=== PATIENT | female | born 1960 | race Caucasian/White ===

== ENCOUNTER 2023-07-10 01:42 | Inpatient (IN) | payer OTHER, SELFPAY ==
[2023-07-09] VITALS (15 sets, daily range): BP systolic 67–142; BP diastolic 39–86; BMI 28.1
[2023-07-09] MEDS: NORCURON 10 MG IV (22:43)
[2023-07-09] MEDS: DIPRIVAN 100 IV (22:43)
[2023-07-09] MEDS: LEVOPHED 250 IV (22:55)
--- NOTE | 2023-07-09 22:55 | EDRN ---
Patients blood pressure trending down, informed Dr. Mccain, starting levophed at this time.
[2023-07-09] MEDS: SUBLIMAZE 100 IV (23:10)
--- NOTE | 2023-07-09 23:10 | EDRN ---
Informed Dr. Mccain that temp fole yplaced in patient however as going through history appears she has history of latex allergy and gets hives, order to give benadryl to counteract that and to leave chapin placed for now to monitor temp. Dr. Mccain also
aware of patients temp. being low and would like to keep it at that for now
[2023-07-09] MEDS: NSS 1000 IV (23:14)
--- NOTE | 2023-07-09 23:14 | PHANOTE ---
Med Rec Note:
Tried to interview pt's spouse to find out pt's medications. He did not know what she was taking, he stated they just lost their insurance and she was trying to stretch her prescriptions.
Pt's spouse called pt's daughter in [place], pt's daughter stated that pt was admitted at [facility] in [place] in April and was discharged on Empagliflozin 10mg Daily, Insulin Glargine 20 units HS, Metformin 500mg BID, Pantoprazole 40mg Daily,
Rosuvastatin 20mg HS and Gabapentin 100mg 3 Caps BID for 14 days.
Home med list compiled from ECW, and pt's daughter. Other medications in ecw left unconfirmed.
[2023-07-09 23:16] LABS: % Basophils 0.4 % (0-2); % Eosinophils 0.7 % (0-6); % Immature Granulocytes 4.7 % (0-0.5); % Lymphocytes 52.8 % (20.5-51.1); % Neutrophils 38.4 % (42.2-75.2); Absolute Basophils 0.1 10^3/uL (0-0.2); Absolute Eosinophils 0.1 10^3/uL (0-0.7); Absolute Immature Granulocytes 0.9 10^3/uL (0-0.05); Absolute Lymphocytes 9.7 10^3/uL (1.2-3.4); Absolute Monocytes 0.6 10^3/uL (0.1-0.6); Absolute Neutrophils 7.1 10^3/uL (1.4-6.5); Hematocrit 39.4 % (37.0-47.0); Hemoglobin 12.8 g/dL (12.0-16.0); Mean Corp Hgb Conc. 32.5 g/dL (33.0-37.0); Mean Corpuscular Hgb 31.2 pg (27.0-31.0); Mean Corpuscular Volume 96.1 fL (81.0-99.0); Mean Platelet Volume 10.2 fL (7.4-10.4); Nucleated Red Blood Cells % 0.1 %; Platelet Count 240 10^3/uL (130-400); Red Cell Dist. Width 12.9 % (11.5-14.5); Urine Albumin 3+ (Neg - Trace); Urine Bilirubin Negative (Negative); Urine Character Very Cloudy (Clear); Urine Color Yellow; Urine Glucose 3+ (Negative); Urine Ketone Negative (Negative); Urine Leukocyte Negative (Negative); Urine Nitrite Negative (Negative); Urine Occult Blood 3+ (Negative); Urine Specific Gravity 1.015 (<1.030); Urine Urobilinogen Negative (Neg - 1+); White Blood Cell Count 18.4 10^3/uL (4.8-10.8)
[2023-07-09] MEDS: BENADRYL 25 MG IV (23:17)
[2023-07-09] MEDS: DUONEB 3 ML INH (23:27)
[2023-07-09] MEDS: VENTOLIN NEBULES 2.5 MG INH (23:27)
--- NOTE | 2023-07-09 23:32 | ED.GENMED ---
History of Present Illness
General
Chief Complaint: CODE
Source: patient, spouse and ambulance crew
Exam Limitations: clinical condition
Time Seen by Provider: 07/09/23 22:33
Nursing documentation reviewed up to this point in time: agreed with
Travel History
Have you had any contact with someone who has COVID-19?: No
Do you have any symptoms of coronavirus? Fever > 100 degrees, chills, cough, shortness of breath, sore throat, loss of taste or smell, muscle aches, or headache?: No
History of Present Illness
History of Present Illness:
Patient with history of CHF and COPD, presents to ED after witnessed respiratory arrest, and route to the hospital. Paramedics initially called to patient's house secondary to increased work of breathing, which occurred while patient was outside
smoking. Patient was found to be in respiratory distress when first arrived and shortly lost pulses. CPR started immediately by paramedics and 1 epinephrine dose provided via intraosseous line on her left leg, with shinto of pulse. Patient
also intubated at the scene. Upon arrival, patient is on a ventilator, and not responsive. Unable to obtain any further information.
Past History
Past History
ED Past Medical History: CHF, COPD and NIDDM
ED Past Surgical History: Cholecystectomy and Orthopedic
Social History
Tobacco: Former smoker
Review of Systems
Review of Systems
Allergies reviewed?: Yes
Unable to obtain full review of systems at this time due to: due to acuity
All Other Systems: Not applicable
Phy Exam
Physical Exam
Physical Exam:
Physical Exam
General: moderate distress, acutely ill. afebrile.
Head: nc/at. perrla
Neck: supple. no jvd
Heart: tachycardic, no murmur. equal radial pulses.
Lungs: no acute respiratory distress. rhonchi bilaterally
Abdomen: normal bowel sounds. no distention
Neuro: unresponsive to verbal or physical stimuli.
Skin: no rash
Extremities: no edema. no calf tenderness.
Course
Orders/Labs/Results
Orders:
Orders
07/09/23 22:33
CR Chest Portable - 1 View Urgent
Comment:
Reason For Exam: post intubation
Reason Study Needs to be Portable: Patient Unstable
07/09/23 22:35
Electrocardiogram (*1) Urgent
Reason for Study: Tachycardia
EKG- Treatment ONCE
Propofol 1,000,000 Mcg/100 ml [Diprivan] 1,000,000 mcg in 100 ml IV NOW
Indication:: Light Sedation
Begin Infusion:: Now
Goal:: RASS 0 to -2
Maximum dose in mcg/kg/min:: 50
Initial dose based on RASS:: Yes
If RASS is:: +1 or pt hemodynamically unstable (SBP < 90mmHg), initiate at 10 mcg/kg/min
If RASS is:: +2, initiate at 20 mcg/kg/min
If RASS is:: greater than or equal to +3, initiate at 30 mcg/kg/min
Titration Instructions:: Titrate by 5-10 mcg/kg/min every 5 minutes until RASS 0 to -2 achieved.
Taper Instructions:: If RASS is at or below goal for 4 consecutive hours decrease infusion by
Taper Instructions:: 5-10 mcg/kg/min every 2 hours to off.
Over-sedation Instructions:: If CPOT 0-2 (at goal) AND RASS -3 to -5 (below goal) decrease sedative by
Over-sedation Instructions:: 50% first. If pain score remains at goal and RASS remains below goal in
Over-sedation Instructions:: 1 hour, decrease opioid infusion by 50%.
Notify provider:: immediately if patient exhibits signs/symptoms of propofol-related
Notify provider:: infusion syndrome.
Additional Instructions:: Patient MUST be mechanically ventilated and MUST receive analgesia.
07/09/23 22:37
Vecuronium [place] [Norcuron] 10 mg IV NOW STA
07/09/23 22:38
FentaNYL 1,000 MCG/100 ML [Sublimaze] 1,000 mcg in 100 ml IV NOW
Indication:: Light Sedation
Begin Infusion:: Now
Goal:: pain score </= 1, CPOT 0-2
Maximum dose in mcg/hr:: 300
Initial Dose in mcg/hr:: 10
Titration Instructions:: Titrate every 30 minutes if patient exhibits signs of pain or discomfort
Titration Instructions:: (pain score >/= 2, CPOT >/= 3).
Titration Instructions:: Administer bolus dose and increase infusion by 25 mcg/hr.
Taper Instructions:: If pain score at goal for 4 consecutive hours (pain score </= 1, CPOT 0-2)
Taper Instructions:: decrease infusion by 50 mcg/hr every 2 hours.
Taper Instructions:: When dose </= 50 mcg/hr may turn infusion off and consider PRN
Taper Instructions:: intermittent bolus doses only.
Over-sedation Instructions:: If CPOT 0-2 (goal) and RASS -3 to -5 (below goal) decrease sedative by 50%
Over-sedation Instructions:: first. If pain score remains at goal and RASS remains below goal in 1 hour,
Over-sedation Instructions:: decrease opioid infusion by 50%.
Notify provider:: immediately if pt exhibits: chest wall rigidity, hemodynamic instability,
Notify provider:: agitation/pain despite maximum dosing, pain when RASS below goal.
Additional Instructions:: Patient MUST be mechanically ventilated.
Fentanyl Citrate/Pf [Sublimaze] 25 mcg IV NOW STA
Fentanyl Citrate/Pf [Sublimaze] 50 mcg IV [id number] PRN
07/09/23 22:45
Arterial Blood Gas Urgent
%Oxygen/Room Air: 100
Albuterol Nebs [Ventolin Nebules] 2.5 mg INH R NOW STA
Carboxymethylcellulose [Refresh Celluvisc Gel] 1 drops OPHTH Q12H
Ipratropium/Albuterol Sulfate [Duoneb] 3 ml INH R NOW STA
07/09/23 22:46
0.9% Sodium Chloride 1000 ml [Nss] 1,000 ml IV BOLUS
07/09/23 23:03
Complete Blood Count/With Diff Urgent
NT-proBNP Urgent
Comment: ADD ON
Triglycerides Routine
Comment: baseline levels with propofol infusion
Troponin I Urgent
Urinalysis Reflex To Culture Urgent
Date Specimen was Collected: 07/09/23
Time Specimen was Collected: 23:02
Urine Microscopic Reflex Cult Urgent
Urine Culture Urgent
KENNETH Source: U
Specimen Description:
Date Specimen was Collected: 07/09/23
Time Specimen was Collected: 23:02
07/09/23 23:08
FentaNYL 1,000 MCG/100 ML [Sublimaze] 1,000 mcg in 100 ml .ROUTE .STK-MED
07/09/23 23:09
Diphenhydramine [Benadryl] 50 mg .ROUTE .STK-MED ONE
07/09/23 23:17
Diphenhydramine [Benadryl] 25 mg IV NOW STA
07/09/23 23:29
Add On- LAB Urgent
Tests Added?: ProBNP
07/09/23 23:43
Comprehensive Metabolic Panel Urgent
Comment: REDRAW
Magnesium Urgent
07/09/23 23:45
NORepinephrine 4 MG/250 ML [Levophed] 4 mg in 250 ml IV PER PROTOCOL
Initial dose in mcg/min, then titrate:: 10
Titrate to keep:: MAP > 65 mmHg
Titrate by mcg/min:: 1-2 mcg/min
Frequency of titrations (minutes):: 5
Maximum dose in ICU in mcg/min:: 30
Maximum dose in IMU in mcg/min:: 8
Maximum dose in IVU in mcg/min:: 4
Begin to taper infusion when:: Remained at goal for 4hrs
Taper by mcg/min:: 1-2 mcg/min
Frequency of taper (minutes) if patient maintains goal:: 30
Taper to off?: Yes
If infusion off & no longer maintaining goal:: Contact Provider
07/10/23 00:17
Catheter- Indwelling As Directed
Reason for insertion: I&O's Critical Care
Assess insertion reason daily.Remove if no longer applicable: Yes
07/10/23 00:45
Procalcitonin Urgent
PCT Algorithmm Indication: Respiratory
07/10/23 00:51
Aztreonam [Azactam] 500 mg Syringe [Syringe-Pump] 0 ml IV NOW
Dexamethasone Sod Phosphate [Decadron] 10 mg IV NOW STA
Vancomycin 1 Gram/200 ml [Vancocin] 1 gram in 200 ml IV NOW
07/10/23 00:52
Lactated Ringers [Lr] 500 ml IV BOLUS
07/10/23 01:00
CT Head W/o Iv Contrast Urgent
Reason For Exam: mental status change, s/p arrest
07/10/23 01:01
Aztreonam [Azactam] 1,000 mg IV NOW STA
Vancomycin [Vancocin] 1,500 mg 0.9% Sodium Chloride [Nss] 20 ml 0.9% Sodium Chloride 250 ml [Nss] 250 ml IV NOW
07/10/23 01:04
Admit/Transfer Patient As Directed
Co-Sign Provider:
Level of Care: Inpatient admission
Assign to:: ICU
Physician / Group: [email or web address]
Diagnosis: acute VDRF,S/p witmessed respiratory arrest, COPD flare, chr HFmEF flare
Reason for Hospitalization: acute VDRF,S/p witmessed respiratory arrest, COPD flare, chr HFmEF flare
Expected length of stay greater than two midnights?: Yes
ELOS- Estimated Length of Stay in days: 7
I certify the patient meets the requirements for IP care: Yes
07/10/23 01:08
Code Status As Directed
Resuscitation Status: Full Code
07/10/23 01:34
Vancomycin [Vancocin] 1,500 mg 0.9% Sodium Chloride [Nss] 20 ml 0.9% Sodium Chloride 250 ml [Nss] 250 ml IV NOW
07/10/23 04:20
Troponin I Q6H
Acetaminophen [Tylenol/Feverall] 650 mg RECTAL Q4HPRN PRN
Bisacodyl [Dulcolax] 10 mg RECTAL [id number] PRN
Dextrose 50%-Water [Dextrose 50% Syringe] 12.5 grams IV [id number] PRN
Docusate W/Senna [Senokot-S] 1 tablet PO BIDPRN PRN
Glucagon [GlucaGen] 1 mg IM PRN PRN
Ipratropium/Albuterol Sulfate [Duoneb] 3 ml INH R Q4HPRN PRN
Polyethylene Glycol Powder [Miralax] 17 grams PO DAILYPRN PRN
VANCOMYCIN Pharmacy to Dose [VANCOCIN Pharmacy to Dose] 1 each Pharmacy To Prepare [Call Pharmacy To Prepare] 0 ml IV PER PROTOCOL
07/10/23 04:20
CARDIOLOGY CONSULT Routine
Consulting Provider: Solomon Ernst
Was physician already notified: No
Reason for consult: acute VDRF,S/p witmessed respiratory arrest, COPD flare, chr HFmEF flare
Consult Notification Routine
Specialty to Notify: Cardiology
Consult Notification Routine
Specialty to Notify: Pulmonary
Activity As Directed
Activity Level: With Assistance
Bedside Glucose Monitoring As Directed
Frequency: AC&HS
Comment: Change to q6h if pt on TPN, tube feeding or not eating
Intake/ Output As Directed
Frequency: q12h
Vital Signs As Directed
Frequency: Per unit guidelines
Weight As Directed
Frequency: Daily
DX Deep Vein Thrombosis Video Routine
07/10/23 Breakfast
NPO
Allow oral meds: No
Allow clear liquids: No
NPO with Ice Chips: No
Comment: await small bore NGT placemnt for meds
Complete Blood Count/No Diff IN AM
Comprehensive Metabolic Panel IN AM
Glycohemoglobin (HgbA1c) IN AM
07/10/23 07:00
Dexamethasone Sod Phosphate [Decadron] 4 mg IV Q6H
07/10/23 07:30
Insulin Aspart Corrective Low [Novolog Flexpen-Low Resistance] See Protocol SC AC
07/10/23 08:00
Heparin 5,000 units SC Q12
Ipratropium/Albuterol Sulfate [Duoneb] 3 ml INH R QID
07/10/23 10:00
Aztreonam [Azactam] 1,000 mg IV Q8H
07/10/23 10:20
Troponin I Q6H
07/10/23 16:20
Troponin I Q6H
Abnormal Lab Results
07/09/23 07/09/23 07/10/23
23:03 23:43 00:10
WBC 18.4 H 10^3/uL
(4.8-10.8)
RBC 4.10 L 10^6/uL
(4.20-5.40)
MCH 31.2 H pg
(27.0-31.0)
MCHC 32.5 L g/dL
(33.0-37.0)
Abs Immat Gran (auto) 0.9 H 10^3/uL
(0-0.05)
Absolute Neuts (auto) 7.1 H 10^3/uL
(1.4-6.5)
Absolute Lymphs (auto) 9.7 H 10^3/uL
(1.2-3.4)
Immature Gran % 4.7 H %
(0-0.5)
Neutrophils % 38.4 L %
(42.2-75.2)
Lymphocytes % 52.8 H %
(20.5-51.1)
pH 7.09 L*
(7.35-7.45)
pCO2 65 H mmHg
(32-35)
pO2 71 L mmHg
(83-108)
HCO3 19.7 L mmol/L
(21-28)
ABG O2 Sat (Measured) 93.2 L %
(94-98)
Sodium 133 L mmol/L
(135-145)
Carbon Dioxide 14 L* mmol/L
(22-30)
Glucose 302 H mg/dl
(70-99)
AST 213 H U/L
(14-36)
ALT 69 H U/L
(0-35)
Alkaline Phosphatase 255 H U/L
(38-126)
Troponin I 0.064 H* ng/ml
Triglycerides 173 H mg/dl
(10-149)
Ur Occult Blood Reflex 3+ A
(Negative)
Urine RBC 30-40 A /HPF
(0-2)
Urine WBC (Reflex) 40-50 A /HPF
(0-5)
Urine Bacteria (Reflex) Moderate A
(Negative)
Urine Glucose 3+ A
(Negative)
Urine Albumin (Reflex) 3+ A
(Neg - Trace)
07/09/23 23:03
07/09/23 23:43
Vital Signs
Initial and Last Documented VS:
Initial Vital Signs
Pulse Resp Pulse Ox
122 16 100
07/09/23 22:39 07/09/23 22:39 07/09/23 22:39
Last Documented Vital Signs
Temp Pulse Resp BP Pulse Ox
95.9 F L 102 22 115/85 98
07/09/23 23:56 07/10/23 04:15 07/10/23 04:15 04/16/24 04:15 07/10/23 04:00
MDM/Problems Addressed
MDM/Problems Addressed:
Discussed with family (spouse) - patient was at her baseline health when she went out to the garage to smoke cigarette. Shortly afterwards, patient started complaining of shortness of breath and asked her to call 911. In addition,
recently, patient was with health insurance and has been taking her medications intermittently.
Patient started on Levophed infusion along with sedation protocol upon arrival. Chest x-ray reviewed and ET tube pulled back 2 cm.
Leukocytosis noted, without any evidence of focal infection. As such, will withhold antibiotics.
Critical care statement: A total of 60 minutes of critical care time was provided for this patient. This includes management of unstable vital signs, evaluation of the patient at bedside, reviewing the patient's pertinent medical records, discussion
with consultants, review of old EKGs and review of pertinent medical records. This time with separate from time utilized to perform the aforementioned documented procedures
*Critical Care Note
Total Time (30-74mins, 75-104mins- exclusive of procedures): 60 min
ED Attending Note
-
Portions of this chart may have been created with voice recognition software.� Occasional wrong word or��sound alike� substitutions may have occurred due to the inherent limitations of voice recognition software.
Discharge Plan
Departure
Patient Disposition: Admit
Date of Disposition: 07/09/23
Time of Disposition: 23:41
Admit to: ICU
Presentation/result/management discussed w/ accepting MD/DO: Hospitalist
Discharge Problem:
Respiratory arrest
Interventions
Interventions:
*Risk Screen - Suicide Last Done: 07/09/23 22:45
*General Assessment Last Done: 07/09/23 22:45
*Neglect/Abuse Screening Last Done: 07/09/23 22:45
ED- Fall Risk Assessment Last Done: 07/10/23 00:00
*ED COVID-19 Vaccine History Last Done: 07/09/23 22:45
*Nursing Disposition Last Done: 07/10/23 04:31
ED- Cardiac Assessment Last Done: 07/10/23 00:00
ED- Pulmonary Assessment Last Done: 07/10/23 00:00
Discharge Date and Time
Discharge Date/Time: 07/10/23 04:34
[2023-07-09 23:44] LABS: Triglycerides 173 mg/dl (10-149)
[2023-07-09 23:51] LABS: Troponin I 0.064 ng/ml
--- NOTE | 2023-07-09 23:53 | EDRN ---
Called Dr. Mccain into room, patients heart rate has increased, printed strips to show, Dr. Mccain at bedside, wants to drop Levophed, respiratory also at bedside to suction, o2 sats dropped to 88% with this event as well, HR remains elevated at 147
[2023-07-09 23:56] LABS: NT-proBNP 2750 pg/ml
[2023-07-10] VITALS (72 sets, daily range): BP systolic 57–166; BP diastolic 41–110; BMI 25.4
[2023-07-10 00:13] LABS: ALT (SGPT) 69 U/L (0-35); AST (SGOT) 213 U/L (14-36); Albumin 4.2 g/dl (3.5-5.0); Alkaline Phosphatase 255 U/L (38-126); Blood Urea Nitrogen 17 mg/dl (7-17); Carbon Dioxide 14 mmol/L (22-30); Chloride 104 mmol/L (98-107); Estimated Creatinine Clearance 58 ml/min; Glucose 302 mg/dl (70-99); Potassium 4.7 mmol/L (3.5-5.1); Sodium 133 mmol/L (135-145); Total Bilirubin 0.4 mg/dl (0.2-1.3); Total Protein 6.6 g/dl (6.3-8.2); eGFR > 60.00
--- NOTE | 2023-07-10 00:31 | EDRN ---
Patients BP has improved, holding Levophed for now per Dr. Mccain.
[2023-07-10 00:32] LABS: B.E. -11.1 mmol/L; HCO3 19.7 mmol/L (21-28); O2 Saturation % 93.2 % (94-98); PCO2 65 mmHg (32-35); PO2 71 mmHg (83-108)
[2023-07-10 00:33] LABS: pH 7.09 (7.35-7.45)
[2023-07-10 00:48] LABS: Urine Amorphous Seen
[2023-07-10 00:49] LABS: Urine Bacteria Moderate (Negative); Urine Granular Cast >15 /LPF (0)
[2023-07-10 00:51] LABS: Urine Red Blood Cell 30-40 /HPF (0-2); Urine White Cell 40-50 /HPF (0-5)
--- NOTE | 2023-07-10 00:58 | HPS.HSE ---
Family Physician
-
Family Physician: NOT KNOW UNKNOWN - PT DOES
Chief Complaint
-
out side hospital Resp arrest
History of Present Illness
I could not get any information from the patient as she is intubated and unresponsive
Information gathered by chart review and speaking with the ER attending
HPI
63F HX Chr HFmEF, COPD, HX acute hypoxic RF, DM evaluation at ER for prehospital resp arrest s/p CPR and intubated;
Events of prehospital respiratory arrest witnessed by spouse who called 911
She was smoking outside
She become labored breathing, spoused ccalled 911
Upon EMS arrival then initial agonal breathing followedd by loss of pulse
CPR 3-5 min with ROSC after one epi via intraosseous line on her left leg with CPR.
Then intubated at the scene.
On arrival to ER:
On a ventilator, and not responsive.
Fentanyl gtt and levophed gtt.
Medical History
Past Medical History
Past Medical History: Reports CHF, COPD, HTN and NIDDM
Past Surgical History: Reports Cholecystectomy and Orthopedic
Social History
Tobacco: Former Smoker
Family History
Family History: Not pertinent
Allergies / Home Medications
Allergies reflects when Allergies were last updated in [facility].
Home Medications with original date entered in [facility]
Allergy/Medication List:
Allergies
Allergy/AdvReac Type Severity Reaction Status Date / Time
codeine Allergy Itching Verified 07/09/23 22:52
latex Allergy Hives Verified 07/09/23 22:52
Penicillins Allergy Rash Verified 07/09/23 22:52
silver Allergy 'peels Verified 07/09/23 22:52
[From Tegaderm AG Mesh] skin off'
Home Medications
aspirin 81 mg tablet,delayed release 81 mg PO DAILY 12/06/22
rosuvastatin 20 mg tablet 20 mg PO HS 12/06/22
fluticasone 250 mcg-salmeterol 50 mcg/dose blistr powdr for inhalation (Advair Diskus) 1 inh inhalation R BID #60 ea 12/09/22
furosemide 20 mg tablet 20 mg PO DAILY #30 tabs 12/09/22
insulin glargine 100 unit/mL (3 mL) subcutaneous pen (Lantus Solostar U-100 Insulin) 20 unit (0.2 mL) SC HS #15 mL 12/09/22
ipratropium 0.5 mg-albuterol 3 mg (2.5 mg base)/3 mL nebulization soln 3 ml inhalation Q4H PRN shortness of breath or wheezing #90 mL 12/09/22
metformin 500 mg tablet 500 mg PO BID@0800,1700 #60 tabs 12/09/22
metoprolol succinate 25 mg tablet,extended release 24 hr 12.5 mg (1/2 x 25 mg) PO DAILY #15 tabs 12/09/22
alprazolam 0.25 mg tablet 0.25 mg PO BID 07/09/23
benzonatate 200 mg capsule 200 mg PO TID 07/09/23
empagliflozin 10 mg tablet (Jardiance) 10 mg PO DAILY 07/09/23
insulin aspart U-100 100 unit/mL (3 mL) subcutaneous pen (Novolog FlexPen U-100 Insulin aspart) 0 - 10 sliding scale dose SC AC 07/09/23
meclizine 25 mg tablet 25 mg PO TID PRN dizziness 07/09/23
ondansetron 4 mg disintegrating tablet 4 mg PO DAILY PRN nausea 07/09/23
pantoprazole 40 mg tablet,delayed release 40 mg PO DAILY 07/09/23
Review of Systems
-
Constitutional: Reports No Symptoms
EENT: Reports No Symptoms
Respiratory: Reports See HPI
Cardiac: Reports No Symptoms
Abdomen/GI: Reports No Symptoms
: Reports No Symptoms
Musculoskeletal: Reports No Symptoms
Skin: Reports No Symptoms
Neurological: Reports No Symptoms
Endocrine: Reports No Symptoms
Hematologic/Lymphatic: Reports No Symptoms
Psych: Reports No Symptoms
Physical Exam
Vital Signs
Vital Signs
Temp Pulse Resp BP Pulse Ox
95.9 F L 146 15 84/72 93
07/09/23 23:56 07/09/23 23:50 07/09/23 23:50 07/09/23 23:50 07/09/23 23:45
Physical Exam
General: Intubated
HEENT: NormoCephalic, Anicteric and Moist mucous membranes
Respiratory: Rhonchi (diffuse bilateral )
Cardiac: S1/S2, Regular Rhythm and Tachycardia; No Murmur
Breast: Deferred by me
GI: Soft, Non Tender and Non Distended
Genito-urinary: Deferred by me
Neuro: Other (unresponsive )
Psych: Other (intubated )
Laboratory Results
-
07/09/23 23:03
07/09/23 23:43
Laboratory Results
pH 7.09 (7.35-7.45) L* 07/10/23 00:10
pCO2 65 mmHg (32-35) H 07/10/23 00:10
pO2 71 mmHg (83-108) L 07/10/23 00:10
HCO3 19.7 mmol/L (21-28) L 07/10/23 00:10
Total Bilirubin 0.4 mg/dl (0.2-1.3) 07/09/23 23:43
AST 213 U/L (14-36) H 07/09/23 23:43
ALT 69 U/L (0-35) H 07/09/23 23:43
Alkaline Phosphatase 255 U/L (38-126) H 07/09/23 23:43
Troponin I 0.064 ng/ml H* 07/09/23 23:03
Data Reviewed
-
Diagnostic Radiology: Image Personally Visualized and interpreted
Lab Data: Labs Reviewed by me
Old Records: Reviewed
Impression/Plan
-
Reviewed VS: T 95.[address] 130-140 BP 80/40 --->140/65 RR 14 PO 93 on vent
Data
AB.
WCC 18.4
Na 133 Cl 104
K 4.7
CO2 14
Nl BUN and Cr
BG 302
AST 213 ALT 69 AKP 255
TPNI 0.064
pro BNP 2750 - bl 2540
Unremarkable UA
EKG pending
CXR
1. Endotracheal tube terminating 5.5 mm proximal to the judd (retraction by 2.[address] the tip midway between the clavicular heads and judd).
2. SEVERE ACUTE INTERSTITIAL CARDIOGENIC PULMONARY EDEMA.
Last hospitalist admission: 12/06/22 - 12/09/22
DX Dx:
Acute hypoxic respiratory failure multifactorial from acute congestive heart failure and acute COPD flare
Acute on chronic HFmEF with EF of 45%
CAD with stent
ASSESSMENT & PLAN
Pending Rx reconciliation
Acute VDRF: S/p witnessed respiratory arrest s/p CPR 3-5 min with ROSC s/p IOS epi
Hypotension required NE gtt support
Acute hypoxic hypercapnic RF
Primary acute Resp acidosis with secondary metabolic acidosis
Non gap metabolic acidosis
- HX PCN allergy
- multifactorial from acute CHF and acute COPD
- cont Vent support
- cont NE gtt support
- Empiric Decadron 4mg q6h
- Empiric IV vancomycin and Aztreonam
- Need ICU small bore NGT for meds
- ICU consult
At risk for volume expansion
HX chronic HFmEF (per records)
- records received by cards - summarized as per their note. EF 40-45%
- continue BB as BP allows
- IV Lasix as neeed
- CBC card consult
CAD with history of stenting:
- continue BB/ASA/Statin
- trop negative
Former smoker:
- smoked for 51 years, quit in August
Type 2 DM
- add Lo ISS
DVT ppx: SC Heparin
Code: Full
ICU
Total Critical Care Time__55 mind ___ minutes.
I was immediately available to the patient and staff. I personally examined, reviewed labs, diagnostic images/reports, interpretations, treatment plans, discussed patient care with other providers and family or caregivers (if patient is unable to
make decisions), entered orders as appropriate and documented the medical record.
[2023-07-10] MEDS: LR 500 IV (01:08)
[2023-07-10] MEDS: DECADRON 10 MG IV (01:11)
--- NOTE | 2023-07-10 01:13 | EDRN ---
Daughter called asking for information, our community fundraiser informed her we can't give information out over the phone she can call the patient who is sitting at bedside who we have been keeping updated. As I enter room to go over information
with about meds we will be starting, daughter is on speaker telling 'you need to tell that bitch she needs to talk to me im the emergency contact' informed how we can't give info over the phone it is hippa and we don't have paperwork
with her being POA and is at bedside to relay information. Daughter starts yelling stating 'ooo im gonna make her mad now, and we don't know what the fuck we are talking about, 'bitch you need to talk to me im the emergency contact' kindly
informed that I have been at bedside with his and we are trying to take good care of her and if she is going to curse on phone towards me and be belligerent than he needs to take the phone call outside of the room as it isn't
appropriate for her to yell at me hung up the phone, i informed him that we are trying to take good care of his and its not appropriate for her to be yelling at us while doing so via the phone. understands
--- NOTE | 2023-07-10 01:23 | EDRN ---
Patient starting to move slightly, increased Fentanyl for comfort, also appears patient had a bowl movement, will get patient cleaned up.
--- NOTE | 2023-07-10 01:37 | EDRN ---
Patient becoming diaphoretic, informed Dr. Mccain who is in at bedside assessing patient informed her she did seem to be moving a little bit and Fentanyl was increased, she also had a bowl movement, Dr. Mccain think she is just waking up some, increase
sedation and patient to be cleaned up and re-assess how she is after that.
[2023-07-10] MEDS: AZACTAM 1000 MG IV (02:32)
--- NOTE | 2023-07-10 02:39 | EDRN ---
Patient had a large liquid stool that was continuously pouring out of the patient, patient was cleaned up and a fecal management System was placed and is collecting the stool, fresh linen and gown applied.
--- NOTE | 2023-07-10 03:05 | EDRN ---
Patient started vomiting prior to leaving to go to CT and then to ICU, respiratory at bedside suctioning patient, Dr. Mccain aware that patient is vomiting and starting to move, Ativan to be given to patient prior to leaving to go upstairs, patients
blood pressure continues to be up and down, titrating Levophed per order, Dr. Mccain aware of patients status and has been in to assess patient as well. Patient to go to CT scan with this RN and respiratory therapist prior to going upstairs.
[2023-07-10] MEDS: ATIVAN 1 MG IV (03:08)
[2023-07-10 03:14] LABS: HCO3 19.3 mmol/L (21-28); O2 Saturation % 97.7 % (94-98); PCO2 45 mmHg (32-35); PO2 81 mmHg (83-108); pH 7.24 (7.35-7.45)
[2023-07-10 03:15] LABS: O2 Therapy 95
--- NOTE | 2023-07-10 03:15 | EDRN ---
Had security walk patients up to ICU waiting room, aware that patient will be going to CT and then to ICU and that it can take a bit to get her settled in but would inform ICU nurses that he was there
--- NOTE | 2023-07-10 03:30 | EDRN ---
took patients vancomycin upstairs with patient and handed to nurse, gave one antibiotic downstairs and patient started to get sick prior to going to CT and had to change up the current meds that were going, informed the nurse on all of this when
dropping patient off upstairs.
--- NOTE | 2023-07-10 03:56 | W.PN.UPDATE ---
Update Note
Progress Note Update
Procedure Note: Arterial Line�
� Right Wrist Arrow 20 (05/27)�
Diagnosis:��cardiac arrest
IV Line Comments: Uneventful Procedure�
Azeem's test completed pre-procedure: Yes�
A-Line Comments: Sterile technique as per standard protocol, Ultrasound guided insertion�
Functioning A-line in situ: Yes�
A-line Insertion Start Time:��0515
A-line in at:��0520
--- NOTE | 2023-07-10 04:00 | PTCARENOTE ---
PT arrived to unit at approx. 0335 via ED bed stretcher. Received pt intubated and sedated. Pt on levo gtt and fentanyl gtt. Shortly after tsx to ICU bed pt began vomiting large amounts of red colored emesis, requiring frequent oral suctioning. Pt
tolerating vent settings satting at 98% pulse ox. VSS.
[2023-07-10] MEDS: ZOFRAN 4 MG IV (04:39)
[2023-07-10] MEDS: VANCOCIN 300 ML IV (06:07)
[2023-07-10] MEDS: VANCOCIN 300 MG IV (06:07)
[2023-07-10] MEDS: SUBLIMAZE 100 IV ×2 (06:28→20:40)
[2023-07-10 06:32] LABS: B.E. -7.6 mmol/L; HCO3 16.4 mmol/L (21-28); Ionized Calcium 1.18 mMOL/L (1.15-1.33); PCO2 29 mmHg (32-35); PO2 206 mmHg (83-108); Potassium 3.8 mMOL/L (3.5-5.1); Sodium 135 mMOL/L (136-145); pH 7.36 (7.35-7.45)
[2023-07-10 06:33] LABS: Hematocrit 39.8 % (37.0-47.0); Hemoglobin 13.9 g/dL (12.0-16.0); Mean Corp Hgb Conc. 34.9 g/dL (33.0-37.0); Mean Corpuscular Hgb 31.2 pg (27.0-31.0); Mean Corpuscular Volume 89.2 fL (81.0-99.0); Mean Platelet Volume 9.4 fL (7.4-10.4); Platelet Count 221 10^3/uL (130-400); Red Blood Cell Count 4.46 10^6/uL (4.20-5.40); Red Cell Dist. Width 12.8 % (11.5-14.5); White Blood Cell Count 25.4 10^3/uL (4.8-10.8)
[2023-07-10] MEDS: DECADRON 4 MG IV (06:35)
[2023-07-10 06:43] LABS: INR 1.22; PT 15.2 Sec (11.4-14.6)
[2023-07-10 06:44] LABS: APTT 29.2 Sec (23.4-35.0)
[2023-07-10 06:47] LABS: ALT (SGPT) 76 U/L (0-35); AST (SGOT) 262 U/L (14-36); Albumin 3.9 g/dl (3.5-5.0); Alkaline Phosphatase 255 U/L (38-126); Blood Urea Nitrogen 27 mg/dl (7-17); Calcium 9.5 mg/dl (8.4-10.2); Carbon Dioxide 16 mmol/L (22-30); Chloride 104 mmol/L (98-107); Estimated Creatinine Clearance 45 ml/min; Glucose 307 mg/dl (70-99); Potassium 4.1 mmol/L (3.5-5.1); Sodium 135 mmol/L (135-145); Total Bilirubin 0.5 mg/dl (0.2-1.3); Total Protein 6.1 g/dl (6.3-8.2); eGFR > 60.00
[2023-07-10] MEDS: NOVOLOG FLEXPEN-MODERATE RESISTANCE 7 UNITS SC (06:51)
--- NOTE | 2023-07-10 07:04 | CON.INTV ---
Consultation
Consultation Request
Date/Time Consultation Requested: 07-10-23
Date/Time Consultation Performed: 07-10-23
Requesting Provider: Hospitalist nikko
Performing Provider: Dr Hubbard
Reason for Consultation: cardiac arrest
Medical History
-
Chief Complaint: respiratory and cardiac arrest
History of Present Illness:
Mrs Osiris Muñoz is a 63/W adm 07-08 after sustaining witnessed respiratory distress.
EMS found her with agonal breathing, then respiratory arrest followed by cardiac arrest per information gathered by ER physician. ACLS protocol initiated immediately, CPR provided for 3-5 min with ROSC after one dose of epinephrine via IO line,
intubated as scene.
Received at ER on MV, unresponsive, started on IV propofol and fentanyl, NE gtt, given one dose of vecuronium IV.
Known h/o HF, CAD, T2DM, COPD, tobacco dependence, unfortunately lost medical insurance about 1 m ago and was trying to make her current med supply last longer but decreasing frequency of dosing
Past Medical History
Past Medical History: CHF, COPD, HTN and NIDDM
Social History
Tobacco: Smoker
Alcohol: None
Drug: None
Personal:
Living: With Family
Family History
Family History: Reviewed & Not Pertinent
Allergies / Home Medications
Allergies
Allergy/AdvReac Type Severity Reaction Status Date / Time
codeine Allergy Itching Verified 07/09/23 22:52
latex Allergy Hives Verified 07/09/23 22:52
Penicillins Allergy Rash Verified 07/09/23 22:52
silver Allergy 'peels Verified 07/09/23 22:52
[From Tegaderm AG Mesh] skin off'
Home Medications
�Medication �Instructions �Recorded �Confirmed �Last Taken �Type
aspirin 81 mg tablet,delayed 81 mg PO DAILY 12/06/22 12/06/22 12/06/22 History
release
rosuvastatin 20 mg tablet 20 mg PO HS 12/06/22 07/09/23 12/05/22 History
fluticasone 250 mcg-salmeterol 50 1 inh inhalation R BID #60 ea 12/09/22 Unknown Rx
mcg/dose blistr powdr for
inhalation (Advair Diskus)
furosemide 20 mg tablet 20 mg PO DAILY #30 tabs 12/09/22 Unknown Rx
insulin glargine 100 unit/mL (3 20 unit (0.2 mL) SC HS #15 mL 12/09/22 07/09/23 Unknown Rx
mL) subcutaneous pen (Lantus
Solostar U-100 Insulin)
ipratropium 0.5 mg-albuterol 3 mg 3 ml inhalation Q4H PRN shortness 12/09/22 Unknown Rx
(2.5 mg base)/3 mL nebulization of breath or wheezing #90 mL
soln
metformin 500 mg tablet 500 mg PO BID@0800,1700 #60 tabs 12/09/22 07/09/23 Unknown Rx
metoprolol succinate 25 mg 12.5 mg (1/2 x 25 mg) PO DAILY #15 12/09/22 Unknown Rx
tablet,extended release 24 hr tabs
alprazolam 0.25 mg tablet 0.25 mg PO BID 07/09/23 07/09/23 Unknown History
benzonatate 200 mg capsule 200 mg PO TID 07/09/23 Unknown History
empagliflozin 10 mg tablet 10 mg PO DAILY 07/09/23 07/09/23 Unknown History
(Jardiance)
insulin aspart U-100 100 unit/mL 0 - 10 sliding scale dose SC AC 07/09/23 Unknown History
(3 mL) subcutaneous pen (Novolog
FlexPen U-100 Insulin aspart)
meclizine 25 mg tablet 25 mg PO TID PRN dizziness 07/09/23 Unknown History
ondansetron 4 mg disintegrating 4 mg PO DAILY PRN nausea 07/09/23 Unknown History
tablet
pantoprazole 40 mg tablet,delayed 40 mg PO DAILY 07/09/23 07/09/23 Unknown History
release
Review of Systems
-
Unable to Obtain full review of systems at this time due to: Patient Intubation
Vitals / Labs / Diagnostic Testing
Vital Signs
Temp Pulse Resp BP Pulse Ox
96.7 F L 97 22 105/82 100
07/10/23 06:00 07/10/23 06:30 07/10/23 06:30 07/10/23 06:30 07/10/23 05:45
Lab Data
07/10/23 06:17
07/10/23 06:16
Laboratory Results
07/10/23 07/10/23 07/10/23
00:10 02:55 06:00
PT Cancelled
INR Cancelled
APTT
pH 7.09 L* 7.24 L
pCO2 65 H 45 H
pO2 71 L 81 L
HCO3 19.7 L 19.3 L
O2 Delivery Level 95
07/10/23
06:16
PT 15.2 H
INR 1.22
APTT 29.2
pH 7.36
pCO2 29 L
pO2 206 H
HCO3 16.4 L
O2 Delivery Level
Diagnostic Testing:
Physical Exam
-
HEENT: Normocephalic and Moist Mucous Membranes
Cardiovascular: Regular Rhythm, Murmur (n) and Peripheral Edema (n)
Respiratory: Rales and Accessory Resp Muscle Use (n)
GI: Soft and Non Distended
Neurology: Other (sedated)
Skin: Warm
General: Respiratory Distress (n)
Assessment
-
Assessment:
Mrs Osiris Muñoz is a 63/W adm 07-08 after sustaining witnessed respiratory distress ( witnessed). EMS found her with agonal breathing, then respiratory arrest followed by cardiac arrest per information gathered by ER physician. ACLS
protocol initiated immediately, CPR provided for 3-5 min with ROSC after one dose of epinephrine via IO line, intubated as scene. Received at ER on MV, unresponsive, started on IV propofol and fentanyl, NE gtt, given one dose of vecuronium IV. Known
h/o HF, CAD, T2DM, COPD, tobacco dependence, unfortunately lost medical insurance about 1 m ago and was trying to make her current med supply last longer but decreasing frequency of dosing
Impression:
Respiratory arrest followed by cardiac arrest as witnessed by EMS
Intubated at scene
CPR for 3-5 min with ROSC
Interim R basilar infiltrate on CXR
NSTEMI: marked interim elevation of troponins
HFrEF, acute on chronic (TTE 07-09: LVEF 30-35%, technically difficult study)
Elevated BNP
Markedly elevated PCT
Transaminitis
Microhematuria, bacteriuria, albuminuria
Recurrent nausea, reportedly acute on chronic
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
HFrEF, LVEF 45%, hypokinesis mid to apical septum and apex, stage II DD, moderate eccentric MR, ePAP 84, small pericardial effusion, normal RV size and function
CAD s/p stenting
T2DM
COPD, qualified for home O2 upon d/c from in Nov 2022 (adm for CHF and AECOPD)
Smoker
Recent partial medical compliance due to lack of insurance
Plan:
Witnessed respiratory arrest followed by cardiac arrest: EMS at scene, CPR fo 3-5 min with ROSC
Underlying CAD, HFrEF
Ongoing heavy smoking
Recent partial medical compliance due to lack of insurance
Interim R basilar infiltrate on follow up CXR
CXR with pulm vasc congestion which improved on follow up CXR, but interim development of R basilar infiltrate/atelectasis
Suspected aspiration
Continue ACV: 80=985-0-9.4 (Ox 99%)
No yet candidate for weaning trial
Continue sedation/analgesia: propofol/fentanyl
UCx pending
Check UDS, blood cxs, trach asp cx
Empiric atbs on adm: aztreonam (reported penicillin allergy) and vancomycin
Change aztreonam to cefepime, continue vancomycin for now
NE to keep MAP>=65 mmHg
NSTEMI
Marked interim elevation of troponins
Elevated BNP
Known h/o HFrEF, on current TTE LVEF down from 45% to 30-35% (technically difficult TTE)
RV size and function normal
Holding BB due to hypotension
ASA pr due to intermittent nausea/vomit
Outpatient jardiance 10 mg daily, AC novolog SS, lantus 20 units hs, metformin 500 mg BID
HgbA1C on admission 8%
IV insulin protocol started
Head CT s/c on adm: no acute findings
GI proph: PPI IV
DVT proph: sc hep
Antiemetic prn
Prognosis guarded
Full code
D/w patient's in detail, all questions answered
Critical care time: 35 min
[2023-07-10] MEDS: DUONEB 3 ML INH ×4 (07:47→19:53)
--- NOTE | 2023-07-10 08:16 | PHA.VAN.IN ---
Assessment
- Assessment
Renal Function: Appears elevated from baseline (SCR increased to 1 from 0.4-0.5 in Nov 2022)
Concomitant Antimicrobials: aztreonam
Plan
- Plan
Initial / Loading Dose: 1500mg - 07/09 06:07
Maintenance Regimen: dosing by level - hold off on further dosing today
Monitoring: random 07/10 06
MRSA Screen: Ordered per protocol
Pharmacokinetics Vancomycin I
- -
Patient Age: 63
Patient Sex: Female
Vancomycin Day #: 1
Indication: Pulmonary/Respiratory
Requesting Provider: Dr. Pedro
Pertinent Antimicrobial Allergies:
penicillins - rash
Height / Weight:
Height 5 ft 1 in
Actual Weight 60.9 kg
- Vital Signs / Lab Results
Temp Pulse Resp BP Pulse Ox
96.9 F L 92 22 105/56 100
07/10/23 07:56 07/10/23 07:54 07/10/23 07:54 07/10/23 07:45 07/10/23 07:54
Lab Results - Hematology
07/09/23 07/10/23
23:03 06:17
WBC 18.4 H 25.4 H
Lab Results - Chemistry
07/09/23 07/09/23 07/10/23
23:03 23:43 06:16
BUN Cancelled 17 27 H
Creatinine Cancelled 0.9 1.0
Estimated Creat Clear Cancelled 58 45
Albumin Cancelled 4.2 3.9
Lab Results - Urine
07/09/23
23:03
Urine Nitrite (Reflex) Negative
Leukocyte Esterase Rfl Negative
Urine WBC (Reflex) 40-50 A
Ur Squamous Epith Cells 3-5
Urine Bacteria (Reflex) Moderate A
[2023-07-10] MEDS: HEPARIN 5000 UNITS SC ×2 (08:19→16:34)
[2023-07-10] MEDS: REGLAN 5 MG IV ×2 (10:31→18:28)
[2023-07-10] MEDS: PROTONIX IV 40 MG IV (10:33)
[2023-07-10] MEDS: NSS (PRESERVATIVE FREE) 10 ML IV (10:34)
--- NOTE | 2023-07-10 10:37 | CON.CAR ---
Addendum entered and electronically signed by Jose M Paulino MD 07/10/23 11:19:
patient had to go back on pressor. will hold on BB until BP will allow
asa rectal
can Consider Chest CT rule out PE will reviwe withcritical care team
Original Note:
Consultation
Consultation Request
Date/Time Consultation Requested: 800 htay
Date/Time Consultation Performed: 930
Requesting Provider: Hospitalist
Performing Provider: carol
Reason for Consultation: Respiratory arrest
Medical History
-
History of Present Illness:
62-year-old woman with a prior history of IA and coronary stenting greater than 5 years ago, left heart failure, smoking, COPD and diabetes who was admitted with a respiratory arrest. Patient currently unable to provide history. Apparently patient
was smoking outside and then had respiratory distress and respiratory arrest. Resuscitated, CPR, epi and patient intubated. Patient now in ICU has remained on pressors overnight which are currently being weaned down. O2 requirements also
decreasing.
Past medical history
Left heart failure
coronary artery disease
Prior IA
Prior coronary stenting
DM
smoking
Mitral regurgitation
Pulmonary hypertension
Ejection fraction 45%
Echocardiogram 12/07/2022 mildly reduced left ventricular function ejection fraction 45% moderate eccentric mitral regurgitation mild to moderate tricuspid regurgitation pulmonary hypertension with PA pressure 84 small pericardial effusion
Past Medical History
Past Medical History: Other (above)
Social History
Tobacco: Smoker
Family History
Family History: CAD
Allergies / Home Medications
Allergy/AdvReac Type Severity Reaction Status Date / Time
codeine Allergy Itching Verified 07/09/23 22:52
latex Allergy Hives Verified 07/09/23 22:52
Penicillins Allergy Rash Verified 07/09/23 22:52
silver Allergy 'peels Verified 07/09/23 22:52
[From Tegaderm AG Mesh] skin off'
�Medication �Instructions �Recorded �Confirmed �Type
aspirin 81 mg tablet,delayed 81 mg PO DAILY 12/06/22 12/06/22 History
release
rosuvastatin 20 mg tablet 20 mg PO HS 12/06/22 07/09/23 History
fluticasone 250 mcg-salmeterol 50 1 inh inhalation R BID #60 ea 12/09/22 Rx
mcg/dose blistr powdr for
inhalation (Advair Diskus)
furosemide 20 mg tablet 20 mg PO DAILY #30 tabs 12/09/22 Rx
insulin glargine 100 unit/mL (3 20 unit (0.2 mL) SC HS #15 mL 12/09/22 07/09/23 Rx
mL) subcutaneous pen (Lantus
Solostar U-100 Insulin)
ipratropium 0.5 mg-albuterol 3 mg 3 ml inhalation Q4H PRN shortness 12/09/22 Rx
(2.5 mg base)/3 mL nebulization of breath or wheezing #90 mL
soln
metformin 500 mg tablet 500 mg PO BID@0800,1700 #60 tabs 12/09/22 07/09/23 Rx
metoprolol succinate 25 mg 12.5 mg (1/2 x 25 mg) PO DAILY #15 12/09/22 Rx
tablet,extended release 24 hr tabs
alprazolam 0.25 mg tablet 0.25 mg PO BID 07/09/23 07/09/23 History
benzonatate 200 mg capsule 200 mg PO TID 07/09/23 History
empagliflozin 10 mg tablet 10 mg PO DAILY 07/09/23 07/09/23 History
(Jardiance)
insulin aspart U-100 100 unit/mL 0 - 10 sliding scale dose SC AC 07/09/23 History
(3 mL) subcutaneous pen (Novolog
FlexPen U-100 Insulin aspart)
meclizine 25 mg tablet 25 mg PO TID PRN dizziness 07/09/23 History
ondansetron 4 mg disintegrating 4 mg PO DAILY PRN nausea 07/09/23 History
tablet
pantoprazole 40 mg tablet,delayed 40 mg PO DAILY 07/09/23 07/09/23 History
release
Review of Systems
-
All other systems: Negative unless noted
Physical Exam
Vital Signs
Temp Pulse Resp BP Pulse Ox
98.1 F 96 22 117/73 99
07/10/23 09:38 07/10/23 09:30 07/10/23 09:30 07/10/23 08:00 07/10/23 09:30
Lab Results
07/10/23 06:17
07/10/23 06:16
Troponin I Cancelled 07/10/23 16:20
Bpv-M-Eqjblemhama Pept 2750 pg/ml 07/09/23 23:03
Physical Exam
General: Other (Vented and sedated)
HEENT: Other (Pupils equal)
Respiratory: Other (Coarse vented breath sounds no wheezes or rhonchi)
Cardiac: Regular Rhythm
GI: Soft, Non Distended and Other (No masses detected)
Musculoskeletal: No Clubbing and No Cyanosis
Skin: Warm and Dry
Neuro: Other (Sedated vented)
Impression / Plan
-
63-year-old woman with with previous history of coronary artery disease, prior history of IA, cardiomyopathy with ejection fraction of 45% COPD and smoking who was admitted with respiratory arrest respiratory arrest and is now in ICU with vent
dependent respiratory failure. Initial ECG showed sinus rhythm with nonspecific ST abnormality. Unable able to obtain additional history from patient since she is vented and sedated. Troponin now up to 19
VDRF.
- . May be multifactorial. Patient has a history of COPD and smoking. Chest x-ray raises question of new right basilar atelectasis versus pneumonia. No clear evidence of heart failure. It appears patient's respiratory status and O2 requirements
have improved without diuresis.
-Continued management as directed by pulmonary and hospitalist.
.
NSTEMI.-Troponin 19. Unclear if this is a type II IA related to hypoxemia and underlying coronary artery disease. Primary IA cannot be entirely excluded.
-Optimize respiratory status as noted above
-Aspirin
-Echo
-Serial troponins
-Statin
CM -
- monitor volume status and reassess LVF
COPD- tx as directd by primary team
MR reassess withe echo
Pulm HTN
--- NOTE | 2023-07-10 11:36 | VATNOTE ---
Left leg IO needle removed per protocol.
--- NOTE | 2023-07-10 12:00 | PTCARENOTE ---
Received pt this am intubated and sedated on low dose levophed with ogt to continuous wall suction as pt vomited multiple times overnight. Pt had last vomited around 6 am. OGT had bloody change at beginning of shift, but lavaged to clear/bld
tinged/brown. Pt also vomited twice this am, after first vomitus during rounds, abd xray ordered, complete bath/shampoo given. Protonix ordered and given as well as reglan for potential gastroparesis given prolonged qt. When in to visit,
reported that pt vomits at home all the time. After reglan, less solid food noted, more brown mucus. Sedation has been weaned as charted given, vomiting with suctioning/coughing/mouth care and pt grimacing. No other purposeful movements noted.
Pt does open eyes, tongues the ett, but not following any purposeful commands. Seen wiggling toes, but unrestrained. +gag, corneals. Otherwise please refer to assessment.
--- NOTE | 2023-07-10 12:14 | CARDSERVLU ---
Echocardiogram with Lumason completed after protocol screening completed. Allergies verified.
Patent IV site: L hand_
IV site flushed with 0.9% NaCl pre and post administration.
Diluted bolus method utilized to enhance visualization of ventricular ramon.
Total volume given: _5___ mL
Patient tolerated all procedures well without complications.
[2023-07-10] MEDS: ASPIRIN 300 MG RECTAL (12:18)
[2023-07-10] MEDS: MAXIPIME 1000 MG IV ×2 (12:19→20:41)
[2023-07-10] MEDS: STERILE WATER FOR INJECTION 10 ML IV ×2 (12:19→20:41)
--- NOTE | 2023-07-10 12:24 | PN.DE.MGMTRT ---
Insulin Management
- -
07/10/2023 Diabetes Management Consult
Patient admitted 07/08, respiratory distress, respiratory failure, intubated sedated. PMH includes CHF, COPD, current smoker. Prior to admission was taking Jardiance 10 mg daily, AC novolog SS, lantus 20 units @ hs with metformin 500 mg BID. A1C
on admission 8%, cr 1, eGFR >60.
Glucose since admission > 300, team rounding, glycemic protocol insulin infusion to be started. Will follow patient for readiness to transition to subcutaneous regimen.
Diabetes History
- -
Type of Diabetes: 2 requiring insulin
Pre-Admission Diabetes Regimen
07/09/23 07/09/23 07/10/23
23:03 23:43 06:16
Creatinine Cancelled 0.9 1.0
Lab Results
Hemoglobin A1c 8.0 % (4.0-5.6) H 07/10/23 06:17
Insulin Pump Settings
IP Diabetes Regimen
07/09/23 07/09/23 07/10/23
23:03 23:43 06:16
Glucose Cancelled 302 H 307 H
Patient Education
[2023-07-10] MEDS: NOVOLIN R INSULIN INFUSION 100 IV (12:32)
[2023-07-10] MEDS: NOVOLIN R 4 UNITS IV (12:33)
[2023-07-10 12:34] LABS: Glucose - Point of Care 234 mg/dl (70-99)
[2023-07-10 13:39] LABS: Glucose - Point of Care 186 mg/dl (70-99)
--- NOTE | 2023-07-10 14:28 | W.PN.HOSP.TC ---
Today's Communication/Plan
-
see outlined plan
Assessment / Plan
Assessment / Plan
Assessment:
Acute VDRF (hypoxic, hypercapnic)
Cardiac arrest with 3-5 mins of reported CPR prior to ROSC
- hx of underlying COPD/Smoking
- no evidence of CHF
- continue IV Cefepime for R basilar CAP; elevated procal
- continue IV Solu-Medrol
N-STEMI
Hx of Chronic HFmEF
CAD with history of stenting
- unclear if type 2 vs primary DC
- continue ASA/Statin
- Echo: Moderately reduced left ventricular systolic function. Left ventricular ejection fraction is 30-35%%. Wall motion analysis is limited by the image quality. Aortic sclerosis without stenosis.
- trend trops
- CBC cards following
Hypotension requiring pressor support
- wean pressors as able
Former smoker:
- smoked for 51 years, quit in August
Type 2 DM
Vomiting, suspected gastroparesis
- prn Reglan TID; monitor QTc closely
- continue critical care glycemic protocol
Metabolic acidosis
Hyponatremia
- improving with IVF
Elevated LFTS - likely from shock state
- trend
Acute GI bleeding from vomiting (possibly MWT)
- monitor Hb
DVT ppx: SC Heparin
Code: Full
Total Critical Care Time 41 minutes. I was immediately available to the patient and staff. I personally examined, reviewed labs, diagnostic images/reports, interpretations, treatment plans, discussed patient care with other providers and family
or caregivers (if patient is unable to make decisions), entered orders as appropriate and documented the medical record.
Anticipated Discharge: > 48 hours
Subjective/Interval History
-
Date of Service: July 10, 2023
remains intubated/sedated
intermittently vomiting, streaks of red seen earlier
Objective Data
-
Labs:
Laboratory Results
07/10/23 07/10/23 07/10/23
02:55 06:00 06:16
WBC
Hgb
Hct
Plt Count
PT Cancelled 15.2 H
INR Cancelled 1.22
APTT 29.2
HCO3 19.3 L 16.4 L
Sodium 135
Potassium 4.1
Chloride 104
Carbon Dioxide 16 L
BUN 27 H
Creatinine 1.0
Glucose 307 H
Calcium 9.5
Total Bilirubin 0.5
AST 262 H
ALT 76 H
Alkaline Phosphatase 255 H
07/10/23
06:17
WBC 25.4 H
Hgb 13.9
Hct 39.8
Plt Count 221
PT
INR
APTT
HCO3
Sodium
Potassium
Chloride
Carbon Dioxide
BUN
Creatinine
Glucose
Calcium
Total Bilirubin
AST
ALT
Alkaline Phosphatase
Vital Signs:
Vital Signs
Temp Pulse Resp BP Pulse Ox
97.6 F 95 14 117/73 96
07/10/23 12:04 07/10/23 11:19 07/10/23 11:19 07/10/23 08:00 07/10/23 11:19
I&O
07/09/23 07/10/23 07/11/23
06:59 06:59 06:59
Output Total 350 / 350
Balance -350 / -350
Physical Exam
-
General: No Apparent Distress and Intubated
HEENT: Normocephalic and Atraumatic
Cardiac: Regular Rhythm and S1/S2
Musculoskeletal: No Edema
Neuro: Sedated
Psych: Calm
Data Reviewed
-
Critical Care Time (in minutes): 41
Labs: Labs Reviewed by me
[2023-07-10 14:37] LABS: Glucose - Point of Care 179 mg/dl (70-99)
--- NOTE | 2023-07-10 14:46 | W.PN.UPDATE ---
Update Note
Progress Note Update
Patient reassessed. troponin trending down. Discussed with patients . She has intermittent vomiting at home and was vomiting around the time she had resp issues. Aspiration a consideration.
echo technically difficult. reduced LVF estimated 30-35% down from prior echo 45%
- cotinuue spportive tx
- ASA
- Just weaned off pressors. when BP will tolerate , add ow dose BB ( lopressor 2.5mg IV q6)
- Will consider cath later this admit
--- NOTE | 2023-07-10 15:13 | CM ---
Patient seen at bedside, remains in ICU on Vent. CM attempted to call patient on cell phone [phone]. No answer. Per nursing patient had to work today and would be available via phone. CM will try again.
[2023-07-10 15:31] LABS: Amphetamines Negative (Negative); Barbiturates Negative (Negative); Benzodiazepines Positive (Negative); Buprenorphine Negative (Negative); Cocaine Negative (Negative); Marijuana Positive (Negative); Methadone Negative (Negative); Methamphetamines Negative (Negative); Opiates Negative (Negative); Phencyclidine Negative (Negative); Tricyclic Antidepressants Negative (Negative)
[2023-07-10 15:48] LABS: Glucose - Point of Care 146 mg/dl (70-99)
[2023-07-10 15:52] LABS: Fentanyl, Urine Negative (Negative)
[2023-07-10 16:41] LABS: Glucose - Point of Care 141 mg/dl (70-99)
[2023-07-10] MEDS: SOLU-MEDROL PF 40 MG IV (18:28)
[2023-07-10 18:50] LABS: Glucose - Point of Care 151 mg/dl (70-99)
[2023-07-10 20:43] LABS: Glucose - Point of Care 148 mg/dl (70-99)
[2023-07-10 21:45] LABS: Glucose - Point of Care 122 mg/dl (70-99)
[2023-07-10 22:44] LABS: Glucose - Point of Care 116 mg/dl (70-99)
[2023-07-10 23:43] LABS: Glucose - Point of Care 113 mg/dl (70-99)
[2023-07-11] VITALS (24 sets, daily range): BP systolic 85–141; BP diastolic 56–84; BMI 25.8
[2023-07-11 00:43] LABS: Glucose - Point of Care 98 mg/dl (70-99)
[2023-07-11] MEDS: HEPARIN 5000 UNITS SC ×3 (00:53→15:46)
[2023-07-11] MEDS: REGLAN 5 MG IV ×2 (00:55→09:59)
[2023-07-11 04:50] LABS: Glucose - Point of Care 140 mg/dl (70-99)
[2023-07-11 05:02] LABS: Glucose - Point of Care 132 mg/dl (70-99)
[2023-07-11] MEDS: MAXIPIME 1000 MG IV ×3 (05:29→20:23)
[2023-07-11] MEDS: SOLU-MEDROL PF 40 MG IV ×2 (05:30→17:36)
[2023-07-11] MEDS: STERILE WATER FOR INJECTION 10 ML IV ×3 (05:30→20:23)
[2023-07-11 05:54] LABS: % Basophils 0.2 % (0-2); % Immature Granulocytes 0.6 % (0-0.5); % Lymphocytes 6.3 % (20.5-51.1); % Monocytes 2.7 % (1.7-9.3); % Neutrophils 90.2 % (42.2-75.2); Absolute Basophils 0.1 10^3/uL (0-0.2); Absolute Immature Granulocytes 0.2 10^3/uL (0-0.05); Absolute Lymphocytes 1.7 10^3/uL (1.2-3.4); Absolute Monocytes 0.8 10^3/uL (0.1-0.6); Hematocrit 37.1 % (37.0-47.0); Hemoglobin 12.5 g/dL (12.0-16.0); Mean Corp Hgb Conc. 33.7 g/dL (33.0-37.0); Mean Corpuscular Hgb 30.4 pg (27.0-31.0); Mean Corpuscular Volume 90.3 fL (81.0-99.0); Mean Platelet Volume 9.7 fL (7.4-10.4); Nucleated Red Blood Cells % 0 %; Platelet Count 209 10^3/uL (130-400); Red Blood Cell Count 4.11 10^6/uL (4.20-5.40); Red Cell Dist. Width 13.3 % (11.5-14.5); White Blood Cell Count 27.7 10^3/uL (4.8-10.8)
[2023-07-11 05:57] LABS: B.E. -6.8 mmol/L; HCO3 16.5 mmol/L (21-28); PCO2 26 mmHg (32-35); PO2 208 mmHg (83-108); pH 7.41 (7.35-7.45)
[2023-07-11 06:20] LABS: ALT (SGPT) 45 U/L (0-35); AST (SGOT) 124 U/L (14-36); Albumin 3.6 g/dl (3.5-5.0); Alkaline Phosphatase 156 U/L (38-126); Blood Urea Nitrogen 38 mg/dl (7-17); Calcium 9.8 mg/dl (8.4-10.2); Carbon Dioxide 19 mmol/L (22-30); Chloride 107 mmol/L (98-107); Estimated Creatinine Clearance 45 ml/min; Glucose 116 mg/dl (70-99); Sodium 138 mmol/L (135-145); Total Bilirubin 0.4 mg/dl (0.2-1.3); Total Protein 5.9 g/dl (6.3-8.2); eGFR > 60.00
[2023-07-11 06:28] LABS: Potassium 3.6 mmol/L (3.5-5.1)
[2023-07-11 06:49] LABS: Glucose - Point of Care 113 mg/dl (70-99)
--- NOTE | 2023-07-11 07:33 | W.PN.INTV ---
Today's Communication / Plan
Recommendations
MV
Atbs
Sedation
DEVON doppler
Assessment
-
Assessment:
Mrs Osiris Muñoz is a 63/W adm 07-08 after sustaining witnessed respiratory distress ( witnessed). EMS found her with agonal breathing, then respiratory arrest followed by cardiac arrest per information gathered by ER physician. ACLS
protocol initiated immediately, CPR provided for 3-5 min with ROSC after one dose of epinephrine via IO line, intubated as scene. Received at ER on MV, unresponsive, started on IV propofol and fentanyl, NE gtt, given one dose of vecuronium IV. Known
h/o HF, CAD, T2DM, COPD, tobacco dependence, unfortunately lost medical insurance about 1 m ago and was trying to make her current med supply last longer but decreasing frequency of dosing
Impression:
Respiratory arrest followed by cardiac arrest as witnessed by EMS
Intubated at scene
CPR for 3-5 min with ROSC
Interim R basilar infiltrate on CXR
NSTEMI: marked interim elevation of troponins
HFrEF, acute on chronic (TTE 07-09: LVEF 30-35%, technically difficult study)
Elevated BNP
Markedly elevated PCT
Transaminitis
Microhematuria, bacteriuria, albuminuria
Recurrent nausea, reportedly acute on chronic
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
HFrEF, LVEF 45%, hypokinesis mid to apical septum and apex, stage II DD, moderate eccentric MR, ePAP 84, small pericardial effusion, normal RV size and function
CAD s/p stenting
T2DM
COPD, qualified for home O2 upon d/c from in Nov 2022 (adm for CHF and AECOPD)
Smoker
Recent partial medical compliance due to lack of insurance
Plan:
Witnessed respiratory arrest followed by cardiac arrest: EMS at scene, CPR fo 3-5 min with ROSC
Underlying CAD, HFrEF
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
Head CT without acute findings
Interim R basilar infiltrate on follow up CXR
CXR with pulm vasc congestion which improved on follow up CXR, but interim development of R basilar infiltrate/atelectasis
Suspected aspiration
Continue ACV: 14-450-5-0.4 (POx 94%)
Sedation/analgesia: propofol/fentanyl. Decrease fentanyl to prn boluses, added low dose alprazolam
Daily sedation holiday to assess for SBT and MS
Currently spontaneously open eyes and blinking, withdraws DEVON to stimuli (no evidence of posturing)
UCx pending
UDS positive for bzd and cannabis. Noted outpatient low dose alprazolam use for anxiety
Blood cxs pending
Trach asp cx preliminary negative
MRSA screening negative
Markedly elevated PCT with normal eGFR
Empiric atbs on adm: aztreonam (reported penicillin allergy) and vancomycin
Changed aztreonam to cefepime, discontinued vancomycin
NE off since 07-09
NSTEMI
Marked interim elevation of troponins
Elevated BNP
Known h/o HFrEF, on current TTE LVEF down from 45% to 30-35% (technically difficult TTE)
RV size and function normal
Held resumption of BB due to hypotension 07-09
ASA pr due to intermittent nausea/vomit
DEVON doppler 07-10, if negative will consider chest CTA for completeness, though BNP and trops elevated, RV size and function normal on TTE
AXR with nonobstructive gas pattern
Outpatient jardiance 10 mg daily, AC novolog SS, lantus 20 units hs, metformin 500 mg BID
HgbA1C on admission 8%
IV insulin protocol started
GI proph: PPI IV
DVT proph: sc hep
Antiemetic prn, suspected DM gastroparesia
Full code
D/w patient's in detail 07-09 and daughter 07-10, all questions answered
Prognosis guarded in view of resp arrest followed by cardiac arrest and significant comorbidities, family understand situation
Critical care time: 35 min
Subjective Dataa
Subjective Data
Date of Service:
Date of Service: July 11, 2023
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
Subjective:
No major events reported overnight
Vomit has improved
Continues on mechanical ventilation
Is still on sedation, however she is able to bring her eyes, move her jaw on withdrawal lower extremities only stimuli, at this point not otherwise interactive
Daughter at bedside today, came from [place], [facility] updated on her mother's condition
Review of Systems
General: Unobtainable - Sedation
Objective Data
Data Reviewed
Vital Signs / I&O / Oxygen:
Vital Signs
Temp Pulse Resp BP Pulse Ox
99.7 F 132 13 129/74 98
07/11/23 03:45 07/11/23 06:00 07/11/23 06:00 07/11/23 06:00 07/11/23 06:00
Intake and Output
07/10/23 07/11/23 07/12/23
06:59 06:59 06:59
Intake Total 745.2 / 745.2
Output Total 1629 / 1629
Balance -883.8 / -883.8
SaO2 [A/C] 100
SaO2 98
Physical Exam
General: Comfortable
HEENT: Normocephalic and Moist Mucous Membranes
Cardiovascular: Regular Rhythm and Peripheral Edema (n)
Respiratory: Wheeze, Crackles, Stridor and ET Tube
GI: Soft, Non Distended and NG Tube
Neurology: Other (sedated)
Skin: Warm
Labs/Micro/Reports
Lab Data
07/11/23 05:45
07/11/23 05:45
Laboratory Results
07/11/23
05:50
pH 7.41
pCO2 26 L
pO2 208 H
HCO3 16.5 L
O2 Delivery Level
Microbiology
07/10/23 12:03 Nose Nasal Screen MRSA (PCR) - Final
MRSA not detected - performed by PCR methodology.
07/10/23 12:05 Tracheal Aspirate Gram Stain - Preliminary
[2023-07-11] MEDS: DUONEB 3 ML INH ×4 (07:56→19:33)
[2023-07-11] MEDS: NSS (PRESERVATIVE FREE) 10 ML IV (08:09)
[2023-07-11] MEDS: PROTONIX IV 40 MG IV (08:09)
[2023-07-11] MEDS: MIRALAX TUBE (08:10)
[2023-07-11 08:39] LABS: Glucose - Point of Care 113 mg/dl (70-99)
--- NOTE | 2023-07-11 09:15 | PTCARENOTE ---
PT received in bed intubated and sedated, PT opens eyes spontaneously, Fentanyl off for 45 mins, PT did not follow commands, Tachycardic HR 150's, Fentanyl placed back on, NSR-ST +pulses trace edema, B/L BS are coarse with rhonchi, occasional
coughing, minimal secretions, OG tube placed to continuous low suction, placement verified, clear yellow brown secretions, abdomen soft NT hypoactive BS, FMS flushed no leakage draining brown liquid stool, Daniels care provided, draining dark yellow
urine, Right hand right AC and left hand, flushed and patent see work list for titrations
[2023-07-11] MEDS: SUBLIMAZE 50 MCG IV (09:20)
--- NOTE | 2023-07-11 09:31 | W.PN.CD ---
Today's Communication / Plan
-
- Continued management as directed by pulmonary and hospitalist.
- Echo shows new LVEF decline -> needs eventual LHC
- limit QTc prolonging meds including metoclopramide.
Impression / Plan
-
Impression: 63-year-old woman with with previous history of coronary artery disease, prior history of MA, cardiomyopathy with ejection fraction of 45% COPD and smoking who was admitted with respiratory arrest and is now in ICU with vent dependent
respiratory failure. Initial ECG showed sinus rhythm with nonspecific ST abnormality. Troponin peak 19
Plan
VDRF - Continued management as directed by pulmonary and hospitalist.
NSTEMI.-Troponin 19. Unclear if this is a type II MA related to hypoxemia and underlying coronary artery disease. Primary MA cannot be entirely excluded.
-Optimize respiratory status as noted above
-medical therapy of CAD
-Echo shows new LVEF decline -> needs eventual LHC
ST
Prolonged QTc - limit QTc prolonging meds including metoclopramide.
CM - monitor volume status and reassess LVF
COPD
MR
Pulm HTN - echo TDS. Eventual repeat
Critically ill - 34 minutes
D/w daughter at bedside
Sedated and intubated
Physical Exam
Vital Signs/Labs
Vital Signs
Temp Pulse Resp BP Pulse Ox
37.7 C 114 16 119/76 99
07/11/23 07:30 07/11/23 08:00 07/11/23 08:00 07/11/23 07:00 07/11/23 09:00
07/10/23 07/11/23 07/12/23
06:59 06:59 06:59
Actual Weight 134 lb 4.184 oz 136 lb 7.458 oz
07/11/23 05:45
07/11/23 05:45
PT 15.2 Sec (11.4-14.6) H 07/10/23 06:16
INR 1.22 07/10/23 06:16
APTT 29.2 Sec (23.4-35.0) 07/10/23 06:16
Magnesium 2.0 mg/dl (1.6-2.3) 07/09/23 23:43
Triglycerides 173 mg/dl (10-149) H 07/09/23 23:03
07/09/23
23:03
Ktu-C-Qqdbsbkumyk Pept 2750
LAB Results
07/09/23 07/10/23 07/10/23
23:03 04:15 06:16
Troponin I 0.064 H* Cancelled 19.000 H* D
07/10/23 07/10/23 07/10/23
10:15 10:20 12:00
Troponin I Cancelled Cancelled Cancelled
07/10/23 07/10/23 07/10/23
12:03 16:20 18:00
Troponin I 18.800 H* Cancelled Cancelled
Data Reviewed
-
Date of Service: July 11, 2023
--- NOTE | 2023-07-11 10:30 | PN.DE.MGMTRT ---
Insulin Management
- -
07/11/2023 Diabetes Management Consult Follow up
Patient admitted 07/08, respiratory distress, respiratory failure, intubated sedated. PMH includes CHF, COPD, current smoker. Prior to admission was taking Jardiance 10 mg daily, AC novolog SS, lantus 20 units @ hs with metformin 500 mg BID. A1C
on admission 8%, cr 1, eGFR >60.
Patient remains intubated, sedated on vent. I spoke with patients nurse there is no plan for attempted wean.
Glucose controlled on glycemic protocol requiring 3.5 units of insulin per hour. Will continue glycemic protocol at this time.
Diabetes History
- -
Type of Diabetes: 2 requiring insulin
Pre-Admission Diabetes Regimen
07/11/23
05:45
Creatinine 1.0
Lab Results
Hemoglobin A1c 8.0 % (4.0-5.6) H 07/10/23 06:17
Insulin Pump Settings
IP Diabetes Regimen
07/10/23 07/10/23 07/10/23
12:23 13:28 14:27
Glucose
POC Glucose 234 H 186 H 179 H
07/10/23 07/10/23 07/10/23
15:37 16:30 18:34
Glucose
POC Glucose 146 H 141 H 151 H
07/10/23 07/10/23 07/10/23
20:32 21:34 22:32
Glucose
POC Glucose 148 H 122 H 116 H
07/10/23 07/11/23 07/11/23
23:32 00:31 04:39
Glucose
POC Glucose 113 H 98 140 H
07/11/23 07/11/23 07/11/23
04:50 05:45 06:38
Glucose 116 H
POC Glucose 132 H 113 H
07/11/23
08:28
Glucose
POC Glucose 113 H
Patient Education
[2023-07-11 10:38] LABS: Glucose - Point of Care 140 mg/dl (70-99)
[2023-07-11] MEDS: LOW STRENGTH ASPIRIN 81 MG TUBE (10:40)
[2023-07-11] MEDS: XANAX 0.25 MG TUBE ×2 (10:41→21:36)
[2023-07-11] MEDS: DESENEX/MITRAZOL/ZEASORB 1 APPLIC TOPICAL (10:46)
--- NOTE | 2023-07-11 11:02 | PTCARENOTE ---
SBT was initiated and Fentanyl was stopped, PT was placed back on Fentanyl after receiving a bolus, due to tachycardia with HR in the 170's, BP increased to 150's, notified DR Hubbard, Propofol initiated, with Fentanyl pushes PRN, PT's HR is in the
110's and BP has a MAP>65 93/57 (70), will continue to monitor, PT continues on Glycemic Protocol
[2023-07-11 11:14] LABS: Triglycerides 183 mg/dl (10-149)
[2023-07-11 11:18] LABS: Glucose - Point of Care 145 mg/dl (70-99)
[2023-07-11 12:32] LABS: Glucose - Point of Care 141 mg/dl (70-99)
[2023-07-11] MEDS: NOVOLIN R INSULIN INFUSION 100 IV (12:39)
--- NOTE | 2023-07-11 13:12 | W.PN.HOSP.TC ---
Today's Communication/Plan
-
continue IV steroids, IV Abx
LE dopplers to start VTE workup
wean vent/sedation as able
Assessment / Plan
Assessment / Plan
Assessment:
Septic Shock
- resolved, off pressors 07/09
Acute VDRF (hypoxic, hypercapnic)
respiratory arrest evolved into reported Cardiac arrest with 3-5 mins of reported CPR prior to ROSC
- hx of underlying COPD/Smoking
- no evidence of CHF
- continue IV Cefepime for R basilar CAP; elevated procal
- continue IV Solu-Medrol
- consider CT-PE scan - I d/w ICU (Dr. Hubbard) - plan for venous dopplers first.
- sedation holidays and weaning trials
N-STEMI
Hx of Chronic HFmEF
CAD with history of stenting
- unclear if type 2 vs primary HI
- continue ASA rectally/Statin
- Echo: Moderately reduced left ventricular systolic function. Left ventricular ejection fraction is 30-35%%. Wall motion analysis is limited by the image quality. Aortic sclerosis without stenosis.
- trend trops
- CBC cards following
- will need eventual cath
Hypotension requiring pressor support
- wean pressors as able
Former smoker:
- smoked for 51 years, quit in August
Type 2 DM
Vomiting, suspected gastroparesis
- prn judicious Reglan TID; monitor QTc closely
- continue critical care glycemic protocol with q1h accu-checks
- hold Jardiance/Lantus/Metformin
Metabolic acidosis
Hyponatremia
- improving with IVF
Elevated LFTS - likely from shock state
- improving
Acute GI bleeding from vomiting (possibly MWT)
- monitor Hb which is stable >12
DVT ppx: SC Heparin
Code: Full
Total Critical Care Time 40 minutes. I was immediately available to the patient and staff. I personally examined, reviewed labs, diagnostic images/reports, interpretations, treatment plans, discussed patient care with other providers and family
or caregivers (if patient is unable to make decisions), entered orders as appropriate and documented the medical record.
Anticipated Discharge: > 48 hours
Subjective/Interval History
-
Date of Service: July 11, 2023
remains intubated/sedated and tachycardic
Objective Data
-
Labs:
Laboratory Results
07/11/23 07/11/23
05:45 05:50
WBC 27.7 H
Hgb 12.5
Hct 37.1
Plt Count 209
HCO3 16.5 L
Sodium 138
Potassium 3.6
Chloride 107
Carbon Dioxide 19 L
BUN 38 H
Creatinine 1.0
Glucose 116 H
Calcium 9.8
Total Bilirubin 0.4
AST 124 H
ALT 45 H
Alkaline Phosphatase 156 H
Vital Signs:
Vital Signs
Temp Pulse Resp BP Pulse Ox
100.2 F 135 14 104/63 99
07/11/23 11:03 07/11/23 12:30 07/11/23 12:30 07/11/23 12:00 07/11/23 12:30
I&O
07/10/23 07/11/23 07/12/23
06:59 06:59 06:59
Intake Total 745.2 / 753.7 61.0 / 61.0
Output Total 1649 / 1679 110 / 110
Balance -903.8 / -925.3 -49.0 / -49.0
Physical Exam
-
General: Intubated
HEENT: Normocephalic and Atraumatic
Respiratory: Rhonchi
Cardiac: Regular Rhythm, S1/S2 and Tachycardic
Musculoskeletal: No Edema
Neuro: Sedated
Data Reviewed
-
Critical Care Time (in minutes): 40
Labs: Labs Reviewed by me
--- NOTE | 2023-07-11 13:37 | PTCARENOTE ---
Propofol infusing as per protocol, see work list for titrations, PT wakens, still not following commands at this time,BP has been trending low then increasing back to WNL MAP >65, notified Dr Hubbard received order for NeoSyn, at this time not
initiated, as BP Within parameters, assessmentremains unchanged
[2023-07-11 14:38] LABS: Glucose - Point of Care 133 mg/dl (70-99)
[2023-07-11 14:58] LABS: TSH Reflex To Free T4 2.24 uIU/ml (0.47-4.68)
[2023-07-11] MEDS: REGLAN 5 MG TUBE (15:46)
[2023-07-11 15:53] LABS: Glucose - Point of Care 83 mg/dl (70-99)
--- NOTE | 2023-07-11 16:00 | CM ---
CM tried again to reach family, number busy. Patient remains on Ventilator. CM will continue to follow for discharge planning needs.
[2023-07-11 16:43] LABS: Glucose - Point of Care 119 mg/dl (70-99)
[2023-07-11] MEDS: NEO-SYNEPHRINE 250 IV (17:41)
[2023-07-11 17:45] LABS: Glucose - Point of Care 132 mg/dl (70-99)
--- NOTE | 2023-07-11 18:08 | PTCARENOTE ---
Daughter in with younger looking child, asked daughter how old the child was, 'Shes with me dont mind your business', I again asked how old the child was and daughter said, 14, I attempted to to explain that no one under the age of 14 can visit, she
continued to the room and stated, 'My son was in here last night', explained that unfortunately not everyone asks, but no child under 12 years can visit, as per policy, she continued to call this nurse a kendra and fChante^ C*&T, I attempted to call
security however a code purple was in effect for another patient, I did inform the PT's daughter she in no longer welcome to visit
[2023-07-11 18:40] LABS: Glucose - Point of Care 92 mg/dl (70-99)
--- NOTE | 2023-07-11 20:00 | PTCARENOTE ---
rec`d pt at 1900 intubated. pt spontaneously opens eyes. does not track. no purposeful movements. +gag +cough. ST on monitor. HR low 110s. +pulses, BS coarse. #7 ETT @22 on right. vent settings A/C 14/450/40%/ 5 of peep. OGT to continuous low
suction draining dark brown secretions. FMS in place draining liquid stool. hypoactive BS, Daniels in place draining jason urine. prop, insulin (glycemic protocol continued) and mihaela currently running. safe environment maintained.
[2023-07-11 20:48] LABS: Glucose - Point of Care 121 mg/dl (70-99)
[2023-07-11] MEDS: TYLENOL 650 MG PO (22:27)
[2023-07-11 22:41] LABS: Glucose - Point of Care 84 mg/dl (70-99)
[2023-07-12] VITALS (21 sets, daily range): BP systolic 71–126; BP diastolic 34–77; BMI 25.7
--- NOTE | 2023-07-12 | PTCARENOTE ---
pt reassessed, no changes in pt assessment. prop titrated down per MD orders. fent bolus given. glycemic protocol continued. pt febrile. PRN Tylenol given.
[2023-07-12] MEDS: HEPARIN 5000 UNITS SC ×4 (00:19→23:28)
[2023-07-12] MEDS: SUBLIMAZE 50 MCG IV ×6 (00:43→23:47)
[2023-07-12 00:48] LABS: Glucose - Point of Care 146 mg/dl (70-99)
--- NOTE | 2023-07-12 02:01 | PTCARENOTE ---
prop titrated down. pt followed commands by shutting eyes and opening wide. 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
[2023-07-12 02:51] LABS: Glucose - Point of Care 77 mg/dl (70-99)
[2023-07-12 03:43] LABS: B.E. -2.8 mmol/L; HCO3 20.2 mmol/L (21-28); PCO2 29 mmHg (32-35); PO2 149 mmHg (83-108); pH 7.45 (7.35-7.45)
[2023-07-12 03:44] LABS: Glucose - Point of Care 74 mg/dl (70-99)
[2023-07-12 03:49] LABS: % Basophils 0.1 % (0-2); % Immature Granulocytes 0.6 % (0-0.5); % Lymphocytes 6.7 % (20.5-51.1); % Monocytes 6.1 % (1.7-9.3); % Neutrophils 86.5 % (42.2-75.2); Absolute Immature Granulocytes 0.2 10^3/uL (0-0.05); Absolute Lymphocytes 1.9 10^3/uL (1.2-3.4); Absolute Monocytes 1.7 10^3/uL (0.1-0.6); Absolute Neutrophils 24.2 10^3/uL (1.4-6.5); Hematocrit 32.2 % (37.0-47.0); Hemoglobin 11.6 g/dL (12.0-16.0); Mean Corpuscular Hgb 31.3 pg (27.0-31.0); Mean Corpuscular Volume 86.8 fL (81.0-99.0); Mean Platelet Volume 9.7 fL (7.4-10.4); Nucleated Red Blood Cells % 0 %; Platelet Count 242 10^3/uL (130-400); Red Blood Cell Count 3.71 10^6/uL (4.20-5.40); Red Cell Dist. Width 13.6 % (11.5-14.5)
[2023-07-12 04:16] LABS: ALT (SGPT) 36 U/L (0-35); AST (SGOT) 61 U/L (14-36); Albumin 3.5 g/dl (3.5-5.0); Alkaline Phosphatase 140 U/L (38-126); Blood Urea Nitrogen 42 mg/dl (7-17); Carbon Dioxide 19 mmol/L (22-30); Chloride 114 mmol/L (98-107); Estimated Creatinine Clearance 56 ml/min; Glucose 73 mg/dl (70-99); Magnesium 2.1 mg/dl (1.6-2.3); Potassium 3.9 mmol/L (3.5-5.1); Sodium 139 mmol/L (135-145); Total Bilirubin 0.3 mg/dl (0.2-1.3); Total Protein 5.7 g/dl (6.3-8.2); eGFR > 60.00
[2023-07-12] MEDS: MAXIPIME 1000 MG IV ×3 (04:37→20:16)
[2023-07-12] MEDS: STERILE WATER FOR INJECTION 10 ML IV ×3 (04:38→20:16)
[2023-07-12 04:42] LABS: Glucose - Point of Care 107 mg/dl (70-99)
[2023-07-12 05:40] LABS: Glucose - Point of Care 109 mg/dl (70-99)
[2023-07-12] MEDS: SOLU-MEDROL PF 40 MG IV (06:11)
[2023-07-12 06:45] LABS: Glucose - Point of Care 89 mg/dl (70-99)
[2023-07-12 07:39] LABS: Glucose - Point of Care 107 mg/dl (70-99)
[2023-07-12] MEDS: DUONEB 3 ML INH ×4 (07:51→19:45)
[2023-07-12] MEDS: LOW STRENGTH ASPIRIN 81 MG TUBE (07:54)
[2023-07-12] MEDS: NSS (PRESERVATIVE FREE) 10 ML IV (07:54)
[2023-07-12] MEDS: XANAX 0.25 MG TUBE ×2 (07:54→20:16)
[2023-07-12] MEDS: PROTONIX IV 40 MG IV (07:54)
--- NOTE | 2023-07-12 07:58 | W.PN.INTV ---
Today's Communication / Plan
Recommendations
MV
Atbs
IV insulin protocol
BB
Enteral meds
Assessment
-
Assessment:
Mrs Osiris Muñoz is a 63/W adm 07-08 after sustaining witnessed respiratory distress ( witnessed). EMS found her with agonal breathing, then respiratory arrest followed by cardiac arrest per information gathered by ER physician. ACLS
protocol initiated immediately, CPR provided for 3-5 min with ROSC after one dose of epinephrine via IO line, intubated as scene. Received at ER on MV, unresponsive, started on IV propofol and fentanyl, NE gtt, given one dose of vecuronium IV. Known
h/o HF, CAD, T2DM, COPD, tobacco dependence, unfortunately lost medical insurance about 1 m ago and was trying to make her current med supply last longer but decreasing frequency of dosing
Impression:
Respiratory arrest followed by cardiac arrest as witnessed by EMS
Intubated at scene
CPR for 3-5 min with ROSC
Interim R basilar infiltrate on CXR
NSTEMI: marked interim elevation of troponins
HFrEF, acute on chronic (TTE 07-09: LVEF 30-35%, technically difficult study)
Elevated BNP
Markedly elevated PCT
Transaminitis
Microhematuria, bacteriuria, albuminuria
Recurrent nausea, reportedly acute on chronic
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
HFrEF, LVEF 45%, hypokinesis mid to apical septum and apex, stage II DD, moderate eccentric MR, ePAP 84, small pericardial effusion, normal RV size and function
CAD s/p stenting
T2DM
COPD, qualified for home O2 upon d/c from in Nov 2022 (adm for CHF and AECOPD)
Smoker
Recent partial medical compliance due to lack of insurance
Plan:
Witnessed respiratory arrest followed by cardiac arrest: EMS at scene, CPR fo 3-5 min with ROSC
Underlying CAD, HFrEF
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
Head CT without acute findings
Interim R basilar infiltrate on follow up CXR
CXR with pulm vasc congestion which improved on follow up CXR, but interim development of R basilar infiltrate/atelectasis
Follow-up chest x-ray 07-10 with resolution of right basilar infiltrate on portable film
Suspected aspiration
Continue ACV: 14-450-5-0.4 (POx 94%)
Sedation/analgesia: propofol/fentanyl. Decrease fentanyl to prn boluses, added low dose alprazolam 07-10
Daily sedation holiday to assess for SBT and MS
Currently able to open eyes and blink, open mouth and pull out tongue upon command. Withdraws DEVON to stimuli (no evidence of posturing)
UCx negative
UDS positive for bzd and cannabis. Noted outpatient low dose alprazolam use for anxiety
Blood cxs NTD
Trach asp cx NTD
MRSA screening negative
Markedly elevated PCT with normal eGFR
Empiric atbs on adm: aztreonam (reported penicillin allergy) and vancomycin
Changed aztreonam to cefepime, discontinued vancomycin: 07-10
NE off since 07-09
Started neosynephrine 07-10, weaning down
RUE PICC 07-10, noted resolution of R basilar infiltrate/atelectasis
Change MP IV to prednisone 40 mg qd, finite 5 d course of CS
NSTEMI
Marked interim elevation of troponins
Elevated BNP
Known h/o HFrEF, on current TTE LVEF down from 45% to 30-35% (technically difficult TTE)
RV size and function normal
Held resumption of BB due to hypotension 07-09. Metoprolol started 07-11
ASA pr due to intermittent nausea/vomit
Cards following closely, considering [facility] adm
Continue IV insulin protocol
DEVON doppler 07-11, if negative will consider chest CTA for completeness. Though BNP and trops elevated, RV size and function normal on TTE
AXR with nonobstructive gas pattern
Outpatient jardiance 10 mg daily, AC novolog SS, lantus 20 units hs, metformin 500 mg BID
HgbA1C on admission 8%
IV insulin protocol started
GI proph: PPI IV
DVT proph: sc hep
Antiemetic prn, suspected DM gastroparesis
Full code
D/w patient's in detail 07-09 and daughter 07-10, all questions answered
Prognosis guarded in view of resp arrest followed by cardiac arrest and significant comorbidities, family understands situation
Critical care time: 35 min
Subjective Dataa
Subjective Data
Date of Service:
Date of Service: July 12, 2023
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
Subjective:
No major events reported overnight
Continues on mechanical ventilation
Able to open eyes, blink, open mouth and pull out tongue on command, but unable to move extremities on command
Review of Systems
General: Unobtainable - Sedation
Objective Data
Data Reviewed
Vital Signs / I&O / Oxygen:
Vital Signs
Temp Pulse Resp BP Pulse Ox
100.6 F H 111 14 125/67 99
07/12/23 07:45 07/12/23 07:54 07/12/23 07:54 07/12/23 05:00 07/12/23 07:54
Intake and Output
07/11/23 07/12/23 07/13/23
06:59 06:59 06:59
Intake Total 745.2 / 753.7 288.2 / 288.2
Output Total 1649 / 1679 425 / 425
Balance -903.8 / -925.3 -136.8 / -136.8
SaO2 [A/C] 100
SaO2 99
Physical Exam
General: Comfortable
HEENT: Normocephalic and Moist Mucous Membranes
Cardiovascular: Regular Rhythm and Peripheral Edema (n)
Respiratory: Wheeze, Crackles, Stridor and ET Tube
GI: Soft, Non Distended and NG Tube
Neurology: Other (sedated, able to open and close eyes and open mouth and pull out tone upon command. Unable to move extremities upon command)
Skin: Warm
Labs/Micro/Reports
Lab Data
07/12/23 03:25
07/12/23 03:25
Laboratory Results
07/12/23 07/12/23
01:57 03:25
pH Cancelled 7.45
pCO2 Cancelled 29 L
pO2 Cancelled 149 H
HCO3 Cancelled 20.2 L
O2 Delivery Level Cancelled
Microbiology
07/10/23 12:38 Blood/Venous Blood Culture - Preliminary
No Growth in 24 hours- Final report to follow
07/10/23 12:14 Blood/Venous Blood Culture - Preliminary
No Growth in 24 hours- Final report to follow
07/09/23 23:03 Urine Urine Culture - Final
NO GROWTH
07/10/23 12:05 Tracheal Aspirate Respiratory Culture - Preliminary
Usual Respiratory Nanci
07/10/23 12:05 Tracheal Aspirate Gram Stain - Preliminary
07/10/23 12:03 Nose Nasal Screen MRSA (PCR) - Final
MRSA not detected - performed by PCR methodology.
--- NOTE | 2023-07-12 08:00 | PTCARENOTE ---
PT received in bed intubated and sedated, PT opens eyes spontaneously, Propofol off for sedation vacation, PT did not follow commands, Tachycardic HR 130's, NSR-ST + weak pulses trace edema, B/L BS are diminished,right side has fine crackles noted
occasional coughing, minimal secretions, OG tube placed to continuous low suction, placement verified, clear yellow brown secretions, abdomen soft NT hypoactive BS, FMS flushed no leakage draining brown liquid stool, Daniels care provided, draining
yellow urine, Right PICC and left hand, flushed and patent see work list for titrations
--- NOTE | 2023-07-12 08:09 | W.PN.CD ---
Today's Communication / Plan
-
Blood pressure has improved. Will add metoprolol 12.5 mg twice daily
Continue aspirin.
Continue to assess mental status
Will consider cardiac catheterization later this admission. Daily assessment.
Impression / Plan
-
Impression: 63-year-old woman with with previous history of coronary artery disease, prior history of MT, cardiomyopathy with ejection fraction of 45% COPD and smoking who was admitted with respiratory arrest and is now in ICU with vent dependent
respiratory failure. Initial ECG showed sinus rhythm with nonspecific ST abnormality. Troponin peak 19
Plan
VDRF - Continued management as directed by pulmonary and hospitalist.
NSTEMI.-Troponin 19. Unclear if this is a type II MT related to hypoxemia and underlying coronary artery disease. Primary MT cannot be entirely excluded.
-Optimize respiratory status as noted above
-medical therapy of CAD
-Echo shows new LVEF decline -> needs eventual LHC
Neuro/mental status. Patient reportedly slowly followed some commands when sedation was removed. Continue to assess post respiratory arrest.
Prolonged QTc - limit QTc prolonging meds including metoclopramide.
CM - monitor volume status and reassess LVF
COPD
MR
Pulm HTN - echo TDS. Eventual repeat
Critically ill - 32 minutes
Sedated and intubated
Physical Exam
Vital Signs/Labs
Vital Signs
Temp Pulse Resp BP Pulse Ox
100.6 F H 111 14 125/67 99
07/12/23 07:45 07/12/23 07:54 07/12/23 07:54 07/12/23 05:00 07/12/23 07:54
07/11/23 07/12/23 07/13/23
06:59 06:59 06:59
Actual Weight 61.9 kg 61.6 kg
07/12/23 03:25
07/12/23 03:25
PT 15.2 Sec (11.4-14.6) H 07/10/23 06:16
INR 1.22 07/10/23 06:16
APTT 29.2 Sec (23.4-35.0) 07/10/23 06:16
Magnesium 2.1 mg/dl (1.6-2.3) 07/12/23 03:25
Triglycerides 183 mg/dl (10-149) H 07/11/23 10:36
07/09/23
23:03
Npl-I-[id number] Pept 2750
LAB Results
07/09/23 07/10/23 07/10/23
23:03 04:15 06:16
Troponin I 0.064 H* Cancelled 19.000 H* D
07/10/23 07/10/23 07/10/23
10:15 10:20 12:00
Troponin I Cancelled Cancelled Cancelled
07/10/23 07/10/23 07/10/23
12:03 16:20 18:00
Troponin I 18.800 H* Cancelled Cancelled
Physical Exam
Constitutional: No acute distress
Cardiovascular: Rhythm & rate is regular
Respiratory: Wheeze Absent, Rhonchi Absent and Other (vented)
GI: Soft and Non tender
Neuro/Psych: Alert
Data Reviewed
-
Date of Service: July 12, 2023
EKG: Report Reviewed by me
Echo: Report Reviewed by me
Medical Tests (PFT, Pathology etc): Report Reviewed by me
Labs: Labs Reviewed by me
[2023-07-12 08:42] LABS: Glucose - Point of Care 113 mg/dl (70-99)
--- NOTE | 2023-07-12 09:00 | PTCARENOTE ---
OG tube drainage 300 ml's uncertain when this was from, started to recollect
[2023-07-12] MEDS: MIRALAX TUBE (09:07)
--- NOTE | 2023-07-12 09:27 | W.PN.HOSP.TC ---
Today's Communication/Plan
-
continue sedation vacation trial
maintain on abx
neuro consult
Assessment / Plan
Assessment / Plan
Septic Shock
- back on vasopressors
Acute VDRF (hypoxic, hypercapnic)
respiratory arrest evolved into reported Cardiac arrest with 3-5 mins of reported CPR prior to ROSC
- hx of underlying COPD/Smoking
- no evidence of CHF
- continue IV Cefepime for R basilar CAP; elevated procalcitonin.
- continue IV Solu-Medrol
- Venous Doppler LE neg. considering CT chest PE.
- daily sedation vacation
- Neuro evaluation requested for possible anoxic brain injury.
NSTEMI
Hx of Chronic HFmEF
CAD with history of stenting
- unclear if type 2 vs primary NM
- continue ASA rectally/Statin
- Echo: Moderately reduced left ventricular systolic function. Left ventricular ejection fraction is 30-35%%. Wall motion analysis is limited by the image quality. Aortic sclerosis without stenosis.
- trend troponin
- CBC cards following
- will need eventual cath
Former smoker:
- smoked for 51 years, quit in August
Type 2 DM
Vomiting, suspected gastroparesis
- prn judicious Reglan TID; monitor QTc closely
- continue critical care glycemic protocol with q1h accu-checks
- hold Jardiance/Lantus/Metformin
Metabolic acidosis
Hyponatremia
- improving with IVF
Elevated LFTS - likely from shock state
- improving
Acute GI bleeding from vomiting (possibly MWT)
- monitor Hb which is stable >12
DVT ppx: SC Heparin
Code: Full
Total critical care time 37 mins . Total critical care time documented does not include time spent on separately billed procedures or the services of residents, students, nurses or physician assistants. I personally saw and examined the patient. I
have reviewed all diagnostic interpretations and treatment plans as written. I was present for the mccauley portions of any procedures performed and the inclusive time noted in any critical care statement. Critical care time includes patient management
by me, time spent at the patients bedside, time to review lab and imaging results, discussing patient care, documentation in the medical record, and time spent with the family or caregiver.
Anticipated Discharge: > 48 hours
Subjective/Interval History
-
Date of Service: July 12, 2023
remains intubated on ventilator
getting sedation vacation
afebrile overnight
Objective Data
-
Labs:
Laboratory Results
07/12/23 07/12/23
01:57 03:25
WBC 28.0 H
Hgb 11.6 L
Hct 32.2 L
Plt Count 242
HCO3 Cancelled 20.2 L
Sodium 139
Potassium 3.9
Chloride 114 H
Carbon Dioxide 19 L
BUN 42 H
Creatinine 0.8
Glucose 73
Calcium 10.0
Total Bilirubin 0.3
AST 61 H
ALT 36 H
Alkaline Phosphatase 140 H
Vital Signs:
Vital Signs
Temp Pulse Resp BP Pulse Ox
100.6 F H 111 14 125/67 97
07/12/23 07:45 07/12/23 07:54 07/12/23 07:54 07/12/23 05:00 07/12/23 08:00
I&O
07/11/23 07/12/23 07/13/23
06:59 06:59 06:59
Intake Total 745.2 / 753.7 288.2 / 300.2 39.5 / 39.5
Output Total 1649 / 1679 425 / 465 105 / 105
Balance -903.8 / -925.3 -136.8 / -164.8 -65.5 / -65.5
Review of Systems
-
Respiratory: Reports No Symptoms
Cardiac: Reports No Symptoms
Abdomen/GI: Reports No Symptoms
Physical Exam
-
General: Intubated
HEENT: Normocephalic, Atraumatic and Oxygen (Intubated)
Respiratory: Rhonchi
Cardiac: Regular Rhythm, S1/S2 and Tachycardic; Negative Murmur
GI: Soft, Nontender and Nondistended
Musculoskeletal: No Edema
Neuro: Sedated; Negative Awake or Alert
[2023-07-12 09:39] LABS: Glucose - Point of Care 103 mg/dl (70-99)
[2023-07-12] MEDS: LOPRESSOR 12.5 MG TUBE ×2 (10:06→20:16)
[2023-07-12 10:32] LABS: COVID-19 Antigen Negative (Negative)
--- NOTE | 2023-07-12 11:06 | PN.DE.MGMTRT ---
Insulin Management
- -
07/12/2023 Diabetes Management Consult Follow up
Patient admitted 07/08, respiratory distress, respiratory failure, intubated sedated. PMH includes CHF, COPD, current smoker. Prior to admission was taking Jardiance 10 mg daily, AC novolog SS, lantus 20 units @ hs with metformin 500 mg BID. A1C
on admission 8%, cr 1, eGFR >60.
Patient remains intubated, sedated on vent. I spoke with patients nurse there is no plan for attempted wean, currently on sedation wean to assess response.
Glucose range 77 to 103 on glycemic protocol requiring .3 to 3 units of insulin per hour. Will continue glycemic protocol at this time.
I spoke to patients nurse regarding plan.
Diabetes History
- -
Type of Diabetes: 2 requiring insulin
Pre-Admission Diabetes Regimen
07/12/23
03:25
Creatinine 0.8
Lab Results
Hemoglobin A1c 8.0 % (4.0-5.6) H 07/10/23 06:17
Insulin Pump Settings
IP Diabetes Regimen
07/11/23 07/11/23 07/11/23
02:32 12:21 14:26
Glucose
POC Glucose 145 H 141 H 133 H
07/11/23 07/11/23 07/11/23
15:42 16:32 17:33
Glucose
POC Glucose 83 119 H 132 H
07/11/23 07/11/23 07/11/23
18:29 20:37 22:30
Glucose
POC Glucose 92 121 H 84
07/12/23 07/12/23 07/12/23
00:37 02:40 03:25
Glucose 73
POC Glucose 146 H 77
07/12/23 07/12/23 07/12/23
03:32 04:30 05:29
Glucose
POC Glucose 74 107 H 109 H
07/12/23 07/12/23 07/12/23
06:34 07:28 08:30
Glucose
POC Glucose 89 107 H 113 H
07/12/23
09:26
Glucose
POC Glucose 103 H
Patient Education
[2023-07-12 11:35] LABS: Glucose - Point of Care 123 mg/dl (70-99)
--- NOTE | 2023-07-12 12:13 | PTCARENOTE ---
Assessment remains unchanged, PT has been on a sedation vacation since 0900, PT does not follow commands consistently, eyes do not really track, + corneal, PT needs to screened prior to MRI, waiting for to talk to MRI, multiple calls
attempted no one picks up
--- NOTE | 2023-07-12 12:29 | CM ---
Patient seen at bedside in ICU with present. Patient corrected phone number to be [phone]. 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
needed. Patient has a nebulizer at home but patient is not clear about home O2 DME. He believes that home O2 DME was returned previously and family does not have any currently in home. Patient indicated that CM should talk to patient
daughter Ruma at [phone]. Patient does not have a PCP at this time and uses the [facility] in [place] ([facility]). Patient currently remains on Vent with inconsistent responses to nursing. Pending MRI testing. Patient was in [place]
visiting daughter Ruma and had been hospitalized there at that time so indicated that patient daughter was more aware of medical information, such as the DME provider for the home O2 in the past. CM will continue to follow for discharge
planning needs.
Plan; TBD; SNF vs home with VN pending functional status/assessments.
[2023-07-12 13:37] LABS: Glucose - Point of Care 109 mg/dl (70-99)
--- NOTE | 2023-07-12 14:19 | CON.NEURO4 ---
Consultation - Neurology 4
-
CONSULTING PHYSICIAN: Blas Vargas
REFERRING PHYSICIAN: Hospitalist
DICTATED BY: Blas Vargas
DATE/TIME OF REQUEST: 07/12/23
DATE/TIME OF CONSULTATION: 07/12/23
Reason for Consultation: Post cardiac arrest encephalopathy
History of Present Illness:
Patient is a 63-year-old woman with a past no history of diabetes, coronary artery disease status post stent, heart failure, COPD and tobacco use who presented to hospital with respiratory distress and then led by cardiac arrest. She was found by
her spouse and respiratory distress EMS arrived and she showed initial agonal breathing with then loss of pulse, for 3 to 5 minutes with then ROSC did receive epinephrine and quick chest compressions. She was intubated and brought into the ED. CT
head noncontrast did not show any overt signs of edema or anoxic brain injury on admission. Since then she has remained intubated and has been being treated with IV antibiotics for suspected right sided pneumonia. Has had fever today to 100.9.
No overt seizure activity or convulsions or myoclonus have been reported.
Past Medical History: COPD, Hypertension, CHF, Non insulin dependent diabetes mellitus
Surgical History: Cholecystectomy
Family History: Non-contributory
Social History: and lives with family, current tobacco use, no drug use
Review of Symptoms:
Unable to obtain due to mental status and intubation
Physical Exam:
Middle-aged woman appears older than stated age intubated in no overt distress, no signs of head or neck trauma, ET tube is in place, neck with no masses, heart rate regular breath sounds are present bilaterally abdomen is obese soft nontender 1+
pitting edema pitting bilaterally
Neurologic Examination:
Mental status shows lethargic patient with eyes open to pain and shows grimacing to painful stimulation does not track or obey any commands
Cranial nerve examination shows pupils are equal 3 mm equal resting gaze is midline and vestibular ocular reflex demonstrates normal horizontal extraocular eye movements, no ptosis, corneal reflex intact bilaterally, cough and gag are present
Motor examination shows at best mild withdrawal in a symmetric manner 1/5 in the arms and legs bilaterally
To sensory examination patient shows grimacing to pain in all extremity
Reflexes unobtainable throughout
Not able to evaluate gait or coordination
Neuro Imaging: CT head on admission showing no signs of edema or ischemic infarct or hemorrhage, preserved umana-white matter differentiation
Impressions
1. Cardiac arrest suspected due to respiratory cause
2. Encephalopathy probably multifactorial with pneumonia but potential for anoxic brain injury
3. History of coronary artery disease with stent
4. Type 2 diabetes mellitus suspected gastroparesis
5. Tobacco use
Recommendations:
1. Check EEG
2. Obtain brain MRI without contrast ideally 07/12
3. Daily sedation holiday and neurologic checks
4. Aggressive treatment of fevers which can worsen outcome in a anoxic brain injury
5. DVT prophylaxis
6. Follow liver and kidney function
Will follow
ICU time = 55 minutes
--- NOTE | 2023-07-12 15:17 | EEG.RPT ---
Electroencephalogram Report
Recording
Date of EE07/12/23
Type of EEG: Routine
Length of EEG recordin minutes
Patient Status: Inpatient
Recording Conditions: Awake and Drowsy
Hyperventilation Performed: No
Photic Stimulation Performed: Yes
Hand Dominance: Unknown
Report
LESS THAN 1 HOUR EEG REPORT
METHODS:
A 21 channel digitized electroencephalogram (EEG) was performed in the clinical neurophysiology lab. The 10/20 international system of electrode placement was used with ECG and lateral/vertical eye movements recorded. �Video was recorded. Study
lasted 29 minutes.
QUALITY OF STUDY:
Good
ELECTROENCEPHALOGRAPHER IMPRESSION(S):
Background
Median amplitude mixed frequencies from alpha maximum to delta minimum
No background asymmetry seen
Sleep
Drowsiness present
Photic Stimulation
Failed to activate the record.
ECG
Normal sinus rhythm
Abnormal EEG activity
Generalized slowing seen
LESS THAN 1 HOUR EEG INTERPRETATION:
Moderately abnormal EEG for age in wakefulness through drowsiness due diffuse bihemispheric slowing
CLINICAL CORRELATION:
This study was suggestive of a generalizing process which is most likely secondary to metabolic disturbance causing diffuse cortical dysfunction without focal abnormality. No seizures were recorded.
Of note, patient did have cardiac arrest. This EEG does not show any malignant EEG patterns.
Clinical correlation is advised.
[2023-07-12 15:30] LABS: Glucose - Point of Care 80 mg/dl (70-99)
[2023-07-12] MEDS: OFIRMEV 100 IV (15:32)
[2023-07-12 17:31] LABS: Glucose - Point of Care 138 mg/dl (70-99)
--- NOTE | 2023-07-12 18:39 | PTCARENOTE ---
Husbands phone number [phone]
[2023-07-12] MEDS: NOVOLIN R INSULIN INFUSION 100 IV (19:40)
[2023-07-12 19:55] LABS: Glucose - Point of Care 98 mg/dl (70-99)
--- NOTE | 2023-07-12 20:40 | PTCARENOTE ---
rec`d pt at 1900 intubated. pt spontaneously opens eyes. +gag +cough. ST on monitor. febrile at 101.4 . pt given afirmev around 1800 pervious shift. ice packs placed on pt. pt temp now is 99.6. HR low 120s-130s. +pulses, BS coarse. #7 ETT @21
center. rec`d on CPAP 5/5 of peep/40%. then after shift change, pt tube moved to left and changed back over to a/c vent settings A/C 14/450/40%/ 5 of peep. POX at 98-100%. OGT to continuous low suction draining dark brown secretions. FMS in place
draining liquid stool. + BS, Daniels in place draining jason urine. insulin (glycemic protocol continued) q2h, running into right double luman PICC. left hand peripheral flushed and patent. safe environment maintained.
[2023-07-12 21:42] LABS: Glucose - Point of Care 109 mg/dl (70-99)
[2023-07-12 23:33] LABS: Glucose - Point of Care 78 mg/dl (70-99)
[2023-07-13] VITALS (29 sets, daily range): BP systolic 99–146; BP diastolic 57–84; BMI 25.3
[2023-07-13] MEDS: SUBLIMAZE 50 MCG IV ×3 (00:17→03:26)
--- NOTE | 2023-07-13 00:24 | PTCARENOTE ---
pt reassessed. continuous fent boluses given. no changes in pt assessment.
[2023-07-13 00:51] LABS: Glucose - Point of Care 109 mg/dl (70-99)
[2023-07-13 01:40] LABS: Glucose - Point of Care 113 mg/dl (70-99)
[2023-07-13 02:37] LABS: Glucose - Point of Care 110 mg/dl (70-99)
[2023-07-13 03:54] LABS: % Basophils 0.1 % (0-2); % Immature Granulocytes 0.6 % (0-0.5); % Lymphocytes 9.5 % (20.5-51.1); % Monocytes 7.2 % (1.7-9.3); % Neutrophils 82.6 % (42.2-75.2); Absolute Immature Granulocytes 0.1 10^3/uL (0-0.05); Absolute Monocytes 1.5 10^3/uL (0.1-0.6); Absolute Neutrophils 17.6 10^3/uL (1.4-6.5); Hemoglobin 11.4 g/dL (12.0-16.0); Mean Corp Hgb Conc. 34.5 g/dL (33.0-37.0); Mean Corpuscular Hgb 30.9 pg (27.0-31.0); Mean Corpuscular Volume 89.4 fL (81.0-99.0); Mean Platelet Volume 9.4 fL (7.4-10.4); Nucleated Red Blood Cells % 0 %; Platelet Count 189 10^3/uL (130-400); Red Blood Cell Count 3.69 10^6/uL (4.20-5.40); Red Cell Dist. Width 13.6 % (11.5-14.5); White Blood Cell Count 21.2 10^3/uL (4.8-10.8)
[2023-07-13] MEDS: TYLENOL 650 MG PO ×2 (04:17→19:30)
[2023-07-13] MEDS: STERILE WATER FOR INJECTION 10 ML IV ×3 (04:17→17:16)
[2023-07-13] MEDS: MAXIPIME 1000 MG IV ×3 (04:17→17:16)
[2023-07-13 04:27] LABS: ALT (SGPT) 30 U/L (0-35); AST (SGOT) 47 U/L (14-36); Albumin 3.5 g/dl (3.5-5.0); Alkaline Phosphatase 121 U/L (38-126); Blood Urea Nitrogen 36 mg/dl (7-17); Carbon Dioxide 24 mmol/L (22-30); Chloride 111 mmol/L (98-107); Estimated Creatinine Clearance 64 ml/min; Glucose 97 mg/dl (70-99); Potassium 3.7 mmol/L (3.5-5.1); Sodium 142 mmol/L (135-145); Total Bilirubin 0.5 mg/dl (0.2-1.3); Total Protein 5.8 g/dl (6.3-8.2); eGFR > 60.00
[2023-07-13 04:41] LABS: B.E. -3.5 mmol/L; HCO3 20.3 mmol/L (21-28); PCO2 32 mmHg (32-35); PO2 154 mmHg (83-108); pH 7.41 (7.35-7.45)
[2023-07-13 04:46] LABS: O2 Therapy VENT
[2023-07-13 06:06] LABS: Glucose - Point of Care 107 mg/dl (70-99)
[2023-07-13 06:06] LABS: Glucose - Point of Care 95 mg/dl (70-99)
[2023-07-13 06:13] LABS: Glucose - Point of Care 122 mg/dl (70-99)
--- NOTE | 2023-07-13 07:30 | W.PN.INTV ---
Today's Communication / Plan
Recommendations
MV
Atb
Insulin sc
MRI brain
Assessment
-
Assessment:
Mrs Osiris Muñoz is a 63/W adm 07-08 after sustaining witnessed respiratory distress ( witnessed). EMS found her with agonal breathing, then respiratory arrest followed by cardiac arrest per information gathered by ER physician. ACLS
protocol initiated immediately, CPR provided for 3-5 min with ROSC after one dose of epinephrine via IO line, intubated as scene. Received at ER on MV, unresponsive, started on IV propofol and fentanyl, NE gtt, given one dose of vecuronium IV. Known
h/o HF, CAD, T2DM, COPD, tobacco dependence, unfortunately lost medical insurance about 1 m ago and was trying to make her current med supply last longer but decreasing frequency of dosing
Impression:
Respiratory arrest followed by cardiac arrest as witnessed by EMS
Intubated at scene
CPR for 3-5 min with ROSC
Interim R basilar infiltrate on CXR
NSTEMI: marked interim elevation of troponins
HFrEF, acute on chronic (TTE 07-09: LVEF 30-35%, technically difficult study)
Elevated BNP
Markedly elevated PCT
Transaminitis
Microhematuria, bacteriuria, albuminuria
Recurrent nausea, reportedly acute on chronic
Conditions SECURITY MONITOR:
HFrEF, LVEF 45%, hypokinesis mid to apical septum and apex, stage II DD, moderate eccentric MR, ePAP 84, small pericardial effusion, normal RV size and function
CAD s/p stenting
T2DM
COPD, qualified for home O2 upon d/c from in Nov 2022 (adm for CHF and AECOPD)
Smoker
Recent partial medical compliance due to lack of insurance
Plan:
Witnessed respiratory arrest followed by cardiac arrest: EMS at scene, CPR fo 3-5 min with ROSC
Per RN, now thinks downtime period was longer that he originally though. Will clarify once he visits today
Underlying CAD, HFrEF
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
Recent partial medical compliance due to lack of insurance for last 1 m SECURITY MONITOR (trying to make her med supply last longer)
Head CT without acute findings
Interim R basilar infiltrate on follow up CXR
CXR with pulm vasc congestion which improved on follow up CXR, but interim development of R basilar infiltrate/atelectasis
Follow-up chest x-ray 07-10 with resolution of right basilar infiltrate on portable film
Suspected aspiration
Continue ACV: 14-450-5-0.4 (POx 94%)
Sedation/analgesia: propofol/fentanyl. Decrease fentanyl to prn boluses, added low dose alprazolam 07-10
Daily sedation holiday to assess for SBT and MS
Currently able to open eyes and blink, open mouth and pull out tongue upon command. Withdraws DEVON to stimuli (no evidence of posturing)
UCx negative
UDS positive for bzd and cannabis. Noted outpatient low dose alprazolam use for anxiety
Blood cxs NTD
Trach asp cx NTD
COVID/flu negative
MRSA screening negative
Markedly elevated PCT with normal eGFR
Empiric atbs on adm: aztreonam (reported penicillin allergy) and vancomycin
Changed aztreonam to cefepime, discontinued vancomycin: 07-10
NE off since 07-09
Started neosynephrine 07-10, weaning down
RUE PICC 07-10, noted resolution of R basilar infiltrate/atelectasis
Change MP IV to prednisone 40 mg qd, finite 5 d course of CS
Hypothermia on adm
Low grade temp since 07-10, intermittent fever on 07-11
Though rare side effect potentially associated to cefepime
Follow temp
NSTEMI
Marked interim elevation of troponins
Elevated BNP
Known h/o HFrEF, on current TTE LVEF down from 45% to 30-35% (technically difficult TTE)
RV size and function normal
Held resumption of BB due to hypotension 07-09. Metoprolol started 07-11
ASA pr due to intermittent nausea/vomit
Cards following closely, considering [facility] this adm
IV insulin protocol off since 07-12, started novolo SS and lantus
DEVON doppler 07-11: negative. Though BNP and trops elevated, RV size and function normal on TTE
AXR with nonobstructive gas pattern
Neurology consultation 07-11 appreciated
Multifactorial encephalopathy
EEG 07-11: diffuse cortical dysfunction without focal abnormality or sz, likely from metabolic disturbance
MRI brain pending
Outpatient jardiance 10 mg daily, AC novolog SS, lantus 20 units hs, metformin 500 mg BID
HgbA1C on admission 8%
IV insulin protocol started
GI proph: PPI IV
DVT proph: sc hep
Antiemetic prn, received one dose metoclopramide on 07-10 only, suspected DM gastroparesis
Full code
D/w patient's in detail 07-09 and daughter 07-10, all questions answered
Prognosis guarded in view of resp arrest followed by cardiac arrest and significant comorbidities, family understands situation
Critical care time: 35 min
Subjective Dataa
Subjective Data
Date of Service:
Date of Service: July 13, 2023
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
Subjective:
No major events reported overnight
EEG yesterday with no evidence of seizure disorder
No longer vomiting
Off sedatives since then the morning today
Open closes eyes and mostly yellow, otherwise noninteractive
Review of Systems
General: Other (lethargic)
Objective Data
Data Reviewed
Vital Signs / I&O / Oxygen:
Vital Signs
Temp Pulse Resp BP Pulse Ox
100.2 F 115 14 127/79 100
07/13/23 07:22 07/13/23 07:00 07/13/23 07:00 07/13/23 07:00 07/13/23 07:00
Intake and Output
04/18/24 04/19/24 04/20/24
06:59 06:59 06:59
Intake Total 288.2 / 294.2 51.5 / 51.5
Output Total 425 / 465 740 / 740
Balance -136.8 / -170.8 -688.5 / -688.5
SaO2 [CPAP/PSV] 99
SaO2 [A/C] 100
SaO2 100
Physical Exam
General: Comfortable
HEENT: Normocephalic and Moist Mucous Membranes
Cardiovascular: Regular Rhythm and Peripheral Edema (n)
Respiratory: Wheeze, Crackles, Stridor and ET Tube
GI: Soft, Non Distended and NG Tube
Neurology: Other (sedated, able to open and close eyes and open mouth and pull out tone upon command. Unable to move extremities upon command)
Skin: Warm
Labs/Micro/Reports
Lab Data
07/13/23 03:44
07/13/23 03:44
Laboratory Results
07/13/23
04:33
pH 7.41
pCO2 32
pO2 154 H
HCO3 20.3 L
O2 Delivery Level Vent
Microbiology
07/10/23 12:38 Blood/Venous Blood Culture - Preliminary
No Growth in 48 hours- Final report to follow
07/10/23 12:05 Tracheal Aspirate Respiratory Culture - Final
Usual Respiratory Nanci
07/10/23 12:05 Tracheal Aspirate Gram Stain - Final
07/10/23 12:14 Blood/Venous Blood Culture - Preliminary
No Growth in 48 hours- Final report to follow
07/12/23 10:03 Nasal Swab Influenza Types A & B (ANGELA) - Final
Negative for Influenza A & B, NAAT
Negative results must be combined with clinical observations
and patient history.
Nucleic Acid Amplification test (NAAT)performed on the
[employer] platform.
07/09/23 23:03 Urine Urine Culture - Final
NO GROWTH
07/10/23 12:03 Nose Nasal Screen MRSA (PCR) - Final
MRSA not detected - performed by PCR methodology.
[2023-07-13] MEDS: DUONEB 3 ML INH ×4 (07:31→19:51)
[2023-07-13 07:38] LABS: Glucose - Point of Care 124 mg/dl (70-99)
[2023-07-13] MEDS: DELTASONE 40 MG PO (07:40)
[2023-07-13] MEDS: LOW STRENGTH ASPIRIN 81 MG TUBE (07:40)
[2023-07-13] MEDS: XANAX 0.25 MG TUBE ×2 (07:40→19:30)
[2023-07-13] MEDS: LOPRESSOR 12.5 MG TUBE ×2 (07:40→19:30)
[2023-07-13] MEDS: MIRALAX TUBE (07:41)
[2023-07-13] MEDS: PROTONIX IV 40 MG IV (07:41)
[2023-07-13] MEDS: HEPARIN 5000 UNITS SC ×2 (07:41→17:16)
--- NOTE | 2023-07-13 08:00 | PTCARENOTE ---
PT received intubated no sedation, PT does open eyes and close tight, also will stick tongue out,does not follow any other commands, B/L foot drop noted, + corneal, pupils 3 sluggish, ST, weak pedal pulses, trace edema, #7 ETT @ right side, PT
placed on PSV, Psuport 5, PEEP5, FiO2 40%, B/L BS diminished and coarse, occasional cough, thick clear secretions, OG tube placement verified to LIS, abdomen soft, NT, FMS flushed, no leakage, Daniels care preformed, draining clear yellow urine, right
Dual PICC flushed and patent, + blood return, left hand INT flushed and patent, see work list for Insulin titrations on Glycemic protocol
--- NOTE | 2023-07-13 08:22 | PN.DE.MGMTRT ---
Insulin Management
- -
07/13/2023 Diabetes Management F/U:
Patient admitted 07/08, WITH respiratory distress, respiratory failure, intubated sedated. PMH includes CHF, COPD, current smoker. Prior to admission was taking Jardiance 10 mg daily, AC NovoLog SS, Lantus 20 units @ hs with metformin 500 mg BID.
A1C on admission 8%, Cr 1, eGFR >60.
Patient remains intubated, sedated on vent. I spoke with patients nurse there is no plan for attempted wean, currently on sedation wean to assess response.
Glucose range 78 to 124 on glycemic protocol requiring 0.1 to 1.2 units of insulin per hour.
She has been weaned off steroids. Will transition off glycemic protocol at this time to SQ insulin.
Give Lantus 10 units NOW. Turn drip off at 11:00 am. Start Corrective insulin, NovoLog Q6hrs.
Will follow closely and make further adjustment if needed.
Discussed with ICU round team and patient's nurse regarding plan.
Diabetes History
- -
Type of Diabetes: 2 requiring insulin
Pre-Admission Diabetes Regimen
07/13/23
03:44
Creatinine 0.7
Lab Results
Hemoglobin A1c 8.0 % (4.0-5.6) H 07/10/23 06:17
Insulin Pump Settings
IP Diabetes Regimen
07/12/23 07/12/23 07/12/23
08:30 09:26 11:23
Glucose
POC Glucose 113 H 103 H 123 H
07/12/23 07/12/23 07/12/23
13:26 15:18 17:20
Glucose
POC Glucose 109 H 80 138 H
07/12/23 07/12/23 07/12/23
19:39 21:31 23:21
Glucose
POC Glucose 98 109 H 78
07/13/23 07/13/23 07/13/23
00:38 01:29 02:25
Glucose
POC Glucose 109 H 113 H 110 H
07/13/23 07/13/23 07/13/23
03:25 03:44 05:35
Glucose 97
POC Glucose 95 107 H
07/13/23 07/13/23
06:02 07:27
Glucose
POC Glucose 122 H 124 H
Patient Education
--- NOTE | 2023-07-13 08:33 | W.PN.CD ---
Today's Communication / Plan
-
continue to assess neuro status. work up and evaluation in progress . see neuro note. await MRI
recurrent fever - tx per primary team
Continue with BB and ASA. Add lisinopril when BP will allow. Some low pressors yesterday .w ill hold off today.
contiue to monitor volume status
Impression / Plan
-
Impression: 63-year-old woman with with previous history of coronary artery disease, prior history of PR, cardiomyopathy with ejection fraction of 45% COPD and smoking who was admitted with respiratory arrest and is now in ICU with vent dependent
respiratory failure. Initial ECG showed sinus rhythm with nonspecific ST abnormality. Troponin peak 19
Plan
VDRF - Continued management as directed by pulmonary and hospitalist.
NSTEMI.-Troponin 19. Unclear if this is a type II PR related to hypoxemia and underlying coronary artery disease. Primary PR cannot be entirely excluded.
-Optimize respiratory status as noted above
-medical therapy of CAD
-Echo shows new LVEF decline -> eventual LHC could be considered but need to wait and see how much mental status recovers.
Neuro/mental status. Post arrest. aanoxic encepjhalopathy. neuro assesment in progress. Plan for MRI
Prolonged QTc - limit QTc prolonging meds including metoclopramide.
Fevere- recurrent fever. Flu and covid neg 07/12/23. Tx per primary team . possible pulmonary source. Tx/ abx per primary team
CM - monitor volume status and reassess LVF
COPD
MR
Pulm HTN - echo TDS. Eventual repeat
Critically ill - 30 minutes
Sedated and intubated
Physical Exam
Vital Signs/Labs
Vital Signs
Temp Pulse Resp BP Pulse Ox
100.2 F 118 15 127/79 100
07/13/23 07:22 07/13/23 07:50 07/13/23 07:50 07/13/23 07:40 07/13/23 07:50
07/12/23 07/13/23 07/14/23
06:59 06:59 06:59
Actual Weight 61.6 kg 60.7 kg
07/13/23 03:44
07/13/23 03:44
PT 15.2 Sec (11.4-14.6) H 07/10/23 06:16
INR 1.22 07/10/23 06:16
APTT 29.2 Sec (23.4-35.0) 07/10/23 06:16
Magnesium 2.1 mg/dl (1.6-2.3) 07/12/23 03:25
Triglycerides 183 mg/dl (10-149) H 07/11/23 10:36
07/09/23
23:03
[id number]-S-[id number] Pept 2750
LAB Results
07/10/23 07/10/23 07/10/23
12:00 12:03 18:00
Troponin I Cancelled 18.800 H* Cancelled
Data Reviewed
-
Date of Service: July 13, 2023
[2023-07-13] MEDS: NSS (PRESERVATIVE FREE) 10 ML IV (09:13)
[2023-07-13 09:30] LABS: Glucose - Point of Care 137 mg/dl (70-99)
--- NOTE | 2023-07-13 09:42 | W.PN.HOSP.TC ---
Today's Communication/Plan
-
continue vent weaning
continue abx
monitor for neuro function recovery
Assessment / Plan
Assessment / Plan
s/p cardiac arrest
Suspected anoxic brain injury
Acute VDRF (hypoxic, hypercapnic)
- hx of underlying COPD/Smoking
- no evidence of CHF
- continue IV Cefepime for R basilar CAP; elevated procalcitonin.
- continue IV Solu-Medrol
- Venous Doppler LE neg. considering CT chest PE.
- daily sedation vacation - no meaningful neurological function on exam
- Neuro evaluation requested for possible anoxic brain injury.
- EEG showing diffuse cortical dysfunction.
Septic Shock
- off of vasopressors
Non STEMI
Hx of Chronic HFmrEF
CAD with history of stenting
- unclear if type 2 vs primary [place]
- continue ASA rectally/Statin
- Echo: Moderately reduced left ventricular systolic function. Left ventricular ejection fraction is 30-35%%. Wall motion analysis is limited by the image quality. Aortic sclerosis without stenosis.
- trend troponin
- CBC cards following
- will need eventual cath
Former smoker:
- smoked for 51 years, quit in August
Type 2 DM
Vomiting, suspected gastroparesis
- continue critical care glycemic protocol
- hold Jardiance/Lantus/Metformin
Metabolic acidosis - resolved
Hyponatremia -resolved
- improving with IVF
Elevated LFTS - likely from shock state
- improving
Acute GI bleeding from vomiting (possibly MWT)
- monitor Hb which is stable >12
DVT ppx: SC Heparin
Code: Full
Total critical care time 36 mins . Total critical care time documented does not include time spent on separately billed procedures or the services of residents, students, nurses or physician assistants. I personally saw and examined the patient. I
have reviewed all diagnostic interpretations and treatment plans as written. I was present for the mccauley portions of any procedures performed and the inclusive time noted in any critical care statement. Critical care time includes patient management
by me, time spent at the patients bedside, time to review lab and imaging results, discussing patient care, documentation in the medical record, and time spent with the family or caregiver.
Anticipated Discharge: > 48 hours
Subjective/Interval History
-
Date of Service: July 13, 2023
Remains off of sedation, remains unresponsive
Off of vasopressors
Remains intubated on ventilator
Objective Data
-
Labs:
Laboratory Results
07/13/23 07/13/23 07/13/23
03:44 04:33 09:39
WBC 21.2 H
Hgb 11.4 L
Hct 33.0 L
Plt Count 189 D
HCO3 20.3 L Pending
Sodium 142
Potassium 3.7
Chloride 111 H
Carbon Dioxide 24
BUN 36 H
Creatinine 0.7
Glucose 97
Calcium 10.0
Total Bilirubin 0.5
AST 47 H
ALT 30
Alkaline Phosphatase 121
Vital Signs:
Vital Signs
Temp Pulse Resp BP Pulse Ox
100.2 F 111 23 113/76 100
07/13/23 07:22 07/13/23 09:00 07/13/23 09:00 07/13/23 09:00 07/13/23 09:00
I&O
07/12/23 07/13/23 07/14/23
06:59 06:59 06:59
Intake Total 288.2 / 294.2 51.5 / 52.7 3.6 / 3.6
Output Total 425 / 465 740 / 790 100 / 100
Balance -136.8 / -170.8 -688.5 / -737.3 -96.4 / -96.4
Review of Systems
-
Unable to obtain full review of systems at this time due to: Acuity
Physical Exam
-
General: Intubated
HEENT: Oxygen (Intubated on MV)
Respiratory: Clear to Auscultation
Cardiac: Regular Rhythm, S1/S2 and Tachycardic; Negative Murmur
GI: Soft, Nontender and Nondistended
Musculoskeletal: No Edema
Neuro: Other (Not waking up off sedation); Negative Awake or Alert
[2023-07-13 09:59] LABS: B.E. -3.5 mmol/L; HCO3 20.3 mmol/L (21-28); O2 Saturation % 99.9 % (94-98); PCO2 32 mmHg (32-35); PO2 151 mmHg (83-108); pH 7.41 (7.35-7.45)
[2023-07-13] MEDS: LANTUS 0.100000000000000006 UNITS SC (10:55)
[2023-07-13 11:06] LABS: Glucose - Point of Care 129 mg/dl (70-99)
[2023-07-13] MEDS: NOVOLOG FLEXPEN-MODERATE RESISTANCE SC (11:56)
--- NOTE | 2023-07-13 11:58 | W.PN.NEURO.1 ---
Today's Communication / Plan
-
-Daily sedation holiday
-Not recommending any antiseizure medications
-Check MRI brain without contrast ideally on 07/12 or 07/13
-Neurologic checks
-Treat fever aggressively
ICU time = 35 minutes
We will continue to follow
Neuro Assessment/Plan
Assessment
[age]-year-old woman who has history of coronary artery disease and diabetes had respiratory distress which then progressed to cardiac arrest
Initial CT head noncontrast did not show any acute abnormality
Patient had septic shock and NSTEMI vomiting with some mild amount of GI bleed
EEG showed moderate slowing diffusely no seizure or epileptiform activity did not show a malignant pattern of EEG after cardiac arrest
Neurologic examination shows no purposeful activity at this time, intact cranial nerves, very little motor response, grimacing to pain
Multifactorial encephalopathy, septic shock was playing a role, suspected has had some degree of anoxic brain injury
Subjective/Objective
Subjective Data
Date of Service: July 13, 2023
No acute events, remains intubated
Objective Data
Vital Signs
Temp Pulse Resp BP Pulse Ox
100.2 F 108 23 113/76 100
07/13/23 07:22 07/13/23 11:11 07/13/23 11:11 07/13/23 09:00 07/13/23 09:00
Lab Results
07/13/23 03:44
07/13/23 03:44
PT 15.2 Sec (11.4-14.6) H 07/10/23 06:16
INR 1.22 07/10/23 06:16
APTT 29.2 Sec (23.4-35.0) 07/10/23 06:16
Sodium 142 mmol/L (135-145) 07/13/23 03:44
Potassium 3.7 mmol/L (3.5-5.1) 07/13/23 03:44
BUN 36 mg/dl (7-17) H 07/13/23 03:44
Glucose 97 mg/dl (70-99) 07/13/23 03:44
Calcium 10.0 mg/dl (8.4-10.2) 07/13/23 03:44
Wax-P-Kviixuiqgkw Pept 2750 pg/ml 07/09/23 23:03
Ur Buprenorphine Negative (Negative) 07/10/23 15:13
Patient Allergies
codeine Allergy (Verified 07/09/23 22:52)
Itching
latex Allergy (Verified 07/09/23 22:52)
Hives
Penicillins Allergy (Verified 07/09/23 22:52)
Rash
silver [From Tegaderm AG Mesh] Allergy (Verified 07/09/23 22:52)
'peels skin off'
Review of Systems
-
Unable to obtain full review of systems at this time due to: Patient Intubation
Physical Exam
-
General: Intubated and Appears Chronically Ill
Eyes: No Ptosis
HEENT: Atraumatic
Neck: Full Range of Motion
Respiratory: Negative Wheezes
Cardiac: No Murmur
GI: Soft and Non-tender
Skin: Negative Rash
Extremities: No Edema
Psych: Unable to Assess
Extended Neurological Exam
Attention Span & Concentration: Other ([id number], no tracking, no obeying commands, grimaces to pain at times)
Memory: Unable to Assess
Tremor: Hand Tremor Absent
Involuntary Movement: None
Speech: Mute
Cranial Nerve II: Left Eye: Pupillary Reactivity Unremarkable and Pupillary Size Unremarkable
Cranial Nerve II: Right Eye: Pupillary Reactivity Unremarkable and Pupillary Size Unremarkable
Cranial Nerves III, IV, : Extraocular Movement: Other (Resting gaze midline, VOR intact)
Cranial Nerve V: Facial Sensation: Other (Corneal reflex intact bilaterally)
Cranial Nerve VII: Facial Symmetry: Other (Corneal reflex intact bilaterally)
Cranial Nerves IX, X: Palate Movement: Other (Cough and gag intact)
Muscle Strength, Overall: Other (Minimal withdrawal 1/5 in arms and legs to central and peripheral pain)
Cold Sensation: Unremarkable
Babinski Sign: Absent Bilaterally
Data Reviewed
-
CT Head: Report Reviewed and Image Reviewed
MRI Head: Ordered and Pending
EEG: Report Reviewed
Labs: Report Reviewed
[2023-07-13 12:07] LABS: Glucose - Point of Care 122 mg/dl (70-99)
--- NOTE | 2023-07-13 14:11 | PTCARENOTE ---
Daniels removed @ 1210 due to MRI, PT due to void 2009, PT transported to MRI and back without issues, assessment remains unchanged
--- NOTE | 2023-07-13 14:14 | CM ---
CM following re: discharge planning.
Discussed in Rounds, reviewed pt's chart, met with pt and pt's at bedside. Per Rounds meeting, pt remains intubated and sedated, MRI today, continue supportive care.
D/C plan: uncertain at this time and will depend on pt's progress.
CM will follow with discharge plan updates as hospitalization progresses
[2023-07-13] MEDS: NOVOLOG FLEXPEN-MODERATE RESISTANCE 3 UNITS SC (17:13)
[2023-07-13 17:24] LABS: Glucose - Point of Care 222 mg/dl (70-99)
[2023-07-13] MEDS: REFRESH EYE DROPS (PF) 1 DROPS OPHTH (19:30)
--- NOTE | 2023-07-13 21:11 | PTCARENOTE ---
Patient tolerating ventilator settings, cooperative with mouth care. at bedside and daughter on the phone requesting update plan of care. Patient repositioned, grimacing slightly when moved. L arm slight withdrawal with needle stick. Patient
unable to follow commands, attempted to open eyes. ET tube repositioned with RT, patient chewing/mouthing ET tube. HOB elevated, Tylenol given for fever. No void at this time.
[2023-07-13 23:24] LABS: Glucose - Point of Care 154 mg/dl (70-99)
[2023-07-14] VITALS (25 sets, daily range): BP systolic 90–158; BP diastolic 56–89; BMI 24.1
[2023-07-14] MEDS: HEPARIN 5000 UNITS SC ×3 (00:34→16:17)
[2023-07-14] MEDS: MAXIPIME 1000 MG IV ×2 (00:34→05:26)
[2023-07-14] MEDS: STERILE WATER FOR INJECTION 10 ML IV ×5 (00:34→21:38)
[2023-07-14] MEDS: NOVOLOG FLEXPEN-MODERATE RESISTANCE 1 UNITS SC ×2 (00:36→12:26)
--- NOTE | 2023-07-14 01:44 | PTCARENOTE ---
Patient able to follow command to open eyes and blink, with strong gag reflex, but unable to lift her head and arms off the bed. Tolerating ventilator settings, incontinent of urine.
[2023-07-14 03:16] LABS: % Basophils 0.1 % (0-2); % Immature Granulocytes 0.3 % (0-0.5); % Lymphocytes 11.8 % (20.5-51.1); % Monocytes 6.8 % (1.7-9.3); Absolute Lymphocytes 1.7 10^3/uL (1.2-3.4); Absolute Neutrophils 11.5 10^3/uL (1.4-6.5); Hemoglobin 11.6 g/dL (12.0-16.0); Mean Corp Hgb Conc. 34.1 g/dL (33.0-37.0); Mean Corpuscular Hgb 31.4 pg (27.0-31.0); Mean Corpuscular Volume 92.1 fL (81.0-99.0); Mean Platelet Volume 9.5 fL (7.4-10.4); Nucleated Red Blood Cells % 0 %; Platelet Count 184 10^3/uL (130-400); Red Blood Cell Count 3.69 10^6/uL (4.20-5.40); Red Cell Dist. Width 13.4 % (11.5-14.5); White Blood Cell Count 14.2 10^3/uL (4.8-10.8)
[2023-07-14 03:42] LABS: ALT (SGPT) 22 U/L (0-35); AST (SGOT) 35 U/L (14-36); Albumin 3.5 g/dl (3.5-5.0); Alkaline Phosphatase 113 U/L (38-126); Blood Urea Nitrogen 38 mg/dl (7-17); Calcium 9.9 mg/dl (8.4-10.2); Carbon Dioxide 18 mmol/L (22-30); Chloride 113 mmol/L (98-107); Direct Bilirubin 0.5 mg/dl (0.0-0.4); Estimated Creatinine Clearance 64 ml/min; Glucose 195 mg/dl (70-99); Potassium 4.3 mmol/L (3.5-5.1); Sodium 142 mmol/L (135-145); Total Bilirubin 0.7 mg/dl (0.2-1.3); Total Protein 5.7 g/dl (6.3-8.2); Triglycerides 193 mg/dl (10-149); eGFR > 60.00
[2023-07-14] MEDS: TYLENOL 650 MG PO (04:00)
[2023-07-14] MEDS: NOVOLOG FLEXPEN-MODERATE RESISTANCE SC (05:27)
[2023-07-14 05:36] LABS: Glucose - Point of Care 236 mg/dl (70-99)
[2023-07-14] MEDS: NOVOLOG FLEXPEN-MODERATE RESISTANCE 3 UNITS SC ×2 (05:51→17:56)
[2023-07-14 06:19] LABS: Glucose - Point of Care 216 mg/dl (70-99)
--- NOTE | 2023-07-14 06:34 | W.PN.CD ---
Today's Communication / Plan
-
MRI findings consistent with anoxic injury. Assessment and tx as per neuro
sinus tachycardia - mulitfactorial - tx fever and any underlying infection. With troponin on admit, will increase BB as BP allows.
Impression / Plan
-
Impression: 63-year-old woman with with previous history of coronary artery disease, prior history of [place], cardiomyopathy with ejection fraction of 45% COPD and smoking who was admitted with respiratory arrest and is now in ICU with vent dependent
respiratory failure. Initial ECG showed sinus rhythm with nonspecific ST abnormality. Troponin peak 19
Plan
VDRF - Continued management as directed by pulmonary and hospitalist.
NSTEMI.-Troponin 19. Unclear if this is a type II [place] related to hypoxemia and underlying coronary artery disease. Primary [place] cannot be entirely excluded.
-Optimize respiratory status as noted above
-medical therapy of CAD
-Echo shows new LVEF decline -> eventual LHC could be considered but need to wait and see how much mental status recovers.
Neuro/mental status. Post arrest. aanoxic encepjhalopathy. neuro assesment in progress. MRI suggesting anoxic injury. tx per neuro
Prolonged QTc -
- improved.
limit QTc prolonging meds including metoclopramide.
Fever- recurrent fever. Flu and covid neg 07/12/23. Tx per primary team . possible pulmonary source. Tx/ abx per primary team
- BC pending
CM - monitor volume status and reassess LVF
COPD
MR
Pulm HTN - echo TDS. Eventual repeat
Critically ill - 30 minutes
Sedated and intubated
Physical Exam
Vital Signs/Labs
Vital Signs
Temp Pulse Resp BP Pulse Ox
101.1 F H 113 14 135/83 99
07/14/23 03:33 07/14/23 05:01 07/14/23 05:01 07/14/23 05:01 07/14/23 05:01
07/12/23 07/13/23 07/14/23
06:59 06:59 06:59
Actual Weight 61.6 kg 60.7 kg 57.9 kg
07/14/23 03:08
PT 15.2 Sec (11.4-14.6) H 07/10/23 06:16
INR 1.22 07/10/23 06:16
APTT 29.2 Sec (23.4-35.0) 07/10/23 06:16
Magnesium 2.1 mg/dl (1.6-2.3) 07/12/23 03:25
Triglycerides 193 mg/dl (10-149) H 07/14/23 03:08
07/09/23
23:03
Sgq-A-Hjqcfikgwvu Pept 2750
Physical Exam
Constitutional: Other (vented)
EENT: Anicteric
Cardiovascular: Rhythm & rate is regular (tacycardia)
Respiratory: Wheeze Absent and Rhonchi Absent
GI: Soft
Data Reviewed
-
Date of Service: July 14, 2023
Medical Decision Making: Reviewed Test Results
Echo: Report Reviewed by me
Labs: Labs Reviewed by me
Critical Care Time (in minutes): 30
[2023-07-14] MEDS: LOW STRENGTH ASPIRIN 81 MG TUBE (07:12)
[2023-07-14] MEDS: LANTUS 0.100000000000000006 UNITS SC (07:13)
[2023-07-14] MEDS: NSS (PRESERVATIVE FREE) 10 ML IV (07:13)
[2023-07-14] MEDS: MIRALAX TUBE (07:13)
[2023-07-14] MEDS: PROTONIX IV 40 MG IV (07:13)
[2023-07-14] MEDS: XANAX 0.25 MG TUBE ×2 (07:29→19:32)
[2023-07-14] MEDS: DUONEB 3 ML INH ×4 (07:35→19:42)
--- NOTE | 2023-07-14 07:41 | W.PN.INTV ---
Today's Communication / Plan
Recommendations
MV weaning
Atb
Monitor temp
Assessment
-
Assessment:
Mrs Osiris Muñoz is a 63/W adm 07-08 after sustaining witnessed respiratory distress ( witnessed). EMS found her with agonal breathing, then respiratory arrest followed by cardiac arrest per information gathered by ER physician. ACLS
protocol initiated immediately, CPR provided for 3-5 min with ROSC after one dose of epinephrine via IO line, intubated as scene. Received at ER on MV, unresponsive, started on IV propofol and fentanyl, NE gtt, given one dose of vecuronium IV. Known
h/o HF, CAD, T2DM, COPD, tobacco dependence, unfortunately lost medical insurance about 1 m ago and was trying to make her current med supply last longer but decreasing frequency of dosing
Impression:
Respiratory arrest followed by cardiac arrest as witnessed by EMS 07-08
Intubated at scene
CPR for 3-5 min with ROSC
Interim R basilar infiltrate on CXR
NSTEMI: marked interim elevation of troponins
HFrEF, acute on chronic (TTE 07-09: LVEF 30-35%, technically difficult study)
Elevated BNP
Markedly elevated PCT
Transaminitis
Microhematuria, bacteriuria, albuminuria
Recurrent nausea, reportedly acute on chronic
Anoxic encephalopathy
Conditions [employer]:
HFrEF, LVEF 45%, hypokinesis mid to apical septum and apex, stage II DD, moderate eccentric MR, ePAP 84, small pericardial effusion, normal RV size and function
CAD s/p stenting
T2DM
COPD, qualified for home O2 upon d/c from in Nov 2022 (adm for CHF and AECOPD)
Smoker
Recent partial medical compliance due to lack of insurance
Plan:
Witnessed respiratory arrest followed by cardiac arrest: EMS at scene, CPR fo 3-5 min with ROSC
Per RN 07-12, now thinks downtime period was longer that he originally though. Will clarify once he visits at bedside
Underlying CAD, HFrEF
Ongoing heavy smoking [employer], chronic smoking
Recent partial medical compliance due to lack of insurance for last 1 m [employer] SUPER[employer] (trying to make her med supply last longer)
Head CT without acute findings
Interim R basilar infiltrate on follow up CXR
CXR with pulm vasc congestion which improved on follow up CXR, but interim development of R basilar infiltrate/atelectasis
Follow-up chest x-ray 07-10 with resolution of right basilar infiltrate on portable film
Continue ACV: 14-450-5-0.4 (POx 94%)
Sedation/analgesia: propofol/fentanyl gtt initially. Changed fentanyl to prn boluses, added low dose alprazolam 07-10
Daily sedation holiday to assess for SBT and MS
Was intermittently weakly opening eyes/blinking, opening mouth but overtime has become much less responsive
Neurology following
UCx negative
UDS positive for bzd and cannabis. Noted outpatient low dose alprazolam use for anxiety
Blood cxs 07/09 and NTD
Trach asp cx negative
COVID/flu negative
MRSA screening negative
Markedly elevated PCT with normal eGFR
Empiric atbs on adm: aztreonam (reported penicillin allergy) and vancomycin
Changed aztreonam to cefepime, discontinued vancomycin: 07-10
NE off since 07-09
Started neosynephrine 07-10, weaning down
RUE PICC 07-10, noted resolution of R basilar infiltrate/atelectasis
Change MP IV to prednisone 40 mg qd, finite 5 d course of CS
Hypothermic on adm
Low grade temp since 07-10
Though rare side effect potentially associated to cefepime
Follow temp
ID consulted
NSTEMI
Marked interim elevation of troponins
Elevated BNP
Known h/o HFrEF, on current TTE LVEF down from 45% to 30-35% (technically difficult TTE)
RV size and function normal
Held resumption of BB due to hypotension 07-09. Metoprolol started 07-11
ASA pr due to intermittent nausea/vomit
Cards following closely, considering [facility] this adm
IV insulin protocol off since 07-12, started novolog SS and lantus
DEVON doppler 07-11: negative. Though BNP and trops elevated, RV size and function normal on TTE
AXR with nonobstructive gas pattern
Neurology consultation 07-11 appreciated
Multifactorial encephalopathy
EEG 07-11: diffuse cortical dysfunction without focal abnormality or sz, likely from metabolic disturbance
MRI brain 07-12: highly suspicious for anoxic ischemic injury involving parahippocampal gyrus, cerebellar hemispheres, R paramidline parietal cortex, also small peripheral subcortical white matter infarct involving the superior posterolateral R
frontal lobe
Per RN 07-12, now thinks downtime period was longer that he originally though. Will clarify once he visits at bedside
Outpatient jardiance 10 mg daily, AC novolog SS, lantus 20 units hs, metformin 500 mg BID
HgbA1C on admission 8%
IV insulin protocol started
GI proph: PPI IV
DVT proph: sc hep
Antiemetic prn, received one dose metoclopramide on 07-10 only, suspected DM gastroparesis
Full code
D/w patient's in detail 07-09 and daughter 07-10, all questions answered
Prognosis guarded in view of resp arrest followed by cardiac arrest, significant comorbidities, and brain MRI findings
Critical care time: 35 min
Subjective Dataa
Subjective Data
Date of Service:
Date of Service: July 14, 2023
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
Subjective:
No major events reported overnight
Continues on mechanical ventilation
Unfortunate, neurologically has not improved
MRI of the brain yesterday shows significant evidence of anoxic injury
Review of Systems
General: Other (Intermittently open eyes only)
Objective Data
Data Reviewed
Vital Signs / I&O / Oxygen:
Vital Signs
Temp Pulse Resp BP Pulse Ox
101.4 F H 119 15 140/74 99
07/14/23 07:38 07/14/23 06:30 07/14/23 06:30 07/14/23 06:00 07/14/23 06:30
Intake and Output
07/13/23 07/14/23 07/15/23
06:59 06:59 06:59
Intake Total 51.5 / 52.7 35.1 / 135.1 100 / 100
Output Total 740 / 790 180 / 180
Balance -688.5 / -737.3 -144.9 / -44.9 100 / 100
SaO2 [CPAP/PSV] 95
SaO2 [A/C] 100
SaO2 99
Physical Exam
General: Comfortable
HEENT: Normocephalic and Moist Mucous Membranes
Cardiovascular: Regular Rhythm and Peripheral Edema (n)
Respiratory: Wheeze, Crackles, Stridor and ET Tube
GI: Soft, Non Distended and NG Tube
Neurology: Other (sedated, able to open and close eyes and open mouth and pull out tone upon command. Unable to move extremities upon command)
Skin: Warm
Labs/Micro/Reports
Lab Data
07/14/23 06:00
07/14/23 03:08
Laboratory Results
07/13/23
09:39
pH 7.41
pCO2 32
pO2 151 H
HCO3 20.3 L
O2 Delivery Level
Microbiology
07/10/23 12:38 Blood/Venous Blood Culture - Preliminary
No Growth in 72 hours- Final report to follow
07/10/23 12:14 Blood/Venous Blood Culture - Preliminary
No Growth in 72 hours- Final report to follow
07/10/23 12:05 Tracheal Aspirate Respiratory Culture - Final
Usual Respiratory Nanci
07/10/23 12:05 Tracheal Aspirate Gram Stain - Final
07/12/23 10:03 Nasal Swab Influenza Types A & B (ANGELA) - Final
Negative for Influenza A & B, NAAT
Negative results must be combined with clinical observations
and patient history.
Nucleic Acid Amplification test (NAAT)performed on the
[employer] platform.
07/09/23 23:03 Urine Urine Culture - Final
NO GROWTH
--- NOTE | 2023-07-14 07:47 | PTCARENOTE ---
pt opens eyes to name. does not tract. does not follow any commands. no movement noted in arms with any stimuli. ankle knee jerk seen in both legs with stimuli to bottom of feet. bilat foot drop. gag present, cough weak with suctioning. oral
care done. pt moves mouth. pupils 3 and brisk corneal present. pure wick in place. fecal jessie in place draining liquid brown. og tube in placement checked on lcw suction draining green/bn. ett in place ac mode on vent. breath sounds diminished
at bases.
--- NOTE | 2023-07-14 07:53 | PTCARENOTE ---
pt failed wean on cpap per resp therapist. elevated hr and resp rate within 5 min. placed back on ac.
--- NOTE | 2023-07-14 08:08 | W.PN.HOSP.TC ---
Today's Communication/Plan
-
cooling blanket/scheduled tylenol
ID eval
continue supportive care
Assessment / Plan
Assessment / Plan
MRI brain
Motion degradation.
Findings highly suspicious for anoxic ischemic injury involving the parahippocampal gyrus, cerebellar hemispheres, right paramidline parietal cortex. Small peripheral subcortical white matter infarct involving the superior posterolateral right
frontal lobe.
No mass effect. No midline shift. No herniation.

s/p cardiac arrest
Anoxic brain injury
Acute VDRF (hypoxic, hypercapnic)
- hx of underlying COPD/Smoking
- no evidence of CHF
- continue IV Cefepime for R basilar CAP; elevated procalcitonin.
- continue IV Solu-Medrol
- Venous Doppler LE neg. considering CT chest PE.
- daily sedation vacation and neuro eval
- EEG showing diffuse cortical dysfunction.
- MRI brain finding as above , in conjunction with EEG per neuro patient recovery chance is good, will likely require longer supportive care
- Maintaining of euthermia is necessary to improve odds of neuro recovery, starting on scheduled tylenol and cooling blanket
Septic Shock
- off of vasopressors
- continues to spike fever
- infection source unclear, covered with cefepime for possible pulm source
Non STEMI
Hx of Chronic HFmrEF
CAD with history of stenting
- unclear if type 2 vs primary [place]
- continue ASA rectally/Statin
- Echo: Moderately reduced left ventricular systolic function. Left ventricular ejection fraction is 30-35%%. Wall motion analysis is limited by the image quality. Aortic sclerosis without stenosis.
- CBC cards following
- will need eventual cath
Former smoker:
- smoked for 51 years, quit in August
Type 2 DM
Vomiting, suspected gastroparesis
- continue critical care glycemic protocol
- hold Jardiance/Lantus/Metformin
Metabolic acidosis - resolved
Hyponatremia -resolved
- improving with IVF
Elevated LFTS - likely from shock state
- improving
Acute GI bleeding from vomiting (possibly MWT)
- monitor Hb which is stable >12
DVT ppx: SC Heparin
Code: Full
Total critical care time 38 mins . Total critical care time documented does not include time spent on separately billed procedures or the services of residents, students, nurses or physician assistants. I personally saw and examined the patient. I
have reviewed all diagnostic interpretations and treatment plans as written. I was present for the mccauley portions of any procedures performed and the inclusive time noted in any critical care statement. Critical care time includes patient management
by me, time spent at the patients bedside, time to review lab and imaging results, discussing patient care, documentation in the medical record, and time spent with the family or caregiver.
Anticipated Discharge: > 48 hours
Subjective/Interval History
-
Date of Service: July 14, 2023
remains minimally responsive to touch, not meaningful recovery
remains on MV
off of vasopressors
continues to spike fever
Objective Data
-
Labs:
Laboratory Results
07/14/23 07/14/23
03:08 06:00
WBC 14.2 H Cancelled
Hgb 11.6 L Cancelled
Hct 34.0 L Cancelled
Plt Count 184 Cancelled
Sodium 142
Potassium 4.3
Chloride 113 H
Carbon Dioxide 18 L
BUN 38 H
Creatinine 0.7
Glucose 195 H
Calcium 9.9
Total Bilirubin 0.7
AST 35
ALT 22
Alkaline Phosphatase 113
Vital Signs:
Vital Signs
Temp Pulse Resp BP Pulse Ox
101.4 F H 130 24 115/83 100
07/14/23 07:38 07/14/23 08:00 07/14/23 08:00 07/14/23 08:00 07/14/23 08:00
I&O
07/13/23 07/14/23 07/15/23
06:59 06:59 06:59
Intake Total 51.5 / 52.7 35.1 / 135.1 120 / 120
Output Total 740 / 790 180 / 180
Balance -688.5 / -737.3 -144.9 / -44.9 120 / 120
Review of Systems
-
Unable to obtain full review of systems at this time due to: Acuity and Patient Intubation
Physical Exam
-
General: Intubated
HEENT: Oxygen (Intubated on MV)
Respiratory: Clear to Auscultation
Cardiac: Regular Rhythm, S1/S2 and Tachycardic; Negative Murmur
GI: Soft, Nontender, Nondistended and Other (Stool managment bag, liquid black stool )
Musculoskeletal: No Edema
Neuro: Other (Not waking up off sedation); Negative Awake or Alert
[2023-07-14] MEDS: TYLENOL ORAL SOLUTION 650 MG TUBE ×3 (08:49→21:38)
--- NOTE | 2023-07-14 09:39 | CON.ID ---
Consultation
-
Date/Time Consultation Requested: 07/14/2023 08:15
Date/Time Consultation Performed: 07/14/2023 09:08
Requesting Provider: Dr. Serra
Performing Provider: Dr. Farah
Reason for Consultation: Fever
Chief Complaint / Past History
History of Present Illness
Osiris Muñoz is a 63-year-old female being evaluated at request of Dr. Serra in regards to fever. History is obtained from chart review alone, as patient is currently intubated and sedated.
The patient presented to [facility] on 07/09/2023 following the development of shortness of breath. When paramedics arrived the patient was outside smoking a cigarette. They found her in respiratory discomfort, and thereafter became
unresponsive and developed cardiac arrest. CPR was provided by EMS services, with recovery of pulse.
Workup in the ER revealed leukocytosis. The patient has remained intubated since admission. The patient has developed fevers over the past 3 days, and Infectious Diseases is asked to comment upon further workup and antimicrobial management.
Again, at this point in time the patient is intubated and sedated and cannot provide any further history nor review of systems.
Past History
Additional Past Medical History:
CHF
COPD
DM
Additional Past Surgical History:
Cholecystectomy
Allergy History:
codeine Allergy (Verified 07/09/23 22:52)
Itching
latex Allergy (Verified 07/09/23 22:52)
Hives
Penicillins Allergy (Verified 07/09/23 22:52)
Rash
silver [From Tegaderm AG Mesh] Allergy (Verified 07/09/23 22:52)
'peels skin off'
Medications Reviewed: Yes
Current Antibiotics:
Cefepime 1 g IV every 6 hours (day #4)
Social History
Tobacco: Smoker
Alcohol: Other (Unknown)
Drug: Other (Unknown)
Personal: Other (Unavailable)
Living: Other (Unavailable)
Employment: Other (Unknown)
Family History
Family History: Unable to Obtain
Review of Systems
Vital Signs
Temp Pulse Resp BP Pulse Ox
101.4 F H 130 24 115/83 100
07/14/23 07:38 07/14/23 08:00 07/14/23 08:00 07/14/23 08:00 07/14/23 08:00
Physical Exam
Physical Exam
Constitutional: Acutely Ill, Chronically Ill and Non-toxic
Head: Normocephalic
Eyes: Pupils Equal, Pupils Round, No Conjunctival Hemorrhage and Sclera Anicteric
Oral: No Thrush, No Ulcers and Other (ET tube in place.)
Cardiovascular: S1/S2; Negative S3/S4
Pulmonary: Clear, Coarse and Non Labored
Gastrointestinal: Soft, Non Distended, Normal Bowel Sounds and No Rebound
Extremities: Negative Edema, Cyanosis or Erythema
Neurological: Other (Responsive to touch.)
.
Lab / Diagnostic Study Results
07/14/23 06:00
07/14/23 03:08
Abs Immat Gran (auto) 0.0 10^3/uL (0-0.05) 07/14/23 03:08
Absolute Neuts (auto) 11.5 10^3/uL (1.4-6.5) H 07/14/23 03:08
Absolute Lymphs (auto) 1.7 10^3/uL (1.2-3.4) 07/14/23 03:08
Absolute Monos (auto) 1.0 10^3/uL (0.1-0.6) H 07/14/23 03:08
Absolute Basos (auto) 0.0 10^3/uL (0-0.2) 07/14/23 03:08
Immature Gran % 0.3 % (0-0.5) 07/14/23 03:08
Neutrophils % 81.0 % (42.2-75.2) H 07/14/23 03:08
Lymphocytes % 11.8 % (20.5-51.1) L 07/14/23 03:08
Monocytes % 6.8 % (1.7-9.3) 07/14/23 03:08
Eosinophils % 0.0 % (0-6) 07/14/23 03:08
Basophils % 0.1 % (0-2) 07/14/23 03:08
PT 15.2 Sec (11.4-14.6) H 07/10/23 06:16
INR 1.22 07/10/23 06:16
Procalcitonin 7.80 ng/ml (0.0-0.25) H* 07/10/23 06:16
Ur Squamous Epith Cells 3-5 /LPF (Few) 07/09/23 23:03
Microbiology Results
Micro:
07/13/23 21:06 Blood Culture - Pending
Blood/Venous
07/10/23 12:38 Blood Culture - Preliminary
Blood/Venous No Growth in 72 hours- Final report to follow
07/10/23 12:14 Blood Culture - Preliminary
Blood/Venous No Growth in 72 hours- Final report to follow
07/10/23 12:05 Respiratory Culture - Final
Tracheal Aspirate Usual Respiratory Nanci
Gram Stain - Final
07/12/23 10:03 Influenza Types A & B (ANGELA) - Final
Nasal Swab Negative for Influenza A & B, NAAT
Negative results must be combined with clinical observations
and patient history.
Nucleic Acid Amplification test (NAAT)performed on the
[email or web address] platform.
07/09/23 23:03 Urine Culture - Final
Urine NO GROWTH
07/10/23 12:03 Nasal Screen MRSA (PCR) - Final
Nose MRSA not detected - performed by PCR methodology.
Imaging:
07/11/2023 CXR (portable): Orogastric tube projecting over the stomach. ET tube and right upper extremity PICC line in place. Mild subsegmental atelectasis in the right lower lobe and right middle lobe.
Assessment / Plan
Fever
- Infection vs drug fever vs cardiac related vs central vs other
Leukocytosis; improving
S/p cardiac arrest
Elevated troponin
CHF
COPD
DM
Recommendations:
Discontinue cefepime given possibility of drug fever
Transition to meropenem 500 mg IV every 6 hours
Monitor temperature curve
Trend white count
Follow pending cultures.
--- NOTE | 2023-07-14 10:43 | W.PN.NEURO.1 ---
Today's Communication / Plan
-
daily sedation holiday
continue supportive care
Neuro Assessment/Plan
Assessment
63-year-old woman who has history of coronary artery disease and diabetes had respiratory distress which then progressed to cardiac arrest; her presentation is c/w a multifactorial encephalopathy, septic shock was playing a role, and anoxic brain
injury.
Initial CT head noncontrast did not show any acute abnormality. MRI done 07/12 showed:
'Findings highly suspicious for anoxic ischemic injury involving the parahippocampal gyrus, cerebellar hemispheres, right paramidline parietal cortex. Small peripheral subcortical white matter infarct involving the superior posterolateral right
frontal lobe.'
No mass effect. No midline shift. No herniation.
Patient had septic shock and NSTEMI, vomiting with some mild amount of GI bleed. ID following
EEG showed moderate slowing diffusely no seizure or epileptiform activity; did not show a malignant pattern of EEG after cardiac arrest
Neurologic examination shows no purposeful activity at this time, intact cranial nerves.
Plan
-Daily sedation holiday
-Not recommending any antiseizure medications
-MRI brain reviewed
-Neurologic checks
-continue aggressive treatment of fever
Will follow as needed. Please call with further questions.
Critica care time 35 mins
Subjective/Objective
Subjective Data
Date of Service: July 14, 2023
failed wean on cpap
Objective Data
Vital Signs
Temp Pulse Resp BP Pulse Ox
101.4 F H 130 24 115/83 100
07/14/23 07:38 07/14/23 08:00 07/14/23 08:00 07/14/23 08:00 07/14/23 08:00
Lab Results
07/14/23 06:00
07/14/23 03:08
PT 15.2 Sec (11.4-14.6) H 07/10/23 06:16
INR 1.22 07/10/23 06:16
APTT 29.2 Sec (23.4-35.0) 07/10/23 06:16
Sodium 142 mmol/L (135-145) 07/14/23 03:08
Potassium 4.3 mmol/L (3.5-5.1) 07/14/23 03:08
BUN 38 mg/dl (7-17) H 07/14/23 03:08
Glucose 195 mg/dl (70-99) H 07/14/23 03:08
Calcium 9.9 mg/dl (8.4-10.2) 07/14/23 03:08
Dpf-W-Vivjjgnosky Pept 2750 pg/ml 07/09/23 23:03
Ur Buprenorphine Negative (Negative) 07/10/23 15:13
Patient Allergies
codeine Allergy (Verified 07/09/23 22:52)
Itching
latex Allergy (Verified 07/09/23 22:52)
Hives
Penicillins Allergy (Verified 07/09/23 22:52)
Rash
silver [From Tegaderm AG Mesh] Allergy (Verified 07/09/23 22:52)
'peels skin off'
Physical Exam
-
Attention Span & Concentration: eyes open with blinking, follows no commands and does not track
Memory: Unable to Assess
Tremor: Hand Tremor Absent
Involuntary Movement: None
Speech: Mute
Cranial Nerve II: Left Eye: Pupillary Reactivity Unremarkable and Pupillary Size Unremarkable
Cranial Nerve II: Right Eye: Pupillary Reactivity Unremarkable and Pupillary Size Unremarkable
Cranial Nerves III, IV, : Extraocular Movement: Other (Resting gaze midline)
Cranial Nerve V: Facial Sensation: Other (Corneal reflex intact bilaterally)
Cranial Nerve VII: Facial Symmetry: Other (Corneal reflex intact bilaterally)
Cranial Nerves IX, X: Palate Movement: Other (Cough and gag intact)
Muscle Strength, Overall: no spontaneous movement or w/d to pain
Babinski Sign: Absent Bilaterally
[2023-07-14] MEDS: MERREM 500 MG IV ×3 (10:52→21:39)
--- NOTE | 2023-07-14 11:16 | PTCARENOTE ---
tube feding started. cooling blanket placed under pt. now monitoring temp via rectal probe.
[2023-07-14 12:24] LABS: Glucose - Point of Care 189 mg/dl (70-99)
[2023-07-14] MEDS: LOPRESSOR 12.5 MG TUBE ×2 (12:26→17:55)
[2023-07-14 17:50] LABS: Glucose - Point of Care 236 mg/dl (70-99)
--- NOTE | 2023-07-14 22:11 | PTCARENOTE ---
Patient received awake and able to follow commands when asked to blink only. Tolerating ventilator settings, mouth care given with gag reflex. Cooling blanked protocol followed.
--- NOTE | 2023-07-14 23:50 | PTCARENOTE ---
Patient Fio2 weened down, incontinence care given. Otherwise assessment unchanged.
[2023-07-15] VITALS (25 sets, daily range): BP systolic 103–146; BP diastolic 56–91; BMI 26.1
[2023-07-15] LABS: Glucose - Point of Care 212 mg/dl (70-99)
[2023-07-15] MEDS: NOVOLOG FLEXPEN-MODERATE RESISTANCE 3 UNITS SC ×2 (00:27→11:59)
[2023-07-15] MEDS: HEPARIN 5000 UNITS SC ×3 (00:27→15:25)
[2023-07-15] MEDS: LOPRESSOR 12.5 MG TUBE ×2 (00:28→05:57)
--- NOTE | 2023-07-15 03:13 | PTCARENOTE ---
Patient with intermittent eye opening/tearing, follows commands to blink her eyes. No other ROM noted. Other assessment unchanged.
[2023-07-15] MEDS: MERREM 500 MG IV ×4 (03:15→21:58)
[2023-07-15] MEDS: TYLENOL ORAL SOLUTION 650 MG TUBE ×4 (03:15→21:58)
[2023-07-15] MEDS: STERILE WATER FOR INJECTION 10 ML IV ×4 (03:15→21:59)
[2023-07-15 04:08] LABS: % Immature Granulocytes 0.4 % (0-0.5); % Lymphocytes 12.9 % (20.5-51.1); % Monocytes 7.6 % (1.7-9.3); % Neutrophils 79.1 % (42.2-75.2); Absolute Immature Granulocytes 0.1 10^3/uL (0-0.05); Absolute Lymphocytes 2.1 10^3/uL (1.2-3.4); Absolute Monocytes 1.2 10^3/uL (0.1-0.6); Absolute Neutrophils 12.7 10^3/uL (1.4-6.5); Hematocrit 34.7 % (37.0-47.0); Hemoglobin 11.8 g/dL (12.0-16.0); Mean Corpuscular Hgb 30.9 pg (27.0-31.0); Mean Corpuscular Volume 90.8 fL (81.0-99.0); Mean Platelet Volume 9.6 fL (7.4-10.4); Nucleated Red Blood Cells % 0 %; Platelet Count 207 10^3/uL (130-400); Red Blood Cell Count 3.82 10^6/uL (4.20-5.40); Red Cell Dist. Width 13.3 % (11.5-14.5); White Blood Cell Count 16.1 10^3/uL (4.8-10.8)
[2023-07-15 04:23] LABS: ALT (SGPT) 20 U/L (0-35); AST (SGOT) 26 U/L (14-36); Albumin 3.5 g/dl (3.5-5.0); Alkaline Phosphatase 116 U/L (38-126); Blood Urea Nitrogen 34 mg/dl (7-17); Calcium 9.6 mg/dl (8.4-10.2); Carbon Dioxide 26 mmol/L (22-30); Chloride 111 mmol/L (98-107); Estimated Creatinine Clearance 74 ml/min; Glucose 227 mg/dl (70-99); Sodium 139 mmol/L (135-145); Total Bilirubin 0.5 mg/dl (0.2-1.3); Total Protein 5.7 g/dl (6.3-8.2); eGFR > 60.00
[2023-07-15 05:46] LABS: Glucose - Point of Care 291 mg/dl (70-99)
[2023-07-15] MEDS: NOVOLOG FLEXPEN-MODERATE RESISTANCE 5 UNITS SC ×2 (05:56→18:28)
--- NOTE | 2023-07-15 06:50 | W.PN.CD ---
Today's Communication / Plan
-
continue metoprolol and ASA
Can add low dose lisinorpil when BP allows bu one systolic in 90s yesterday.
Anoxic encephalopathye Conitnued neuro assessment - neruo following
recurrent feveres - BC negative so far. addtional tx as per primary team and critical are team.
Impression / Plan
-
Impression: 63-year-old woman with with previous history of coronary artery disease, prior history of IL, cardiomyopathy with ejection fraction of 45% COPD and smoking who was admitted with respiratory arrest and is now in ICU with vent dependent
respiratory failure. Initial ECG showed sinus rhythm with nonspecific ST abnormality. Troponin peak 19
Plan
Post resp arrest.
VDRF - Continued management as directed by pulmonary and hospitalist.
NSTEMI.-Troponin 19. Unclear if this is a type II IL related to hypoxemia and underlying coronary artery disease. Primary IL cannot be entirely excluded.
-Optimize respiratory status as noted above
-medical therapy of CAD
-Echo shows new LVEF decline -> eventual LHC could be considered but need to wait and see how much mental status recovers.
Neuro/mental status. Post arrest. anoxic encepjhalopathy. neuro assesment in progress. MRI suggesting anoxic injury. tx per neuro
- BB and ASA
Prolonged QTc -
- improved.
limit QTc prolonging meds including metoclopramide.
Fever- recurrent fever. Flu and covid neg 07/12/23. BC negative so far. Tx per primary team . possible pulmonary source. Tx/ abx per primary team
- BC pending
CM - monitor volume status and reassess LVF
- can titrate meds as BP allows. add lisinopril with BP allows
COPD
MR
Pulm HTN - echo TDS. Eventual repeat
Critically ill - 30 minutes
Sedated and intubated
Physical Exam
Vital Signs/Labs
Vital Signs
Temp Pulse Resp BP Pulse Ox
100.4 F H 104 18 134/82 98
07/15/23 06:00 07/15/23 05:57 07/15/23 03:30 07/15/23 05:57 07/15/23 04:00
07/13/23 07/14/23 07/15/23
06:59 06:59 06:59
Actual Weight 60.7 kg 57.9 kg 62.7 kg
07/15/23 03:20
07/15/23 03:20
PT 15.2 Sec (11.4-14.6) H 07/10/23 06:16
INR 1.22 07/10/23 06:16
APTT 29.2 Sec (23.4-35.0) 07/10/23 06:16
Magnesium 2.1 mg/dl (1.6-2.3) 07/12/23 03:25
Triglycerides 193 mg/dl (10-149) H 07/14/23 03:08
07/09/23
23:03
Ckh-V-Rwdmpintrjk Pept 2750
Physical Exam
Constitutional: No acute distress and Other (vented)
Cardiovascular: Rhythm & rate is regular
Respiratory: Other (coarse vented BS)
GI: Soft and Normal bowel sounds
Neuro/Psych: Other ( )
Data Reviewed
-
Date of Service: July 15, 2023
Medical Decision Making: Reviewed Test Results
X-Ray/CT/US/MRI/NUC/PET: Report Reviewed by me
Labs: Labs Reviewed by me
--- NOTE | 2023-07-15 07:00 | PTCARENOTE ---
received report from nightshift RN. walking rounds completed. Pt spontaneously opens and closes eyes, responds to pain. very minimal movement of upper/lower extremities noted. pt appeared to close eyes on command. pupils equal and reactive. SR/ST on
telemetry heart rate 90 low 100s. pulses palpable. pt tolerating ventilator. pt turned and repositioned. purewick in place. FMS in place. right upper arm PICC intact. pt tolerating tube feeds, jevity 1.5 at 40 ml/hr. see worklist for full nursing
assessment and interventions.
[2023-07-15] MEDS: DUONEB 3 ML INH ×4 (07:17→20:15)
--- NOTE | 2023-07-15 07:29 | W.PN.INTV ---
Today's Communication / Plan
Recommendations
MV
Atbs
Supportive care
MS checks
Assessment
-
Assessment:
Mrs Osiris Muñoz is a 63/W adm 07-08 after sustaining witnessed respiratory distress ( witnessed). EMS found her with agonal breathing, then respiratory arrest followed by cardiac arrest per information gathered by ER physician. ACLS
protocol initiated immediately, CPR provided for 3-5 min with ROSC after one dose of epinephrine via IO line, intubated as scene. Received at ER on MV, unresponsive, started on IV propofol and fentanyl, NE gtt, given one dose of vecuronium IV. Known
h/o HF, CAD, T2DM, COPD, tobacco dependence, unfortunately lost medical insurance about 1 m ago and was trying to make her current med supply last longer but decreasing frequency of dosing
Impression:
Respiratory arrest followed by cardiac arrest as witnessed by EMS 07-08
Intubated at scene
CPR for 3-5 min with ROSC
Estimated down time including above 15+ minutes
Interim R basilar infiltrate on CXR, then resolve
Fever
NSTEMI: marked interim elevation of troponins
HFrEF, acute on chronic (TTE 07-09: LVEF 30-35%, technically difficult study)
Elevated BNP
Markedly elevated PCT
Transaminitis
Microhematuria, bacteriuria, albuminuria
Recurrent nausea, reportedly acute on chronic
Anoxic encephalopathy
Conditions [employer]:
HFrEF, LVEF 45%, hypokinesis mid to apical septum and apex, stage II DD, moderate eccentric MR, ePAP 84, small pericardial effusion, normal RV size and function
CAD s/p stenting
T2DM
COPD, qualified for home O2 upon d/c from in Nov 2022 (adm for CHF and AECOPD)
Smoker
Recent partial medical compliance due to lack of insurance
Plan:
Witnessed respiratory arrest followed by cardiac arrest: EMS at scene, CPR fo 3-5 min with ROSC
Per RN 07-12, now thinks downtime period was longer that he originally though
D/w 07-13: estimated down time including above was 15+ minutes
Underlying CAD, HFrEF
Ongoing heavy smoking [employer], chronic smoking
Recent partial medical compliance due to lack of insurance for last 1 m [employer] (trying to make her med supply last longer)
Head CT without acute findings
Interim R basilar infiltrate on follow up CXR
CXR with pulm vasc congestion which improved on follow up CXR, but interim development of R basilar infiltrate/atelectasis
Follow-up chest x-ray 07-10 with resolution of right basilar infiltrate on portable film
Continue ACV: 14-450-5-0.4 (POx 94%)
Sedation/analgesia: propofol/fentanyl gtt initially. Changed fentanyl to prn boluses, added low dose alprazolam 07-10
Daily sedation holiday to assess for SBT and MS
Intermittently weakly opening eyes/blinking, opening mouth
Weaning trial 07-14, 2 hrs with acceptable performance and ABG, transitioned to PSV as tolerated, to rest on ACV as needed and overnight
Neurology following
UCx negative
UDS positive for bzd and cannabis. Noted outpatient low dose alprazolam use for anxiety
Blood cxs 07/09 and NTD
Trach asp cx negative
COVID/flu negative
MRSA screening negative
Markedly elevated PCT with normal eGFR
Empiric atbs on adm: aztreonam (reported penicillin allergy) and vancomycin
Changed aztreonam to cefepime, discontinued vancomycin: 07-10
NE off since 07-09
Started neosynephrine 07-10, weaned and currently off
RUE PICC 07-10, noted resolution of R basilar infiltrate/atelectasis
Changed MP IV to prednisone 40 mg qd, finite 5 d course of CS through 07-15
Hypothermic on adm
Low grade temp since 07-10
Though rare side effect potentially associated to cefepime
Follow temp
ID consulted 07-13, d/c cefepime, started meropenem
NSTEMI
Marked interim elevation of troponins
Elevated BNP
Known h/o HFrEF, on current TTE LVEF down from 45% to 30-35% (technically difficult TTE)
RV size and function normal
Held resumption of BB due to hypotension 07-09. Metoprolol started 07-11
ASA pr due to intermittent nausea/vomit
Cards following closely, considering [facility] this adm depending on improvement of anoxic encephalopathy
IV insulin protocol off since 07-12, started novolog SS and lantus
DEVON doppler 07-11: negative. Though BNP and trops elevated, RV size and function normal on TTE
AXR with nonobstructive gas pattern
Neurology consultation 07-11 appreciated
Multifactorial encephalopathy
EEG 07-11: diffuse cortical dysfunction without focal abnormality or sz, likely from metabolic disturbance
MRI brain 07-12: highly suspicious for anoxic ischemic injury involving parahippocampal gyrus, cerebellar hemispheres, R paramidline parietal cortex, also small peripheral subcortical white matter infarct involving the superior posterolateral R
frontal lobe
Per RN 07-12, now thinks downtime period was longer that he originally though
D/w 07-13: estimated down time including above was 15+ minutes
Outpatient regimen was jardiance 10 mg daily, AC novolog SS, lantus 20 units hs, metformin 500 mg BID
HgbA1C on admission 8%
IV insulin protocol started
GI proph: PPI IV
DVT proph: sc hep
Antiemetic prn, received one dose metoclopramide on 07-10 only, suspected DM gastroparesis
Full code
D/w patient's in detail 07-09 and daughter 07-10, all questions answered
Prognosis guarded in view of resp arrest followed by cardiac arrest, significant comorbidities, and brain MRI findings
Critical care time: 35 min
Subjective Dataa
Subjective Data
Date of Service:
Date of Service: July 15, 2023
Chief Complaint: [employer] Follow Up
Subjective:
No events reported overnight
Continue on mechanical ventilation
Intermittently open and close his eyes, otherwise no other purposeful movement
Downtime clarified with on was at least 15+ minutes including 5 minutes of CPR by EMS
Review of Systems
General: Unobtainable - Pat Unresp (Except for opening on closing eyes intermittently)
Objective Data
Data Reviewed
Vital Signs / I&O / Oxygen:
Vital Signs
Temp Pulse Resp BP Pulse Ox
100.4 F H 104 26 134/82 99
07/15/23 06:00 07/15/23 07:25 07/15/23 07:25 07/15/23 05:57 07/15/23 07:25
Intake and Output
07/14/23 07/15/23 07/16/23
06:59 06:59 06:59
Intake Total 35.1 / 135.1 930 / 930
Output Total 180 / 180 600 / 600
Balance -144.9 / -44.9 330 / 330
SaO2 [CPAP/PSV] 95
SaO2 [A/C] 98
SaO2 99
Physical Exam
General: Comfortable
HEENT: Normocephalic and Moist Mucous Membranes
Cardiovascular: Regular Rhythm and Peripheral Edema (n)
Respiratory: Wheeze, Crackles, Stridor and ET Tube
GI: Soft, Non Distended and NG Tube
Neurology: Other (Intermittently and weakly open closes eyes)
Skin: Warm
Labs/Micro/Reports
Lab Data
07/15/23 03:20
07/15/23 03:20
Microbiology
07/13/23 21:06 Blood/Venous Blood Culture - Preliminary
No Growth in 24 hours- Final report to follow
07/10/23 12:38 Blood/Venous Blood Culture - Preliminary
No Growth in 4 days- Final report to follow
07/10/23 12:14 Blood/Venous Blood Culture - Preliminary
No Growth in 4 days- Final report to follow
07/10/23 12:05 Tracheal Aspirate Respiratory Culture - Final
Usual Respiratory Nanci
07/10/23 12:05 Tracheal Aspirate Gram Stain - Final
07/12/23 10:03 Nasal Swab Influenza Types A & B (ANGELA) - Final
Negative for Influenza A & B, NAAT
Negative results must be combined with clinical observations
and patient history.
Nucleic Acid Amplification test (NAAT)performed on the
[employer] platform.
[2023-07-15] MEDS: NSS (PRESERVATIVE FREE) 10 ML IV (07:40)
[2023-07-15] MEDS: LOPRESSOR 25 MG TUBE ×2 (07:40→19:51)
[2023-07-15] MEDS: XANAX 0.25 MG TUBE ×2 (07:40→19:51)
[2023-07-15] MEDS: PROTONIX IV 40 MG IV (07:40)
[2023-07-15] MEDS: LOW STRENGTH ASPIRIN 81 MG TUBE (07:40)
[2023-07-15] MEDS: MIRALAX 17 GRAMS TUBE (07:41)
[2023-07-15] MEDS: LANTUS 0.100000000000000006 UNITS SC (07:52)
[2023-07-15 07:53] LABS: Glucose - Point of Care 272 mg/dl (70-99)
--- NOTE | 2023-07-15 08:08 | W.PN.ID1 ---
Date of Service
Date of Service: July 15, 2023
Today's Communication
Continue abx.
Assessment / Plan
Fever
- Infection vs drug fever vs cardiac related vs central vs other
Leukocytosis; stable today.
S/p cardiac arrest
Elevated troponin
CHF
COPD
DM
Recommendations:
Continue meropenem 500 mg IV every 6 hours
Monitor temperature curve
Trend white count
Follow pending cultures.
Chief Complaint
-: Leukocytosis
Subjective / Review of Systems
Patient seen and examined. Remains vent dependent at present. Ongoing fevers noted, although temperature curve seems to be slightly improving. Of note, current temperatures are via rectal probe, which are known to give higher readings.
Vital Signs / Physical Exam
Vital Signs
Vital Signs
Temp Pulse Resp BP Pulse Ox
100.5 F H 104 26 134/82 99
07/15/23 07:00 07/15/23 07:25 07/15/23 07:25 07/15/23 05:57 07/15/23 07:25
Physical Exam
Constitutional: Acutely Ill, Chronically Ill and Non-toxic
Eyes: Sclera Anicteric
Oropharyngeal: Other (ET tube in place.)
Cardiovascular: S1/S2; Negative S3/S4
Pulmonary: Negative Wheezes or Rales
Gastrointestinal: Soft, Non Tender and Non Distended
Extremities: Negative Edema or Erythema
Neurological: Awake and Alert
Psychological: Calm
Objective Data
Lab Data
Lab Results
07/15/23 03:20
07/15/23 03:20
PT 15.2 Sec (11.4-14.6) H 07/10/23 06:16
INR 1.22 07/10/23 06:16
APTT 29.2 Sec (23.4-35.0) 07/10/23 06:16
Estimated Creat Clear 74 ml/min 07/15/23 03:20
Total Bilirubin 0.5 mg/dl (0.2-1.3) 07/15/23 03:20
AST 26 U/L (14-36) 07/15/23 03:20
ALT 20 U/L (0-35) 07/15/23 03:20
Alkaline Phosphatase 116 U/L (38-126) 07/15/23 03:20
Most recent labs reviewed.
Micro Results:
07/13/23 21:06 Blood Culture - Preliminary
Blood/Venous No Growth in 24 hours- Final report to follow
07/10/23 12:38 Blood Culture - Preliminary
Blood/Venous No Growth in 4 days- Final report to follow
07/10/23 12:14 Blood Culture - Preliminary
Blood/Venous No Growth in 4 days- Final report to follow
07/10/23 12:05 Respiratory Culture - Final
Tracheal Aspirate Usual Respiratory Nanci
Gram Stain - Final
07/12/23 10:03 Influenza Types A & B (ANGELA) - Final
Nasal Swab Negative for Influenza A & B, NAAT
Negative results must be combined with clinical observations
and patient history.
Nucleic Acid Amplification test (NAAT)performed on the
[employer] platform.
07/09/23 23:03 Urine Culture - Final
Urine NO GROWTH
07/10/23 12:03 Nasal Screen MRSA (PCR) - Final
Nose MRSA not detected - performed by PCR methodology.
Imaging:
07/11/2023 CXR (portable): Orogastric tube projecting over the stomach. ET tube and right upper extremity PICC line in place. Mild subsegmental atelectasis in the right lower lobe and right middle lobe.
[2023-07-15 09:59] LABS: B.E. 2.1 mmol/L; HCO3 25.3 mmol/L (21-28); PCO2 34 mmHg (32-35); PO2 147 mmHg (83-108); pH 7.48 (7.35-7.45)
--- NOTE | 2023-07-15 12:00 | PTCARENOTE ---
pt tolerating cpap wean- no changes in assessment noted.
[2023-07-15 12:08] LABS: Glucose - Point of Care 249 mg/dl (70-99)
--- NOTE | 2023-07-15 14:08 | W.PN.HOSP.TC ---
Today's Communication/Plan
-
SBT as tolerated
meropenem
monitor mental status for possible weaning off vent;
Assessment / Plan
Assessment / Plan
MRI brain
Motion degradation.
Findings highly suspicious for anoxic ischemic injury involving the parahippocampal gyrus, cerebellar hemispheres, right paramidline parietal cortex. Small peripheral subcortical white matter infarct involving the superior posterolateral right
frontal lobe.
No mass effect. No midline shift. No herniation.

s/p cardiac arrest
Anoxic brain injury
Acute VDRF (hypoxic, hypercapnic)
Acute Metabolic Encephalopathy
- hx of underlying COPD/Smoking
- no evidence of CHF
- meropenem
- Venous Doppler LE neg. considering CT chest PE.
- daily sedation vacation and neuro eval
- EEG showing diffuse cortical dysfunction.
- MRI brain finding as above , in conjunction with EEG per neuro patient recovery chance is good, will likely require longer supportive care
- Maintaining of euthermia is necessary to improve odds of neuro recovery, starting on scheduled tylenol and cooling blanket
Septic Shock
- off of vasopressors
- continues to spike fever
-a tthis point recurrent fevers unclear source - Infection vs drug fever vs cardiac related vs central vs other
- infection source unclear, switched to meropenem
Non STEMI
Hx of Chronic HFmrEF
CAD with history of stenting
- unclear if type 2 vs primary VA
- continue ASA rectally/Statin
- Echo: Moderately reduced left ventricular systolic function. Left ventricular ejection fraction is 30-35%%. Wall motion analysis is limited by the image quality. Aortic sclerosis without stenosis.
- CBC cards following
-BB, ASA
-Add ACEI once BPs improve
- will need eventual cath
Former smoker:
- smoked for 51 years, quit in August
Type 2 DM
Vomiting, suspected gastroparesis
- continue critical care glycemic protocol
- hold Jardiance/Lantus/Metformin
Metabolic acidosis - resolved
Hyponatremia -resolved
- improving with IVF
Elevated LFTS - likely from shock state
- improving
Acute GI bleeding from vomiting (possibly MWT)
- monitor Hb which is stable >12
DVT ppx: SC Heparin
Code: Full
Total critical care time 40 mins . Total critical care time documented does not include time spent on separately billed procedures or the services of residents, students, nurses or physician assistants. I personally saw and examined the patient. I
have reviewed all diagnostic interpretations and treatment plans as written. I was present for the mccauley portions of any procedures performed and the inclusive time noted in any critical care statement. Critical care time includes patient management
by me, time spent at the patients bedside, time to review lab and imaging results, discussing patient care, documentation in the medical record, and time spent with the family or caregiver.
Anticipated Discharge: > 48 hours
Subjective/Interval History
-
Date of Service: July 15, 2023
on SBT, grimacing upon touch
Objective Data
-
Labs:
Laboratory Results
07/15/23 07/15/23
03:20 09:50
WBC 16.1 H
Hgb 11.8 L
Hct 34.7 L
Plt Count 207
HCO3 25.3
Sodium 139
Potassium 4.0
Chloride 111 H
Carbon Dioxide 26
BUN 34 H
Creatinine 0.6
Glucose 227 H
Calcium 9.6
Total Bilirubin 0.5
AST 26
ALT 20
Alkaline Phosphatase 116
Vital Signs:
Vital Signs
Temp Pulse Resp BP Pulse Ox
100.6 F H 102 37 139/81 100
07/15/23 13:00 07/15/23 13:30 07/15/23 13:30 07/15/23 13:00 07/15/23 13:30
I&O
07/14/23 07/15/23 07/16/23
06:59 06:59 06:59
Intake Total 35.1 / 135.1 930 / 995 465 / 465
Output Total 180 / 180 600 / 600
Balance -144.9 / -44.9 330 / 395 465 / 465
Review of Systems
-
Unable to obtain full review of systems at this time due to: Acuity and Patient Intubation
Data Reviewed
-
Diagnostic Radiology: Image personally visualized and interpreted and Report Reviewed by me
Ultrasound: Image personally visualized and interpreted and Report Reviewed by me
MRI: Report Reviewed by me
Labs: Labs Reviewed by me
--- NOTE | 2023-07-15 16:00 | PTCARENOTE ---
pt back on ventilator settings- chapin placed for acute retention per Dr Hubbard. no further changes in assessment. at bedside, updated on plan of care.
[2023-07-15 18:01] LABS: Glucose - Point of Care 286 mg/dl (70-99)
--- NOTE | 2023-07-15 21:08 | PTCARENOTE ---
Patient received with at bedside. Patient maintained on ventilator settings. cooling blanket maintained. HOB elevated, tolerating TF. Turned and repositioned.
[2023-07-16] VITALS (24 sets, daily range): BP systolic 102–165; BP diastolic 56–98; BMI 25.7
[2023-07-16] MEDS: NOVOLOG FLEXPEN-MODERATE RESISTANCE 7 UNITS SC ×2 (00:16→12:12)
[2023-07-16] MEDS: HEPARIN 5000 UNITS SC ×4 (00:16→23:39)
[2023-07-16 00:24] LABS: Glucose - Point of Care 301 mg/dl (70-99)
[2023-07-16] MEDS: TYLENOL ORAL SOLUTION 650 MG TUBE ×4 (03:10→20:20)
[2023-07-16] MEDS: MERREM 500 MG IV (03:10)
[2023-07-16] MEDS: STERILE WATER FOR INJECTION 10 ML IV (03:10)
[2023-07-16 04:08] LABS: % Basophils 0.1 % (0-2); % Eosinophils 0.1 % (0-6); % Immature Granulocytes 0.5 % (0-0.5); % Monocytes 6.7 % (1.7-9.3); % Neutrophils 78.6 % (42.2-75.2); Absolute Immature Granulocytes 0.1 10^3/uL (0-0.05); Absolute Lymphocytes 2.2 10^3/uL (1.2-3.4); Absolute Monocytes 1.1 10^3/uL (0.1-0.6); Absolute Neutrophils 12.5 10^3/uL (1.4-6.5); Hematocrit 35.1 % (37.0-47.0); Hemoglobin 11.6 g/dL (12.0-16.0); Mean Corpuscular Hgb 30.9 pg (27.0-31.0); Mean Corpuscular Volume 93.4 fL (81.0-99.0); Mean Platelet Volume 9.9 fL (7.4-10.4); Nucleated Red Blood Cells % 0 %; Platelet Count 200 10^3/uL (130-400); Red Blood Cell Count 3.76 10^6/uL (4.20-5.40); Red Cell Dist. Width 13.4 % (11.5-14.5); White Blood Cell Count 15.9 10^3/uL (4.8-10.8)
[2023-07-16 04:34] LABS: ALT (SGPT) 16 U/L (0-35); AST (SGOT) 29 U/L (14-36); Albumin 3.3 g/dl (3.5-5.0); Alkaline Phosphatase 114 U/L (38-126); Blood Urea Nitrogen 27 mg/dl (7-17); Calcium 9.3 mg/dl (8.4-10.2); Carbon Dioxide 25 mmol/L (22-30); Chloride 110 mmol/L (98-107); Estimated Creatinine Clearance 84 ml/min; Glucose 248 mg/dl (70-99); Sodium 140 mmol/L (135-145); Total Bilirubin 0.4 mg/dl (0.2-1.3); Total Protein 5.5 g/dl (6.3-8.2); eGFR > 60.00
[2023-07-16] MEDS: NOVOLOG FLEXPEN-MODERATE RESISTANCE 5 UNITS SC (05:43)
[2023-07-16 05:52] LABS: Glucose - Point of Care 264 mg/dl (70-99)
--- NOTE | 2023-07-16 06:27 | W.PN.NEURO.1 ---
Today's Communication / Plan
-
-Aggressively treat fevers, Tylenol, on antibiotics
-Daily sedation holidays
-Wean to extubate as able
-Follow cultures and infectious workup
-If fevers persist and do not appear infectious, Scheduled Tylenol and Bromocriptine may be used to treat central fevers
Will follow
Neuro Assessment/Plan
Assessment
63-year-old woman who has history of coronary artery disease and diabetes had respiratory distress which then progressed to cardiac arrest; her presentation is c/w a multifactorial encephalopathy, septic shock was playing a role, and anoxic brain
injury.
Initial CT head noncontrast did not show any acute abnormality. MRI done 07/12 showed:
'Findings highly suspicious for anoxic ischemic injury involving the parahippocampal gyrus, cerebellar hemispheres, right paramidline parietal cortex. Small peripheral subcortical white matter infarct involving the superior posterolateral right
frontal lobe.'
No mass effect. No midline shift. No herniation.
Patient had septic shock and NSTEMI, vomiting with some mild amount of GI bleed.
EEG showed moderate slowing diffusely no seizure or epileptiform activity; did not show a malignant pattern of EEG after cardiac arrest
MRI does show mild/moderate anoxic brain injury changes
07/15 AM patient consistently obeying simple central commands (sticking out tongue and closing eyes)
Overall has a good prognosis given obeying commands AM of 07/15 and lack of any testing supportive of poor prognosis, though is expected to have some degree of cognitive deficits given MRI findings of anoxic brain injury
Fevers can affect mental status
Possibility for central fevers after anoxic brain injury
Subjective/Objective
Subjective Data
Date of Service: July 16, 2023
No acute events, fevers present, is intubated, obeyed simple commands this morning
Objective Data
Vital Signs
Temp Pulse Resp BP Pulse Ox
99.8 F 110 20 144/76 100
07/16/23 06:00 07/16/23 06:00 07/16/23 06:00 07/16/23 06:00 07/16/23 06:00
Lab Results
07/16/23 03:08
07/16/23 03:08
PT 15.2 Sec (11.4-14.6) H 07/10/23 06:16
INR 1.22 07/10/23 06:16
APTT 29.2 Sec (23.4-35.0) 07/10/23 06:16
Sodium 140 mmol/L (135-145) 07/16/23 03:08
Potassium 4.0 mmol/L (3.5-5.1) 07/16/23 03:08
BUN 27 mg/dl (7-17) H 07/16/23 03:08
Glucose 248 mg/dl (70-99) H 07/16/23 03:08
Calcium 9.3 mg/dl (8.4-10.2) 07/16/23 03:08
Fhm-R-Goryqibakdu Pept 2750 pg/ml 07/09/23 23:03
Ur Buprenorphine Negative (Negative) 07/10/23 15:13
Patient Allergies
codeine Allergy (Verified 07/09/23 22:52)
Itching
latex Allergy (Verified 07/09/23 22:52)
Hives
Penicillins Allergy (Verified 07/09/23 22:52)
Rash
silver [From Tegaderm AG Mesh] Allergy (Verified 07/09/23 22:52)
'peels skin off'
Review of Systems
-
Unable to obtain full review of systems at this time due to: Patient Intubation
Physical Exam
-
General: No Apparent Distress and Intubated
Eyes: No Ptosis
HEENT: Normocephalic
Neck: No Bruits Bilaterally
Respiratory: No Dyspnea
Cardiac: No Murmur
GI: Normal Bowel Sounds, Soft and Non-tender
Skin: Warm and Dry; Negative Rash
Extremities: No Edema
Extended Neurological Exam
Attention Span & Concentration: Other (Eyes open, does not track, will obey simple central commands sticking out tongue and closing eyes consistently, E3,V4,M6)
Memory: Unable to Assess
Tremor: Hand Tremor Absent
Involuntary Movement: None
Speech: Other (Shows comprehension to simple central commands obeys these commands consistently (sticks out tongue, closes eyes))
Cranial Nerve II: Left Eye: Pupillary Reactivity Unremarkable and Pupillary Size Unremarkable
Cranial Nerve II: Right Eye: Pupillary Reactivity Unremarkable and Pupillary Size Unremarkable
Cranial Nerves III, IV, : Extraocular Movement: Extraocular Movement Full in all Directions
Cranial Nerve VII: Facial Symmetry: Normal Facial Symmetry
Cranial Nerve XII: Tongue Protusion: Midline
Muscle Strength, Overall: Other (2/5 throughout, low muscle tone throughout)
Deep Tendon Reflexes: Trace Throughout
Touch Sensation: Withdrawal to Pain
Data Reviewed
-
CT Head: Report Reviewed and Image Reviewed
MRI Head: Report Reviewed and Image Reviewed
EEG: Report Reviewed
Labs: Report Reviewed
[2023-07-16] MEDS: DUONEB 3 ML INH ×4 (07:40→19:30)
[2023-07-16] MEDS: LANTUS 0.100000000000000006 UNITS SC ×2 (07:42→09:42)
[2023-07-16] MEDS: PROTONIX IV 40 MG IV (07:42)
[2023-07-16] MEDS: NSS (PRESERVATIVE FREE) 10 ML IV (07:42)
[2023-07-16] MEDS: MIRALAX 17 GRAMS TUBE (07:43)
[2023-07-16] MEDS: XANAX 0.25 MG TUBE (07:45)
[2023-07-16] MEDS: LOW STRENGTH ASPIRIN 81 MG TUBE (07:45)
[2023-07-16 07:52] LABS: Glucose - Point of Care 303 mg/dl (70-99)
--- NOTE | 2023-07-16 07:55 | W.PN.INTV ---
Today's Communication / Plan
Recommendations
MV
Atbs now DC'd per ID
MAP>65
Supportive care
Guarded prognosis
Assessment
-
Assessment:
Mrs Osiris Muñoz is a 63/W adm 07-08 after sustaining witnessed respiratory distress ( witnessed). EMS found her with agonal breathing, then respiratory arrest followed by cardiac arrest per information gathered by ER physician. ACLS
protocol initiated immediately, CPR provided for 3-5 min with ROSC after one dose of epinephrine via IO line, intubated as scene. Received at ER on MV, unresponsive, started on IV propofol and fentanyl, NE gtt, given one dose of vecuronium IV. Known
h/o HF, CAD, T2DM, COPD, tobacco dependence, unfortunately lost medical insurance about 1 m ago and was trying to make her current med supply last longer but decreasing frequency of dosing
Impression:
Respiratory arrest followed by cardiac arrest as witnessed by EMS 07-08
Intubated at scene
CPR for 3-5 min with ROSC
Estimated down time including above 15+ minutes
Interim R basilar infiltrate on CXR, then resolved
Fever
NSTEMI: marked interim elevation of troponins
HFrEF, acute on chronic (TTE 07-09: LVEF 30-35%, technically difficult study)
Elevated BNP
Markedly elevated PCT
Transaminitis
Microhematuria, bacteriuria, albuminuria
Recurrent nausea, reportedly acute on chronic
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
Hyperglycemia
Conditions FORESTRY AIDE:
HFrEF, LVEF 45%, hypokinesis mid to apical septum and apex, stage II DD, moderate eccentric MR, ePAP 84, small pericardial effusion, normal RV size and function
CAD s/p stenting
T2DM
COPD, qualified for home O2 upon d/c from in Nov 2022 (adm for CHF and AECOPD)
Smoker
Recent partial medical compliance due to lack of insurance
Plan:
Witnessed respiratory arrest followed by cardiac arrest: EMS at scene, CPR for 3-5 min with ROSC
Per RN 07-12, now thinks downtime period was longer that he originally though
D/w 07-13: estimated down time including above was 15+ minutes
Underlying CAD, HFrEF
Ongoing heavy smoking FORESTRY AIDE, chronic smoking
Recent partial medical compliance due to lack of insurance for last 1 m FORESTRY AIDE (trying to make her med supply last longer)
Head CT without acute findings
Interim R basilar infiltrate on follow up CXR
CXR with pulm vasc congestion which improved on follow up CXR, but interim development of R basilar infiltrate/atelectasis
Follow-up chest x-ray 07-10 with resolution of right basilar infiltrate on portable film
Continue mechanical ventilation with daily SAT/SBT if clinically appropriate
Lightly sedate with goal RASS -1 to -2
Intermittently weakly opening eyes/blinking, opening mouth
Weaning trial 07-14, 2 hrs with acceptable performance and ABG, transitioned to PSV as tolerated, to rest on ACV as needed and overnight
Today she tolerated PST but became tachypneic and still not following commands - likely having AMS due to anoxic brain injury
If she continues to fail then she is heading towards tracheostomy. was made aware of this today
Neurology following
UCx negative
UDS positive for bzd and cannabis. Noted outpatient low dose alprazolam use for anxiety
Blood cxs 07/09 and NTD
Trach asp cx negative
COVID/flu negative
MRSA screening negative
Markedly elevated PCT with normal eGFR
Empiric atbs on adm: aztreonam (reported penicillin allergy) and vancomycin
Changed aztreonam to cefepime, discontinued vancomycin: 07-10
Cefepime changed to meropenem on 07/14/2023 --> pt continuing to have low grade fevers --> ID has now DC'd ABx and we will monitor off Abx given possible drug-related/non-infectious fever
NE off since 07-09
Started neosynephrine 04-17, weaned and currently off
RUE PICC 07-10, noted resolution of R basilar infiltrate/atelectasis
Changed MP IV to prednisone 40 mg qd, finite 5 d course of CS through 07-15
Hypothermic on adm
Low grade temp since 07-10
Though rare side effect potentially associated to cefepime
Follow temp
ID consulted 07-13, d/c cefepime, started meropenem --> this was DC'd on 07/15 due to suspected non-infectious fever
NSTEMI
Marked interim elevation of troponins (peaked at 19 on 07/10/2023)
Elevated BNP
Known h/o HFrEF, on current TTE LVEF down from 45% to 30-35% (technically difficult TTE)
RV size and function normal
Held resumption of BB due to hypotension 07-09. Metoprolol started 07-11
ASA
Cards following closely, considering [facility] this adm depending on improvement of anoxic encephalopathy
IV insulin protocol off since 07-12, started novolog SS and lantus
DEVON doppler 07-11: negative. Though BNP and trops elevated, RV size and function normal on TTE
AXR with nonobstructive gas pattern
Neurology consultation 07-11 appreciated
Multifactorial encephalopathy
EEG 07-11: diffuse cortical dysfunction without focal abnormality or sz, likely from metabolic disturbance
MRI brain 07-12: highly suspicious for anoxic ischemic injury involving parahippocampal gyrus, cerebellar hemispheres, R paramidline parietal cortex, also small peripheral subcortical white matter infarct involving the superior posterolateral R
frontal lobe
Per RN 07-12, now thinks downtime period was longer that he originally though
D/w 07-13: estimated down time including above was 15+ minutes
Lowered xanax to once daily given pt is encephalopathic
Outpatient regimen was jardiance 10 mg daily, AC novolog SS, lantus 20 units hs, metformin 500 mg BID
HgbA1C on admission 8%
IV insulin protocol started --> now off and pt on basal-bolus insulin SQ dosing
GI proph: PPI IV
DVT proph: sc hep
Antiemetic prn, received one dose metoclopramide on 07-10 only, suspected DM gastroparesis
Full code
Discussed with at bedside in detail and answered all his questions.
Prognosis guarded in view of resp arrest followed by cardiac arrest, significant comorbidities, and brain MRI findings
Critical care statement: A total of 40 minutes of critical care time was provided for this patient today. This includes management of unstable vital signs, evaluation of the patient at bedside, reviewing the patient's pertinent medical records
including radiographs, microbiology, laboratory evaluations, and discussion with primary team, consultants, pharmacy, nutrition, physical therapy, case management, charge nurse, critical care nursing, and respiratory therapy.
Data:
Brain MRI 07-13-2023:
Motion degradation.
Findings highly suspicious for anoxic ischemic injury involving the parahippocampal gyrus, cerebellar hemispheres, right paramidline parietal cortex. Small peripheral subcortical white matter infarct involving the superior posterolateral right
frontal lobe.
No mass effect. No midline shift. No herniation.
Subjective Dataa
Subjective Data
Date of Service:
Date of Service: July 16, 2023
Chief Complaint: Respiratory Technician Follow Up
Subjective:
Pt seen this AM. Remains on ventilator - currently on wean of 5/5 40%. HR 107, BP 131/75, SpO2 100% on vent. She blinks but occasionally follows commands. Minimal oral secretions.
Review of Systems
General: Unobtainable - Pat Unresp
Objective Data
Data Reviewed
Vital Signs / I&O / Oxygen:
Vital Signs
Temp Pulse Resp BP Pulse Ox
101 F H 124 32 136/71 98
07/16/23 07:57 07/16/23 08:49 07/16/23 07:45 07/16/23 08:49 07/16/23 07:57
Intake and Output
07/15/23 07/16/23 07/17/23
06:59 06:59 06:59
Intake Total 930 / 995 1585 / 1585
Output Total 600 / 600 1150 / 1150
Balance 330 / 395 435 / 435
SaO2 [CPAP/PSV] 98
SaO2 [A/C] 100
SaO2 99
Physical Exam
General: Respiratory Distress (Negative) and Comfortable
HEENT: Normocephalic and Anicteric
Cardiovascular: S1-S2 and Peripheral Edema (n)
Respiratory: Wheeze (Negative), Crackles (Negative), Rhonchi (Negative), Accessory Resp Muscle Use (Tachypneic while on weaning trial), Stridor, ET Tube and Other (Mechanical breath sounds heard bilaterally)
GI: Soft, Non Distended, Non Tender, Normal Bowel Sounds and NG Tube (OGT+)
Neurology: Tremors (Negative) and Unresponsive (Not interactive)
Skin: Warm and Dry
Labs/Micro/Reports
Lab Data
07/16/23 03:08
07/16/23 03:08
Laboratory Results
07/15/23
09:50
pH 7.48 H
pCO2 34
pO2 147 H
HCO3 25.3
O2 Delivery Level
Microbiology
07/13/23 21:06 Blood/Venous Blood Culture - Preliminary
No Growth in 48 hours- Final report to follow
07/10/23 12:38 Blood/Venous Blood Culture - Final
No Growth - Final Report
07/10/23 12:14 Blood/Venous Blood Culture - Final
No Growth - Final Report
--- NOTE | 2023-07-16 08:00 | PTCARENOTE ---
recd pt handoff at bedside, eyes open, blinks, able to open mouth/stick out tongue, intermittently to commands. no other neuro response. no movement of any extremity. occas decerebrate posturing bilat arms. foot drop. negative Babinski. FMS
and chapin draining, positioning for comfort. ETT secure, no subglottic suction. placed on wean by resp therapy.
[2023-07-16] MEDS: LOPRESSOR 25 MG TUBE ×2 (08:49→20:20)
--- NOTE | 2023-07-16 09:02 | PN.DE.MGMTRT ---
Insulin Management
- -
07/16/2023 Diabetes Management F/U:
Patient admitted 07/08, w/ respiratory distress, respiratory failure, intubated sedated. PMH includes CHF, COPD, current smoker. Prior to admission was taking Jardiance 10 mg daily, AC NovoLog SS, Lantus 20 units @ hs with metformin 500 mg BID.
A1C on admission 8%, Cr 1, eGFR >60.
Patient remains intubated, eye open but not responding to questions or commands.
She was started on Tube feeds Jevity 1.5 @45cc/hr over the weekend--> Hyperglycemia.
Current diabetes regimen includes Lantus 10 units in AM and corrective insulin Q6h
Glucose has ranged from 249 to 303. Will give an additional dose of Lantus 10 units now and increase dose to 20 units
Will start standing dose of NovoLog 10 units Q6H with corrective.
Will follow closely and make further adjustment if needed.
Discussed with ICU round team and patient's nurse regarding diabetes plan of care
Diabetes History
- -
Type of Diabetes: 2 requiring insulin
Pre-Admission Diabetes Regimen
07/16/23
03:08
Creatinine 0.5 L
Lab Results
Hemoglobin A1c 8.0 % (4.0-5.6) H 07/10/23 06:17
Insulin Pump Settings
IP Diabetes Regimen
07/15/23 07/15/23 07/16/23
11:57 17:50 00:12
Glucose
POC Glucose 249 H 286 H 301 H
07/16/23 07/16/23 07/16/23
03:08 05:40 07:41
Glucose 248 H
POC Glucose 264 H 303 H
Patient Education
--- NOTE | 2023-07-16 09:25 | W.PN.ID1 ---
Date of Service
Date of Service: July 16, 2023
Today's Communication
D/C abx and observe.
Assessment / Plan
Fever
- Infection vs drug fever vs cardiac related vs central vs other
- cultures negative to date
Leukocytosis; stable today.
S/p cardiac arrest
Elevated troponin
CHF
COPD
DM
Recommendations:
Remains on meropenem 500 mg IV every 6 hours (d#7 abx).
Cultures no growth to date.
Given negative cultures, would favor discontinuing antibiotics with close clinical monitoring.
Monitor temperature curve
Trend white count.
Patient remains critically ill in intensive care unit.
����������������������������������������������������������
Chief Complaint
-: Fever and Leukocytosis
Subjective / Review of Systems
Patient seen and examined. Fevers noted to be ongoing. Patient remains on vent at this time.
Vital Signs / Physical Exam
Vital Signs
Vital Signs
Temp Pulse Resp BP Pulse Ox
101 F H 124 32 136/71 98
07/16/23 07:57 07/16/23 08:49 07/16/23 07:45 07/16/23 08:49 07/16/23 07:57
Physical Exam
Constitutional: Comfortable, Chronically Ill and Non-toxic
Head: Normocephalic
Eyes: No Conjunctival Hemorrhage and Sclera Anicteric
Oropharyngeal: Other (ET tube in place.)
Cardiovascular: S1/S2; Negative S3/S4
Pulmonary: Coarse
Gastrointestinal: Soft, Non Distended, Normal Bowel Sounds, No Rebound, No Guarding and Other (FMS in place.)
Extremities: Negative Edema, Cyanosis or Erythema
Skin: Warm and Dry; Negative Rash or Jaundice
Neurological: Awake
Psychological: Calm
Objective Data
Lab Data
Lab Results
07/16/23 03:08
07/16/23 03:08
PT 15.2 Sec (11.4-14.6) H 07/10/23 06:16
INR 1.22 07/10/23 06:16
APTT 29.2 Sec (23.4-35.0) 07/10/23 06:16
Estimated Creat Clear 84 ml/min 07/16/23 03:08
Total Bilirubin 0.4 mg/dl (0.2-1.3) 07/16/23 03:08
AST 29 U/L (14-36) 07/16/23 03:08
ALT 16 U/L (0-35) 07/16/23 03:08
Alkaline Phosphatase 114 U/L (38-126) 07/16/23 03:08
Most recent labs reviewed.
Micro Results:
07/13/23 21:06 Blood Culture - Preliminary
Blood/Venous No Growth in 48 hours- Final report to follow
07/10/23 12:38 Blood Culture - Final
Blood/Venous No Growth - Final Report
07/10/23 12:14 Blood Culture - Final
Blood/Venous No Growth - Final Report
07/10/23 12:05 Respiratory Culture - Final
Tracheal Aspirate Usual Respiratory Nanci
Gram Stain - Final
07/12/23 10:03 Influenza Types A & B (ANGELA) - Final
Nasal Swab Negative for Influenza A & B, NAAT
Negative results must be combined with clinical observations
and patient history.
Nucleic Acid Amplification test (NAAT)performed on the
[employer] ID NOW platform.
07/09/23 23:03 Urine Culture - Final
Urine NO GROWTH
07/10/23 12:03 Nasal Screen MRSA (PCR) - Final
Nose MRSA not detected - performed by PCR methodology.
Imaging:
07/11/2023 CXR (portable): Orogastric tube projecting over the stomach. ET tube and right upper extremity PICC line in place. Mild subsegmental atelectasis in the right lower lobe and right middle lobe.
[2023-07-16 12:02] LABS: B.E. 5.7 mmol/L; HCO3 28.4 mmol/L (21-28); O2 Saturation % 99.8 % (94-98); PCO2 34 mmHg (32-35); PO2 165 mmHg (83-108); pH 7.53 (7.35-7.45)
[2023-07-16] MEDS: NOVOLOG FLEXPEN 10 UNITS SC ×3 (12:12→23:39)
[2023-07-16 12:19] LABS: Glucose - Point of Care 311 mg/dl (70-99)
--- NOTE | 2023-07-16 12:30 | PTCARENOTE ---
ABG to Dr. Samuel, discussion with family, returning to previous settings, RR at the time prior to change 50s, now comfortable.
[2023-07-16] MEDS: SUBLIMAZE 50 MCG IV ×2 (13:01→23:38)
--- NOTE | 2023-07-16 13:35 | PTCARENOTE ---
eyes open, mild look of distress, no neuro change. med as noted for CPOT score and facial grimacing. much calmer after dose of med. cooling blanket off/on for continuous rectal temp.
--- NOTE | 2023-07-16 14:44 | W.PN.HOSP.TC ---
Today's Communication/Plan
-
SBT as tolerated
dc abx and monitor
may need bromocriptine initiation for possible central fevers
monitor mental status for possible weaning off vent;
Assessment / Plan
Assessment / Plan
MRI brain
Motion degradation.
Findings highly suspicious for anoxic ischemic injury involving the parahippocampal gyrus, cerebellar hemispheres, right paramidline parietal cortex. Small peripheral subcortical white matter infarct involving the superior posterolateral right
frontal lobe.
No mass effect. No midline shift. No herniation.

s/p cardiac arrest
Anoxic brain injury
Acute VDRF (hypoxic, hypercapnic)
Acute Metabolic Encephalopathy
- hx of underlying COPD/Smoking
- no evidence of CHF
- Venous Doppler LE neg. considering CT chest PE.
- daily sedation vacation; SBT; and neuro eval
- EEG showing diffuse cortical dysfunction.
- MRI brain finding as above , in conjunction with EEG per neuro patient recovery chance is good, will likely require longer supportive care
- Maintaining of euthermia is necessary to improve odds of neuro recovery, starting on scheduled tylenol and cooling blanket
Septic Shock
- off of vasopressors
- continues to spike fever
-completed course of abx, stop and monitor
Recurrent Fevers
-possible central in nature
-tylenol and bromocriptine if still continues
-neg dvt studies
Non STEMI
Hx of Chronic HFmrEF
CAD with history of stenting
- unclear if type 2 vs primary IA
- continue ASA rectally/Statin
- Echo: Moderately reduced left ventricular systolic function. Left ventricular ejection fraction is 30-35%%. Wall motion analysis is limited by the image quality. Aortic sclerosis without stenosis.
- CBC cards following
-BB, ASA
-Add ACEI once BPs improve
- will need eventual cath
Former smoker:
- smoked for 51 years, quit in August
Type 2 DM
Vomiting, suspected gastroparesis
- continue critical care glycemic protocol
- hold Jardiance/Lantus/Metformin
-Adjust insulin as required
Metabolic acidosis - resolved
Hyponatremia -resolved
- improving with IVF
Elevated LFTS - likely from shock state
- improving
Acute GI bleeding from vomiting (possibly MWT)
- monitor Hb which is stable >12
DVT ppx: SC Heparin
Code: Full
Total critical care time 45 mins . Total critical care time documented does not include time spent on separately billed procedures or the services of residents, students, nurses or physician assistants. I personally saw and examined the patient. I
have reviewed all diagnostic interpretations and treatment plans as written. I was present for the mccauley portions of any procedures performed and the inclusive time noted in any critical care statement. Critical care time includes patient management
by me, time spent at the patients bedside, time to review lab and imaging results, discussing patient care, documentation in the medical record, and time spent with the family or caregiver.
Anticipated Discharge: > 48 hours
Subjective/Interval History
-
Date of Service: July 16, 2023
still spiking, on SBT
Objective Data
-
Labs:
Laboratory Results
07/16/23 07/16/23
03:08 11:37
WBC 15.9 H
Hgb 11.6 L
Hct 35.1 L
Plt Count 200
HCO3 28.4 H
Sodium 140
Potassium 4.0
Chloride 110 H
Carbon Dioxide 25
BUN 27 H
Creatinine 0.5 L
Glucose 248 H
Calcium 9.3
Total Bilirubin 0.4
AST 29
ALT 16
Alkaline Phosphatase 114
Vital Signs:
Vital Signs
Temp Pulse Resp BP Pulse Ox
100.4 F H 109 51 134/88 100
07/16/23 13:30 07/16/23 12:00 07/16/23 12:15 07/16/23 12:00 07/16/23 12:38
I&O
07/15/23 07/16/23 07/17/23
06:59 06:59 06:59
Intake Total 930 / 995 1585 / 1655 590 / 590
Output Total 600 / 600 1150 / 1150
Balance 330 / 395 435 / 505 590 / 590
Review of Systems
-
Unable to obtain full review of systems at this time due to: Acuity and Patient Intubation
Physical Exam
-
General: Intubated
HEENT: Oxygen (Intubated on MV)
Respiratory: Clear to Auscultation
Cardiac: Regular Rhythm, S1/S2 and Tachycardic; Negative Murmur
GI: Soft, Nontender and Nondistended
Musculoskeletal: No Edema
Neuro: Other (Not waking up off sedation); Negative Awake or Alert
Data Reviewed
-
Diagnostic Radiology: Image personally visualized and interpreted and Report Reviewed by me
Ultrasound: Image personally visualized and interpreted and Report Reviewed by me
MRI: Report Reviewed by me
Labs: Labs Reviewed by me
--- NOTE | 2023-07-16 15:57 | PTCARENOTE ---
back on a wean, 07/29/39. no other change.
[2023-07-16 17:44] LABS: Glucose - Point of Care 241 mg/dl (70-99)
[2023-07-16] MEDS: NOVOLOG FLEXPEN-MODERATE RESISTANCE 3 UNITS SC (17:56)
--- NOTE | 2023-07-16 18:37 | PTCARENOTE ---
RR 34-40, visitors bedside, explained rationale of wean. RR remained elevated, HR to 120, volumes on cp/ps wean 200s, returned to AC by resp therapy.
--- NOTE | 2023-07-16 20:00 | PTCARENOTE ---
Assumed care of patient. Patient in bed, eyes open, following minimal commands, able to stick out her tongue on command but not track. Pupils 4mm equal and reactive. Patient on cooling blanket, temp being monitored through rectal probe- 101.1.
Patient has chapin and FMS in place. Patient assessed, see worklist. Patient on vent, 7 ETT, 22@ lip, 14/5/450/40. Suctioned patient, oral care given. tube feeds running per order through left nare dobhoff. Will continue to monitor.
[2023-07-16] MEDS: NOVOLOG FLEXPEN-MODERATE RESISTANCE 1 UNITS SC (23:39)
[2023-07-16 23:44] LABS: Glucose - Point of Care 158 mg/dl (70-99)
[2023-07-17] VITALS (28 sets, daily range): BP systolic 85–141; BP diastolic 50–95; BMI 26.0
--- NOTE | 2023-07-17 01:32 | PTCARENOTE ---
Patients temp 102 per rectal probe. Patient on cooling blanket already, ice packs applied to patient as well.
[2023-07-17] MEDS: TYLENOL ORAL SOLUTION 650 MG TUBE ×4 (03:09→21:03)
[2023-07-17 03:18] LABS: % Basophils 0.1 % (0-2); % Eosinophils 0.1 % (0-6); % Immature Granulocytes 0.5 % (0-0.5); % Lymphocytes 15.5 % (20.5-51.1); % Monocytes 6.7 % (1.7-9.3); % Neutrophils 77.1 % (42.2-75.2); Absolute Immature Granulocytes 0.1 10^3/uL (0-0.05); Absolute Lymphocytes 2.6 10^3/uL (1.2-3.4); Absolute Monocytes 1.1 10^3/uL (0.1-0.6); Hemoglobin 11.4 g/dL (12.0-16.0); Mean Corp Hgb Conc. 33.5 g/dL (33.0-37.0); Mean Corpuscular Hgb 31.1 pg (27.0-31.0); Mean Corpuscular Volume 92.9 fL (81.0-99.0); Mean Platelet Volume 9.6 fL (7.4-10.4); Nucleated Red Blood Cells % 0 %; Platelet Count 204 10^3/uL (130-400); Red Blood Cell Count 3.66 10^6/uL (4.20-5.40); Red Cell Dist. Width 13.5 % (11.5-14.5); White Blood Cell Count 16.9 10^3/uL (4.8-10.8)
[2023-07-17 03:51] LABS: ALT (SGPT) 20 U/L (0-35); AST (SGOT) 33 U/L (14-36); Albumin 3.2 g/dl (3.5-5.0); Alkaline Phosphatase 105 U/L (38-126); Blood Urea Nitrogen 29 mg/dl (7-17); Calcium 9.4 mg/dl (8.4-10.2); Carbon Dioxide 29 mmol/L (22-30); Chloride 110 mmol/L (98-107); Estimated Creatinine Clearance 74 ml/min; Glucose 238 mg/dl (70-99); Potassium 4.3 mmol/L (3.5-5.1); Sodium 140 mmol/L (135-145); Total Bilirubin 0.5 mg/dl (0.2-1.3); Total Protein 5.5 g/dl (6.3-8.2); Triglycerides 231 mg/dl (10-149); eGFR > 60.00
--- NOTE | 2023-07-17 04:30 | PTCARENOTE ---
No changes in assessment. VSS minus temperature. Pt remains on cooling blanket, rectal temp >101. COMMERCIAL CREDIT ANALYST made aware. No other changes at this time.
[2023-07-17] MEDS: NOVOLOG FLEXPEN-MODERATE RESISTANCE 7 UNITS SC (06:03)
[2023-07-17] MEDS: NOVOLOG FLEXPEN 10 UNITS SC (06:04)
[2023-07-17 06:12] LABS: Glucose - Point of Care 310 mg/dl (70-99)
--- NOTE | 2023-07-17 07:20 | W.PN.NEURO.1 ---
Today's Communication / Plan
-
-Start Bromocriptine 5mg daily out of concern for centrally caused fever due to anoxic brain injury
-Scheduled Tylenol
-Wean to extubate as able
Will continue to follow
Neuro Assessment/Plan
Assessment
63-year-old woman who has history of coronary artery disease and diabetes had respiratory distress which then progressed to cardiac arrest; her presentation is c/w a multifactorial encephalopathy, septic shock was playing a role, and anoxic brain
injury. Patient had septic shock and NSTEMI, vomiting with some mild amount of GI bleed.
Initial CT head noncontrast did not show any acute abnormality. MRI done 07/12 showed:
'Findings highly suspicious for anoxic ischemic injury involving the parahippocampal gyrus, cerebellar hemispheres, right paramidline parietal cortex. Small peripheral subcortical white matter infarct involving the superior posterolateral right
frontal lobe.'
EEG showed moderate slowing diffusely no seizure or epileptiform activity; did not show a malignant pattern of EEG after cardiac arrest
MRI does show mild/moderate anoxic brain injury changes
07/15 AM patient consistently obeying simple central commands (sticking out tongue and closing eyes)
Overall has a good prognosis given obeying commands AM of 07/15 and lack of any testing supportive of poor prognosis, though is expected to have some degree of cognitive deficits given MRI findings of anoxic brain injury
Fevers most likely affecting mental status to some degree
Possibility for central fevers after anoxic brain injury
Concern for critical illness neuropathy or myopathy producing generalized weakness
Subjective/Objective
Subjective Data
Date of Service: July 17, 2023
No acute events, remains febrile, intubated
Objective Data
Vital Signs
Temp Pulse Resp BP Pulse Ox
101.5 F H 111 15 131/95 100
07/17/23 04:11 07/17/23 05:00 07/17/23 05:00 07/17/23 05:00 07/17/23 05:00
Lab Results
07/17/23 03:13
07/17/23 03:13
PT 15.2 Sec (11.4-14.6) H 07/10/23 06:16
INR 1.22 07/10/23 06:16
APTT 29.2 Sec (23.4-35.0) 07/10/23 06:16
Sodium 140 mmol/L (135-145) 07/17/23 03:13
Potassium 4.3 mmol/L (3.5-5.1) 07/17/23 03:13
BUN 29 mg/dl (7-17) H 07/17/23 03:13
Glucose 238 mg/dl (70-99) H 07/17/23 03:13
Calcium 9.4 mg/dl (8.4-10.2) 07/17/23 03:13
Mmi-A-Remvkhnhuqk Pept 2750 pg/ml 07/09/23 23:03
Ur Buprenorphine Negative (Negative) 07/10/23 15:13
Patient Allergies
codeine Allergy (Verified 07/09/23 22:52)
Itching
latex Allergy (Verified 07/09/23 22:52)
Hives
Penicillins Allergy (Verified 07/09/23 22:52)
Rash
silver [From Tegaderm AG Mesh] Allergy (Verified 07/09/23 22:52)
'peels skin off'
Review of Systems
-
Unable to obtain full review of systems at this time due to: Patient Intubation
Physical Exam
-
General: Comfortable and Intubated
Eyes: No Ptosis
HEENT: Normocephalic
Neck: No Bruits Bilaterally
Respiratory: Clear to Auscultation and No Dyspnea; Negative Wheezes
Cardiac: No Murmur
GI: Soft and Non-tender
Skin: Warm and Dry; Negative Rash
Extremities: No Edema
Psych: Negative Agitated
Extended Neurological Exam
Attention Span & Concentration: Other (Eyes open spontaneously, little tracking of examiner, obey simple central commands sticking out tongue and closing eyes consistently)
Memory: Unable to Assess
Tremor: Hand Tremor Absent
Involuntary Movement: None
Speech: Other (Comprehension of simple commands intact, not obeying peripheral commands)
Cranial Nerve II: Left Eye: Pupillary Reactivity Unremarkable and Pupillary Size Unremarkable
Cranial Nerve II: Right Eye: Pupillary Reactivity Unremarkable and Pupillary Size Unremarkable
Cranial Nerves III, IV, : Extraocular Movement: Extraocular Movement Full in all Directions
Cranial Nerve VII: Facial Symmetry: Normal Facial Symmetry
Muscle Strength, Overall: Other (Diffusely weak with low muscle tone throughout, 2/5 movement throughout)
Muscle Bulk & Tone: Reduced Tone
Deep Tendon Reflexes: Absent Throughout
Touch Sensation: Withdrawal to Pain
Data Reviewed
-
CT Head: Report Reviewed and Image Reviewed
MRI Head: Report Reviewed and Image Reviewed
EEG: Report Reviewed
Labs: Report Reviewed
--- NOTE | 2023-07-17 07:55 | W.PN.INTV ---
Today's Communication / Plan
Recommendations
MV
Atbs now DC'd per ID
MAP>65
Supportive care
Bromocriptine started
Guarded prognosis
Assessment
-
Assessment:
Mrs Osiris Muñoz is a 63/W adm 07-08 after sustaining witnessed respiratory distress ( witnessed). EMS found her with agonal breathing, then respiratory arrest followed by cardiac arrest per information gathered by ER physician. ACLS
protocol initiated immediately, CPR provided for 3-5 min with ROSC after one dose of epinephrine via IO line, intubated as scene. Received at ER on MV, unresponsive, started on IV propofol and fentanyl, NE gtt, given one dose of vecuronium IV. Known
h/o HF, CAD, T2DM, COPD, tobacco dependence, unfortunately lost medical insurance about 1 m ago and was trying to make her current med supply last longer but decreasing frequency of dosing
Impression:
Respiratory arrest followed by cardiac arrest as witnessed by EMS 07-08
Intubated at scene
CPR for 3-5 min with ROSC
Estimated down time including above 15+ minutes
Interim R basilar infiltrate on CXR, then resolved
Fever - recurrent
NSTEMI: marked interim elevation of troponins
HFrEF, acute on chronic (TTE 07-09: LVEF 30-35%, technically difficult study)
Elevated BNP
Markedly elevated PCT
Transaminitis
Microhematuria, bacteriuria, albuminuria
Recurrent nausea, reportedly acute on chronic
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
Hyperglycemia
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
HFrEF, LVEF 45%, hypokinesis mid to apical septum and apex, stage II DD, moderate eccentric MR, ePAP 84, small pericardial effusion, normal RV size and function
CAD s/p stenting
T2DM
COPD, qualified for home O2 upon d/c from in Nov 2022 (adm for CHF and AECOPD)
Smoker
Recent partial medical compliance due to lack of insurance
Plan:
Witnessed respiratory arrest followed by cardiac arrest: EMS at scene, CPR for 3-5 min with ROSC
Per RN 07-12, now thinks downtime period was longer that he originally though
D/w 07-13: estimated down time including above was 15+ minutes
Underlying CAD, HFrEF
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
Recent partial medical compliance due to lack of insurance for last 1 m WINDOW TREATMENT INSTALLER (trying to make her med supply last longer)
Head CT without acute findings
Interim R basilar infiltrate on follow up CXR
CXR with pulm vasc congestion which improved on follow up CXR, but interim development of R basilar infiltrate/atelectasis
Follow-up chest x-ray 07-10 with resolution of right basilar infiltrate on portable film
Continue mechanical ventilation with daily SAT/SBT if clinically appropriate
Lightly sedate with goal RASS -1 to -2
Intermittently weakly opening eyes/blinking, opening mouth
Weaning trial 07-14, 2 hrs with acceptable performance and ABG, transitioned to PSV as tolerated, to rest on ACV as needed and overnight
On 07/15 she tolerated PST but became tachypneic and still not following commands - likely having AMS due to anoxic brain injury
If she continues to fail then she is heading towards tracheostomy. was made aware of this on 07/15 and this was reinforced today
Neurology following
UCx negative
UDS positive for bzd and cannabis. Noted outpatient low dose alprazolam use for anxiety
Blood cxs 07/09 and NTD
Trach asp cx negative
COVID/flu negative
MRSA screening negative
Markedly elevated PCT with normal eGFR
Empiric atbs on adm: aztreonam (reported penicillin allergy) and vancomycin
Changed aztreonam to cefepime, discontinued vancomycin: 07-10
Cefepime changed to meropenem on 07/14/2023 --> pt continuing to have low grade fevers --> ID has now DC'd ABx and we will monitor off Abx given possible drug-related/non-infectious fever
NE off since 07-09
Started neosynephrine 07-10, weaned and currently off
RUE PICC 07-10, noted resolution of R basilar infiltrate/atelectasis
Changed MP IV to prednisone 40 mg qd, finite 5 d course of CS through 07-15
Hypothermic on adm
Low grade temp since 07-10
Though rare side effect potentially associated to cefepime
Follow temp
ID consulted 07-13, d/c cefepime, started meropenem --> this was DC'd on 07/15 due to suspected non-infectious fever
Bromocriptine started today in event that this is a central fever
NSTEMI
Marked interim elevation of troponins (peaked at 19 on 07/10/2023)
Elevated BNP
Known h/o HFrEF, on current TTE LVEF down from 45% to 30-35% (technically difficult TTE)
RV size and function normal
Held resumption of BB due to hypotension 07-09. Metoprolol started 07-11
ASA
Cards following closely, considering [facility] this adm depending on improvement of anoxic encephalopathy
IV insulin protocol off since 07-12, started novolog SS and lantus
DEVON doppler 07-11: negative. Though BNP and trops elevated, RV size and function normal on TTE
AXR with nonobstructive gas pattern
Neurology consultation 07-11 appreciated
Multifactorial encephalopathy
EEG 07-11: diffuse cortical dysfunction without focal abnormality or sz, likely from metabolic disturbance
MRI brain 07-12: highly suspicious for anoxic ischemic injury involving parahippocampal gyrus, cerebellar hemispheres, R paramidline parietal cortex, also small peripheral subcortical white matter infarct involving the superior posterolateral R
frontal lobe
Per RN 07-12, now thinks downtime period was longer that he originally though
D/w 07-13: estimated down time including above was 15+ minutes
Lowered xanax to once daily given pt is encephalopathic
Outpatient regimen was jardiance 10 mg daily, AC novolog SS, lantus 20 units hs, metformin 500 mg BID
HgbA1C on admission 8%
IV insulin protocol started --> now off and pt on basal-bolus insulin SQ dosing
GI proph: PPI IV
DVT proph: sc hep
Antiemetic prn, received one dose metoclopramide on 07-10 only, suspected DM gastroparesis
Full code
Discussed with at bedside in detail and answered all his questions.
Prognosis guarded in view of resp arrest followed by cardiac arrest, significant comorbidities, and brain MRI findings
Critical care statement: A total of 38 minutes of critical care time was provided for this patient today. This includes management of unstable vital signs, evaluation of the patient at bedside, reviewing the patient's pertinent medical records
including radiographs, microbiology, laboratory evaluations, and discussion with primary team, consultants, pharmacy, nutrition, physical therapy, case management, charge nurse, critical care nursing, and respiratory therapy.
Data:
Brain MRI 07-13-2023:
Motion degradation.
Findings highly suspicious for anoxic ischemic injury involving the parahippocampal gyrus, cerebellar hemispheres, right paramidline parietal cortex. Small peripheral subcortical white matter infarct involving the superior posterolateral right
frontal lobe.
No mass effect. No midline shift. No herniation.
Subjective Dataa
Subjective Data
Date of Service:
Date of Service: July 17, 2023
Chief Complaint: High Rigger Follow Up
Subjective:
Pt spiked fever this AM. Pt remains intubated - failed SBT this AM due to tachypnea while on on 5/5 40%. BG high this AM. at bedside and all questions were answered. Current vitals are BP 114/72, heart rate 106 and saturating 98% on
14/450/5/40%.
Review of Systems
General: Other (Unable to obtain due to patient's acute clinical status/nonverbal)
Objective Data
Data Reviewed
Vital Signs / I&O / Oxygen:
Vital Signs
Temp Pulse Resp BP Pulse Ox
101.2 F H 104 20 108/73 100
07/17/23 11:43 07/17/23 11:50 07/17/23 11:50 07/17/23 09:27 07/17/23 11:53
Intake and Output
07/16/23 07/17/23 07/18/23
06:59 06:59 06:59
Intake Total 1585 / 1655 2310 / 2380 340 / 340
Output Total 1150 / 1150 1090 / 1140 200 / 200
Balance 435 / 505 1220 / 1240 140 / 140
SaO2 [CPAP/PSV] 100
SaO2 [A/C] 100
SaO2 100
Physical Exam
General: Respiratory Distress (Negative) and Comfortable
HEENT: Normocephalic and Anicteric
Cardiovascular: S1-S2, Peripheral Edema (n) and Other (Tachycardic)
Respiratory: Wheeze (Negative), Crackles (Negative), Rhonchi (Negative), Accessory Resp Muscle Use (Tachypneic while on weaning trial), Stridor, ET Tube and Other (Mechanical breath sounds heard bilaterally)
GI: Soft, Non Distended, Non Tender, Normal Bowel Sounds and NG Tube (OGT+)
Neurology: Tremors (Negative) and Unresponsive (Not interactive)
Skin: Warm and Dry
Labs/Micro/Reports
Lab Data
07/17/23 03:13
07/17/23 03:13
Laboratory Results
07/16/23
11:37
pH 7.53 H
pCO2 34
pO2 165 H
HCO3 28.4 H
O2 Delivery Level
Microbiology
07/13/23 21:06 Blood/Venous Blood Culture - Preliminary
No Growth in 72 hours- Final report to follow
07/10/23 12:38 Blood/Venous Blood Culture - Final
No Growth - Final Report
07/10/23 12:14 Blood/Venous Blood Culture - Final
No Growth - Final Report
[2023-07-17] MEDS: DUONEB 3 ML INH ×4 (07:57→20:25)
--- NOTE | 2023-07-17 08:39 | W.PN.CD ---
Today's Communication / Plan
-
Patient continues to have sinus tachycardia which may be multifactorial contributing factors including fever as well as ongoing neurologic issues. In addition patient's had some fluctuations in her blood pressure. I am reluctant to increase her
beta-sarah and ELAN inhibitor at this point. Would like to avoid swings of hypotension.
At this point considering the lack of neurologic recovery there are no plans to proceed with cardiac catheterization. If patient has a more significant neurological recovery then treatment plans from a cardiac standpoint would be reconsidered. At
this point conservative medical therapy is best option.
Impression / Plan
-
Impression: 63-year-old woman with with previous history of coronary artery disease, prior history of MO, cardiomyopathy with ejection fraction of 45% COPD and smoking who was admitted with respiratory arrest and is now in ICU with vent dependent
respiratory failure. Initial ECG showed sinus rhythm with nonspecific ST abnormality. Troponin peak 19
Plan
Post resp arrest.
VDRF - Continued management as directed by pulmonary and hospitalist.
NSTEMI.-Troponin 19. Unclear if this is a type II MO related to hypoxemia and underlying coronary artery disease. Primary MO cannot be entirely excluded.
-Optimize respiratory status as noted above
-medical therapy of CAD
-Echo shows new LVEF decline -
-Considering the lack of recovery from a neurologic standpoint would not plan to proceed with cardiac catheterization at this point. Will continue to see if she has additional significant recovery.
-Can continue current dosing of beta-sarah and lisinopril. Appears patient's had some lability of blood pressure with an occasional low blood pressure reading. Patient also has continued tachycardia which may be multifactorial. Fluctuations in
blood pressure and heart rate may be related to combination of patient's neurologic issues as well as recurrent fevers.
Neuro/mental status. Post arrest. anoxic encepjhalopathy. neuro assesment in progress. MRI suggesting anoxic injury. tx per neuro
-Patient with eyes open unresponsive to verbal commands
Prolonged QTc -
- improved.
limit QTc prolonging meds including metoclopramide.
Fever- recurrent fever. Flu and covid neg 4/18/24.
-Without clear infectious cause. May be central fevers related to neurologic issues. Defer to primary team.
CM - monitor volume status and reassess LVF
- can titrate meds as BP allows. add lisinopril with BP allows
COPD
MR
Pulm HTN - echo TDS. Eventual repeat
Critically ill - 30 minutes
Sedated and intubated
Physical Exam
Vital Signs/Labs
Vital Signs
Temp Pulse Resp BP Pulse Ox
101.7 F H 111 15 131/95 100
07/17/23 08:13 07/17/23 05:00 07/17/23 05:00 07/17/23 05:00 07/17/23 08:06
07/16/23 07/17/23 07/18/23
06:59 06:59 06:59
Actual Weight 61.7 kg 62.4 kg
07/17/23 03:13
07/17/23 03:13
PT 15.2 Sec (11.4-14.6) H 07/10/23 06:16
INR 1.22 07/10/23 06:16
APTT 29.2 Sec (23.4-35.0) 07/10/23 06:16
Magnesium 2.1 mg/dl (1.6-2.3) 07/12/23 03:25
Triglycerides 231 mg/dl (10-149) H 07/17/23 03:13
07/09/23
23:03
Clx-J-Gnlvungxkes Pept 2750
Physical Exam
Constitutional: No acute distress
EENT: Anicteric
Cardiovascular: Rhythm & rate is regular
Respiratory: Respiratory effort normal, Wheeze Absent and Rhonchi Absent
GI: Soft and Non tender
Neuro/Psych: Alert
Data Reviewed
-
Date of Service: July 17, 2023
Medical Decision Making: Reviewed Test Results
Echo: Report Reviewed by me
X-Ray/CT/US/MRI/NUC/PET: Report Reviewed by me
Labs: Labs Reviewed by me
--- NOTE | 2023-07-17 09:00 | PTCARENOTE ---
pt withdraws to painful stimuli, pt has episodes of decortication , pt eyes are open, blinks to threat , pupils are reactive , occular movement in all directions , kassi arms no movement against gravity , bilateral legs no movement against gravity ,
kassi foot drop , as per resp therapist , she had an SBT this am and did not tolerate , pt in room and updated on current plan of care and condition
[2023-07-17] MEDS: LANTUS 0.200000000000000011 UNITS SC (09:25)
[2023-07-17] MEDS: NSS (PRESERVATIVE FREE) 10 ML IV (09:26)
[2023-07-17] MEDS: PROTONIX IV 40 MG IV (09:26)
[2023-07-17] MEDS: MIRALAX 17 GRAMS TUBE (09:27)
[2023-07-17] MEDS: XANAX 0.25 MG TUBE (09:27)
[2023-07-17] MEDS: LOPRESSOR 25 MG TUBE ×2 (09:27→22:04)
[2023-07-17] MEDS: HEPARIN 5000 UNITS SC ×3 (09:28→23:27)
[2023-07-17] MEDS: LOW STRENGTH ASPIRIN 81 MG TUBE (09:28)
[2023-07-17] MEDS: REFRESH EYE DROPS (PF) 1 DROPS OPHTH (09:28)
[2023-07-17 09:35] LABS: Glucose - Point of Care 344 mg/dl (70-99)
--- NOTE | 2023-07-17 09:51 | PN.DE.MGMTRT ---
Insulin Management
- -
07/17/2023 Diabetes Management Follow up:
Patient admitted 07/08, w/ respiratory distress, respiratory failure, intubated sedated. PMH includes CHF, COPD, current smoker. Prior to admission was taking Jardiance 10 mg daily, AC NovoLog SS, Lantus 20 units @ hs with metformin 500 mg BID.
A1C on admission 8%, Cr .5, eGFR >60.
Patient remains intubated, eyes open but not responding to questions or commands.
She was started on Tube feeds Jevity 1.5 @45cc/hr over the weekend--> Hyperglycemia.
Lantus increased from 10 units 20 units yesterday AM, glucose improved by HS 158. Fasting this AM 310.
Will increase standing dose of NovoLog 13 units Q6H with corrective. May consider BID lantus, will evaluate in AM.
Will follow closely and make further adjustment if needed.
Discussed with patient's nurse regarding diabetes plan of care
Diabetes History
- -
Type of Diabetes: 2 requiring insulin
Pre-Admission Diabetes Regimen
07/17/23
03:13
Creatinine 0.5 L
Lab Results
Hemoglobin A1c 8.0 % (4.0-5.6) H 07/10/23 06:17
Insulin Pump Settings
IP Diabetes Regimen
07/16/23 07/16/23 07/16/23
12:07 17:33 23:32
Glucose
POC Glucose 311 H 241 H 158 H
07/17/23 07/17/23 07/17/23
03:13 06:01 09:24
Glucose 238 H
POC Glucose 310 H 344 H
Patient Education
[2023-07-17] MEDS: PARLODEL 5 MG TUBE (10:31)
[2023-07-17 11:45] LABS: Glucose - Point of Care 377 mg/dl (70-99)
[2023-07-17] MEDS: NOVOLOG FLEXPEN-MODERATE RESISTANCE 9 UNITS SC (12:50)
[2023-07-17] MEDS: NOVOLOG FLEXPEN 13 UNITS SC ×3 (12:50→23:28)
--- NOTE | 2023-07-17 13:27 | W.PN.ID1 ---
Date of Service
Date of Service: July 17, 2023
Today's Communication
Continue off antibiotics.
Assessment / Plan
Fever
- Infection vs drug fever vs cardiac related vs central vs other
- cultures negative to date
Leukocytosis; stable today.
S/p cardiac arrest
Elevated troponin
CHF
COPD
DM
Recommendations:
Cultures no growth to date.
Meropenem discontinued 07/16/2023
Monitor temperature curve
Trend white count.
Patient remains critically ill in intensive care unit.
����������������������������������������������������������
Chief Complaint
-: Fever and Leukocytosis
Subjective / Review of Systems
Patient seen and examined. Remains on vent at this time. Temperature curve reviewed, and patient continues to have ongoing and persistent fevers.
Vital Signs / Physical Exam
Vital Signs
Vital Signs
Temp Pulse Resp BP Pulse Ox
101.2 F H 109 18 85/66 100
07/17/23 11:43 07/17/23 13:00 07/17/23 13:00 07/17/23 13:00 07/17/23 13:00
Physical Exam
Constitutional: Acutely Ill and Chronically Ill
Eyes: Sclera Anicteric
Cardiovascular: S1/S2; Negative S3/S4
Pulmonary: Other (ET tube in place. Breath sounds coarse, but without wheezes, rhonchi or rales)
Gastrointestinal: Soft, Non Distended and Normal Bowel Sounds
Skin: Negative Rash or Jaundice
Psychological: Calm
Objective Data
Lab Data
Lab Results
07/17/23 03:13
07/17/23 03:13
PT 15.2 Sec (11.4-14.6) H 07/10/23 06:16
INR 1.22 07/10/23 06:16
APTT 29.2 Sec (23.4-35.0) 07/10/23 06:16
Estimated Creat Clear 74 ml/min 07/17/23 03:13
Total Bilirubin 0.5 mg/dl (0.2-1.3) 07/17/23 03:13
AST 33 U/L (14-36) 07/17/23 03:13
ALT 20 U/L (0-35) 07/17/23 03:13
Alkaline Phosphatase 105 U/L (38-126) 07/17/23 03:13
Most recent labs reviewed.
Micro Results:
07/13/23 21:06 Blood Culture - Preliminary
Blood/Venous No Growth in 72 hours- Final report to follow
07/10/23 12:38 Blood Culture - Final
Blood/Venous No Growth - Final Report
07/10/23 12:14 Blood Culture - Final
Blood/Venous No Growth - Final Report
07/10/23 12:05 Respiratory Culture - Final
Tracheal Aspirate Usual Respiratory Nanci
Gram Stain - Final
07/12/23 10:03 Influenza Types A & B (ANGELA) - Final
Nasal Swab Negative for Influenza A & B, NAAT
Negative results must be combined with clinical observations
and patient history.
Nucleic Acid Amplification test (NAAT)performed on the
[employer] platform.
07/09/23 23:03 Urine Culture - Final
Urine NO GROWTH
07/10/23 12:03 Nasal Screen MRSA (PCR) - Final
Nose MRSA not detected - performed by PCR methodology.
Imaging:
07/11/2023 CXR (portable): Orogastric tube projecting over the stomach. ET tube and right upper extremity PICC line in place. Mild subsegmental atelectasis in the right lower lobe and right middle lobe.
Care Review
Plan reviewed with: Nurse and Physician (Critical Care)
--- NOTE | 2023-07-17 13:28 | CM ---
CM following re: discharge planning.
Discussed in Rounds, reviewed pt's chart, met with pt. Per Rounds meeting, pt remains intubated and sedated, remains on cooling blanket, continue supportive care. Guarded prognosis
D/C plan: uncertain at this time and will depend on pt's progress.
CM will follow with discharge plan updates as hospitalization progresses
--- NOTE | 2023-07-17 14:00 | PTCARENOTE ---
no change in condition , Dr Gonzáles spoke pt patients on treatments and GOC
--- NOTE | 2023-07-17 14:21 | W.PN.HOSP.TC ---
Today's Communication/Plan
-
Scheduled Tylenol, bromocriptine
Monitor fever curve
SBT
Assessment / Plan
Assessment / Plan
MRI brain
Motion degradation.
Findings highly suspicious for anoxic ischemic injury involving the parahippocampal gyrus, cerebellar hemispheres, right paramidline parietal cortex. Small peripheral subcortical white matter infarct involving the superior posterolateral right
frontal lobe.
No mass effect. No midline shift. No herniation.

s/p cardiac arrest
Anoxic brain injury
Acute VDRF (hypoxic, hypercapnic)
Acute Metabolic Encephalopathy
- hx of underlying COPD/Smoking
- no evidence of CHF
- Venous Doppler LE neg. considering CT chest PE.
- daily sedation vacation; SBT; and neuro eval
- EEG showing diffuse cortical dysfunction.
- MRI brain finding as above , in conjunction with EEG per neuro patient recovery chance is good, will likely require longer supportive care
- Maintaining of euthermia is necessary to improve odds of neuro recovery, starting on scheduled tylenol and cooling blanket
Septic Shock
- off of vasopressors
- continues to spike fever
-completed course of abx, stop and monitor
Recurrent Fevers
-possible central in nature
-tylenol and bromocriptine trial
-neg dvt studies
Non STEMI
Hx of Chronic HFmrEF
CAD with history of stenting
- unclear if type 2 vs primary IN
- continue ASA rectally/Statin
- Echo: Moderately reduced left ventricular systolic function. Left ventricular ejection fraction is 30-35%%. Wall motion analysis is limited by the image quality. Aortic sclerosis without stenosis.
- CBC cards following
-BB, ASA
-Add ACEI once BPs improve
- will need eventual cath
Former smoker:
- smoked for 51 years, quit in August
Type 2 DM
Vomiting, suspected gastroparesis
- continue critical care glycemic protocol
- hold Jardiance/Lantus/Metformin
-Adjust insulin as required
Metabolic acidosis - resolved
Hyponatremia -resolved
- improving with IVF
Elevated LFTS - likely from shock state
- improving
Acute GI bleeding from vomiting (possibly MWT)
- monitor Hb which is stable >12
DVT ppx: SC Heparin
Code: Full
Total critical care time 42 mins . Total critical care time documented does not include time spent on separately billed procedures or the services of residents, students, nurses or physician assistants. I personally saw and examined the patient. I
have reviewed all diagnostic interpretations and treatment plans as written. I was present for the mccauley portions of any procedures performed and the inclusive time noted in any critical care statement. Critical care time includes patient management
by me, time spent at the patients bedside, time to review lab and imaging results, discussing patient care, documentation in the medical record, and time spent with the family or caregiver.
Anticipated Discharge: > 48 hours
Subjective/Interval History
-
Date of Service: July 17, 2023
Still spiking temperatures
Objective Data
-
Labs:
Laboratory Results
07/17/23
03:13
WBC 16.9 H
Hgb 11.4 L
Hct 34.0 L
Plt Count 204
Sodium 140
Potassium 4.3
Chloride 110 H
Carbon Dioxide 29
BUN 29 H
Creatinine 0.5 L
Glucose 238 H
Calcium 9.4
Total Bilirubin 0.5
AST 33
ALT 20
Alkaline Phosphatase 105
Vital Signs:
Vital Signs
Temp Pulse Resp BP Pulse Ox
101.2 F H 109 18 85/66 100
07/17/23 11:43 07/17/23 13:00 07/17/23 13:00 07/17/23 13:00 07/17/23 13:00
I&O
07/16/23 07/17/23 07/18/23
06:59 06:59 06:59
Intake Total 1585 / 1655 2310 / 2380 550 / 550
Output Total 1150 / 1150 1090 / 1140 425 / 425
Balance 435 / 505 1220 / 1240 125 / 125
Review of Systems
-
Unable to obtain full review of systems at this time due to: Acuity and Patient Intubation
Physical Exam
-
General: Intubated
HEENT: Oxygen (Intubated on MV)
Respiratory: Clear to Auscultation
Cardiac: Regular Rhythm, S1/S2 and Tachycardic; Negative Murmur
GI: Soft, Nontender and Nondistended
Musculoskeletal: No Edema
Neuro: Other (Not waking up off sedation); Negative Awake or Alert
Data Reviewed
-
Diagnostic Radiology: Image personally visualized and interpreted and Report Reviewed by me
Ultrasound: Image personally visualized and interpreted and Report Reviewed by me
MRI: Report Reviewed by me
Labs: Labs Reviewed by me
[2023-07-17] MEDS: NOVOLOG FLEXPEN-MODERATE RESISTANCE SC (17:23)
[2023-07-17 17:33] LABS: Glucose - Point of Care 106 mg/dl (70-99)
--- NOTE | 2023-07-17 18:24 | PTCARENOTE ---
pt weaning on Cpap and PS on since 1524 , she is currently tolerating wean , her sats are 99 , her resp rate is 25
[2023-07-17] MEDS: NSS 500 IV (20:54)
--- NOTE | 2023-07-17 21:00 | PTCARENOTE ---
Assumed care of patient at 1920. Patient opening eyes spontaneously. PERRLA. Withdrawals to painful stimuli. No purposeful movement. NSR/ST on tele monitor. Rate in the 90-100's. #7 ett @ 22 cm. Patient tolerating weaning. Placed back on A/C by RT
around 2019. Lung sounds coarse throughout. Moderate amount of thick, parham secretions suctioned from ett. TFs running through left nare DHT. FMS in place for diarrhea. Daniels noted to be draining 15-20 cc's an hour. Urine jason colored. BP down to
80/50's. PEARL DIVER notified and order for 500 cc IVF bolus obtained.
[2023-07-17] MEDS: NOVOLOG FLEXPEN-MODERATE RESISTANCE 1 UNITS SC (23:28)
[2023-07-17 23:34] LABS: Glucose - Point of Care 183 mg/dl (70-99)
[2023-07-18] VITALS (51 sets, daily range): BP systolic 46–128; BP diastolic 13–87; BMI 25.6
--- NOTE | 2023-07-18 00:30 | PTCARENOTE ---
Pt reassessed at 0000. Urine output improving. Vitals stable. All other assessments unchanged.
[2023-07-18] MEDS: TYLENOL ORAL SOLUTION 650 MG TUBE ×4 (02:42→22:31)
[2023-07-18] MEDS: NSS 500 IV (03:11)
--- NOTE | 2023-07-18 03:12 | PTCARENOTE ---
Additional 500 cc IVF bolus ordered for decreased UOP. VSS.
[2023-07-18 03:51] LABS: Hematocrit 28.7 % (37.0-47.0); Hemoglobin 9.7 g/dL (12.0-16.0); Mean Corp Hgb Conc. 33.8 g/dL (33.0-37.0); Mean Corpuscular Hgb 30.9 pg (27.0-31.0); Mean Corpuscular Volume 91.4 fL (81.0-99.0); Platelet Count 217 10^3/uL (130-400); Red Blood Cell Count 3.14 10^6/uL (4.20-5.40); Red Cell Dist. Width 13.8 % (11.5-14.5); White Blood Cell Count 12.7 10^3/uL (4.8-10.8)
--- NOTE | 2023-07-18 04:08 | PTCARENOTE ---
No changes in assessment. Vitals stable. AM labs sent.
[2023-07-18] MEDS: SUBLIMAZE 50 MCG IV ×2 (04:26→04:47)
--- NOTE | 2023-07-18 04:31 | PTCARENOTE ---
Patient bucking vent. Gumming at ett. RR up to high 30-low 40s. Fentanyl bolus administered.
[2023-07-18 04:52] LABS: Blood Urea Nitrogen 31 mg/dl (7-17); Calcium 8.8 mg/dl (8.4-10.2); Carbon Dioxide 27 mmol/L (22-30); Chloride 111 mmol/L (98-107); Estimated Creatinine Clearance 74 ml/min; Glucose 160 mg/dl (70-99); Sodium 139 mmol/L (135-145); eGFR > 60.00
[2023-07-18] MEDS: NEO-SYNEPHRINE 250 IV (05:12)
--- NOTE | 2023-07-18 05:12 | PTCARENOTE ---
DRILLING MACHINE RUNNER called to bedside. No improvement noted s/p fentanyl boluses. HR in the 110's, RR in the 40's. Peak airway pressures in the 50's. Febrile - rectal temp 101. Placed on cooling blanket. BP cuff reading 48/16, rechecked and reading 48/13 then 46/33.
Michael gtt initiated.
[2023-07-18] MEDS: NOVOLOG FLEXPEN 13 UNITS SC ×3 (05:39→23:48)
[2023-07-18] MEDS: NOVOLOG FLEXPEN-MODERATE RESISTANCE 3 UNITS SC (05:40)
[2023-07-18 05:52] LABS: Glucose - Point of Care 229 mg/dl (70-99)
[2023-07-18] MEDS: DUONEB 3 ML INH ×4 (07:10→19:56)
--- NOTE | 2023-07-18 07:50 | PN.DE.MGMTRT ---
Insulin Management
- -
07/18/2023 Diabetes Management Follow up:
Patient admitted 07/08, w/ respiratory distress, respiratory failure, intubated sedated. PMH includes CHF, COPD, current smoker. Prior to admission was taking Jardiance 10 mg daily, AC NovoLog SS, Lantus 20 units @ hs with metformin 500 mg BID.
A1C on admission 8%, Cr .5, eGFR >60.
Patient remains intubated, eyes open but not responding to questions or commands.
cr .4, eGFR >60.
She was started on Tube feeds Jevity 1.5 @45cc/hr over the weekend, current rate 45 per hour.
AM glucose yesterday 310, today 229. Will start hs lantus 10 units and continue AM lantus 20 units. Will continue Q 6 hour novolog 13 units. 3AM accuchek.
Will follow closely and make further adjustment if needed.
Discussed with patient's nurse regarding diabetes plan of care and request for 3AM accuchek.
Diabetes History
- -
Type of Diabetes: 2 requiring insulin
Pre-Admission Diabetes Regimen
07/18/23
03:46
Creatinine 0.4 L
Lab Results
Hemoglobin A1c 8.0 % (4.0-5.6) H 07/10/23 06:17
Insulin Pump Settings
IP Diabetes Regimen
07/17/23 07/17/23 07/17/23
09: 11:34 17:21
Glucose
POC Glucose 344 H 377 H 106 H
07/17/23 07/18/23 07/18/23
24 03:46 05:39
Glucose 160 H
POC Glucose 183 H 229 H
Patient Education
[2023-07-18] MEDS: LOPRESSOR TUBE (08:00)
--- NOTE | 2023-07-18 08:14 | W.PN.NEURO.1 ---
Today's Communication / Plan
-
-Will uptitrate Bromocriptine, increase to 5 mg BID today
-Tylenol and cooling blanket for fevers
-If fevers not abating with uptitration of Bromocriptine can consider switching Metoprolol to Propranolol and adding Baclofen
-Minimize sedating medications
ICU time = 35 minutes
Will follow
Neuro Assessment/Plan
Assessment
63-year-old woman who has history of coronary artery disease and diabetes had respiratory distress which then progressed to cardiac arrest; her presentation is c/w a multifactorial encephalopathy, septic shock was playing a role, and anoxic brain
injury. Patient had septic shock and NSTEMI, vomiting with some mild amount of GI bleed.
Initial CT head noncontrast did not show any acute abnormality. MRI done 07/12 showed:
'Findings highly suspicious for anoxic ischemic injury involving the parahippocampal gyrus, cerebellar hemispheres, right paramidline parietal cortex. Small peripheral subcortical white matter infarct involving the superior posterolateral right
frontal lobe.'
EEG showed moderate slowing diffusely no seizure or epileptiform activity; did not show a malignant pattern of EEG after cardiac arrest
MRI does show mild/moderate anoxic brain injury changes
07/15 AM patient consistently obeying simple central commands (sticking out tongue and closing eyes)
Neurologic prognosis: Is obeying commands AM of 07/15 and has no testing supportive of poor prognosis from brain injury standpoint, though is expected to have likely significant cognitive deficits given MRI findings of anoxic brain injury
Fevers most likely affecting mental status to some degree
Concern for critical illness neuropathy or myopathy producing generalized weakness
Suspicion of central fevers due to anoxic brain injury
Subjective/Objective
Subjective Data
Date of Service: July 18, 2023
No acute events, did have fever, remains intubated
Objective Data
Vital Signs
Temp Pulse Resp BP Pulse Ox
99.4 F 116 26 96/55 100
07/18/23 08:01 07/18/23 07:12 07/18/23 07:12 07/18/23 06:10 07/18/23 07:57
Lab Results
07/18/23 03:46
07/18/23 03:46
PT 15.2 Sec (11.4-14.6) H 07/10/23 06:16
INR 1.22 07/10/23 06:16
APTT 29.2 Sec (23.4-35.0) 07/10/23 06:16
Sodium 139 mmol/L (135-145) 07/18/23 03:46
Potassium 4.0 mmol/L (3.5-5.1) 07/18/23 03:46
BUN 31 mg/dl (7-17) H 07/18/23 03:46
Glucose 160 mg/dl (70-99) H 07/18/23 03:46
Calcium 8.8 mg/dl (8.4-10.2) 07/18/23 03:46
Utj-C-Zsbnwveqsms Pept 2750 pg/ml 07/09/23 23:03
Ur Buprenorphine Negative (Negative) 07/10/23 15:13
Patient Allergies
codeine Allergy (Verified 07/09/23 22:52)
Itching
latex Allergy (Verified 07/09/23 22:52)
Hives
Penicillins Allergy (Verified 07/09/23 22:52)
Rash
silver [From Tegaderm AG Mesh] Allergy (Verified 07/09/23 22:52)
'peels skin off'
Review of Systems
-
Unable to obtain full review of systems at this time due to: Patient Intubation
Physical Exam
-
General: Well Developed and Well Nourished
Eyes: No Ptosis
HEENT: Normocephalic
Neck: No Bruits Bilaterally
Respiratory: Clear to Auscultation
Cardiac: Regular Rhythm
GI: Normal Bowel Sounds
Extremities: No Clubbing
Psych: Confused
Extended Neurological Exam
Attention Span & Concentration: Other (Eyes open, obeys simple 1 step commands sticking out tongue and closing eyes)
Memory: Unable to Assess
Tremor: Hand Tremor Absent
Involuntary Movement: None
Speech: Negative Receptive Aphasia
Cranial Nerve II: Left Eye: Pupillary Reactivity Unremarkable and Pupillary Size Unremarkable
Cranial Nerve II: Right Eye: Pupillary Reactivity Unremarkable and Pupillary Size Unremarkable
Cranial Nerves III, IV, : Extraocular Movement: Extraocular Movement Full in all Directions
Muscle Strength, Overall: Other (Generalized weakness and hypotonia, 1/5 movements in arms and legs bilaterally)
Muscle Bulk & Tone: Reduced Tone
Touch Sensation: Withdrawal to Pain
Coordination: Unable to Assess
Data Reviewed
-
CT Head: Report Reviewed and Image Reviewed
MRI Head: Report Reviewed and Image Reviewed
EEG: Report Reviewed
--- NOTE | 2023-07-18 08:15 | PTCARENOTE ---
Assumed care of pt at 0715 following shift report. Pt resting quietly in bed, eyes open and blinking spontaneously but does not seem to track staff movement. Pt does not follow any commands and no spontaneous movement of extremities noted.
Neosynephrine gtt infusing as documented. Pt remains on vent at ordered settings as documented. Tubefeeding continues w/ placement of DHT confirmed. Pure Wick in place- no urine output noted at this time. Physical assessment completed as documented.
Pt turned and repositioned. Hygiene/comfort care provided. Resp Therapy reports intention of placing pt on vent wean.
--- NOTE | 2023-07-18 08:18 | W.PN.INTV ---
Today's Communication / Plan
Recommendations
MV --> extubated today to nasal cannula
If pt fails extubation then will plan for trach
Atbs DC'd per ID
MAP>65
Supportive care
Continue bromocriptine
Guarded prognosis
Assessment
-
Assessment:
Mrs Osiris Muñoz is a 63/W adm 07-08 after sustaining witnessed respiratory distress ( witnessed). EMS found her with agonal breathing, then respiratory arrest followed by cardiac arrest per information gathered by ER physician. ACLS
protocol initiated immediately, CPR provided for 3-5 min with ROSC after one dose of epinephrine via IO line, intubated as scene. Received at ER on MV, unresponsive, started on IV propofol and fentanyl, NE gtt, given one dose of vecuronium IV. Known
h/o HF, CAD, T2DM, COPD, tobacco dependence, unfortunately lost medical insurance about 1 m ago and was trying to make her current med supply last longer but decreasing frequency of dosing
Impression:
Respiratory arrest followed by cardiac arrest as witnessed by EMS 07-08
Intubated at scene
CPR for 3-5 min with ROSC
Estimated down time including above 15+ minutes
Interim R basilar infiltrate on CXR, then resolved
Fever - recurrent
NSTEMI: marked interim elevation of troponins
HFrEF, acute on chronic (TTE 07-09: LVEF 30-35%, technically difficult study)
Elevated BNP
Markedly elevated PCT
Transaminitis
Microhematuria, bacteriuria, albuminuria
Recurrent nausea, reportedly acute on chronic
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
Hyperglycemia
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
HFrEF, LVEF 45%, hypokinesis mid to apical septum and apex, stage II DD, moderate eccentric MR, ePAP 84, small pericardial effusion, normal RV size and function
CAD s/p stenting
T2DM
COPD, qualified for home O2 upon d/c from in Nov 2022 (adm for CHF and AECOPD)
Smoker
Recent partial medical compliance due to lack of insurance
Plan:
Witnessed respiratory arrest followed by cardiac arrest: EMS at scene, CPR for 3-5 min with ROSC
Per RN 07-12, now thinks downtime period was longer that he originally though
D/w 07-13: estimated down time including above was 15+ minutes
Underlying CAD, HFrEF
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
Head CT without acute findings
Interim R basilar infiltrate on follow up CXR
CXR with pulm vasc congestion which improved on follow up CXR, but interim development of R basilar infiltrate/atelectasis
Follow-up chest x-ray 07-10 with resolution of right basilar infiltrate on portable film
Continue mechanical ventilation with daily SAT/SBT if clinically appropriate --> pt underwent SBT this AM and then in afternoon we extubated her to nasal cannula after arrived to bedside
If pt fails extubation then she will need trach - is aware of this
Eyes gazed to right, not interactive
Weaning trial 07-14, 2 hrs with acceptable performance and ABG, transitioned to PSV as tolerated, to rest on ACV as needed and overnight
Neurology following
UCx negative
UDS positive for bzd and cannabis. Noted outpatient low dose alprazolam use for anxiety
Blood cxs 07/09 and NTD
Trach asp cx negative
COVID/flu negative
MRSA screening negative
Markedly elevated PCT with normal eGFR
Empiric atbs on adm: aztreonam (reported penicillin allergy) and vancomycin
Changed aztreonam to cefepime, discontinued vancomycin: 07-10
Cefepime changed to meropenem on 07/14/2023 --> pt continuing to have low grade fevers --> ID has now DC'd ABx and we will monitor off Abx given possible drug-related/non-infectious fever
NE off since 07-09
Started neosynephrine 07-10, weaned and currently off; briefly required overnight on 07/16 - 07/17
RUE PICC 07-10, noted resolution of R basilar infiltrate/atelectasis
Changed MP IV to prednisone 40 mg qd, finite 5 d course of CS through 07-15
Hypothermic on adm
Low grade temp since 07-10
Though rare side effect potentially associated to cefepime
Follow temp
ID consulted 07-13, d/c cefepime, started meropenem --> this was DC'd on 07/15 due to suspected non-infectious fever
Bromocriptine started on 07/16 in event that this is a central fever; trend fever curve
NSTEMI
Marked interim elevation of troponins (peaked at 19 on 07/10/2023)
Elevated BNP
Known h/o HFrEF, on current TTE LVEF down from 45% to 30-35% (technically difficult TTE)
RV size and function normal
Held resumption of BB due to hypotension 07-09. Metoprolol started 07-11
ASA
Cards following closely, considering [facility] this adm depending on improvement of anoxic encephalopathy
IV insulin protocol off since 07-12, started novolog SS and lantus
DEVON doppler 07-11: negative. Though BNP and trops elevated, RV size and function normal on TTE
AXR with nonobstructive gas pattern
Neurology consultation 07-11 appreciated
Multifactorial encephalopathy
EEG 07-11: diffuse cortical dysfunction without focal abnormality or sz, likely from metabolic disturbance
MRI brain 07-12: highly suspicious for anoxic ischemic injury involving parahippocampal gyrus, cerebellar hemispheres, R paramidline parietal cortex, also small peripheral subcortical white matter infarct involving the superior posterolateral R
frontal lobe
Per RN 07-12, now thinks downtime period was longer that he originally though
D/w 07-13: estimated down time including above was 15+ minutes
Lowered xanax to once daily given pt is encephalopathic
Outpatient regimen was jardiance 10 mg daily, AC novolog SS, lantus 20 units hs, metformin 500 mg BID
HgbA1C on admission 8%
IV insulin protocol started --> now off and pt on basal-bolus insulin SQ dosing
GI proph: PPI IV
DVT proph: sc hep
Antiemetic prn, received one dose metoclopramide on 07-10 only, suspected DM gastroparesis
Full code
Discussed with at bedside in detail and answered all his questions.
Prognosis guarded in view of resp arrest followed by cardiac arrest, significant comorbidities, and brain MRI findings
Critical care statement: A total of 39 minutes of critical care time was provided for this patient today. This includes management of unstable vital signs, evaluation of the patient at bedside, reviewing the patient's pertinent medical records
including radiographs, microbiology, laboratory evaluations, and discussion with primary team, consultants, pharmacy, nutrition, physical therapy, case management, charge nurse, critical care nursing, and respiratory therapy.
Data:
Brain MRI 07-13-2023:
Motion degradation.
Findings highly suspicious for anoxic ischemic injury involving the parahippocampal gyrus, cerebellar hemispheres, right paramidline parietal cortex. Small peripheral subcortical white matter infarct involving the superior posterolateral right
frontal lobe.
No mass effect. No midline shift. No herniation.
AXR/CXR 07-16-2023:
1. No acute cardiopulmonary process.
2. Nonspecific bowel gas pattern without signs of obstruction.
Subjective Dataa
Subjective Data
Date of Service:
Date of Service: July 18, 2023
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
Subjective:
Patient seen this morning. Remains intubated. SpO2 100% on 07/28 at 40%, BP 115/57, heart rate 91. Minimal ETT secretions. Had vent asynchronny last night and was given fent, but then developed hypotensive. Michael started, was at 20mcg/min this AM
and now it has been turned off. Febrile overnight to 101F. UOP 825cc last 24 hrs.
Review of Systems
General: Unobtainable - Pat Unresp
Objective Data
Data Reviewed
Vital Signs / I&O / Oxygen:
Vital Signs
Temp Pulse Resp BP Pulse Ox
99.4 F 102 28 101/54 100
07/18/23 08:01 07/18/23 10:00 07/18/23 10:00 07/18/23 09:45 07/18/23 10:00
Intake and Output
07/17/23 07/18/23 07/19/23
06:59 06:59 06:59
Intake Total 2310 / 2380 2890 / 2966 292 / 292
Output Total 1090 / 1140 825 / 825
Balance 1220 / 1240 2065 / 2141 292 / 292
SaO2 [CPAP/PSV] 100
SaO2 [A/C] 100
SaO2 100
Physical Exam
General: Respiratory Distress (Negative) and Comfortable
HEENT: Normocephalic and Anicteric
Cardiovascular: S1-S2 and Peripheral Edema (n)
Respiratory: Wheeze (Negative), Crackles (Negative), Rhonchi (Negative), Accessory Resp Muscle Use (Tachypneic while on weaning trial), Stridor (Negative), ET Tube and Other (Mechanical breath sounds heard bilaterally)
GI: Soft, Non Distended, Non Tender, Normal Bowel Sounds and NG Tube (OGT+)
Neurology: Tremors (Negative), Unresponsive (Not interactive), Non Verbal and Other (Eyes gaze to the right, with both feet plantar-flexed)
Skin: Warm and Dry
Labs/Micro/Reports
Lab Data
07/18/23 03:46
07/18/23 03:46
Microbiology
07/13/23 21:06 Blood/Venous Blood Culture - Preliminary
No Growth in 4 days- Final report to follow
07/10/23 12:38 Blood/Venous Blood Culture - Final
No Growth - Final Report
07/10/23 12:14 Blood/Venous Blood Culture - Final
No Growth - Final Report
[2023-07-18] MEDS: PROTONIX IV 40 MG IV (08:50)
[2023-07-18] MEDS: NSS (PRESERVATIVE FREE) 10 ML IV (08:50)
[2023-07-18] MEDS: HEPARIN 5000 UNITS SC ×3 (08:59→23:47)
[2023-07-18] MEDS: PARLODEL TUBE (09:00)
[2023-07-18] MEDS: LOW STRENGTH ASPIRIN 81 MG TUBE (09:00)
[2023-07-18] MEDS: XANAX 0.25 MG TUBE (09:01)
[2023-07-18] MEDS: MIRALAX 17 GRAMS TUBE (09:01)
[2023-07-18] MEDS: LANTUS 0.200000000000000011 UNITS SC (09:10)
--- NOTE | 2023-07-18 09:37 | PTCARENOTE ---
Return phone call placed to pt's 'Lucian' updated on pt's present condition as requested. Pt's stated intent to visit pt later this afternoon.
--- NOTE | 2023-07-18 09:42 | W.PN.ID1 ---
Date of Service
Date of Service: July 18, 2023
Today's Communication
Continue off antibiotics.
Assessment / Plan
Fever
- Suspect central vs other
- cultures negative to date
Leukocytosis; stable today.
S/p cardiac arrest
Suspected anoxic encephalopathy
Elevated troponin
CHF
COPD
DM
Recommendations:
Cultures no growth to date.
Meropenem discontinued 07/16/2023
Monitor temperature curve
Trend white count.
Patient remains critically ill in intensive care unit.
����������������������������������������������������������
Chief Complaint
-: Fever and Leukocytosis
Subjective / Review of Systems
Patient seen and examined. Remains on vent at this time. Temperature curve with some apparent improvement in fever spikes.
Vital Signs / Physical Exam
Vital Signs
Vital Signs
Temp Pulse Resp BP Pulse Ox
99.4 F 116 26 96/55 100
07/18/23 08:01 07/18/23 07:12 07/18/23 07:12 07/18/23 06:10 07/18/23 07:57
Physical Exam
Constitutional: Acutely Ill and Non-toxic
Cardiovascular: S1/S2; Negative S3/S4
Pulmonary: Clear and Non Labored; Negative Wheezes or Rales
Gastrointestinal: Soft, Non Distended and Normal Bowel Sounds
Extremities: Other (Bilateral foot drop. Questionable decerebrate posturing in right hand.)
Skin: Negative Rash or Jaundice
Neurological: Other (Minimally responsive.)
Objective Data
Lab Data
Lab Results
07/18/23 03:46
07/18/23 03:46
PT 15.2 Sec (11.4-14.6) H 07/10/23 06:16
INR 1.22 07/10/23 06:16
APTT 29.2 Sec (23.4-35.0) 07/10/23 06:16
Estimated Creat Clear 74 ml/min 07/18/23 03:46
Total Bilirubin 0.5 mg/dl (0.2-1.3) 07/17/23 03:13
AST 33 U/L (14-36) 07/17/23 03:13
ALT 20 U/L (0-35) 07/17/23 03:13
Alkaline Phosphatase 105 U/L (38-126) 07/17/23 03:13
Most recent labs reviewed.
Micro Results:
07/13/23 21:06 Blood Culture - Preliminary
Blood/Venous No Growth in 4 days- Final report to follow
07/10/23 12:38 Blood Culture - Final
Blood/Venous No Growth - Final Report
07/10/23 12:14 Blood Culture - Final
Blood/Venous No Growth - Final Report
07/10/23 12:05 Respiratory Culture - Final
Tracheal Aspirate Usual Respiratory Nanci
Gram Stain - Final
07/12/23 10:03 Influenza Types A & B (ANGELA) - Final
Nasal Swab Negative for Influenza A & B, NAAT
Negative results must be combined with clinical observations
and patient history.
Nucleic Acid Amplification test (NAAT)performed on the
[employer] platform.
07/09/23 23:03 Urine Culture - Final
Urine NO GROWTH
07/10/23 12:03 Nasal Screen MRSA (PCR) - Final
Nose MRSA not detected - performed by PCR methodology.
Imaging:
07/13/2023 Brain MRI: Findings highly suspicious for anoxic ischemic injury involving the parahippocampal gyrus, cerebellar hemispheres, right paramidline parietal cortex. Small peripheral subcortical white matter infarct involving the superior
posterolateral right frontal lobe.
07/11/2023 CXR (portable): Orogastric tube projecting over the stomach. ET tube and right upper extremity PICC line in place. Mild subsegmental atelectasis in the right lower lobe and right middle lobe.
--- NOTE | 2023-07-18 11:08 | W.PN.CD ---
Today's Communication / Plan
-
HRs are 90s-100 more attentive today tracks with eyes
Unsure of when lisinopril stopped, but would recommend valsartan when BP stable given eventual Entresto if able
Conservative therapy pending neuro recovery
Impression / Plan
-
Impression: 63-year-old woman with with previous history of coronary artery disease, prior history of PR, cardiomyopathy with ejection fraction of 45% COPD and smoking who was admitted with respiratory arrest and is now in ICU with vent dependent
respiratory failure. Initial ECG showed sinus rhythm with nonspecific ST abnormality. Troponin peak 19
Plan
Post resp arrest.
VDRF - Continued management as directed by pulmonary and hospitalist.
NSTEMI.-Troponin 19. Unclear if this is a type II PR related to hypoxemia and underlying coronary artery disease. Primary PR cannot be entirely excluded.
-Optimize respiratory status as noted above
-medical therapy of CAD
-Echo shows new LVEF decline -
-Awaiting neurologic recovery prior to consideration of coronary angiography
-Can continue current dosing of beta-sarah and lisinopril. Appears patient's had some lability of blood pressure with an occasional low blood pressure reading. Patient also has continued tachycardia which may be multifactorial. Fluctuations in
blood pressure and heart rate may be related to combination of patient's neurologic issues as well as recurrent fevers.
Neuro/mental status. Post arrest. anoxic encepjhalopathy. neuro assesment in progress. MRI suggesting anoxic injury. tx per neuro
-Patient with eyes open and some response to verbal commands
Prolonged QTc -
- improved.
limit QTc prolonging meds including metoclopramide.
Fever- recurrent fever. Flu and covid neg 07/12/23.
-Without clear infectious cause. May be central fevers related to neurologic issues. Defer to primary team.
New Cardiomyopathy - monitor volume status and reassess
- Add valsartan likely tomorrow if BP remains stable
- SGLT2i MRA and ARNI consideration ongoing, likely unable given BP
COPD
MR
Pulm HTN - echo TDS. Eventual repeat
Critically ill - 30 minutes
Sedated and intubated
Physical Exam
Vital Signs/Labs
Vital Signs
Temp Pulse Resp BP Pulse Ox
99.9 F 102 28 101/54 100
07/18/23 11:03 07/18/23 10:00 07/18/23 10:00 07/18/23 09:45 07/18/23 10:00
07/17/23 07/18/23 07/19/23
06:59 06:59 06:59
Actual Weight 137 lb 9.095 oz 135 lb 5.821 oz
07/18/23 03:46
07/18/23 03:46
PT 15.2 Sec (11.4-14.6) H 07/10/23 06:16
INR 1.22 07/10/23 06:16
APTT 29.2 Sec (23.4-35.0) 07/10/23 06:16
Magnesium 2.1 mg/dl (1.6-2.3) 07/12/23 03:25
Triglycerides 231 mg/dl (10-149) H 07/17/23 03:13
07/09/23
23:03
Oum-[id number] Pept 2750
Physical Exam
Constitutional: No acute distress
EENT: Anicteric
Cardiovascular: Rhythm & rate is regular
Respiratory: Respiratory effort normal
GI: Soft
Neuro/Psych: AO x 3
Data Reviewed
-
Date of Service: July 18, 2023
EKG: Tracing Personally Visualized and interpreted (sinus rhythm and sinus tach )
Echo: Report Reviewed by me
Labs: Labs Reviewed by me
Critical Care Time (in minutes): 31
[2023-07-18 11:28] LABS: B.E. 4.9 mmol/L; HCO3 27.6 mmol/L (21-28); PCO2 33 mmHg (32-35); PO2 195 mmHg (83-108); pH 7.53 (7.35-7.45)
[2023-07-18 11:54] LABS: Glucose - Point of Care 209 mg/dl (70-99)
[2023-07-18] MEDS: NOVOLOG FLEXPEN SC (12:00)
[2023-07-18] MEDS: NOVOLOG FLEXPEN-MODERATE RESISTANCE SC (12:00)
--- NOTE | 2023-07-18 13:00 | PTCARENOTE ---
Pt's visiting at bedside. Aware of plans to extubate pt and reports that he has been updated today by Dr Samuel. Tube feeding remains on hold since [address] Samuel in anticipation of extubation. No changes noted from previous
assessment findings. Pt resting quietly and w/o distress noted.
--- NOTE | 2023-07-18 15:23 | W.PN.HOSP.TC ---
Today's Communication/Plan
-
monitor fever curve
anticipate trach/peg in near future
Assessment / Plan
Assessment / Plan
MRI brain
Motion degradation.
Findings highly suspicious for anoxic ischemic injury involving the parahippocampal gyrus, cerebellar hemispheres, right paramidline parietal cortex. Small peripheral subcortical white matter infarct involving the superior posterolateral right
frontal lobe.
No mass effect. No midline shift. No herniation.

s/p cardiac arrest
Anoxic brain injury
Acute VDRF (hypoxic, hypercapnic)
Acute Metabolic Encephalopathy
- hx of underlying COPD/Smoking
- no evidence of CHF
- Venous Doppler LE neg. considering CT chest PE.
- daily sedation vacation; SBT; and neuro eval
- EEG showing diffuse cortical dysfunction.
- MRI brain finding as above , in conjunction with EEG per neuro patient recovery chance is good, will likely require longer supportive care
- Maintaining of euthermia is necessary to improve odds of neuro recovery, starting on scheduled tylenol and cooling blanket
Septic Shock
- off of vasopressors
- continues to spike fever
-completed course of abx, stop and monitor
Recurrent Fevers
-possible central in nature
-tylenol and bromocriptine trial - appears to be improving
-neg dvt studies
Non STEMI
Hx of Chronic HFmrEF
CAD with history of stenting
- unclear if type 2 vs primary ME
- continue ASA rectally/Statin
- Echo: Moderately reduced left ventricular systolic function. Left ventricular ejection fraction is 30-35%%. Wall motion analysis is limited by the image quality. Aortic sclerosis without stenosis.
- CBC cards following
-BB, ASA
-Add ACEI once BPs improve
- will need eventual cath
Former smoker:
- smoked for 51 years, quit in August
Type 2 DM
Vomiting, suspected gastroparesis
- continue critical care glycemic protocol
- hold Jardiance/Lantus/Metformin
-Adjust insulin as required
Metabolic acidosis - resolved
Hyponatremia -resolved
- improving with IVF
Elevated LFTS - likely from shock state
- improving
Acute GI bleeding from vomiting (possibly MWT)
- monitor Hb which is stable >12
DVT ppx: SC Heparin
Code: Full
Total critical care time 43 mins . Total critical care time documented does not include time spent on separately billed procedures or the services of residents, students, nurses or physician assistants. I personally saw and examined the patient. I
have reviewed all diagnostic interpretations and treatment plans as written. I was present for the mccauley portions of any procedures performed and the inclusive time noted in any critical care statement. Critical care time includes patient management
by me, time spent at the patients bedside, time to review lab and imaging results, discussing patient care, documentation in the medical record, and time spent with the family or caregiver.
Anticipated Discharge: > 48 hours
Subjective/Interval History
-
Date of Service: July 18, 2023
Defervescing
Objective Data
-
Labs:
Laboratory Results
07/18/23 07/18/23
03:46 11:15
WBC 12.7 H
Hgb 9.7 L
Hct 28.7 L
Plt Count 217
HCO3 27.6
Sodium 139
Potassium 4.0
Chloride 111 H
Carbon Dioxide 27
BUN 31 H
Creatinine 0.4 L
Glucose 160 H
Calcium 8.8
Vital Signs:
Vital Signs
Temp Pulse Resp BP Pulse Ox
98.5 F 107 26 101/54 97
07/18/23 15:10 07/18/23 15:07 07/18/23 15:07 07/18/23 09:45 07/18/23 15:09
I&O
07/17/23 07/18/23 07/19/23
06:59 06:59 06:59
Intake Total 2310 / 2380 2890 / 2966 362 / 362
Output Total 1090 / 1140 825 / 825
Balance 1220 / 1240 2065 / 2141 362 / 362
Review of Systems
-
Unable to obtain full review of systems at this time due to: Acuity and Patient Intubation
Physical Exam
-
General: Intubated
HEENT: Oxygen (Intubated on MV)
Respiratory: Clear to Auscultation
Cardiac: Regular Rhythm, S1/S2 and Tachycardic; Negative Murmur
GI: Soft, Nontender and Nondistended
Musculoskeletal: No Edema
Neuro: Other (Not waking up off sedation); Negative Awake or Alert
Data Reviewed
-
Diagnostic Radiology: Image personally visualized and interpreted and Report Reviewed by me
Ultrasound: Image personally visualized and interpreted and Report Reviewed by me
MRI: Report Reviewed by me
Labs: Labs Reviewed by me
--- NOTE | 2023-07-18 15:30 | PTCARENOTE ---
Pt extubated at 1450 by Respiratory Therapy w/ Dr Billy present in room. No distress noted. Pt awake and making occasional soft moaning sound but otherwise non-verbal. Pt placed on O2 at 6l/min w/ POx 100%. RR mid 20's. Comfort care provided.
Tube feedings to remain on hold until [address] Billy. Pt's continues to visit at bedside.
--- NOTE | 2023-07-18 17:00 | PTCARENOTE ---
Pt continues to rest quietly. O2 weaned to 2l/min via NC w/ Pox 98%. No distress noted. Remains nonverbal and not following commands or interacting w/ staff. Tubefeeding resumed as documented. FMS remains patent and draining liquid brown stool. Pt
w/ decreased urine output- bladder scan completed and as documented. Frequent comfort care and hygiene provided. No additional changes from previous assessment findings.
[2023-07-18] MEDS: NOVOLOG FLEXPEN-MODERATE RESISTANCE 1 UNITS SC ×2 (17:29→23:49)
[2023-07-18 17:39] LABS: Glucose - Point of Care 189 mg/dl (70-99)
[2023-07-18] MEDS: LOPRESSOR 25 MG TUBE (20:25)
[2023-07-18] MEDS: PARLODEL 5 MG TUBE (20:25)
--- NOTE | 2023-07-18 21:00 | PTCARENOTE ---
Rec'd care of patient at 1910. Patient alert. Observed to be following commands. While making eye contact, RN asked patient to close eyes. Patient appropriately closed eyes tight and then opened. This RN then asked patient to open mouth for oral
care. Patient opened upon request. Patient making incomprehensible sounds towards RN during this interaction. Trace movement noted in arms and legs. B/l hands remain clenched with arms turned in, as well as b/l foot drop. NSR/ST on tele monitor.
Lung sounds coarse with scattered rhonchi throughout. Patient remains on 2L nc. TFs infusing at goal rate through DHT. FMS in place for loose stools. Purewick in place for urinary incontinence. VSS. Right double lumen PICC capped.
[2023-07-18] MEDS: LANTUS 0.100000000000000006 UNITS SC (22:31)
[2023-07-18 22:42] LABS: Glucose - Point of Care 176 mg/dl (70-99)
[2023-07-19] VITALS (49 sets, daily range): BP systolic 76–143; BP diastolic 46–77; PULSE 2–143; BMI 25.4
[2023-07-19] LABS: Glucose - Point of Care 191 mg/dl (70-99)
--- NOTE | 2023-07-19 | PTCARENOTE ---
Patient noted to have scant urine output throughout the shift. Bladder scanned at 1800 by day shift RN for 252. Repeat bladder scan at 2238 showing 464 in the bladder. Order to straight cath obtained. 500 cc's of jason urine drained at 2300. All
other assessments unchanged.
[2023-07-19] MEDS: TYLENOL ORAL SOLUTION 650 MG TUBE ×2 (03:10→08:55)
[2023-07-19 03:18] LABS: Glucose - Point of Care 105 mg/dl (70-99)
[2023-07-19 03:36] LABS: % Basophils 0.1 % (0-2); % Eosinophils 0.5 % (0-6); % Immature Granulocytes 0.5 % (0-0.5); % Lymphocytes 14.7 % (20.5-51.1); % Monocytes 6.6 % (1.7-9.3); % Neutrophils 77.6 % (42.2-75.2); Absolute Eosinophils 0.1 10^3/uL (0-0.7); Absolute Immature Granulocytes 0.1 10^3/uL (0-0.05); Absolute Lymphocytes 2.2 10^3/uL (1.2-3.4); Absolute Neutrophils 11.7 10^3/uL (1.4-6.5); Hematocrit 29.1 % (37.0-47.0); Hemoglobin 9.8 g/dL (12.0-16.0); Mean Corp Hgb Conc. 33.7 g/dL (33.0-37.0); Mean Corpuscular Hgb 31.2 pg (27.0-31.0); Mean Corpuscular Volume 92.7 fL (81.0-99.0); Mean Platelet Volume 10.4 fL (7.4-10.4); Nucleated Red Blood Cells % 0 %; Platelet Count 267 10^3/uL (130-400); Red Blood Cell Count 3.14 10^6/uL (4.20-5.40); Red Cell Dist. Width 13.7 % (11.5-14.5); White Blood Cell Count 15.1 10^3/uL (4.8-10.8)
--- NOTE | 2023-07-19 03:47 | PTCARENOTE ---
No changes in assessment. Vitals stable. Afebrile. AM labs sent.
[2023-07-19 03:49] LABS: Blood Urea Nitrogen 29 mg/dl (7-17); Carbon Dioxide 29 mmol/L (22-30); Chloride 109 mmol/L (98-107); Estimated Creatinine Clearance 74 ml/min; Glucose 127 mg/dl (70-99); Magnesium 2.5 mg/dl (1.6-2.3); Phosphorus 3.6 mg/dl (2.5-4.5); Potassium 4.4 mmol/L (3.5-5.1); Sodium 138 mmol/L (135-145); eGFR > 60.00
[2023-07-19] MEDS: NOVOLOG FLEXPEN-MODERATE RESISTANCE 1 UNITS SC ×2 (05:54→11:32)
[2023-07-19] MEDS: NOVOLOG FLEXPEN 13 UNITS SC ×3 (05:54→17:31)
[2023-07-19 06:06] LABS: Glucose - Point of Care 197 mg/dl (70-99)
--- NOTE | 2023-07-19 07:41 | W.PN.CD ---
Today's Communication / Plan
-
Patient with lower blood pressures yesterday and transiently was on pressor support. Now off pressors but systolic blood pressures in the 90s. 1 dose of beta-sarah held yesterday patient did receive evening dose.
Neurology raise question of changing metoprolol to propranolol due to neurologic issues/suspected central fevers. I have no opposition to using propranolol rather than metoprolol however at this point her blood pressures are running low and limit
use of beta-sarah this morning. If blood pressure is proved to be more stable then could consider initiation of very low-dose propranolol as requested by neurology.
Since patient is consistently having fevers it may be more challenging to tell if she is developing an infection. If blood pressures are continuing to trend down then additional assessment for infection will be needed.. Defer to primary team.
Otherwise no new recommendations from a cardiology standpoint.
Impression / Plan
-
Impression: 63-year-old woman with with previous history of coronary artery disease, prior history of IA, cardiomyopathy with ejection fraction of 45% COPD and smoking who was admitted with respiratory arrest and is now in ICU with vent dependent
respiratory failure. Initial ECG showed sinus rhythm with nonspecific ST abnormality. Troponin peak 19
Plan
s/p respiratory arrest. Now extubated.
-Anoxic encephalopathy.
NSTEMI.-Troponin 19. Unclear if this is a type II IA related to hypoxemia and underlying coronary artery disease. Primary IA cannot be entirely excluded.
-Optimize respiratory status as noted above
-medical therapy of CAD
-Echo shows new LVEF decline -
-Awaiting neurologic recovery prior to consideration of coronary angiography
-Can continue current dosing of beta-sarah and lisinopril. Appears patient's had some lability of blood pressure with an occasional low blood pressure reading. Patient also has continued tachycardia which may be multifactorial. Fluctuations in
blood pressure and heart rate may be related to combination of patient's neurologic issues as well as recurrent fevers.
VDRF -now extubated.
Neuro/mental status. Post arrest. anoxic encepjhalopathy. neuro assesment in progress.
-MRI suggesting anoxic injury. tx per neuro
-Patient with eyes open- she did not follow any commands for me today.
Prolonged QTc -
- improved.
limit QTc prolonging meds including metoclopramide.
Fever- recurrent fever. Flu and covid neg 07/12/23.
-Suspected central fevers but if patient continues to have downward trend of blood pressures then would consider if she is developing infection.
New Cardiomyopathy - monitor volume status and reassess
-GDMT is limited by blood pressure. Patient had been on beta-sarah and at 1 point was given low-dose ELAN inhibitor. ELAN inhibitor had to be discontinued due to blood pressure. Patient has still received beta-sarah but has had to have doses
held due to blood pressure.
-
COPD
MR
Pulm HTN - echo TDS. Eventual repeat
Critically ill - 30 minutes
Sedated and intubated
Physical Exam
Vital Signs/Labs
Vital Signs
Temp Pulse Resp BP Pulse Ox
98.0 F 90 19 107/59 98
07/19/23 03:36 07/19/23 06:20 07/19/23 06:20 07/19/23 06:20 07/19/23 06:20
07/18/23 07/19/23 07/20/23
06:59 06:59 06:59
Actual Weight 61.4 kg 60.9 kg
07/19/23 03:09
07/19/23 03:08
PT 15.2 Sec (11.4-14.6) H 07/10/23 06:16
INR 1.22 07/10/23 06:16
APTT 29.2 Sec (23.4-35.0) 07/10/23 06:16
Magnesium 2.5 mg/dl (1.6-2.3) H 07/19/23 03:08
Triglycerides 231 mg/dl (10-149) H 07/17/23 03:13
07/09/23
23:03
Izi-T-Tarxdzyvhav Pept 2750
Physical Exam
Constitutional: Other (Eyes open. Arms appear somewhat internally rotated rotated with some flexion of the wrist. Not responding to verbal commands for me this morning.)
Cardiovascular: Rhythm & rate is regular
Respiratory: Wheeze Absent and Rhonchi Absent
GI: Soft
Data Reviewed
-
Date of Service: July 19, 2023
Medical Decision Making: Reviewed Test Results and Review of Case with other Provider (Discussion regarding clinical issues and plan with nursing)
Medical Tests (PFT, Pathology etc): Report Reviewed by me
Labs: Labs Reviewed by me
--- NOTE | 2023-07-19 07:42 | W.PN.NEURO.1 ---
Today's Communication / Plan
-
-Keep metoprolol as fevers seem to have responded to Bromocriptine
-Continue Bromocriptine 5 mg BID, monitor for fevers and can uptitrate this medication
-Anticipate will need PEG tube
-Continue aspirin
-Follow temperature
-Follow mental status
-Mobilization and passive range of motion, DVT prophylaxis
Will follow peripherally
Neuro Assessment/Plan
Assessment
63-year-old woman who has history of coronary artery disease and diabetes had respiratory distress which then progressed to cardiac arrest; her presentation is c/w a multifactorial encephalopathy, septic shock was playing a role, and anoxic brain
injury. Patient had septic shock and NSTEMI, vomiting with some mild amount of GI bleed.
Initial CT head noncontrast did not show any acute abnormality. MRI done 07/12 showed:
'Findings highly suspicious for anoxic ischemic injury involving the parahippocampal gyrus, cerebellar hemispheres, right paramidline parietal cortex. Small peripheral subcortical white matter infarct involving the superior posterolateral right
frontal lobe.'
EEG showed moderate slowing diffusely no seizure or epileptiform activity; did not show a malignant pattern of EEG after cardiac arrest
MRI does show mild/moderate anoxic brain injury changes
07/15 AM patient consistently obeying simple central commands (sticking out tongue and closing eyes)
Neurologic prognosis: Eyes open and obeying commands with some efforts to speak, severe generalized weakness. Expected that patient is not going to return previous neurologic baseline and to have significant neurologic disability, will likely show
some improvement over longer time period of 3-6 months.
MRI findings of anoxic brain injury
Concern for critical illness neuropathy or myopathy in addition to anoxic brain injury producing generalized weakness
Suspicion of central fevers due to anoxic brain injury
Subjective/Objective
Subjective Data
Date of Service: July 19, 2023
Extubated, NG in place, patient obeys some simple commands, makes efforts to speak but none discernable
Objective Data
Vital Signs
Temp Pulse Resp BP Pulse Ox
98.0 F 90 19 107/59 98
07/19/23 03:36 07/19/23 06:20 07/19/23 06:20 07/19/23 06:20 07/19/23 06:20
Lab Results
07/19/23 03:09
07/19/23 03:08
PT 15.2 Sec (11.4-14.6) H 07/10/23 06:16
INR 1.22 07/10/23 06:16
APTT 29.2 Sec (23.4-35.0) 07/10/23 06:16
Sodium 138 mmol/L (135-145) 07/19/23 03:08
Potassium 4.4 mmol/L (3.5-5.1) 07/19/23 03:08
BUN 29 mg/dl (7-17) H 07/19/23 03:08
Glucose 127 mg/dl (70-99) H 07/19/23 03:08
Calcium 9.0 mg/dl (8.4-10.2) 07/19/23 03:08
Phosphorus 3.6 mg/dl (2.5-4.5) 07/19/23 03:08
Buc-X-Mgbvbmofrvj Pept 2750 pg/ml 07/09/23 23:03
Ur Buprenorphine Negative (Negative) 07/10/23 15:13
Patient Allergies
codeine Allergy (Verified 07/09/23 22:52)
Itching
latex Allergy (Verified 07/09/23 22:52)
Hives
Penicillins Allergy (Verified 07/09/23 22:52)
Rash
silver [From Tegaderm AG Mesh] Allergy (Verified 07/09/23 22:52)
'peels skin off'
Review of Systems
-
Unable to obtain full review of systems at this time due to: Aphasia
Physical Exam
-
General: Appears Chronically Ill
Eyes: No Ptosis
HEENT: Other (NG tube)
Respiratory: No Dyspnea; Negative Wheezes
Cardiac: No Murmur
GI: Soft and Non-tender
Skin: Warm and Dry; Negative Rash
Extremities: No Edema
Psych: Confused
Extended Neurological Exam
Attention Span & Concentration: Other (Eyes open spotnaneously, fully awake, tracks examiner some, obey simple 1 step commands sticking out tongue, makes some efforts to speak but only mumbles)
Memory: Unable to Assess
Tremor: Hand Tremor Absent
Involuntary Movement: None
Speech: Expressive Aphasia and Dysarthric; Negative Receptive Aphasia
Cranial Nerve II: Left Eye: Pupillary Reactivity Unremarkable and Pupillary Size Unremarkable
Cranial Nerve II: Right Eye: Pupillary Reactivity Unremarkable and Pupillary Size Unremarkable
Cranial Nerves III, IV, : Extraocular Movement: Extraocular Movement Full in all Directions
Muscle Strength, Overall: Other (1/5 movements throughout, hypotonic)
Muscle Bulk & Tone: Reduced Tone
Deep Tendon Reflexes: Absent Throughout
Touch Sensation: Withdrawal to Pain
Data Reviewed
-
CT Head: Report Reviewed and Image Reviewed
MRI Head: Report Reviewed and Image Reviewed
EEG: Report Reviewed
[2023-07-19] MEDS: DUONEB 3 ML INH ×4 (08:00→20:27)
--- NOTE | 2023-07-19 08:43 | W.PN.INTV ---
Today's Communication / Plan
Recommendations
Start midodrine given borderline hypotension
If pt gets re-intubated then will plan for trach
MAP>65
Supportive care
Continue bromocriptine
Stop tube feeds at midnight in preparation for PEG-tube placement tomorrow
Hold evening dose of chemical ppx
Once PEG is inserted, work on placement for NH (however, this will be difficult as pt has no insurance, as per )
Guarded prognosis
Assessment
-
Assessment:
Mrs Osiris Muñoz is a 63/W adm 07-08 after sustaining witnessed respiratory distress ( witnessed). EMS found her with agonal breathing, then respiratory arrest followed by cardiac arrest per information gathered by ER physician. ACLS
protocol initiated immediately, CPR provided for 3-5 min with ROSC after one dose of epinephrine via IO line, intubated as scene. Received at ER on MV, unresponsive, started on IV propofol and fentanyl, NE gtt, given one dose of vecuronium IV. Known
h/o HF, CAD, T2DM, COPD, tobacco dependence, unfortunately lost medical insurance about 1 m ago and was trying to make her current med supply last longer but decreasing frequency of dosing
Impression:
Respiratory arrest followed by cardiac arrest as witnessed by EMS 07-08
Intubated at scene
CPR for 3-5 min with ROSC
Estimated down time including above 15+ minutes ---> extubated on 07/18/2023
Interim R basilar infiltrate on CXR, then resolved
Fever - recurrent
NSTEMI: marked interim elevation of troponins
HFrEF, acute on chronic (TTE 07-09: LVEF 30-35%, technically difficult study)
Elevated BNP
Markedly elevated PCT
Transaminitis
Microhematuria, bacteriuria, albuminuria
Recurrent nausea, reportedly acute on chronic
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
Hyperglycemia
Conditions CLAIMS CONSULTANT:
HFrEF, LVEF 45%, hypokinesis mid to apical septum and apex, stage II DD, moderate eccentric MR, ePAP 84, small pericardial effusion, normal RV size and function
CAD s/p stenting
T2DM
Reported Hx of COPD, qualified for home O2 upon d/c from in Nov 2022 (adm for CHF and AECOPD)
Smoker
Recent partial medical compliance due to lack of insurance
Plan:
Witnessed respiratory arrest followed by cardiac arrest: EMS at scene, CPR for 3-5 min with ROSC
Per RN 07-12, now thinks downtime period was longer that he originally though
D/w 07-13: estimated down time including above was 15+ minutes
Underlying CAD, HFrEF
Ongoing heavy smoking CLAIMS CONSULTANT, chronic smoking
Recent partial medical compliance due to lack of insurance for last 1 m CLAIMS CONSULTANT (trying to make her med supply last longer)
Head CT without acute findings
Interim R basilar infiltrate on follow up CXR
CXR with pulm vasc congestion which improved on follow up CXR, but interim development of R basilar infiltrate/atelectasis
Follow-up chest x-ray 07-10 with resolution of right basilar infiltrate on portable film
Continue mechanical ventilation with daily SAT/SBT if clinically appropriate --> pt underwent SBT on AM of 07/17 and extubated to nasal cannula
If pt is re-intubated then she will need trach - is aware of this
Eyes gazed to right, not interactive
Neurology following
Given her reported Hx of COPD, I will start budesonide + Duonebs BID
UCx negative
UDS positive for bzd and cannabis. Noted outpatient low dose alprazolam use for anxiety
Blood cxs 07/09 and NTD
Trach asp cx negative
COVID/flu negative
MRSA screening negative
Markedly elevated PCT with normal eGFR
Empiric atbs on adm: aztreonam (reported penicillin allergy) and vancomycin
Changed aztreonam to cefepime, discontinued vancomycin: 07-10
Cefepime changed to meropenem on 07/14/2023 --> pt continued to have low grade fevers --> ID has now DC'd ABx and we will monitor off Abx given possible drug-related/non-infectious fever
NE off since 07-09
Started neosynephrine 07-10, weaned and currently off; briefly required overnight on 07/16 - 07/17 --> been off since 07/17
RUE PICC 07-10, noted resolution of R basilar infiltrate/atelectasis
Changed MP IV to prednisone 40 mg qd, finite 5 d course of CS through 07-15
Hypothermic on adm
Low grade temp since 07-10
Though rare side effect potentially associated to cefepime
Follow temp
ID consulted 07-13, d/c cefepime, started meropenem --> this was DC'd on 07/15 due to suspected non-infectious fever
Bromocriptine started on 07/16 in event that this is a central fever; trend fever curve
NSTEMI
Marked interim elevation of troponins (peaked at 19 on 07/10/2023)
Elevated BNP
Known h/o HFrEF, on current TTE LVEF down from 45% to 30-35% (technically difficult TTE)
RV size and function normal
Held resumption of BB due to hypotension 07-09. Metoprolol started 07-11 --> BB now held due to borderline hypotension
ASA
Cards following closely, considering [facility] this adm depending on improvement of anoxic encephalopathy
IV insulin protocol off since 07-12, started novolog SS and lantus
DEVON doppler 07-11: negative. Though BNP and trops elevated, RV size and function normal on TTE
AXR with nonobstructive gas pattern
Neurology consultation 07-11 appreciated
Multifactorial encephalopathy
EEG 07-11: diffuse cortical dysfunction without focal abnormality or sz, likely from metabolic disturbance
MRI brain 07-12: highly suspicious for anoxic ischemic injury involving parahippocampal gyrus, cerebellar hemispheres, R paramidline parietal cortex, also small peripheral subcortical white matter infarct involving the superior posterolateral R
frontal lobe
Per RN 07-12, now thinks downtime period was longer that he originally though
D/w 07-13: estimated down time including above was 15+ minutes
Lowered xanax to once daily given pt is encephalopathic
Outpatient regimen was jardiance 10 mg daily, AC novolog SS, lantus 20 units hs, metformin 500 mg BID
HgbA1C on admission 8%
IV insulin protocol started --> now off and pt on basal-bolus insulin SQ dosing
Consult GI for PEG tube insertion --> plan for PEG tomorrow
GI proph: PPI IV
DVT proph: LMHW --> once PEG tube is inserted and no additional procedures planned, would TRX to Eliquis 2.5mg PO BID given her increased risk of DVT now that she is bed-bound
Antiemetic prn, received one dose metoclopramide on 07-10 only, suspected DM gastroparesis
Full code
Discussed with at bedside in detail and answered all his questions.
Prognosis guarded in view of resp arrest followed by cardiac arrest, significant comorbidities, and brain MRI findings
SW consult for placement
Considering patient is borderline hypotensive and will obtain PEG tube tomorrow and will require additional anesthesia, I will continue ICU level of care with plans to downgrade to IMU tomorrow.
Total time spent today was 75 minutes for this encounter. Time includes reviewing laboratory test/imaging results, reviewing pertinent medical records, obtaining and reviewing medical history, performing an appropriate exam, ordering medications,
tests and procedures. Time also includes documentation of this encounter, coordinating patient care and communicating with other healthcare professionals. Total time does not include separately billed tests performed on this date of service.
Data:
Brain MRI 07-13-2023:
Motion degradation.
Findings highly suspicious for anoxic ischemic injury involving the parahippocampal gyrus, cerebellar hemispheres, right paramidline parietal cortex. Small peripheral subcortical white matter infarct involving the superior posterolateral right
frontal lobe.
No mass effect. No midline shift. No herniation.
AXR/CXR 07-16-2023:
1. No acute cardiopulmonary process.
2. Nonspecific bowel gas pattern without signs of obstruction.
Subjective Dataa
Subjective Data
Date of Service:
Date of Service: July 19, 2023
Chief Complaint: Manager Industrial Follow Up
Subjective:
Pt seen this AM. Extuated yesterday to nasal cannula. She is on 2Lmin and saturating 100%. Straight cath'd overnight. She opens her eyes, still non-verbal.
Review of Systems
General: Unobtainable - Pat Unresp
Objective Data
Data Reviewed
Vital Signs / I&O / Oxygen:
Vital Signs
Temp Pulse Resp BP Pulse Ox
99.2 F 91 20 97/61 99
07/19/23 08:00 07/19/23 09:30 07/19/23 09:30 07/19/23 09:00 07/19/23 09:30
Intake and Output
07/18/23 07/19/23 07/20/23
06:59 06:59 06:59
Intake Total 2890 / 2966 1422 / 1492 245 / 245
Output Total 825 / 825 650 / 650
Balance 2065 / 2141 772 / 842 245 / 245
SaO2 [CPAP/PSV] 100
SaO2 [A/C] 100
SaO2 99
Nasal Cannula flow liters per 2
minute
Physical Exam
General: Respiratory Distress (Negative) and Comfortable
HEENT: Normocephalic and Anicteric
Cardiovascular: S1-S2 and Peripheral Edema (n)
Respiratory: Wheeze (Negative), Crackles (Negative), Rhonchi (Negative) and Stridor (Negative)
GI: Soft, Non Distended, Non Tender, Normal Bowel Sounds and NG Tube (DHT)
Neurology: Awake, Tremors (Negative), Unresponsive (Not interactive), Non Verbal and Other (Eyes gaze to the right, with both feet plantar-flexed)
Skin: Warm and Dry
Labs/Micro/Reports
Lab Data
07/19/23 03:09
07/19/23 03:08
Laboratory Results
07/18/23
11:15
pH 7.53 H
pCO2 33
pO2 195 H
HCO3 27.6
O2 Delivery Level
Microbiology
07/13/23 21:06 Blood/Venous Blood Culture - Final
No Growth - Final Report
[2023-07-19] MEDS: NSS (PRESERVATIVE FREE) 10 ML IV (08:55)
[2023-07-19] MEDS: MIRALAX 17 GRAMS TUBE (08:55)
[2023-07-19] MEDS: PROTONIX IV 40 MG IV (08:55)
[2023-07-19] MEDS: HEPARIN 5000 UNITS SC (08:55)
[2023-07-19] MEDS: XANAX 0.25 MG TUBE (08:56)
[2023-07-19] MEDS: PARLODEL 5 MG TUBE ×2 (08:56→20:58)
[2023-07-19] MEDS: LOW STRENGTH ASPIRIN 81 MG TUBE (08:56)
[2023-07-19] MEDS: LANTUS 0.200000000000000011 UNITS SC (09:17)
[2023-07-19 09:26] LABS: Glucose - Point of Care 118 mg/dl (70-99)
--- NOTE | 2023-07-19 09:31 | W.PN.ID1 ---
Date of Service
Date of Service: July 19, 2023
Today's Communication
Sign off
Assessment / Plan
Fever
- Suspect central
- cultures negative to date
Leukocytosis; stable today.
S/p cardiac arrest
Suspected anoxic encephalopathy
Elevated troponin
CHF
COPD
DM
Recommendations:
Cultures no growth to date.
Meropenem discontinued 07/16/2023
No infectious process noted at this point.
Little more to add.
Will sign off and see again at your request.
����������������������������������������������������������
Chief Complaint
-: Fever and Leukocytosis
Subjective / Review of Systems
Patient seen and examined. Temperature curve appears to be improving. Patient now extubated.
Vital Signs / Physical Exam
Vital Signs
Vital Signs
Temp Pulse Resp BP Pulse Ox
99.2 F 94 20 107/59 98
07/19/23 07:55 07/19/23 08:04 07/19/23 08:04 07/19/23 06:20 07/19/23 08:04
Physical Exam
Constitutional: Comfortable, Chronically Ill and Non-toxic
Eyes: Sclera Anicteric
Cardiovascular: S1/S2; Negative S3/S4
Pulmonary: Coarse and Non Labored
Gastrointestinal: Soft, Non Distended and Other (FMS in place.)
Extremities: Negative Edema, Cyanosis or Erythema
Neurological: Other (Eyes track, but patient is nonverbal for me.)
Objective Data
Lab Data
Lab Results
07/19/23 03:09
07/19/23 03:08
PT 15.2 Sec (11.4-14.6) H 07/10/23 06:16
INR 1.22 07/10/23 06:16
APTT 29.2 Sec (23.4-35.0) 07/10/23 06:16
Estimated Creat Clear 74 ml/min 07/19/23 03:08
Total Bilirubin 0.5 mg/dl (0.2-1.3) 07/17/23 03:13
AST 33 U/L (14-36) 07/17/23 03:13
ALT 20 U/L (0-35) 07/17/23 03:13
Alkaline Phosphatase 105 U/L (38-126) 07/17/23 03:13
Most recent labs reviewed.
Micro Results:
07/13/23 21:06 Blood Culture - Final
Blood/Venous No Growth - Final Report
07/10/23 12:38 Blood Culture - Final
Blood/Venous No Growth - Final Report
07/10/23 12:14 Blood Culture - Final
Blood/Venous No Growth - Final Report
07/10/23 12:05 Respiratory Culture - Final
Tracheal Aspirate Usual Respiratory Nanci
Gram Stain - Final
07/12/23 10:03 Influenza Types A & B (ANGELA) - Final
Nasal Swab Negative for Influenza A & B, NAAT
Negative results must be combined with clinical observations
and patient history.
Nucleic Acid Amplification test (NAAT)performed on the
[employer] NOW platform.
07/09/23 23:03 Urine Culture - Final
Urine NO GROWTH
07/10/23 12:03 Nasal Screen MRSA (PCR) - Final
Nose MRSA not detected - performed by PCR methodology.
Imaging:
07/13/2023 Brain MRI: Findings highly suspicious for anoxic ischemic injury involving the parahippocampal gyrus, cerebellar hemispheres, right paramidline parietal cortex. Small peripheral subcortical white matter infarct involving the superior
posterolateral right frontal lobe.
07/11/2023 CXR (portable): Orogastric tube projecting over the stomach. ET tube and right upper extremity PICC line in place. Mild subsegmental atelectasis in the right lower lobe and right middle lobe.
--- NOTE | 2023-07-19 09:38 | PTCARENOTE ---
pt awake and alert , opens eyes on command , opens mouth on command ,tongue is midline , pt is tracking to R side , unable to trac on L side , all extremities are flaccid , bilateral foot drop , posturing to painful stimuli , NSR-ST on monitor , BP
96/55 this am , weaned off 02 to room air and sats down to 88% , she is currently on 2L NC with sats of 99% , no urine output , bladder scan 150 , tolerating tube feeds , continues with loose stools , fecal management system , updated via
phone on current condition
--- NOTE | 2023-07-19 10:24 | PN.DE.MGMTRT ---
Insulin Management
- -
07/19/2023 Diabetes Management Follow up:
Patient admitted 07/08, w/ respiratory distress, respiratory failure, intubated sedated. PMH includes CHF, COPD, current smoker. Prior to admission was taking Jardiance 10 mg daily, AC NovoLog SS, Lantus 20 units @ hs with metformin 500 mg BID.
A1C on admission 8%, Cr .5, eGFR >60.
Patient extubated yesterday @ 14:50. Doing well on NC. Eyes open but not responding to questions or commands.
cr .4, eGFR >60.
Remains on Tube feeds Jevity 1.5 @ 45cc/ hour.
Started hs lantus 10 units last HS. 3AM glucose 105, Fasting glucose this AM 118, will continue hs lantus 10 units and continue AM lantus 20 units. Will continue Q 6 hour novolog 13 units with corrective insulin.
Will follow closely and make further adjustment if needed.
Discussed with patient's nurse regarding diabetes plan of care.
Diabetes History
- -
Type of Diabetes: 2 requiring insulin
Pre-Admission Diabetes Regimen
07/19/23
03:08
Creatinine 0.4 L
Lab Results
Hemoglobin A1c 8.0 % (4.0-5.6) H 07/10/23 06:17
Insulin Pump Settings
IP Diabetes Regimen
07/18/23 07/18/23 07/18/23
11:42 17:27 22:30
Glucose
POC Glucose 209 H 189 H 176 H
07/18/23 07/19/23 07/19/23
23:48 03:07 03:08
Glucose 127 H
POC Glucose 191 H 105 H
07/19/23 07/19/23
05:53 09:15
Glucose
POC Glucose 197 H 118 H
Patient Education
[2023-07-19 11:39] LABS: Glucose - Point of Care 190 mg/dl (70-99)
--- NOTE | 2023-07-19 11:48 | CON.GI ---
Addendum entered and electronically signed by Mike Arredondo MD 07/19/23 14:29:
I saw and examined the patient.
The PA's note was reviewed and I agree with the note.
Comment:
The pt is a 63 year-old female with anoxic brain injury from cardiac arrest, GI being consulted for PEG placement. H/o DM, CAD s/p stent, heart failure, COPD, prior history of CVA approximately 9 years ago, and pulmonary HTN. Had respiratory
distress on 07/10/2023 and had respiratory arrest, when EMS arrived the patient had agonal breathing lost pulses for approximately 3 to 5 minutes. CPR and epi, and ROSC was obtained.
Impression / Rec:
1. PEG placement - pt sustained anoxic brain injury from respiratory/cardiac arrest, s/p resuscitation. NSTEMI, unclear if type II NSTEMI from hypoxemia vs underlying CAD, primary AK cannot be excluded, echo showed new LVEF decline. Pt has been
extubated. Currently receiving enteral nutrition from NG. Agree that pt will need PEG, however the timing would depend on pt's cardiac status. Hold TF and AC from midnight tonight in anticipation of possible PEG tomorrow, would need to
communicate with cardiology re: optimization tomorrow.
Original Note:
Consultation
-
Date/Time Consultation Requested: 07/19/23 1033
Date/Time Consultation Performed: 07/19/23 1115
Requesting Provider: Dr. Samuel
Performing Provider: Dr. Arredondo/HOLLI Villela
Reason for Consultation: PEG tube evaluation
Medical History
Chief Complaint / HPI
Chief Complaint: Resp Arrest
History of Present Illness:
63-year-old female with past medical history of diabetes, coronary artery disease status post stent, heart failure, COPD, prior history of CVA approximately 9 years ago, pulmonary hypertension, who has not been taking many of her medications
secondary to insurance issues. Who uses marijuana at home who presented to the emergency room on 07/10/2023 after having respiratory distress while smoking a cigarette and her called 911. The patient went into respiratory arrest. When EMS
arrived the patient had agonal breathing lost pulses for approximately 3 to 5 minutes was given epinephrine with chest compressions and ROSC was obtained. We are asked to evaluate patient for PEG tube placement as she has postcardiac arrest anoxic
brain injury, multifactorial encephalopathy, septic shock and non-ST elevated AK. I did speak to the patient's mother who is 81 years old, her Lucian Bowman who is acting power of civil rights attorney phone numbers [phone] or [phone] as well
as her daughter Asael Meyer. They all provided information regarding the patient leading up to events that brought her to the hospital. Per her and her daughter the patient may have had a history of peptic ulcer disease. That was
diagnosed approximately 7 or 8 years ago. They are unsure if this was diagnosed by x-ray or endoscopy. They state that she was not good at taking any medications or with follow-ups. They states she always complained of an upset stomach with early
satiety. They do know that she never had a colonoscopy. She has no family history of gastrointestinal malignancy or IBD. They do state that she did not have any vomiting or reports of melena prior to arrival. While here she has been tolerating
Dobbhoff feeds at her goal rate of 45 cc an hour. She has had no signs of melena or hematochezia. There was 1 episode of vomiting early in her admission. She has had fevers however they feel that these are central fevers due to anoxic brain
injury. All cultures are negative to date. Patient was on meropenem however this was discontinued on 07/16/2023. The patient continues on aspirin 81 mg rectally. She is also on pantoprazole 40 mg IV daily.
Past Medical History
Past Medical History: CAD (AK with stent), CHF, COPD, CVA, NIDDM and Other (Pulmonary HTN. mitral regurgitation)
Past Surgical History: Cholecystectomy
Social History
Tobacco: Smoker
Alcohol: None
Drug: Marijuana
Personal:
Living: With Family
Employment: Not Employed
Family History
Family History: Other (No fam GI malignancy or IBD)
Allergies / Home Medications
Allergy/AdvReac Type Severity Reaction Status Date / Time
codeine Allergy Itching Verified 07/09/23 22:52
latex Allergy Hives Verified 07/09/23 22:52
Penicillins Allergy Rash Verified 07/09/23 22:52
silver Allergy 'peels Verified 07/09/23 22:52
[From Tegaderm AG Mesh] skin off'
�Medication �Instructions �Recorded
aspirin 81 mg tablet,delayed 81 mg PO DAILY Blood Clot 12/06/22
release Prevention/Tx
rosuvastatin 20 mg tablet 20 mg PO HS High Cholesterol 12/06/22
ipratropium 0.5 mg-albuterol 3 mg 3 ml inhalation Q4H PRN shortness 12/09/22
(2.5 mg base)/3 mL nebulization of breath or wheezing #90 mL
soln
alprazolam 0.25 mg tablet 0.25 mg PO BID Mental 07/09/23
Health/Anxiety
benzonatate 200 mg capsule 200 mg PO TID Cough 07/09/23
empagliflozin 10 mg tablet 10 mg PO DAILY Diabetes 07/09/23
(Jardiance)
insulin aspart U-100 100 unit/mL 0 - 10 sliding scale dose SC AC 07/09/23
(3 mL) subcutaneous pen (Novolog Diabetes
FlexPen U-100 Insulin aspart)
meclizine 25 mg tablet 25 mg PO TID PRN dizziness 07/09/23
ondansetron 4 mg disintegrating 4 mg PO DAILY PRN nausea 07/09/23
tablet
pantoprazole 40 mg tablet,delayed 40 mg PO DAILY Gastrointestinal 07/09/23
release Issue
fluticasone 250 mcg-salmeterol 50 1 inh inhalation R BID 07/10/23
mcg/dose blistr powdr for Lung/Breathing Issues
inhalation (Advair Diskus)
furosemide 20 mg tablet 20 mg PO DAILY Fluid 07/10/23
Retention/Swelling
insulin glargine 100 unit/mL (3 20 unit SC HS Diabetes 07/10/23
mL) subcutaneous pen (Lantus
Solostar U-100 Insulin)
metformin 500 mg tablet 500 mg PO BID@0800,1700 Diabetes 07/10/23
metoprolol succinate 25 mg 12.5 mg PO DAILY Heart 07/10/23
tablet,extended release 24 hr Disease/Condition
Review of Systems
-
Unable to obtain full review of systems at this time due to: Patient Non Verbal
Vital Signs
Temp Pulse Resp BP Pulse Ox
98.0 F 91 20 97/61 99
07/19/23 11:36 07/19/23 09:30 07/19/23 09:30 07/19/23 09:00 07/19/23 09:30
Physical Exam
Exam
General: No Apparent Distress
HEENT: Anicteric and Other (Dobbhoff inplace)
Respiratory: Clear (anterior)
Cardiac: Regular Rhythm
GI: Soft, Non Tender, Non Distended and Normal Bowel Sounds
Musculoskeletal: No Edema
Skin: Warm and Dry
Neuro: Awake (eyes open, not following commands for me at this time, does track with her eyes)
Psych: Calm
Results
WBC 15.1 10^3/uL (4.8-10.8) H 07/19/23 03:09
Hgb 9.8 g/dL (12.0-16.0) L 07/19/23 03:09
Hct 29.1 % (37.0-47.0) L 07/19/23 03:09
MCV 92.7 fL (81.0-99.0) 07/19/23 03:09
Plt Count 267 10^3/uL (130-400) D 07/19/23 03:09
Absolute Neuts (auto) 11.7 10^3/uL (1.4-6.5) H 07/19/23 03:09
PT 15.2 Sec (11.4-14.6) H 07/10/23 06:16
INR 1.22 07/10/23 06:16
APTT 29.2 Sec (23.4-35.0) 07/10/23 06:16
Sodium 138 mmol/L (135-145) 07/19/23 03:08
Potassium 4.4 mmol/L (3.5-5.1) 07/19/23 03:08
Chloride 109 mmol/L (98-107) H 07/19/23 03:08
Carbon Dioxide 29 mmol/L (22-30) 07/19/23 03:08
BUN 29 mg/dl (7-17) H 07/19/23 03:08
Creatinine 0.4 mg/dL (0.6-1.0) L 07/19/23 03:08
Calcium 9.0 mg/dl (8.4-10.2) 07/19/23 03:08
Total Bilirubin 0.5 mg/dl (0.2-1.3) 07/17/23 03:13
AST 33 U/L (14-36) 07/17/23 03:13
ALT 20 U/L (0-35) 07/17/23 03:13
Alkaline Phosphatase 105 U/L (38-126) 07/17/23 03:13
Diagnostic Image Results:
CXR/Abd XR 07/16/23:
IMPRESSION:
1. No acute cardiopulmonary process.
2. Nonspecific bowel gas pattern without signs of obstruction.
Electronically signed by Armando Ruvalcaba 07/16/2023 11:33 AM
07/10/23 Abd XR:
IMPRESSION:
Nonobstructive bowel gas pattern. Enteric tube with the tip in the stomach.
Electronically signed by Donald Zepeda 07/10/2023 11:31 AM
Prior GI Procedures:
EGD: unsure? per daughter
Colonoscopy: never
Assessment / Plan
-
63-year-old female with past medical history of diabetes, coronary artery disease status post stent, heart failure, COPD, prior history of CVA approximately 9 years ago, pulmonary hypertension, who has not been taking many of her medications
secondary to insurance issues. Who uses marijuana at home who presented to the emergency room on 07/10/2023 after having respiratory distress while smoking a cigarette and her called 911. The patient went into respiratory arrest. When EMS
arrived the patient had agonal breathing lost pulses for approximately 3 to 5 minutes was given epinephrine with chest compressions and ROSC was obtained. We are asked to evaluate patient for PEG tube placement as she has postcardiac arrest anoxic
brain injury, multifactorial encephalopathy, septic shock and non-ST elevated AK.
Impression:
Respiratory arrest
Anoxic encephalopathy
NSTEMI
VDRF status postextubation
Prolonged QTc�improved
New cardiomyopathy
Plan:
Discussed with Lucian Bowman (POA) [phone] or [phone] who is agreeable for PEG placement.
Also discussed with daughter Asael Meyer who is also agreeable.
Tolerating TF at goal rate of 45 cc/hr
Continue Pantoprazole 40 mg IV now
Will plan on EGD with PEG placement when patient is medically optimized. Will discuss with other disciplines and Dr. Arredondo.
-
-
Thank you for consultation and allowing me to participate in the patient's care. Please call the preparation supervisor canning GI physician during the after hours with any questions or concerns.
--- NOTE | 2023-07-19 11:51 | PTCARENOTE ---
no change in assessments
--- NOTE | 2023-07-19 14:10 | W.PN.HOSP.TC ---
Today's Communication/Plan
-
monitor fever curve
extubated today - ctm
anticipate PEG placement soon
Assessment / Plan
Assessment / Plan
MRI brain
Motion degradation.
Findings highly suspicious for anoxic ischemic injury involving the parahippocampal gyrus, cerebellar hemispheres, right paramidline parietal cortex. Small peripheral subcortical white matter infarct involving the superior posterolateral right
frontal lobe.
No mass effect. No midline shift. No herniation.

s/p cardiac arrest
Anoxic brain injury
Acute VDRF (hypoxic, hypercapnic)
Acute Metabolic Encephalopathy
- hx of underlying COPD/Smoking
- no evidence of CHF
- Venous Doppler LE neg. considering CT chest PE.
- Extubated 07/17; and neuro eval
- EEG showing diffuse cortical dysfunction.
- MRI brain finding as above , in conjunction with EEG per neuro patient recovery chance is good, will likely require longer supportive care
- Maintaining of euthermia is necessary to improve odds of neuro recovery, starting on scheduled tylenol and cooling blanket
- anticipate PEG tube placement
Septic Shock
- off of vasopressors
- continues to spike fever
-completed course of abx, stop and monitor
Recurrent Fevers
-possible central in nature
-tylenol and bromocriptine trial - appears to be improving
-neg dvt studies
Non STEMI
Hx of Chronic HFmrEF
CAD with history of stenting
- unclear if type 2 vs primary AK
- continue ASA rectally/Statin
- Echo: Moderately reduced left ventricular systolic function. Left ventricular ejection fraction is 30-35%%. Wall motion analysis is limited by the image quality. Aortic sclerosis without stenosis.
- CBC cards following
-BB, ASA
-Add ACEI once BPs improve
- will need eventual cath
Former smoker:
- smoked for 51 years, quit in August
Type 2 DM
Vomiting, suspected gastroparesis
- continue critical care glycemic protocol
- hold Jardiance/Lantus/Metformin
-Adjust insulin as required
Metabolic acidosis - resolved
Hyponatremia -resolved
- improving with IVF
Elevated LFTS - likely from shock state
- improving
Acute GI bleeding from vomiting (possibly MWT)
- monitor Hb which is stable >12
DVT ppx: SC Heparin
Code: Full
Total critical care time 42 mins . Total critical care time documented does not include time spent on separately billed procedures or the services of residents, students, nurses or physician assistants. I personally saw and examined the patient. I
have reviewed all diagnostic interpretations and treatment plans as written. I was present for the mccauley portions of any procedures performed and the inclusive time noted in any critical care statement. Critical care time includes patient management
by me, time spent at the patients bedside, time to review lab and imaging results, discussing patient care, documentation in the medical record, and time spent with the family or caregiver.
Anticipated Discharge: > 48 hours
Subjective/Interval History
-
Date of Service: July 19, 2023
extubated this morning
Objective Data
-
Labs:
Laboratory Results
07/19/23 07/19/23
03:08 03:09
WBC 15.1 H
Hgb 9.8 L
Hct 29.1 L
Plt Count 267 D
Sodium 138
Potassium 4.4
Chloride 109 H
Carbon Dioxide 29
BUN 29 H
Creatinine 0.4 L
Glucose 127 H
Calcium 9.0
Vital Signs:
Vital Signs
Temp Pulse Resp BP Pulse Ox
98.0 F 94 18 97/61 98
07/19/23 11:36 07/19/23 12:20 07/19/23 12:20 07/19/23 09:00 07/19/23 12:20
I&O
07/18/23 07/19/23 07/20/23
06:59 06:59 06:59
Intake Total 2890 / 2966 1422 / 1492 385 / 385
Output Total 825 / 825 650 / 650
Balance 2065 / 2141 772 / 842 385 / 385
Review of Systems
-
Unable to obtain full review of systems at this time due to: Acuity and Patient Intubation
Data Reviewed
-
Diagnostic Radiology: Image personally visualized and interpreted and Report Reviewed by me
Ultrasound: Image personally visualized and interpreted and Report Reviewed by me
MRI: Report Reviewed by me
Labs: Labs Reviewed by me
--- NOTE | 2023-07-19 14:16 | CM ---
CM following re: discharge planning.
Discussed in rounds, reviewed pt's chart, met with pt and met with pt's Lucian to discuss a detailed discharge plan.
Per Rounds meeting, pt extubated yesterday, a plan is to place a peg tube and pt needs to be placed to a SNF for a short term and probably for a back sewer care.
Pt's stated that pt has 2 daughters from 1st marriage and daughter from [place] gave a custody of her son to the pt and he is now 12 year old. Pt's stated he is working with pt's daughter to get a custody of her son.
Per , he is coordination pt's care with pt's daughters and a decision is to go with a peg tube placement at to place the pt to a assisted in [place]. Pt's is aware, that pt has no insurance and pt's stated that he and
the pt had Medicaid insurance and it was dropped at the end of may. Pt's stated he is obtaining an insurance for himself and his from his employer and he does does not know when it will kick in.
CM explained to pt's a process of placing pts to a assisted with medicaid pending pay source and it was not clear whether or not pt's has a clear understanding.
A list of SNFs provided to pt's and pt's requested a SNF in [place]. Following SNFs were preferred: [facility], [facility], [facility], [facility]. A referral to above SNFs made.
D/C plan: Preferred and accepted SNF for a short term and a back sewer care under Medicaid pending pay source.
CM will follow to assist pt with discharge to a preferred and/or accepted SNF with Medicaid pending pay source.
--- NOTE | 2023-07-19 14:29 | W.PN.UPDATE ---
Update Note
Progress Note Update
billing
[2023-07-19] MEDS: NSS 1000 IV (15:50)
[2023-07-19] MEDS: NOVOLOG FLEXPEN-MODERATE RESISTANCE SC ×2 (17:30→23:13)
[2023-07-19] MEDS: ProAmatine 5 MG PO (17:35)
[2023-07-19 17:40] LABS: Glucose - Point of Care 145 mg/dl (70-99)
[2023-07-19] MEDS: LASIX 40 MG IV (18:21)
--- NOTE | 2023-07-19 18:23 | W.PN.UPDATE ---
Addendum entered and electronically signed by Malika Leung MD 07/19/23 18:55:
CXR concerning for fluid but also aspiration pneumonia is a concern
Will cover with IV Unasyn
currently satting 98% with NIV and also received 1mg Morphine
Addendum entered and electronically signed by Malika Leung MD 07/19/23 18:50:
concern for flutter - Amio bolus + drip started
Original Note:
Update Note
Progress Note Update
called to see patient urgently for possible SC
Patient admitted with respiratory and later cardiac arrest; has suffered anoxic injury and is not able to provide any history currently
EKG with diffuse ST depressions; markedly changed from prior EKG 07/08; this was reviewed with Dr. Paulino (consulting Commercial Kitchen Service Technician) and Dr. Arriola (on-call cath attending).
Given anoxic injury; Dr. Paulino informs that patient not currently a cath candidate
On exam, patient tachycardia and with respiratory distress, concerning for acute CHF with crackles on exam. on BiPAP. Was extubated earlier today.
Will check CXR now and give IV Lasix x 1.
check trop now
Start IV Heparin drip
Case also discussed with ICU Dr. Samuel who was in attendance with myself during this event.
[2023-07-19] MEDS: HEPARIN 25000 UNITS/250 ML IV (18:32)
[2023-07-19 18:34] LABS: Hematocrit 35.4 % (37.0-47.0); Hemoglobin 11.6 g/dL (12.0-16.0); Mean Corp Hgb Conc. 32.8 g/dL (33.0-37.0); Mean Corpuscular Hgb 31.4 pg (27.0-31.0); Mean Corpuscular Volume 95.7 fL (81.0-99.0); Mean Platelet Volume 10.3 fL (7.4-10.4); Platelet Count 311 10^3/uL (130-400); Red Cell Dist. Width 13.7 % (11.5-14.5); White Blood Cell Count 21.7 10^3/uL (4.8-10.8)
[2023-07-19] MEDS: HEPARIN 3700 UNITS IV (18:34)
[2023-07-19 18:44] LABS: APTT 28.7 Sec (23.4-35.0)
[2023-07-19] MEDS: MORPHINE SULFATE 1 MG IV (18:49)
[2023-07-19] MEDS: CORDARONE 103 MG IV (18:55)
[2023-07-19 18:57] LABS: ALT (SGPT) 22 U/L (0-35); AST (SGOT) 34 U/L (14-36); Albumin 3.3 g/dl (3.5-5.0); Alkaline Phosphatase 121 U/L (38-126); Blood Urea Nitrogen 31 mg/dl (7-17); Calcium 9.2 mg/dl (8.4-10.2); Carbon Dioxide 23 mmol/L (22-30); Chloride 108 mmol/L (98-107); Estimated Creatinine Clearance 74 ml/min; Glucose 140 mg/dl (70-99); Potassium 5.2 mmol/L (3.5-5.1); Sodium 139 mmol/L (135-145); Total Bilirubin 0.4 mg/dl (0.2-1.3); Total Protein 5.7 g/dl (6.3-8.2); eGFR > 60.00
--- NOTE | 2023-07-19 19:03 | W.PN.UPDATE ---
Update Note
Progress Note Update
Called by Admitted patient developed respiratory distress and was on a nonrebreather mask ECG was performed and showed sinus tachycardia with diffuse ST depressions (inferior leads and precordial leads). When I arrived at the bedside patient
was on BiPAP. And both senior drupal developer and hospitalist at the bedside adequate oximetry on BiPAP. Patient was tachycardic with heart rate in the 150s. Follow-up ECG showed improvement of ST depression after improvement in oxygenation. Narrow complex
tachycardia sinus tachycardia vs atrial tachycardia vs trial flutter. Blood pressure limits use of beta-sarah. Patient placed on IV amiodarone patient also had been given IV Lasix. Chest x-ray shows right sided dense infiltrate, possible
effusion also may be component of heart failure. Full radiolgist report pending. Appears that diffuse ST depressions were secondary to respiratory distress and hypoxemia in a patient who has underlying CAD. ST changes have now improved. At this
point no indication for emergent cardiac catheterization.. Dr. Samuel updated the family and had discussions regarding goals of care including intubation.
-Continue BiPAP and optimization of respiratory status as directed by pulmonary/critical care
-Antibiotics as directed by hospitalist and pulmonary/critical care
-Continue IV amiodarone which has been initiated for additional control of possible atrial flutter atrial tachycardia but also will be helpful with some heart rate control in this patient with diffuse ischemic ECG changes.
-Serial troponins.
- ASA
- resume BB when BP will allow
- Continue Bipap. Need for intubation anfamilies whiches being being assessed by senior drupal developer.
critical care time 45min
[2023-07-19 19:05] LABS: Troponin I 0.107 ng/ml
--- NOTE | 2023-07-19 19:12 | W.PN.UPDATE ---
Update Note
Progress Note Update
Event note:
Called to patient's room due to sudden shortness of breath in addition to EKG changes. I went to see the patient immediately.
Prior, patient received 1 L IV fluid bolus as well as midodrine and shortly thereafter developed sudden shortness of breath with inferolateral ST depressions. On exam patient tachypneic with accessory muscle use, in acute distress on nonrebreather,
rhonchorous breath sounds heard bilaterally and she was tachycardic. Nasotracheal suctioning performed with clear secretions aspirated but minimal improvement in saturations.
Patient then placed onto NIV @ 14/8 at 100% with improvement in SpO2 from 79% to 97%. Cardiology consulted and unfortunately patient is not a revascularization candidate given her anoxic brain injury and poor prognosis overall. Given concern for
acute CHF, Lasix 40mg IVP x1 given. CXR obtained showing concern for right-sided aspiration + interstitial pulmonary edema. Antibiotics ordered (unasyn) and amiodarone started given tachycardia with suspected 2: 1 atrial flutter. Given concern
for ACS, heparin gtt being started.
Family called and I spoke with the , Lucian, and explained what is going on. I also spoke with the daughter. Family understands the severity of the current situation and they wish for the pt to remain full code. If patient does get
re-intubated then the daughter would come in from [place] and they would likely withdraw care at that time. For now, the wants to keep patient full code with full medical treatment and he is coming into the hospital. All questions were
answered and patient verbalized understanding of the events above.
The hospitalist, Dr. Leung, as well as material control analyst, Dr. Paulino, also present during this event and we all agreed to plan listed above.
[2023-07-19] MEDS: CORDARONE 518 MG IV (19:21)
--- NOTE | 2023-07-19 19:27 | PTCARENOTE ---
at 1430 , pt seen by Dr Mckeon , spoke to and pt to have a peg tube inserted for feeding , her blood pressure today has been systolic in the 90s , with map of 60-65 , Dr Samuel aware and pt was given 1L NSS as ordered, she was also given
midodrine to improve BP , HR NSR 80-100 on monitor at 1500, then at 1800 her HR up to 120s to 150s and she had ST elevations on monitor , stat EKG obtained , Dr Leung hospitalist program evaluation consultant was notified and here at bedside , Dr Samuel notified ,
pts 02 sat down to 70s she was dusky and tachypneic , she was given 40 of IV Lasix and attempted to place on Cpap without improvement , she then was placed on NIV Rate 14 PS 16/8 100% , her sats improved up to 92% , Dr Morris at bedside and pt was
started on heparin gtt, Amiodarone bolus and amiodarone gtt ,she was given 1mg of IV Morphine for Resp distress/ pain , labs and CXR obtained , pt notified of pts change of condition . at 1915 pt family at bedside and updated by general medical practitioner
and medical genetics director of her declining condition , her WBC are now elevated to 21.7 , Troponin up to 0.107 and CXR now showing opacity R base as per radiologist
[2023-07-19] MEDS: LEVOPHED 250 IV (19:50)
[2023-07-19] MEDS: SUBLIMAZE 50 MCG IV ×2 (20:16→23:39)
--- NOTE | 2023-07-19 20:20 | W.PN.ANESINT ---
Anesthesia Intubation Note
- Intubation Note
Intubation Note:
Diagnosis: respiratory distress
Blade: glidescope
Tube Size: 7.0
Depth: 22cm
Side Taped: center
Drugs Used: 60mg propofol, 40mg rocuronium, 500 mcg phenylephrine
Grade View: 1 via live glidescope
EtCO2 Present: yes
Atraumatic: yes
Attempts: 2; once with 8.0 ETT, unable to pass through cords; change to 7.0 ETT, passed vocal cords with ease
Insertion Start and Stop Time:1947 start, 1954 end
SaO2 Pre: 91
SaO2 Post: 95
Glidescope Used: yes
Other Airway Adjustments: none
Pre-Oxygenated: yes
Portable Chest X-Ray:
RSI:
Suctioned: not necessary
Bilateral Breath Sounds Confirmed: yes confirmed, and negative air sounds over abdomen
Vent Settings:
Settings per ___Attending Physician
[2023-07-19] MEDS: PULMICORT 0.5 MG INH (20:27)
[2023-07-19] MEDS: UNASYN IV (20:58)
--- NOTE | 2023-07-19 21:25 | W.PN.UPDATE ---
Update Note
Progress Note Update
1899 CXR concerning for fluid but also aspiration pneumonia. 1944 Patient started desating on NIV. Long discussion with over reintubation vs comfort care. Her was ok�reintubation and trach if needed. He stated, �She probably will
never get out of this hospital bed, but he is not ready to say goodbye yet�. He did make her a DNR (No cpr/ defib). Currently reintubated/stable: (noted did suction up thick parham secretion with intubation).�
--- NOTE | 2023-07-19 21:30 | PTCARENOTE ---
Rec'd care of patient @1830. Day shift RN at bedside with Fig Bar Machine Operator, Hospitalist, FAMILY LIVING EDUCATOR, Aquaculture Worker and RT. Patient in respiratory distress. Pulse ox in the 70's. Patient placed on NIV and 1mg of IV Morphine administered. Pulse ox improved to mid
90's. HR in the 150's. Amiodarone bolus administered and then gtt initiated. Heparin gtt infusing at 700 units/hr. Patient's arrived to bedside. GOC discussed with FAMILY LIVING EDUCATOR. Code status changed to limited DNR- no cpr, no defibrillation.
agreeable to intubation. Around 1939, patient's pulse ox observed to be dropping to 80's. Patient continuing to use accessory muscles. Decision made to intubate patient. Patient intubated at 1954. #7 ett @ 22cm. CXR confirmation for placement.
Placed on A/C 450/14/4/100%. Weaned to 60% at 2114. Levophed gtt initiated during intubation for BP support. Titrated for MAP >65. Once patient settled, full assessment completed. RN observed pupil sizes to be unequal. Left pupil sluggish, 4mm.
Right pupil sluggish, 7mm. FAMILY LIVING EDUCATOR notified. No new orders. Patient continues to track. Blinking spontaneously and +gag reflex. No movement in extremities. Boots on for b/l foot drop. ST on tele monitor. Rate down to 100-120's. Lung sounds coarse/rhonchi
throughout. +BS. TFs remain off. FMS in place for loose stools. Incontinent of a large amount of urine s/p 40mg IV Lasix. Monae care performed and purewick replaced.
[2023-07-19 22:35] LABS: B.E. 1.6 mmol/L; HCO3 25.8 mmol/L (21-28); PCO2 38 mmHg (32-35); PO2 69 mmHg (83-108); pH 7.44 (7.35-7.45)
[2023-07-19] MEDS: LANTUS 0.0500000000000000028 UNITS SC (23:13)
[2023-07-19 23:25] LABS: Glucose - Point of Care 145 mg/dl (70-99)
[2023-07-19] MEDS: SUBLIMAZE 100 IV (23:40)
[2023-07-20] VITALS (67 sets, daily range): BP systolic 80–126; BP diastolic 45–88; BMI 26.4
--- NOTE | 2023-07-20 00:15 | PTCARENOTE ---
Systems reviewed at 0000. Alert. Breathing improved s/p intubation. Lung sounds coarse. RR 14. HR in the 80-90's, NSR. All other assessments unchanged. Fentanyl gtt initiated at 2340. Levophed/Amio/Heparin gtts maintained through right double lumen
PICC. PTT due at 0040.
[2023-07-20] MEDS: SUBLIMAZE 50 MCG IV ×3 (01:42→23:39)
[2023-07-20] MEDS: UNASYN IV ×4 (01:57→19:52)
[2023-07-20 04:06] LABS: % Basophils 0.2 % (0-2); % Eosinophils 0.1 % (0-6); % Lymphocytes 9.4 % (20.5-51.1); % Monocytes 3.6 % (1.7-9.3); % Neutrophils 85.7 % (42.2-75.2); Absolute Basophils 0.1 10^3/uL (0-0.2); Absolute Immature Granulocytes 0.3 10^3/uL (0-0.05); Absolute Lymphocytes 2.7 10^3/uL (1.2-3.4); Absolute Monocytes 1.1 10^3/uL (0.1-0.6); Absolute Neutrophils 24.9 10^3/uL (1.4-6.5); Hematocrit 30.2 % (37.0-47.0); Hemoglobin 10.1 g/dL (12.0-16.0); Mean Corp Hgb Conc. 33.4 g/dL (33.0-37.0); Mean Corpuscular Hgb 31.1 pg (27.0-31.0); Mean Corpuscular Volume 92.9 fL (81.0-99.0); Mean Platelet Volume 9.7 fL (7.4-10.4); Nucleated Red Blood Cells % 0 %; Platelet Count 303 10^3/uL (130-400); Red Blood Cell Count 3.25 10^6/uL (4.20-5.40); Red Cell Dist. Width 13.6 % (11.5-14.5); White Blood Cell Count 29.1 10^3/uL (4.8-10.8)
--- NOTE | 2023-07-20 04:11 | PTCARENOTE ---
Patient resting comfortably after receiving fentanyl bolus. Prior to bolus, patient gagging on ett tube and attempting to push it out with tongue. Emotional support provided. Patient continuing to follow commands when asked to close eyes tightly and
open. FiO2 weaned to 40%. POX 92-93%. Moderate amount of thick, parham secretions suctioned out. All other assessments unchanged. VSS. NSR on tele monitor. AM labs sent.
[2023-07-20 04:41] LABS: ALT (SGPT) 22 U/L (0-35); AST (SGOT) 29 U/L (14-36); Alkaline Phosphatase 109 U/L (38-126); Blood Urea Nitrogen 32 mg/dl (7-17); Carbon Dioxide 25 mmol/L (22-30); Chloride 108 mmol/L (98-107); Estimated Creatinine Clearance 84 ml/min; Glucose 194 mg/dl (70-99); Potassium 4.6 mmol/L (3.5-5.1); Sodium 136 mmol/L (135-145); Total Bilirubin 0.4 mg/dl (0.2-1.3); Total Protein 5.3 g/dl (6.3-8.2); eGFR > 60.00
[2023-07-20 04:43] LABS: Troponin I 0.233 ng/ml
[2023-07-20] MEDS: NOVOLOG FLEXPEN-MODERATE RESISTANCE 1 UNITS SC ×2 (05:28→12:40)
[2023-07-20 05:39] LABS: Glucose - Point of Care 184 mg/dl (70-99)
[2023-07-20 06:54] LABS: INR 0.95; PT 12.6 Sec (11.4-14.6)
[2023-07-20 06:55] LABS: APTT 51.2 Sec (23.4-35.0)
[2023-07-20] MEDS: DUONEB 3 ML INH ×2 (07:25→21:07)
--- NOTE | 2023-07-20 07:31 | W.PN.UPDATE ---
Update Note
Progress Note Update
Events noted. Patient now intubated. Will hold on PEG tube at this time. Please call back if medically appropriate.
--- NOTE | 2023-07-20 07:40 | PTOTSP ---
Received order for PT and reviewed chart. Noted pt was re-intubated this AM. Pt not appropriate for skilled PT at this time. Will need new orders if stable to begin PT activity.
--- NOTE | 2023-07-20 07:47 | PN.DE.MGMTRT ---
Insulin Management
- -
07/20/2023 Diabetes Management F/U:
Patient admitted 07/08, w/ respiratory distress, respiratory failure, intubated sedated. PMH includes CHF, COPD, current smoker. Prior to admission was taking Jardiance 10 mg daily, AC NovoLog SS, Lantus 20 units @ hs with metformin 500 mg BID.
A1C on admission 8%, Cr .5, eGFR >60.
Patient extubated yesterday @ 14:50, she developed acute respiratory distress on NRB and required reintubation, now with vent dependent RF.
She remains intubated, not responding to questions or commands. TF were placed on hold due to concerns for aspiration Pneumonia on cxr. No plans fpr PEG at this time due to change in condition.
FBG 194 this AM. Will reduce Lantus to 10 units in AM. Cont moderate corrective insulin while NPO
HOLD hs Lantus and HOLD Q 6 hour NovoLog while TF on hold .
Will follow closely and make further adjustment if pt is started on steroids or TF have been resumed
Discussed with patient's nurse and ICU rounding team regarding diabetes plan of care.
Diabetes History
- -
Type of Diabetes: 2 requiring insulin
Pre-Admission Diabetes Regimen
07/19/23 07/20/23
18:25 03:59
Creatinine 0.4 L 0.5 L
Lab Results
Hemoglobin A1c 8.0 % (4.0-5.6) H 07/10/23 06:17
Insulin Pump Settings
IP Diabetes Regimen
07/19/23 07/19/23 07/19/23
09:15 11:28 17:28
Glucose
POC Glucose 118 H 190 H 145 H
07/19/23 07/19/23 07/20/23
18:25 23:12 03:59
Glucose 140 H 194 H
POC Glucose 145 H
07/20/23
05:27
Glucose
POC Glucose 184 H
Patient Education
--- NOTE | 2023-07-20 08:10 | W.PN.INTV ---
Today's Communication / Plan
Recommendations
DNR, ok for vent
Continue mechanical ventilation
Replace Dobbhoff tube with NG tube in place onto low intermittent wall suction
MAP>65
Supportive care
Continue bromocriptine
Hold tube feeds for now
Guarded prognosis - awaiting additional family members to arrive and then will withdraw care, likely
Assessment
-
Assessment:
Mrs Osiris Muñoz is a 63/W adm 07-08 after sustaining witnessed respiratory distress ( witnessed). EMS found her with agonal breathing, then respiratory arrest followed by cardiac arrest per information gathered by ER physician. ACLS
protocol initiated immediately, CPR provided for 3-5 min with ROSC after one dose of epinephrine via IO line, intubated as scene. Received at ER on MV, unresponsive, started on IV propofol and fentanyl, NE gtt, given one dose of vecuronium IV. Known
h/o HF, CAD, T2DM, COPD, tobacco dependence, unfortunately lost medical insurance about 1 m ago and was trying to make her current med supply last longer but decreasing frequency of dosing
Impression:
Respiratory arrest followed by cardiac arrest as witnessed by EMS 07-08
Intubated at scene
CPR for 3-5 min with ROSC
Estimated down time including above 15+ minutes ---> extubated on 07/18/2023 --> re-intubated 07/18 due to aspiration event
Interim R basilar infiltrate on CXR, then resolved--> now with acute aspiration pneumonia to RLL on 07/18
Fever - recurrent - improved on bromocriptine
NSTEMI (earlier this hospitalization) and recurrent NSTEMI on 07/18 after aspiration event
HFrEF, acute on chronic (TTE 07-09: LVEF 30-35%, technically difficult study)
Shock on vasopressors - likely due to sepsis from RLL PNA and sedation
Elevated BNP
BENJI with reduced UOP
Markedly elevated PCT
Transaminitis
Microhematuria, bacteriuria, albuminuria
Recurrent nausea, reportedly acute on chronic
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
Hyperglycemia
Conditions HR ASSOCIATE:
HFrEF, LVEF 45%, hypokinesis mid to apical septum and apex, stage II DD, moderate eccentric MR, ePAP 84, small pericardial effusion, normal RV size and function
CAD s/p stenting
T2DM
Reported Hx of COPD, qualified for home O2 upon d/c from in Nov 2022 (adm for CHF and AECOPD)
Smoker
Recent partial medical compliance due to lack of insurance
Plan:
Witnessed respiratory arrest followed by cardiac arrest: EMS at scene, CPR for 3-5 min with ROSC
Per RN 07-12, now thinks downtime period was longer that he originally though
D/w 07-13: estimated down time including above was 15+ minutes
Underlying CAD, HFrEF
Ongoing heavy smoking HR ASSOCIATE, chronic smoking
Recent partial medical compliance due to lack of insurance for last 1 m HR ASSOCIATE (trying to make her med supply last longer)
Head CT on 07/10/2023 without acute findings
Interim R basilar infiltrate on follow up CXR
CXR with pulm vasc congestion which improved on follow up CXR, but interim development of R basilar infiltrate/atelectasis
Follow-up chest x-ray 07-10 with resolution of right basilar infiltrate on portable film
Unfortunately CXR on 07/18 now shows RLL PNA
Continue mechanical ventilation with daily SAT/SBT if clinically appropriate --> pt underwent SBT on AM of 07/17 and extubated to nasal cannula --> re-intubated on 07/18 after acute aspiration event with NSTEMI with acute CHF with Atrial flutter
Eyes gazed to right, not interactive
Neurology following
Given her reported Hx of COPD, on 07/18 I started budesonide + Duonebs BID
Goals of care discussion held --> family heading towards comfort care once all members arrive [place]
UCx negative
UDS positive for bzd and cannabis. Noted outpatient low dose alprazolam use for anxiety
Blood cxs 07/09 and NTD
Trach asp cx negative
COVID/flu negative
MRSA screening negative
Markedly elevated PCT with normal eGFR
Empiric atbs on adm: aztreonam (reported penicillin allergy) and vancomycin
Changed aztreonam to cefepime, discontinued vancomycin: 07-10
Cefepime changed to meropenem on 07/14/2023 --> pt continued to have low grade fevers --> ID has now DC'd ABx and we will monitor off Abx given possible drug-related/non-infectious fever
NE off since 07-09
Started neosynephrine 07-10, weaned and currently off; briefly required overnight on 07/16 - 07/17 --> restarted on 07/19 due to re-intubation with RLL PNA
RUE PICC 07-10, noted resolution of R basilar infiltrate/atelectasis
Changed MP IV to prednisone 40 mg qd, finite 5 d course of CS through 07-15
Restarted ABx with Unasyn; re-check sputum Cx and re-check Blood Cx
Hypothermic on adm
Low grade temp since 07-10
Though rare side effect potentially associated to cefepime
Follow temp
ID consulted 07-13, d/c cefepime, started meropenem --> this was DC'd on 07/15 due to suspected non-infectious fever
Bromocriptine started on 07/16 in event that this is a central fever; trend fever curve
NSTEMI
Marked interim elevation of troponins (peaked at 19 on 07/10/2023)
Elevated BNP
Known h/o HFrEF, on current TTE LVEF down from 45% to 30-35% (technically difficult TTE)
RV size and function normal
Held resumption of BB due to hypotension 07-09. Metoprolol started 07-11 --> BB now held due to hypotension
ASA
Cards following closely --> consulted again on 07/18 due to NSTEMI with inferolateral ST-depressions --> pt not candidate for LHC given her anoxic brain injury with poor prognosis
Continue heparin gtt (started 07/19/2023)
Also on IV amio given her new onset A-flutter seen s/p aspiration event on 07/19/2023
IV insulin protocol off since 07-12, started novolog SS and lantus
DEVON doppler 07-11: negative. Though BNP and trops elevated, RV size and function normal on TTE from 07/10/2023
Neurology consultation 07-11 appreciated
Multifactorial encephalopathy
EEG 07-11: diffuse cortical dysfunction without focal abnormality or sz, likely from metabolic disturbance
MRI brain 07-12: highly suspicious for anoxic ischemic injury involving parahippocampal gyrus, cerebellar hemispheres, R paramidline parietal cortex, also small peripheral subcortical white matter infarct involving the superior posterolateral R
frontal lobe
Per RN 07-12, now thinks downtime period was longer that he originally though
D/w 07-13: estimated down time including above was 15+ minutes
Lowered xanax to once daily given pt is encephalopathic
Outpatient regimen was jardiance 10 mg daily, AC novolog SS, lantus 20 units hs, metformin 500 mg BID
HgbA1C on admission 8%
IV insulin protocol started --> now off and pt on basal-bolus insulin SQ dosing
GI consulted on 07/18 for PEG tube insertion --> PEG now on hold given pending withdrawal of care once family members arrive from out of state
Replace DHT with NGT and place onto negative suction given dilated stomach and small bowel
GI proph: PPI IV
DVT proph: heparin gtt
Antiemetic prn, received one dose metoclopramide on 07-10 only, suspected DM gastroparesis
Limited Code - DNR, ok for ventilator
Discussed with at bedside in detail and answered all his questions.
Prognosis guarded in view of resp arrest followed by cardiac arrest, significant comorbidities, and brain MRI findings, and now with acute aspiration PNA with NSTEMI and back on pressors
Critical care statement: A total of 40 minutes of critical care time was provided for this patient today. This includes management of unstable vital signs, evaluation of the patient at bedside, reviewing the patient's pertinent medical records
including radiographs, microbiology, laboratory evaluations, and discussion with primary team, consultants, pharmacy, nutrition, physical therapy, case management, charge nurse, critical care nursing, and respiratory therapy.
Data:
Brain MRI 07-13-2023:
Motion degradation.
Findings highly suspicious for anoxic ischemic injury involving the parahippocampal gyrus, cerebellar hemispheres, right paramidline parietal cortex. Small peripheral subcortical white matter infarct involving the superior posterolateral right
frontal lobe.
No mass effect. No midline shift. No herniation.
CXR 07-20-2023:
1. MODERATE to SEVERE ACUTE INTERSTITIAL CARDIOGENIC PULMONARY EDEMA.
2. Large amount of asymmetric opacity in the right lower lung suggesting a moderate-sized right pleural effusion and adjacent right lower lobe airspace consolidation (either compressive atelectasis or pneumonia).
3. Mild cardiomegaly.
4. Endotracheal tube, nasogastric tube, and right upper extremity PICC line in place.
AXR/CXR 07-16-2023:
1. No acute cardiopulmonary process.
2. Nonspecific bowel gas pattern without signs of obstruction.
Subjective Dataa
Subjective Data
Date of Service:
Date of Service: July 20, 2023
Chief Complaint: Chairman And Chief Executive Officer Follow Up
Subjective:
Patient seen and evaluated today at bedside. Re-intubated last night after aspiration event and NSTEMI with inferolateral ST-depressions. She is on levophed at 3mcg/min, and amio at 0.5mg/min due to tachy yesterday with suspected 2:1 flutter. BP
99/54, HR 74, SpO2 100% on AC/VC 14/450/40%/5. came to bedside � answered all the questions.
Review of Systems
General: Unobtainable - Pat Unresp
Objective Data
Data Reviewed
Vital Signs / I&O / Oxygen:
Vital Signs
Temp Pulse Resp BP Pulse Ox
99.1 F 79 14 98/53 100
07/20/23 07:56 07/20/23 09:30 07/20/23 09:30 07/20/23 09:30 07/20/23 09:30
Intake and Output
07/19/23 07/20/23 07/21/23
06:59 06:59 06:59
Intake Total 1422 / 1492 2541.6 / 2588.1 139.5 / 139.5
Output Total 650 / 650 120 / 120
Balance 772 / 842 2421.6 / 2468.1 139.5 / 139.5
SaO2 [CPAP/PSV] 100
SaO2 [A/C] 100
SaO2 100
Nasal Cannula flow liters per 2
minute
Physical Exam
General: Respiratory Distress (Negative) and Comfortable
HEENT: Normocephalic and Anicteric
Cardiovascular: S1-S2 and Peripheral Edema (n)
Respiratory: Wheeze (Negative), Crackles (Negative), Rhonchi (Bilaterally), Stridor (Negative), ET Tube and Other (Mechanical breath sounds heard bilaterally)
GI: Soft, Non Distended, Non Tender, Normal Bowel Sounds and NG Tube (DHT)
Neurology: Tremors (Negative), Unresponsive (Not interactive), Non Verbal and Other (Eyes gaze to the right, with both feet plantar-flexed)
Skin: Warm and Dry
Labs/Micro/Reports
Lab Data
07/20/23 03:59
07/20/23 03:59
Laboratory Results
07/19/23 07/19/23 07/20/23
18:27 22:28 00:37
PT
INR
APTT 28.7 44.0 H
pH 7.44
pCO2 38 H
pO2 69 L
HCO3 25.8
O2 Delivery Level
07/20/23
06:36
PT 12.6
INR 0.95
APTT 51.2 H
pH
pCO2
pO2
HCO3
O2 Delivery Level
Microbiology
07/13/23 21:06 Blood/Venous Blood Culture - Final
No Growth - Final Report
[2023-07-20] MEDS: NSS (PRESERVATIVE FREE) 10 ML IV (08:35)
[2023-07-20] MEDS: PARLODEL 5 MG TUBE (08:35)
[2023-07-20] MEDS: MIRALAX 17 GRAMS TUBE (08:35)
[2023-07-20] MEDS: PROTONIX IV 40 MG IV (08:35)
[2023-07-20] MEDS: XANAX 0.25 MG TUBE (08:35)
[2023-07-20] MEDS: ProAmatine 5 MG PO ×3 (08:35→18:11)
[2023-07-20] MEDS: LOW STRENGTH ASPIRIN 81 MG TUBE (08:35)
--- NOTE | 2023-07-20 08:45 | PTCARENOTE ---
Assumed care of pt at 0715 following shift report. Pt resting quietly in bed, eyes open. Appears to follow commands to open/close eyes although not consistent. No distress noted. No movement of any extremities noted. Bilateral hands noted to be
contracted and occasionally in decorticate position. Pure Wick in place- no urine output noted at this time. DHT present- placement confirmed by external markings. No tube feedings running. Following IV's infusing via PICC: Heparin at 1100 units/hr,
Fentanyl at 75 mcg/hr, Levophed at 3mcg/min, Amiodarone at 0.5mg/min. Physical assessment completed. Turned and repositioned, hygiene and comfort care provided. Phone call received from pt's 'Lucian'- updated on pt's present condition and
questions answered.
[2023-07-20] MEDS: LANTUS 0.100000000000000006 UNITS SC (09:19)
--- NOTE | 2023-07-20 09:23 | W.PN.CD ---
Today's Communication / Plan
-
Holding BB and ACEi given on levophed
Cont amio for a flutter/SVT likely stop tomorrow --> likely 2/2 hypoxia
Impression / Plan
-
Impression: 63-year-old woman with with previous history of coronary artery disease, prior history of PR, cardiomyopathy with ejection fraction of 45% COPD and smoking who was admitted with respiratory arrest and is now in ICU with vent dependent
respiratory failure. Initial ECG showed sinus rhythm with nonspecific ST abnormality. Troponin peak 19. Recurrent RF overnight 07/18-07/19 repeat intubated, likely unable to tolerate secretions and overall prognosis guarded.
Plan
Respiratory failure again overnight, intubated again
-Anoxic encephalopathy.
NSTEMI.-Troponin 19. Unclear if this is a type II PR related to hypoxemia and underlying coronary artery disease. Primary PR cannot be entirely excluded.
-Optimize respiratory status
-medical therapy of CAD
-Echo shows new LVEF decline -
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
-Holding BB and ACEi given hypotension and requiring levophed today
A Flutter vs SVT --> likely 2/2 hypoxia
- currently in sinus rhythm
- continue amio for today likely stop tomorrow
VDRF - intubated overnight
Neuro/mental status. Post arrest. anoxic encepjhalopathy. neuro assesment in progress.
-MRI suggesting anoxic injury. tx per neuro
-Patient with eyes open- she did not follow any commands for me today.
Prolonged QTc -
- improved.
limit QTc prolonging meds including metoclopramide.
Fever- recurrent fever. Flu and covid neg 07/12/23.
-Suspected central fevers but if patient continues to have downward trend of blood pressures then would consider if she is developing infection.
New Cardiomyopathy - monitor volume status and reassess
-GDMT is limited by blood pressure. Patient had been on beta-sarah and at 1 point was given low-dose ELAN inhibitor. ELAN inhibitor had to be discontinued due to blood pressure. Patient has still received beta-sarah but has had to have doses
held due to blood pressure.
-
COPD
MR
Pulm HTN - echo TDS. Eventual repeat
Critically ill - 30 minutes
Sedated and intubated
Physical Exam
Vital Signs/Labs
Vital Signs
Temp Pulse Resp BP Pulse Ox
99.1 F 80 14 120/67 100
07/20/23 07:56 07/20/23 08:35 07/20/23 06:00 07/20/23 08:35 07/20/23 06:00
07/19/23 07/20/23 07/21/23
06:59 06:59 06:59
Actual Weight 134 lb 4.184 oz 139 lb 8.842 oz
07/20/23 03:59
07/20/23 03:59
PT 12.6 Sec (11.4-14.6) 07/20/23 06:36
INR 0.95 07/20/23 06:36
APTT 51.2 Sec (23.4-35.0) H 07/20/23 06:36
Magnesium 2.5 mg/dl (1.6-2.3) H 07/19/23 03:08
Triglycerides 231 mg/dl (10-149) H 07/17/23 03:13
07/09/23
23:03
Kap-O-Gvksmvasqta Pept 2750
LAB Results
07/19/23 07/20/23
18:23 03:59
Troponin I 0.107 H* 0.233 H*
Physical Exam
Constitutional: No acute distress (but critically ill appearing )
EENT: Anicteric
Cardiovascular: Rhythm & rate is regular and Pedal edema is absent
Respiratory: Respiratory effort normal and Crackles Present
GI: Soft
Neuro/Psych: Other (unable to assess )
Data Reviewed
-
Date of Service: July 20, 2023
Medical Decision Making: Reviewed Test Results
EKG: Tracing Personally Visualized and interpreted (SR)
Echo: Report Reviewed by me
Labs: Labs Reviewed by me
--- NOTE | 2023-07-20 11:09 | CM ---
CM following re: discharge planning.
Discussed in Rounds, reviewed pt's chart, met with pt. Per Rounds meeting, pt reintubated yesterday, continue supportive care. spoke to pt's daughter and she is coming to visit the pt on Sunday and to discuss goals of care.
Per CM conversation yesterday, there is a suspected concern of well being of 12 year old child that pt has custody. Pt's was kind of suspicious talking about the child, avoided conversation and stated: 'he is fine, I am talking to his
mother to obtain a custody on him'. Per ,the child has been under custody of the pt since his and now pt is not able to be child's guardian.
CM made a mandatory report of suspected concerns of well being of the child to [facility] [phone], spoke to litigation claim representative morgan # [id number].
D/C plan: uncertain at this time. GOC discussion with family on Sunday when daughter arrives.
CM will follow with discharger plan updates as hospitalization progresses
[2023-07-20 12:13] LABS: Troponin I 0.179 ng/ml
[2023-07-20 12:48] LABS: Glucose - Point of Care 198 mg/dl (70-99)
--- NOTE | 2023-07-20 12:53 | PTCARENOTE ---
Pt w/ episode of hypoxia- POx down to low 80's on vent despite increasing FiO2 to 100% on vent. Breath sounds present bilaterally- coarse rhonci throughout. Pt's HR increased to 110's w/ SBP in 80's. Pt notably diaphoretic. Pt ventilated w/ ambu bag
until Pox increased into mid 90's. Resp Therapy and Dr Billy called to bedside and pt placed back on vent w/ increased FiO2 on vent to 100%. EKG and CXR obtained and results shown to Dr Billy. Pt's arrived to visit- updated on pt's
present situation and goals of care discussion had at pt's bedside by Dr Billy and this RN with pt's and w/ pt's daughter(via cell phone). and dtr indicated that they wished for pt to 'hold on' until family members could gather at
bedside 'latest on Sunday' and at the same time if pt takes a dramatic turn for the worse, they would not want CPR/defibrillation and would want pt to be able to pass peacefully. Pt remains limited DNR as ordered.
--- NOTE | 2023-07-20 13:00 | PTCARENOTE ---
Lt nare DHT removed w/ tip intact. Rt nare [place] sump placed per request Dr Samuel. Placement confirmed w/ auscultation of air bolus and aspiration of gastic contents- place to LIWS w/ parham/macias drainage. Pt tolerated well
[2023-07-20] MEDS: SUBLIMAZE 100 IV (13:24)
[2023-07-20] MEDS: LEVOPHED 250 IV (13:31)
[2023-07-20 13:55] LABS: APTT 65.7 Sec (23.4-35.0)
--- NOTE | 2023-07-20 15:12 | W.PN.HOSP.TC ---
Today's Communication/Plan
-
Unasyn
Cont Mech ventilation
Wean pressors as tolerated
Hold antihypertensives
Goals of care conversation
Assessment / Plan
Assessment / Plan
MRI brain
Motion degradation.
Findings highly suspicious for anoxic ischemic injury involving the parahippocampal gyrus, cerebellar hemispheres, right paramidline parietal cortex. Small peripheral subcortical white matter infarct involving the superior posterolateral right
frontal lobe.
No mass effect. No midline shift. No herniation.

s/p cardiac arrest
Anoxic brain injury
Acute VDRF (hypoxic, hypercapnic), recurrent
Large Aspiration Pneumonia
Acute Metabolic Encephalopathy
- hx of underlying COPD/Smoking
- no evidence of CHF
- Venous Doppler LE neg. considering CT chest PE.
- Extubated 07/17; and neuro eval; reintubated 07/18 for large aspiration pneumonia
� Start Unasyn, continue on CMV for now
- EEG showing diffuse cortical dysfunction.
- MRI brain finding as above , in conjunction with EEG per neuro patient recovery chance is good, will likely require longer supportive care
- Maintaining of euthermia is necessary to improve odds of neuro recovery, starting on scheduled tylenol and cooling blanket
-Goals of care discussion, may opt for palliative extubation. Otherwise will need trach and PEG
Septic Shock, recurrent
- Now with large aspiration
- continues to spike fever
Recurrent Fevers
-possible central in nature
-tylenol and bromocriptine trial - appears to be improving
-neg dvt studies
Non STEMI
Hx of Chronic HFmrEF
CAD with history of stenting
- unclear if type 2 vs primary W[place]
- continue ASA rectally/Statin
- Echo: Moderately reduced left ventricular systolic function. Left ventricular ejection fraction is 30-35%%. Wall motion analysis is limited by the image quality. Aortic sclerosis without stenosis.
- CBC cards following
-ASA
-Hold BB and ACEi due to shock
- will need eventual cath if within goals
#Aflutter/SVT
-Amio
-f/u cards recs
Former smoker:
- smoked for 51 years, quit in August
Type 2 DM
Vomiting, suspected gastroparesis
- continue critical care glycemic protocol
- hold Jardiance/Lantus/Metformin
-Adjust insulin as required
Metabolic acidosis - resolved
Hyponatremia -resolved
- improving with IVF
Elevated LFTS - likely from shock state
- improving
Acute GI bleeding from vomiting (possibly MWT)
- monitor Hb which is stable >12
DVT ppx: SC Heparin
Code: Full
Total critical care time 50 mins . Total critical care time documented does not include time spent on separately billed procedures or the services of residents, students, nurses or physician assistants. I personally saw and examined the patient. I
have reviewed all diagnostic interpretations and treatment plans as written. I was present for the mccauley portions of any procedures performed and the inclusive time noted in any critical care statement. Critical care time includes patient management
by me, time spent at the patients bedside, time to review lab and imaging results, discussing patient care, documentation in the medical record, and time spent with the family or caregiver.
Anticipated Discharge: > 48 hours
Subjective/Interval History
-
Date of Service: July 20, 2023
Required reintubation, most likely aspirated
Objective Data
-
Labs:
Laboratory Results
07/20/23 07/20/23 07/20/23
03:59 06:36 13:32
WBC 29.1 H
Hgb 10.1 L
Hct 30.2 L
Plt Count 303
PT 12.6
INR 0.95
APTT 51.2 H 65.7 H
Sodium 136
Potassium 4.6
Chloride 108 H
Carbon Dioxide 25
BUN 32 H
Creatinine 0.5 L
Glucose 194 H
Calcium 9.0
Total Bilirubin 0.4
AST 29
ALT 22
Alkaline Phosphatase 109
07/20/23
21:00
WBC
Hgb
Hct
Plt Count
PT
INR
APTT Pending
Sodium
Potassium
Chloride
Carbon Dioxide
BUN
Creatinine
Glucose
Calcium
Total Bilirubin
AST
ALT
Alkaline Phosphatase
Vital Signs:
Vital Signs
Temp Pulse Resp BP Pulse Ox
99.0 F 72 16 110/55 100
07/20/23 12:00 07/20/23 15:00 07/20/23 15:00 07/20/23 15:00 07/20/23 15:00
I&O
07/19/23 07/20/23 07/21/23
06:59 06:59 06:59
Intake Total 1422 / 1492 2541.6 / 2588.1 689.3 / 689.3
Output Total 650 / 650 120 / 120 560 / 560
Balance 772 / 842 2421.6 / 2468.1 129.3 / 129.3
Review of Systems
-
History Source: Patient
All other systems: Not reviewed unless documented
Physical Exam
-
General: Intubated
HEENT: Oxygen (Intubated on MV)
Respiratory: Clear to Auscultation
Cardiac: Regular Rhythm, S1/S2 and Tachycardic; Negative Murmur
GI: Soft, Nontender and Nondistended
Musculoskeletal: No Edema
Neuro: Other (Not waking up off sedation); Negative Awake or Alert
Data Reviewed
-
Diagnostic Radiology: Image personally visualized and interpreted and Report Reviewed by me
Ultrasound: Image personally visualized and interpreted and Report Reviewed by me
MRI: Report Reviewed by me
Labs: Labs Reviewed by me
--- NOTE | 2023-07-20 18:00 | PTCARENOTE ---
Pt continues to rest quietly and w/o distress. Pt's mother in to visit and updated on pt's present condition and plan of care. Questions answered and emotional support provided. Mother states 'I just don't want her to suffer'. Levophed titrated per
work list intervention documentation. RT weaned FiO2 on vent to 40% w/ POx remaining 98-100%. No additional changes from previous assessment findings.
[2023-07-20] MEDS: NOVOLOG FLEXPEN-MODERATE RESISTANCE SC (18:11)
[2023-07-20 18:22] LABS: Glucose - Point of Care 137 mg/dl (70-99)
[2023-07-20] MEDS: CORDARONE 518 MG IV (19:52)
[2023-07-20] MEDS: PARLODEL TUBE (20:32)
--- NOTE | 2023-07-20 21:17 | PTCARENOTE ---
Pt received at 19:00. Pt intubated and sedated on fentanyl gtt. Pt appears to occasionally open eyes and focus, no tracking. Not consistent with following commands to open eyes/mouth or stick out tongue. Pupils unequal--L 3mm, R 5mm, both reactive
to light. No movement noted in B/L UE and LE, does not w/d or grimace to painful stimuli in extremities. SR with prolonged QT, HR 70s-80s. DP pulses weak but palpable. #7 ETT @ 22cm--received on the L and repositioned to the R. 14/450/40%/+5.
Scattered rhonchi noted t/o. Suctioned for small amount of thin parham secretions via ETT. NGT in place, to LIWS, minimal green drainage. FMS remains in place, liquid brown stool. Daniels in place, draining 20-30ml/hr of yellow urine. R PICC and L FA PIV
remain in place. Safe environment maintained, pt repositioned, plan of care ongoing.
[2023-07-20 21:22] LABS: APTT 130.9 Sec (23.4-35.0)
[2023-07-21] VITALS (33 sets, daily range): BP systolic 88–137; BP diastolic 50–75; BMI 26.1
--- NOTE | 2023-07-21 00:36 | PTCARENOTE ---
Pt with CPOT = 5. Fentanyl bolus given and gtt titrated as ordered. Pt appears comfortable at this time, RASS = -1 to -2. Otherwise assessment unchanged.
[2023-07-21 00:37] LABS: Glucose - Point of Care 131 mg/dl (70-99)
[2023-07-21] MEDS: NOVOLOG FLEXPEN-MODERATE RESISTANCE SC ×5 (00:52→23:16)
[2023-07-21] MEDS: SUBLIMAZE 100 IV ×3 (01:30→22:54)
[2023-07-21] MEDS: UNASYN IV ×4 (01:31→20:00)
[2023-07-21] MEDS: LEVOPHED 250 IV (02:43)
[2023-07-21] MEDS: SUBLIMAZE 50 MCG IV (04:10)
[2023-07-21 04:36] LABS: % Basophils 0.2 % (0-2); % Immature Granulocytes 0.4 % (0-0.5); % Lymphocytes 18.5 % (20.5-51.1); % Monocytes 6.6 % (1.7-9.3); % Neutrophils 73.3 % (42.2-75.2); Absolute Eosinophils 0.2 10^3/uL (0-0.7); Absolute Immature Granulocytes 0.1 10^3/uL (0-0.05); Absolute Lymphocytes 3.1 10^3/uL (1.2-3.4); Absolute Monocytes 1.1 10^3/uL (0.1-0.6); Absolute Neutrophils 12.3 10^3/uL (1.4-6.5); Hematocrit 26.6 % (37.0-47.0); Hemoglobin 8.6 g/dL (12.0-16.0); Mean Corp Hgb Conc. 32.3 g/dL (33.0-37.0); Mean Corpuscular Hgb 30.8 pg (27.0-31.0); Mean Corpuscular Volume 95.3 fL (81.0-99.0); Mean Platelet Volume 10.4 fL (7.4-10.4); Nucleated Red Blood Cells % 0 %; Platelet Count 268 10^3/uL (130-400); Red Blood Cell Count 2.79 10^6/uL (4.20-5.40); Red Cell Dist. Width 13.4 % (11.5-14.5); White Blood Cell Count 16.7 10^3/uL (4.8-10.8)
[2023-07-21 05:17] LABS: ALT (SGPT) 17 U/L (0-35); AST (SGOT) 23 U/L (14-36); Albumin 2.5 g/dl (3.5-5.0); Alkaline Phosphatase 95 U/L (38-126); Blood Urea Nitrogen 23 mg/dl (7-17); Calcium 8.7 mg/dl (8.4-10.2); Carbon Dioxide 28 mmol/L (22-30); Chloride 108 mmol/L (98-107); Estimated Creatinine Clearance 84 ml/min; Glucose 104 mg/dl (70-99); Potassium 4.1 mmol/L (3.5-5.1); Sodium 136 mmol/L (135-145); Total Bilirubin 0.4 mg/dl (0.2-1.3); Total Protein 4.7 g/dl (6.3-8.2); eGFR > 60.00
--- NOTE | 2023-07-21 07:45 | PTCARENOTE ---
Assumed care of patient. Pt does not make any purposeful movements and does not move any extremities. Bilateral hands contracted...washcloths rolled and placed inside. Bilateral foot drop noted. Lower legs splints/braces on. Pupils 3/brisk.
Does not track. Unrestrained. + gag reflex. Uncontrolled oral movements and able to move tongue. S1 S2 reg w/ NSR on monitor. +PP. Trace generalized edema. #7 ETT 22cm right/center lip...current vent settings: 14/450/+5/40%...sats 100%.
Suctioned via ETT for small thick parham secretions. Lungs diminished anteriorly and coarse in bilateral bases. Abdomen round...+BS. (R) merly yoder -> LIWS....draining scant greenish brown liquid. Placement confirmed w/ auscultation. +BS. FMS
draining liquid brown stool...flushed w/o issue. Temperature sensing chapin draining cloudy yellow urine w/ scant sediment. Chapin care done. Skin WNL excecpt MASD noted at skin folds....miconazole powder applied. 22P LFA flushed and capped.
Right DL PICC w/ amiodarone, heparin, levophed, and fentanyl gtts infusing....see interventions. VS documented. Will continue to monitor closely.
[2023-07-21] MEDS: DUONEB 3 ML INH ×2 (07:51→21:39)
[2023-07-21] MEDS: NSS (PRESERVATIVE FREE) 10 ML IV (07:53)
[2023-07-21] MEDS: LANTUS 0.100000000000000006 UNITS SC (07:53)
[2023-07-21] MEDS: PARLODEL 5 MG TUBE ×2 (07:54→20:13)
[2023-07-21] MEDS: XANAX 0.25 MG TUBE (07:54)
[2023-07-21] MEDS: LOW STRENGTH ASPIRIN 81 MG TUBE (07:54)
[2023-07-21] MEDS: PROTONIX IV 40 MG IV (07:54)
[2023-07-21] MEDS: ProAmatine 5 MG PO (07:54)
[2023-07-21] MEDS: MIRALAX 17 GRAMS TUBE (07:54)
--- NOTE | 2023-07-21 07:59 | W.PN.CD ---
Today's Communication / Plan
-
-Goal of care plans
-Critically ill -poor prognosis
Impression / Plan
-
Impression: 63-year-old woman with with previous history of coronary artery disease, prior history of DE, cardiomyopathy with ejection fraction of 45% COPD and smoking who was admitted with respiratory arrest and is now in ICU with vent dependent
respiratory failure. Initial ECG showed sinus rhythm with nonspecific ST abnormality. Troponin peak 19. Recurrent RF overnight 07/18-07/19 repeat intubated, likely unable to tolerate secretions and overall prognosis guarded.
Plan
Respiratory failure again overnight, intubated again
-Anoxic encephalopathy.
NSTEMI.-Troponin 19. Unclear if this is a type II DE related to hypoxemia and underlying coronary artery disease. Primary DE cannot be entirely excluded.
-Optimize respiratory status
-medical therapy of CAD
-Echo shows new LVEF decline -
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
-Holding BB and ACEi given hypotension and requiring levophed today
A Flutter vs SVT --> likely 2/2 hypoxia
- currently in sinus rhythm
- Stop amio - long half life - adequately present in system
overnight
Neuro/mental status. Post arrest. anoxic encepjhalopathy. neuro assesment in progress.
-MRI suggesting anoxic injury. tx per neuro
-Patient with eyes open- she did not follow any commands for me today.
Prolonged QTc -
- improved.
limit QTc prolonging meds including metoclopramide.
Fever- recurrent fever. Flu and covid neg 07/12/23.
-Suspected central fevers but if patient continues to have downward trend of blood pressures then would consider if she is developing infection.
New Cardiomyopathy - monitor volume status and reassess
-GDMT is limited by blood pressure. Patient had been on beta-sarah and at 1 point was given low-dose ELAN inhibitor. ELAN inhibitor had to be discontinued due to blood pressure. Patient has still received beta-sarah but has had to have doses
held due to blood pressure.
-
COPD
MR
Pulm HTN - echo TDS. Eventual repeat
Sedated and intubated
Physical Exam
Vital Signs/Labs
Vital Signs
Temp Pulse Resp BP Pulse Ox
99.7 F 70 14 116/59 100
07/21/23 06:23 07/21/23 07:54 07/21/23 07:00 07/21/23 07:54 07/21/23 07:00
07/20/23 07/21/23 07/22/23
06:59 06:59 06:59
Actual Weight 63.3 kg 62.6 kg
07/21/23 04:06
07/21/23 04:06
PT 12.6 Sec (11.4-14.6) 07/20/23 06:36
INR 0.95 07/20/23 06:36
APTT 50.0 Sec (23.4-35.0) H 07/21/23 04:06
Magnesium 2.5 mg/dl (1.6-2.3) H 07/19/23 03:08
Triglycerides 231 mg/dl (10-149) H 07/17/23 03:13
07/09/23
23:03
Gkq-T-Usexwhkhvlm Pept 2750
LAB Results
07/19/23 07/20/23 07/20/23
18:23 03:59 11:06
Troponin I 0.107 H* 0.233 H* 0.179 H*
Physical Exam
Constitutional: No acute distress
EENT: Anicteric
Cardiovascular: Rhythm & rate is regular, JVD present and Systolic murmur present
Respiratory: Other (Intubated and mechanical breath sound)
Neuro/Psych: Other (Nonresponsive)
Data Reviewed
-
Date of Service: July 21, 2023
Medical Decision Making: Reviewed Test Results, Test Interpretation and Review of Case with other Provider
EKG: Tracing Personally Visualized and interpreted
Echo: Report Reviewed by me
Labs: Labs Reviewed by me
Old Records: Reviewed
--- NOTE | 2023-07-21 08:17 | W.PN.INTV ---
Today's Communication / Plan
Recommendations
DNR, ok for vent
Continue mechanical ventilation
Keep NG tube at LIWS --> re-check CXR tomorrow
MAP>65
Supportive care
Continue bromocriptine
Hold tube feeds for now
Guarded prognosis - awaiting additional family members to arrive and then will withdraw care, likely
Assessment
-
Assessment:
Mrs Osiris Muñoz is a 63/W adm 07-08 after sustaining witnessed respiratory distress ( witnessed). EMS found her with agonal breathing, then respiratory arrest followed by cardiac arrest per information gathered by ER physician. ACLS
protocol initiated immediately, CPR provided for 3-5 min with ROSC after one dose of epinephrine via IO line, intubated as scene. Received at ER on MV, unresponsive, started on IV propofol and fentanyl, NE gtt, given one dose of vecuronium IV. Known
h/o HF, CAD, T2DM, COPD, tobacco dependence, unfortunately lost medical insurance about 1 m ago and was trying to make her current med supply last longer but decreasing frequency of dosing
Impression:
Respiratory arrest followed by cardiac arrest as witnessed by EMS 07-08
Intubated at scene
CPR for 3-5 min with ROSC
Estimated down time including above 15+ minutes ---> extubated on 07/18/2023 --> re-intubated 07/18 due to aspiration event
Interim R basilar infiltrate on CXR, then resolved--> now with acute aspiration pneumonia to RLL on 07/18
Fever - recurrent - improved on bromocriptine
NSTEMI (earlier this hospitalization) and recurrent NSTEMI on 07/18 after aspiration event
HFrEF, acute on chronic (TTE 07-09: LVEF 30-35%, technically difficult study)
Shock on vasopressors - likely due to sepsis from RLL PNA and sedation
Elevated BNP
BENJI with reduced UOP
Markedly elevated PCT
Transaminitis
Microhematuria, bacteriuria, albuminuria
Recurrent nausea, reportedly acute on chronic
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
Hyperglycemia
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
HFrEF, LVEF 45%, hypokinesis mid to apical septum and apex, stage II DD, moderate eccentric MR, ePAP 84, small pericardial effusion, normal RV size and function
CAD s/p stenting
T2DM
Reported Hx of COPD, qualified for home O2 upon d/c from in Nov 2022 (adm for CHF and AECOPD)
Smoker
Recent partial medical compliance due to lack of insurance
Plan:
Witnessed respiratory arrest followed by cardiac arrest: EMS at scene, CPR for 3-5 min with ROSC
Per RN 07-12, now thinks downtime period was longer that he originally though
D/w 07-13: estimated down time including above was 15+ minutes
Underlying CAD, HFrEF
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
Head CT on 07/10/2023 without acute findings
Interim R basilar infiltrate on follow up CXR
CXR with pulm vasc congestion which improved on follow up CXR, but interim development of R basilar infiltrate/atelectasis
Follow-up chest x-ray 07-10 with resolution of right basilar infiltrate on portable film
Unfortunately CXR on 07/18 now shows RLL PNA with acute pulmonary edema
Continue mechanical ventilation with daily SAT/SBT if clinically appropriate --> pt underwent SBT on AM of 07/17 and extubated to nasal cannula --> re-intubated on 07/18 after acute aspiration event with NSTEMI with acute CHF with Atrial flutter
Eyes gazed to right, not interactive
Neurology following
Given her reported Hx of COPD, on 07/18 I started budesonide + Duonebs BID
Goals of care discussion held --> family heading towards comfort care once all members arrive here from [place] of state --> likely will terminally extubate on Sunday or Sunday
UCx negative
UDS positive for bzd and cannabis. Noted outpatient low dose alprazolam use for anxiety
Blood cxs 07/09 and NTD
Trach asp cx negative
COVID/flu negative
MRSA screening negative
Markedly elevated PCT with normal eGFR
Empiric atbs on adm: aztreonam (reported penicillin allergy) and vancomycin
Changed aztreonam to cefepime, discontinued vancomycin: 07-10
Cefepime changed to meropenem on 07/14/2023 --> pt continued to have low grade fevers --> ID has now DC'd ABx and we will monitor off Abx given possible drug-related/non-infectious fever
NE off since 07-09
Started neosynephrine 07-10, weaned and currently off; briefly required overnight on 07/16 - 07/17 --> restarted on 07/19 due to re-intubation with RLL PNA
RUE PICC 07-10, noted resolution of R basilar infiltrate/atelectasis
Changed MP IV to prednisone 40 mg qd, finite 5 d course of CS through 07-15
Restarted ABx with Unasyn; on 07/19 I re-checked sputum Cx and Blood Cx - both show NGTD
Hypothermic on adm
Low grade temp since 07-10
Though rare side effect potentially associated to cefepime
Follow temp
ID consulted 07-13, d/c cefepime, started meropenem --> this was DC'd on 07/15 due to suspected non-infectious fever
Bromocriptine started on 07/16 in event that this is a central fever; trend fever curve
NSTEMI
Marked interim elevation of troponins (peaked at 19 on 07/10/2023)
Elevated BNP
Known h/o HFrEF, on current TTE LVEF down from 45% to 30-35% (technically difficult TTE)
RV size and function normal
Held resumption of BB due to hypotension 07-09. Metoprolol started 07-11 --> BB now held due to hypotension
ASA
Cards following closely --> consulted again on 07/18 due to NSTEMI with inferolateral ST-depressions --> pt not candidate for LHC given her anoxic brain injury with poor prognosis
Continue heparin gtt (started 07/19/2023)
Also on IV amio given her new onset A-flutter seen s/p aspiration event on 07/19/2023
IV insulin protocol off since 07-12, started novolog SS and lantus
DEVON doppler 07-11: negative. Though BNP and trops elevated, RV size and function normal on TTE from 07/10/2023
Neurology consultation 07-11 appreciated
Multifactorial encephalopathy
EEG 07-11: diffuse cortical dysfunction without focal abnormality or sz, likely from metabolic disturbance
MRI brain 07-12: highly suspicious for anoxic ischemic injury involving parahippocampal gyrus, cerebellar hemispheres, R paramidline parietal cortex, also small peripheral subcortical white matter infarct involving the superior posterolateral R
frontal lobe
Per RN 07-12, now thinks downtime period was longer that he originally though
D/w 07-13: estimated down time including above was 15+ minutes
Lowered xanax to once daily given pt is encephalopathic
Outpatient regimen was jardiance 10 mg daily, AC novolog SS, lantus 20 units hs, metformin 500 mg BID
HgbA1C on admission 8%
IV insulin protocol started --> now off and pt on basal-bolus insulin SQ dosing
GI consulted on 07/18 for PEG tube insertion --> PEG now on hold given pending withdrawal of care once family members arrive from out of state
On 07/19, I replaced DHT with NGT and placed onto LIWS given dilated stomach and small bowel seen on XR
GI proph: PPI IV
DVT proph: heparin gtt
Antiemetic prn, received one dose metoclopramide on 07-10 only, suspected DM gastroparesis
Limited Code - DNR, ok for ventilator
Discussed with at bedside in detail and answered all his questions. Family understands the critically ill state that Osiris is in, and they do not want her to suffer any longer. Once daughter arrives from [place], plan is to withdraw care and
TRX to comfort.
Prognosis guarded in view of resp arrest followed by cardiac arrest, significant comorbidities, and brain MRI findings, and now with acute aspiration PNA with NSTEMI and back on pressors
Critical care statement: A total of 42 minutes of critical care time was provided for this patient today. This includes management of unstable vital signs, evaluation of the patient at bedside, reviewing the patient's pertinent medical records
including radiographs, microbiology, laboratory evaluations, and discussion with primary team, consultants, pharmacy, nutrition, physical therapy, case management, charge nurse, critical care nursing, and respiratory therapy.
Data:
Brain MRI 07-13-2023:
Motion degradation.
Findings highly suspicious for anoxic ischemic injury involving the parahippocampal gyrus, cerebellar hemispheres, right paramidline parietal cortex. Small peripheral subcortical white matter infarct involving the superior posterolateral right
frontal lobe.
No mass effect. No midline shift. No herniation.
CXR 07-20-2023:
1. MODERATE to SEVERE ACUTE INTERSTITIAL CARDIOGENIC PULMONARY EDEMA.
2. Large amount of asymmetric opacity in the right lower lung suggesting a moderate-sized right pleural effusion and adjacent right lower lobe airspace consolidation (either compressive atelectasis or pneumonia).
3. Mild cardiomegaly.
4. Endotracheal tube, nasogastric tube, and right upper extremity PICC line in place.
AXR/CXR 07-16-2023:
1. No acute cardiopulmonary process.
2. Nonspecific bowel gas pattern without signs of obstruction.
Subjective Dataa
Subjective Data
Date of Service:
Date of Service: July 21, 2023
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
Subjective:
Patient seen this morning. Remains minimally responsive. She is on Levophed at 2mcg/min with BP 95/56, HR: 69. She is saturating 100% on VC 14/450/40%/5, breathing at 14 breaths/min, with PIP of 24 cmH2O and VTe of 405mL. NG tube remains at low
intermittent wall suction with biliary output. She remains on amiodarone at 0.5 mg/min and heparin drip. She is sedated with fentanyl at 100mcg/hr.
Review of Systems
General: Unobtainable - Pat Unresp
Objective Data
Data Reviewed
Vital Signs / I&O / Oxygen:
Vital Signs
Temp Pulse Resp BP Pulse Ox
99.7 F 83 14 116/59 100
07/21/23 06:23 07/21/23 07:59 07/21/23 07:59 07/21/23 07:54 07/21/23 08:09
Intake and Output
07/20/23 07/21/23 07/22/23
06:59 06:59 06:59
Intake Total 2541.6 / 2588.1 1464.3 / 1515.3 363.2 / 363.2
Output Total 120 / 120 970 / 990 40 / 40
Balance 2421.6 / 2468.1 494.3 / 525.3 323.2 / 323.2
SaO2 [CPAP/PSV] 100
SaO2 [A/C] 100
SaO2 100
Nasal Cannula flow liters per 2
minute
Physical Exam
General: Respiratory Distress (Negative) and Comfortable
HEENT: Normocephalic and Anicteric
Cardiovascular: S1-S2 and Peripheral Edema (n)
Respiratory: Wheeze (Negative), Crackles (Negative), Rhonchi (negative), Stridor (Negative), ET Tube and Other (Mechanical/coarse breath sounds heard bilaterally)
GI: Soft, Non Distended, Non Tender, Normal Bowel Sounds and NG Tube (DHT)
Neurology: Tremors (Negative), Unresponsive (Not interactive), Non Verbal and Other (Eyes gaze to the right; feet are in boots)
Skin: Warm and Dry
Labs/Micro/Reports
Lab Data
07/21/23 04:06
07/21/23 04:06
Laboratory Results
07/20/23 07/20/23 07/21/23
13:32 21:01 04:06
APTT 65.7 H 130.9 H 50.0 H
Microbiology
07/20/23 10:45 Endotracheal Respiratory Culture - Preliminary
Usual Respiratory Nanci
07/20/23 10:45 Endotracheal Gram Stain - Preliminary
07/13/23 21:06 Blood/Venous Blood Culture - Final
No Growth - Final Report
[2023-07-21 11:51] LABS: APTT 71.2 Sec (23.4-35.0)
--- NOTE | 2023-07-21 12:00 | PTCARENOTE ---
No major changes in physical assessment since am. ETT moved and retaped to left side of mouth @ 22cm. Remains on previous gtts. PTT assessed and gtt rate changed per protocol....currently infusing @ 1400 units/hr. VS documented. Will continue
to monitor closely.
[2023-07-21 12:15] LABS: Glucose - Point of Care 98 mg/dl (70-99)
[2023-07-21] MEDS: ProAmatine 10 MG PO ×2 (12:18→17:17)
--- NOTE | 2023-07-21 13:35 | W.PN.HOSP.TC ---
Today's Communication/Plan
-
increase midodrine
wean levo
amio dc as per cards
hep ggt
Assessment / Plan
Assessment / Plan
MRI brain
Motion degradation.
Findings highly suspicious for anoxic ischemic injury involving the parahippocampal gyrus, cerebellar hemispheres, right paramidline parietal cortex. Small peripheral subcortical white matter infarct involving the superior posterolateral right
frontal lobe.
No mass effect. No midline shift. No herniation.

s/p cardiac arrest
Anoxic brain injury
Acute VDRF (hypoxic, hypercapnic), recurrent
Large Aspiration Pneumonia
Acute Metabolic Encephalopathy
- hx of underlying COPD/Smoking
- no evidence of CHF
- Venous Doppler LE neg. considering CT chest PE.
- Extubated 07/17; and neuro eval; reintubated 07/18 for large aspiration pneumonia
� Start Unasyn, continue on CMV for now
- EEG showing diffuse cortical dysfunction.
- MRI brain finding as above , in conjunction with EEG per neuro patient recovery chance is good, will likely require longer supportive care
- Maintaining of euthermia is necessary to improve odds of neuro recovery, starting on scheduled tylenol and cooling blanket
-Goals of care discussion, may opt for palliative extubation. Otherwise will need trach and PEG - case liner discussed and opting for most likely comfort
Septic Shock, recurrent
- Now with large aspiration
- continues to spike fever
-add midodrine - increasing in attempt to wean off o2
Recurrent Fevers
-possible central in nature
-tylenol and bromocriptine trial - appears to be improving
-neg dvt studies
Non STEMI
Hx of Chronic HFmrEF
CAD with history of stenting
- unclear if type 2 vs primary PA
- continue ASA rectally/Statin
- Echo: Moderately reduced left ventricular systolic function. Left ventricular ejection fraction is 30-35%%. Wall motion analysis is limited by the image quality. Aortic sclerosis without stenosis.
- CBC cards following
-ASA
-Hold BB and ACEi due to shock
Hep ggt
#Aflutter/SVT
-Amio - dc as per cards
-f/u cards recs
Former smoker:
- smoked for 51 years, quit in August
Type 2 DM
Vomiting, suspected gastroparesis
- continue critical care glycemic protocol
- hold Jardiance/Lantus/Metformin
-Adjust insulin as required
Metabolic acidosis - resolved
Hyponatremia -resolved
- improving with IVF
Elevated LFTS - likely from shock state
- improving
Acute GI bleeding from vomiting (possibly MWT)
- monitor Hb which is stable >12
DVT ppx: SC Heparin
Code: Full
Total critical care time 52 mins . Total critical care time documented does not include time spent on separately billed procedures or the services of residents, students, nurses or physician assistants. I personally saw and examined the patient. I
have reviewed all diagnostic interpretations and treatment plans as written. I was present for the mccauley portions of any procedures performed and the inclusive time noted in any critical care statement. Critical care time includes patient management
by me, time spent at the patients bedside, time to review lab and imaging results, discussing patient care, documentation in the medical record, and time spent with the family or caregiver.
Anticipated Discharge: > 48 hours
Subjective/Interval History
-
Date of Service: July 21, 2023
no acute events
Objective Data
-
Labs:
Laboratory Results
07/21/23 07/21/23 07/21/23
04:06 10:25 11:33
WBC 16.7 H
Hgb 8.6 L
Hct 26.6 L
Plt Count 268
APTT 50.0 H Cancelled 71.2 H
Sodium 136
Potassium 4.1
Chloride 108 H
Carbon Dioxide 28
BUN 23 H
Creatinine 0.6
Glucose 104 H
Calcium 8.7
Total Bilirubin 0.4
AST 23
ALT 17
Alkaline Phosphatase 95
07/21/23
18:10
WBC
Hgb
Hct
Plt Count
APTT Pending
Sodium
Potassium
Chloride
Carbon Dioxide
BUN
Creatinine
Glucose
Calcium
Total Bilirubin
AST
ALT
Alkaline Phosphatase
Vital Signs:
Vital Signs
Temp Pulse Resp BP Pulse Ox
100.0 F 68 14 96/55 100
07/21/23 11:44 07/21/23 13:00 07/21/23 13:00 07/21/23 13:00 07/21/23 13:00
I&O
07/20/23 07/21/23 07/22/23
06:59 06:59 06:59
Intake Total 2541.6 / 2588.1 1464.3 / 1515.3 651.2 / 651.2
Output Total 120 / 120 970 / 990 140 / 140
Balance 2421.6 / 2468.1 494.3 / 525.3 511.2 / 511.2
Review of Systems
-
History Source: Patient
All other systems: Not reviewed unless documented
Physical Exam
-
General: Intubated
HEENT: Oxygen (Intubated on MV)
Respiratory: Clear to Auscultation
Cardiac: Regular Rhythm, S1/S2 and Tachycardic; Negative Murmur
GI: Soft, Nontender and Nondistended
Musculoskeletal: No Edema
Neuro: Other (Not waking up off sedation); Negative Awake or Alert
Data Reviewed
-
Diagnostic Radiology: Image personally visualized and interpreted and Report Reviewed by me
Ultrasound: Image personally visualized and interpreted and Report Reviewed by me
MRI: Report Reviewed by me
Labs: Labs Reviewed by me
--- NOTE | 2023-07-21 14:00 | PTCARENOTE ---
Spoke w/ pt's mother. She stated that pt's and dtr from [place] would be in later tonight to discuss plan of care.
--- NOTE | 2023-07-21 14:30 | PTCARENOTE ---
Assumed care of patient. Pt rec'd nonverbal...systemic tremor noted. Does assist w/ repositioning....muscle reflexes tested in upper extremities, pt able to guard from threat of own arm. S1 S2 reg w/ NSR on monitor. Weak PP. Trace generalized
edema noted. Heels elevated on pillows. On 2L
N/C...sats 97%. Lungs diminished...poor effort. Abdomen round..+BS. PW applied...incontinent for yellow urine. Attends on. Skin pale in color....optifoam on sacrum...face flushed. 22P RFA inserted....20P RW occluded and removed. LFA INT w/
IVF's and KCL rider infusing. VS documented. Will continue to monitor closely.
--- NOTE | 2023-07-21 15:00 | PTCARENOTE ---
Seen by , , and ...orders rec'd. CT head done at rapid...negative per neuro. EEG at bedside. Pt's dtr and son in law fully updated. Urine sent per nephro. Will continue to monitor.
--- NOTE | 2023-07-21 16:15 | PTCARENOTE ---
Pt remains intubated on multiple gtts. Levophed turned off...see intervention....goal to keep MAP > 65. No major changes in physical assessment. Will continue to monitor closely.
[2023-07-21] MEDS: HEPARIN 25000 UNITS/250 ML IV (17:16)
[2023-07-21 18:18] LABS: Glucose - Point of Care 113 mg/dl (70-99)
[2023-07-21 18:33] LABS: APTT 53.6 Sec (23.4-35.0)
--- NOTE | 2023-07-21 20:00 | PTCARENOTE ---
Received pt. at 1900. Pt. currently intubated on ventilator. Fentanyl gtt infusing for pain control. Pt. appears comfortable, CPOT 0. Afebrile. Heart rhythm sinus. Blood pressure normotensive. Lungs sound coarse. Ventilator settings verified. Scant
secretions. Cortney diggs in R nare to LIS. FMS in place. Daniels catheter in place, draining without issue. Skin as documented. at bedside. Discussed plan of care. Vital signs stable at this time.
[2023-07-21] MEDS: LANTUS 0.0500000000000000028 UNITS SC (22:02)
[2023-07-21 22:12] LABS: Glucose - Point of Care 115 mg/dl (70-99)
--- NOTE | 2023-07-21 23:55 | PTCARENOTE ---
Pt. assessment unchanged. No signs of pain/discomfort. CPOT 0. Pt. has not required vasopressors during shift. Vital signs stable at this time.
[2023-07-22] VITALS (26 sets, daily range): BP systolic 69–139; BP diastolic 39–83; BMI 27.2
[2023-07-22] MEDS: SUBLIMAZE 50 MCG IV (00:10)
[2023-07-22 01:02] LABS: APTT 118.2 Sec (23.4-35.0)
[2023-07-22] MEDS: UNASYN IV ×3 (01:38→14:04)
[2023-07-22 03:23] LABS: Hematocrit 26.7 % (37.0-47.0); Hemoglobin 8.9 g/dL (12.0-16.0); Mean Corp Hgb Conc. 33.3 g/dL (33.0-37.0); Mean Corpuscular Hgb 31.7 pg (27.0-31.0); Mean Platelet Volume 9.7 fL (7.4-10.4); Platelet Count 264 10^3/uL (130-400); Red Blood Cell Count 2.81 10^6/uL (4.20-5.40); Red Cell Dist. Width 13.5 % (11.5-14.5); White Blood Cell Count 15.6 10^3/uL (4.8-10.8)
[2023-07-22 03:24] LABS: Venous Blood Gas B.E. 1.7 mmol/L (-4 to +4); Venous Blood Gas HCO3 25.7 mmol/L (22-27); Venous Blood Gas O2 Sat % 99.3 %; Venous Blood Gas pCO2 37 mmHg (35-48); Venous Blood Gas pH 7.45 (7.32-7.43); Venous Blood Gas pO2 140 mmHg (30-50)
[2023-07-22 03:54] LABS: ALT (SGPT) 17 U/L (0-35); AST (SGOT) 26 U/L (14-36); Albumin 2.8 g/dl (3.5-5.0); Alkaline Phosphatase 88 U/L (38-126); Blood Urea Nitrogen 19 mg/dl (7-17); Calcium 8.7 mg/dl (8.4-10.2); Carbon Dioxide 25 mmol/L (22-30); Chloride 107 mmol/L (98-107); Estimated Creatinine Clearance 84 ml/min; Glucose 102 mg/dl (70-99); Magnesium 2.2 mg/dl (1.6-2.3); Phosphorus 4.4 mg/dl (2.5-4.5); Potassium 4.2 mmol/L (3.5-5.1); Sodium 137 mmol/L (135-145); Total Bilirubin 0.5 mg/dl (0.2-1.3); Total Protein 5.2 g/dl (6.3-8.2); eGFR > 60.00
[2023-07-22 03:57] LABS: NT-proBNP 4910 pg/ml
--- NOTE | 2023-07-22 04:00 | PTCARENOTE ---
Pt. having hypotension since last note. MAP below 65. Levophed gtt restarted to maintain MAP >65, currently infusing. [facility] called and notified patient has been on ventilator for almost two weeks, with a brief period of extubation before
being reintubated. GoL coordinator here viewing patient's chart. AM labs drawn. Vital signs stable at this time.
[2023-07-22] MEDS: NOVOLOG FLEXPEN-MODERATE RESISTANCE SC ×2 (05:48→11:37)
[2023-07-22] MEDS: PROTONIX IV 40 MG IV (07:42)
[2023-07-22] MEDS: LANTUS 0.100000000000000006 UNITS SC (07:42)
[2023-07-22] MEDS: NSS (PRESERVATIVE FREE) 10 ML IV (07:43)
[2023-07-22] MEDS: DUONEB 3 ML INH (07:46)
[2023-07-22] MEDS: XANAX 0.25 MG TUBE (07:48)
[2023-07-22] MEDS: LOW STRENGTH ASPIRIN 81 MG TUBE (07:48)
[2023-07-22] MEDS: PARLODEL 5 MG TUBE (07:48)
[2023-07-22] MEDS: MIRALAX 17 GRAMS TUBE (07:48)
[2023-07-22] MEDS: ProAmatine PO ×2 (07:50→13:46)
[2023-07-22 07:56] LABS: APTT 90.2 Sec (23.4-35.0)
--- NOTE | 2023-07-22 08:00 | W.PN.INTV ---
Today's Communication / Plan
Recommendations
Transitioning to comfort care
Extubate and remove NGT
prnn ativan, prn morphine with gtt if needed, and pt Robinul
pt now DNR/DNI
Emotional support provided to family
Considering patient is now being transitioned to comfort care, Water Plumber/Pulmonary service will now sign off. Thank you for allowing us to be involved in the care of this patient.
Assessment
-
Assessment:
Mrs Osiris Muñoz is a 63/W adm 07-08 after sustaining witnessed respiratory distress ( witnessed). EMS found her with agonal breathing, then respiratory arrest followed by cardiac arrest per information gathered by ER physician. ACLS
protocol initiated immediately, CPR provided for 3-5 min with ROSC after one dose of epinephrine via IO line, intubated as scene. Received at ER on MV, unresponsive, started on IV propofol and fentanyl, NE gtt, given one dose of vecuronium IV. Known
h/o HF, CAD, T2DM, COPD, tobacco dependence, unfortunately lost medical insurance about 1 m ago and was trying to make her current med supply last longer but decreasing frequency of dosing
Impression:
Respiratory arrest followed by cardiac arrest as witnessed by EMS 07-08
Intubated at scene
CPR for 3-5 min with ROSC
Estimated down time including above 15+ minutes ---> extubated on 07/18/2023 --> re-intubated 07/18 due to aspiration event
Interim R basilar infiltrate on CXR, then resolved--> now with acute aspiration pneumonia to RLL on 07/18
Fever - recurrent - improved on bromocriptine
NSTEMI (earlier this hospitalization) and recurrent NSTEMI on 07/18 after aspiration event
HFrEF, acute on chronic (TTE 07-09: LVEF 30-35%, technically difficult study)
Shock on vasopressors - likely due to sepsis from RLL PNA and sedation
Elevated BNP
BENJI with reduced UOP
Markedly elevated PCT
Transaminitis
Microhematuria, bacteriuria, albuminuria
Recurrent nausea, reportedly acute on chronic
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
Hyperglycemia
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
HFrEF, LVEF 45%, hypokinesis mid to apical septum and apex, stage II DD, moderate eccentric MR, ePAP 84, small pericardial effusion, normal RV size and function
CAD s/p stenting
T2DM
Reported Hx of COPD, qualified for home O2 upon d/c from in Nov 2022 (adm for CHF and AECOPD)
Smoker
Recent partial medical compliance due to lack of insurance
Plan:
Witnessed respiratory arrest followed by cardiac arrest: EMS at scene, CPR for 3-5 min with ROSC
Per RN 07-12, now thinks downtime period was longer that he originally though
D/w 07-13: estimated down time including above was 15+ minutes
Underlying CAD, HFrEF
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
Recent partial medical compliance due to lack of insurance for last 1 m SUPERVISOR HOME ENERGY CONSULTANT (trying to make her med supply last longer)
Head CT on 07/10/2023 without acute findings
Interim R basilar infiltrate on follow up CXR
CXR with pulm vasc congestion which improved on follow up CXR, but interim development of R basilar infiltrate/atelectasis
Follow-up chest x-ray 07-10 with resolution of right basilar infiltrate on portable film
Unfortunately CXR on 07/18 now shows RLL PNA with acute pulmonary edema
Continue mechanical ventilation with daily SAT/SBT if clinically appropriate --> pt underwent SBT on AM of 07/17 and extubated to nasal cannula --> re-intubated on 07/18 after acute aspiration event with NSTEMI with acute CHF with Atrial flutter
Eyes gazed to right, not interactive
Neurology following
Given her reported Hx of COPD, on 07/18 I started budesonide + Duonebs BID
Goals of care discussion held --> family has agreed for comfort care and we will extubate today and then transition to comfort care measures. If patient does not within the next 24 hours then would consult hospice.
UCx negative
UDS positive for bzd and cannabis. Noted outpatient low dose alprazolam use for anxiety
Blood cxs 07/09 and NTD
Trach asp cx negative
COVID/flu negative
MRSA screening negative
Markedly elevated PCT with normal eGFR
Empiric atbs on adm: aztreonam (reported penicillin allergy) and vancomycin
Changed aztreonam to cefepime, discontinued vancomycin: 07-10
Cefepime changed to meropenem on 07/14/2023 --> pt continued to have low grade fevers --> ID has now DC'd ABx and we will monitor off Abx given possible drug-related/non-infectious fever
NE off since 07-09
Started neosynephrine 07-10, weaned and currently off; briefly required overnight on 07/16 - 07/17 --> restarted on 07/19 due to re-intubation with RLL PNA
RUE PICC 07-10, noted resolution of R basilar infiltrate/atelectasis
Changed MP IV to prednisone 40 mg qd, finite 5 d course of CS through 07-15
Restarted ABx with Unasyn --> I will stop this now that we are TRX to comfort care; on 07/19 I re-checked sputum Cx and Blood Cx - both show NGTD
Hypothermic on adm
Low grade temp since 07-10
Though rare side effect potentially associated to cefepime
Follow temp
ID consulted 07-13, d/c cefepime, started meropenem --> this was DC'd on 07/15 due to suspected non-infectious fever
Bromocriptine started on 07/16 in event that this is a central fever; trend fever curve
NSTEMI
Marked interim elevation of troponins (peaked at 19 on 07/10/2023)
Elevated BNP
Known h/o HFrEF, on current TTE LVEF down from 45% to 30-35% (technically difficult TTE)
RV size and function normal
Held resumption of BB due to hypotension 07-09. Metoprolol started 07-11 --> BB now held due to hypotension
ASA
Cards following closely --> consulted again on 07/18 due to NSTEMI with inferolateral ST-depressions --> pt not candidate for LHC given her anoxic brain injury with poor prognosis
Continue heparin gtt (started 07/19/2023)
Also on IV amio given her new onset A-flutter seen s/p aspiration event on 07/19/2023
IV insulin protocol off since 07-12, started novolog SS and lantus
DEVON doppler 07-11: negative. Though BNP and trops elevated, RV size and function normal on TTE from 07/10/2023
Neurology consultation 07-11 appreciated
Multifactorial encephalopathy
EEG 07-11: diffuse cortical dysfunction without focal abnormality or sz, likely from metabolic disturbance
MRI brain 07-12: highly suspicious for anoxic ischemic injury involving parahippocampal gyrus, cerebellar hemispheres, R paramidline parietal cortex, also small peripheral subcortical white matter infarct involving the superior posterolateral R
frontal lobe
Per RN 07-12, now thinks downtime period was longer that he originally though
D/w 07-13: estimated down time including above was 15+ minutes
Lowered xanax to once daily given pt is encephalopathic --> I will DC this and instead use prn ativan now that pt is comfort care
Outpatient regimen was jardiance 10 mg daily, AC novolog SS, lantus 20 units hs, metformin 500 mg BID
HgbA1C on admission 8%
IV insulin protocol started --> now off and pt on basal-bolus insulin SQ dosing
GI consulted on 07/18 for PEG tube insertion --> PEG now on deferred given we are TRX to comfort care
On 07/19, I replaced DHT with NGT and placed onto LIWS given dilated stomach and small bowel seen on XR --> will now remove NGT given pt is comfort care now
GI proph: PPI IV --> stopping as we are TRX to comfort care measures
DVT proph: heparin gtt -->stopping as we are TRX to comfort care measures
Antiemetic prn, received one dose metoclopramide on 07-10 only, suspected DM gastroparesis
Now DNR/DNI
Discussed with at bedside in detail and answered all his questions. Family understands the critically ill state that Osiris is in, and they do not want her to suffer any longer. Daughter has arrived from [place], and we are now going to
extubate to comfort care measures.
Prognosis guarded in view of resp arrest followed by cardiac arrest, significant comorbidities, and brain MRI findings, and now with acute aspiration PNA with NSTEMI and back on pressors
Considering patient is now being transitioned to comfort care, Water Plumber/Pulmonary service will now sign off. Thank you for allowing us to be involved in the care of this patient.
Total time spent today was 40 minutes for this encounter. Time includes reviewing laboratory test/imaging results, reviewing pertinent medical records, obtaining and reviewing medical history, performing an appropriate exam, ordering medications,
tests and procedures. Time also includes documentation of this encounter, coordinating patient care and communicating with other healthcare professionals. Total time does not include separately billed tests performed on this date of service.
Data:
Brain MRI 07-13-2023:
Motion degradation.
Findings highly suspicious for anoxic ischemic injury involving the parahippocampal gyrus, cerebellar hemispheres, right paramidline parietal cortex. Small peripheral subcortical white matter infarct involving the superior posterolateral right
frontal lobe.
No mass effect. No midline shift. No herniation.
CXR 07-22-2023:
1. SEVERE ACUTE INTERSTITIAL CARDIOGENIC PULMONARY EDEMA.
2. Large right lower lobe airspace opacity and adjacent small right pleural effusion which appears unchanged (either pneumonia or compressive atelectasis).
3. Mild airspace consolidation in the basilar left lower lobe which appears unchanged.
4. Endotracheal tube, right upper extremity PICC line, and nasogastric tube in place.
CXR 07-20-2023:
1. MODERATE to SEVERE ACUTE INTERSTITIAL CARDIOGENIC PULMONARY EDEMA.
2. Large amount of asymmetric opacity in the right lower lung suggesting a moderate-sized right pleural effusion and adjacent right lower lobe airspace consolidation (either compressive atelectasis or pneumonia).
3. Mild cardiomegaly.
4. Endotracheal tube, nasogastric tube, and right upper extremity PICC line in place.
AXR/CXR 07-16-2023:
1. No acute cardiopulmonary process.
2. Nonspecific bowel gas pattern without signs of obstruction.
Subjective Dataa
Subjective Data
Date of Service:
Date of Service: July 22, 2023
Chief Complaint: Water Plumber Follow Up
Subjective:
Patient seen this morning. Remains intubated. Family members came to bedside and decision made to withdraw care. All questions were answered. Patient currently on Levophed at 2mcg/min and heparin drip.
Review of Systems
General: Unobtainable - Pat Unresp
Objective Data
Data Reviewed
Vital Signs / I&O / Oxygen:
Vital Signs
Temp Pulse Resp BP Pulse Ox
100.3 F 99 12 107/74 54
07/22/23 11:01 07/22/23 15:00 07/22/23 15:00 07/22/23 14:00 07/22/23 15:00
Intake and Output
07/21/23 07/22/23 07/23/23
06:59 06:59 06:59
Intake Total 1464.3 / 1515.3 1580.9 / 1630.1 493.6 / 493.6
Output Total 970 / 990 890 / 930 240 / 240
Balance 494.3 / 525.3 690.9 / 700.1 253.6 / 253.6
SaO2 [CPAP/PSV] 100
SaO2 [A/C] 100
SaO2 54
Nasal Cannula flow liters per 2
minute
Physical Exam
General: Respiratory Distress (Negative) and Comfortable
HEENT: Normocephalic and Anicteric
Cardiovascular: S1-S2 and Peripheral Edema (n)
Respiratory: Wheeze (Negative), Crackles (Negative), Rhonchi (negative), Stridor (Negative), ET Tube and Other (Mechanical/coarse breath sounds heard bilaterally)
GI: Soft, Non Distended, Non Tender, Normal Bowel Sounds and NG Tube
Neurology: Tremors (Negative), Unresponsive (Not interactive), Non Verbal and Other (Eyes gaze to the right; feet are in boots)
Skin: Warm and Dry
Labs/Micro/Reports
Lab Data
07/22/23 03:14
07/22/23 03:14
Laboratory Results
07/21/23 07/22/23 07/22/23
17: 00:42 07:16
APTT 53.6 H 118.2 H 90.2 H
07/22/23
14:15
APTT Cancelled
Microbiology
07/20/23 11:06 Blood/Venous Blood Culture - Preliminary
No Growth in 48 hours- Final report to follow
07/20/23 10:45 Endotracheal Respiratory Culture - Final
Usual Respiratory Nanci
07/20/23 10:45 Endotracheal Gram Stain - Final
--- NOTE | 2023-07-22 08:00 | PTCARENOTE ---
Assumed care of patient. Pt does not make any purposeful movements and does not move any extremities. Bilateral hands contracted...washcloths rolled and placed inside. Bilateral foot drop noted. Lower legs splints/braces on. Pupils 3/brisk.
Does not track. Unrestrained. + gag reflex. Occasional cough. Uncontrolled oral movements. S1 S2 reg w/ NSR on monitor. +PP. Trace generalized edema. #7 ETT 22cm left lip...current vent settings: 14/450/+5/40%...sats 100%. Suctioned via ETT
for small thick parham secretions. Lungs w/ coarse rhonchi throughout. Abdomen round...+BS. (R) nare [place] -> LIWS....draining scant greenish brown liquid. Placement confirmed w/ auscultation. +BS. FMS draining liquid brown stool...flushed w/o
issue. Temperature sensing chapin draining cloudy yellow urine. Chapin care done. Skin WNL excecpt MASD noted at skin folds....miconazole powder applied. 22P LFA flushed and capped. Right DL PICC w/ amiodarone, heparin, levophed, and fentanyl
gtts infusing....see interventions. VS documented. Will continue to monitor closely.
[2023-07-22] MEDS: SUBLIMAZE 100 IV (09:13)
[2023-07-22] MEDS: HEPARIN 25000 UNITS/250 ML IV (09:14)
[2023-07-22 11:44] LABS: Glucose - Point of Care 108 mg/dl (70-99)
--- NOTE | 2023-07-22 11:55 | PTCARENOTE ---
Pt reassessed. No major changes in physical assessment. Remains on all previous gtts. GOL reviewing case....provided w/ all pertinent info. Mother visiting at bedside. Will continue to monitor closely.
--- NOTE | 2023-07-22 13:30 | PTCARENOTE ---
Family meeting w/ and pt's and dtr. Family in agreement for terminal extubation. Reviewed plan of care. All questions answered. Requested prayer blanket from pastoral care. Will continue to provide emotional support to
family.
--- NOTE | 2023-07-22 13:31 | W.PN.HOSP.TC ---
Addendum entered and electronically signed by Kevin Mg MD 07/30/23 17:08:
[id number]
Original Note:
Today's Communication/Plan
-
wean norepi
cont abx
amio and hep ggt as per cards
GOC
Assessment / Plan
Assessment / Plan
MRI brain
Motion degradation.
Findings highly suspicious for anoxic ischemic injury involving the parahippocampal gyrus, cerebellar hemispheres, right paramidline parietal cortex. Small peripheral subcortical white matter infarct involving the superior posterolateral right
frontal lobe.
No mass effect. No midline shift. No herniation.

s/p cardiac arrest
Anoxic brain injury
Acute VDRF (hypoxic, hypercapnic), recurrent
Large Aspiration Pneumonia
Acute Metabolic Encephalopathy
- hx of underlying COPD/Smoking
- no evidence of CHF
- Venous Doppler LE neg. considering CT chest PE.
- Extubated 07/17; and neuro eval; reintubated 07/18 for large aspiration pneumonia
� Start Unasyn, continue on CMV for now
- EEG showing diffuse cortical dysfunction.
- MRI brain finding as above , in conjunction with EEG per neuro patient recovery chance is good, will likely require longer supportive care
- Maintaining of euthermia is necessary to improve odds of neuro recovery, starting on scheduled tylenol and cooling blanket
-Goals of care discussion, may opt for palliative extubation. Otherwise will need trach and PEG - facing baster discussed and opting for most likely comfort
Septic Shock, recurrent
- Now with large aspiration
- continues to spike fever
-add midodrine - increasing in attempt to wean off o2
Recurrent Fevers
-possible central in nature
-tylenol and bromocriptine trial - appears to be improving
-neg dvt studies
Non STEMI
Hx of Chronic HFmrEF
CAD with history of stenting
- unclear if type [address]
- continue ASA rectally/Statin
- Echo: Moderately reduced left ventricular systolic function. Left ventricular ejection fraction is 30-35%%. Wall motion analysis is limited by the image quality. Aortic sclerosis without stenosis.
- CBC cards following
-ASA
-Hold BB and ACEi due to shock
Hep ggt
#Aflutter/SVT
-Amio - dc as per cards
-f/u cards recs
Former smoker:
- smoked for 51 years, quit in August
Type 2 DM
Vomiting, suspected gastroparesis
- continue critical care glycemic protocol
- hold Jardiance/Lantus/Metformin
-Adjust insulin as required
Metabolic acidosis - resolved
Hyponatremia -resolved
- improving with IVF
Elevated LFTS - likely from shock state
- improving
Acute GI bleeding from vomiting (possibly MWT)
- monitor Hb which is stable >12
DVT ppx: SC Heparin
Code: Full
Total critical care time 51 mins . Total critical care time documented does not include time spent on separately billed procedures or the services of residents, students, nurses or physician assistants. I personally saw and examined the patient. I
have reviewed all diagnostic interpretations and treatment plans as written. I was present for the mccauley portions of any procedures performed and the inclusive time noted in any critical care statement. Critical care time includes patient management
by me, time spent at the patients bedside, time to review lab and imaging results, discussing patient care, documentation in the medical record, and time spent with the family or caregiver.
Anticipated Discharge: > 48 hours
Subjective/Interval History
-
Date of Service: July 22, 2023
no changes
Objective Data
-
Labs:
Laboratory Results
07/22/23 07/22/23 07/22/23
03:14 07:16 14:15
WBC 15.6 H
Hgb 8.9 L
Hct 26.7 L
Plt Count 264
APTT 90.2 H Pending
Sodium 137
Potassium 4.2
Chloride 107
Carbon Dioxide 25
BUN 19 H
Creatinine 0.6
Glucose 102 H
Calcium 8.7
Total Bilirubin 0.5
AST 26
ALT 17
Alkaline Phosphatase 88
Vital Signs:
Vital Signs
Temp Pulse Resp BP Pulse Ox
100.3 F 73 14 101/60 100
07/22/23 11:01 07/22/23 11:00 07/22/23 11:00 07/22/23 11:00 07/22/23 11:49
I&O
07/21/23 07/22/23 07/23/23
06:59 06:59 06:59
Intake Total 1464.3 / 1515.3 1580.9 / 1630.1 346.0 / 346.0
Output Total 970 / 990 890 / 930 140 / 140
Balance 494.3 / 525.3 690.9 / 700.1 206.0 / 206.0
Review of Systems
-
History Source: Patient
All other systems: Not reviewed unless documented
Physical Exam
-
General: Intubated
HEENT: Oxygen (Intubated on MV)
Respiratory: Clear to Auscultation
Cardiac: Regular Rhythm, S1/S2 and Tachycardic; Negative Murmur
GI: Soft, Nontender and Nondistended
Musculoskeletal: No Edema
Neuro: Other (Not waking up off sedation); Negative Awake or Alert
Data Reviewed
-
Diagnostic Radiology: Image personally visualized and interpreted and Report Reviewed by me
Ultrasound: Image personally visualized and interpreted and Report Reviewed by me
MRI: Report Reviewed by me
Labs: Labs Reviewed by me
--- NOTE | 2023-07-22 14:09 | W.PN.UPDATE ---
Update Note
Progress Note Update
Conversation held with and daughter. Decision made to withdraw care. Comfort care order set as well as extubation ordered. Code status changed to DNR/DNI. All questions were answered. Emotional support was provided.
--- NOTE | 2023-07-22 14:44 | PTCARENOTE ---
Reviewed plan of care w/ family. Dilaudid and ativan IV given per MD orders. Will remove [place] and extubate pt to room air.
[2023-07-22] MEDS: DILAUDID 0.5 MG IV (14:45)
[2023-07-22] MEDS: NSS (PRESERVATIVE FREE) 0.5 ML IV ×2 (14:46→23:31)
[2023-07-22] MEDS: ATIVAN 1 MG IV ×2 (14:46→23:30)
--- NOTE | 2023-07-22 15:15 | RESPNOTE ---
1500- patient extubated for comfort measure, family present at the bedside
--- NOTE | 2023-07-22 16:35 | PTCARENOTE ---
[employer] field support representative (that was on site early today) notified that pt still had spontaneous respirations and a HR of 101. [facility] paperwork completed. Although pt could possibly qualify for donation....family denied all forms of donation while
field support representative was on site.
--- NOTE | 2023-07-22 18:00 | PTCARENOTE ---
Pt remains comfortable since extubation w/ family intermittently at bedside. Continual assessment of end of life symptoms...see intervention. Emotional support provided.
--- NOTE | 2023-07-22 19:07 | PTCARENOTE ---
Pt received at 19:00. Pt on comfort measures, appears comfortable. at bedside.
[2023-07-22] MEDS: MORPHINE SULFATE 2 MG IV (21:22)
[2023-07-23] MEDS: MORPHINE SULFATE 2 MG IV ×2 (00:29→00:43)
[2023-07-23] MEDS: ROBINUL 0.200000000000000011 MG IV (00:37)
--- NOTE | 2023-07-23 01:07 | W.PN.DEATH ---
Pronouncement of
-
Called to see patient to pronounce.
No spontaneous heart tones or respirations noted.
Patient not responsive to verbal stimuli.
Patient is pronounced .
Time of : 01:00
Date of : 07/23/23
Cause of : acute hypoxic hypercapnic respiratory failure, pneumonia
Family Notified: Yes ( Lucian at bedside at time of )
== END 2023-07-23 01:07 | disposition expired | DRG 207 ==
LOC: ICU 01:42
PROVIDERS: Hospitalist; Internal Medicine; Internal Medicine Cardiovascular Disease; Internal Medicine Critical Care Medicine; Nurse Practitioner; Nurse Practitioner Family; Nurse Practitioner Primary Care; ADMITTING PHYSICIAN Internal Medicine; ATTENDING PHYSICIAN Internal Medicine; CONSULT PHYSICIAN Internal Medicine Gastroenterology; CONSULT PHYSICIAN Internal Medicine Infectious Disease; CONSULT PHYSICIAN Internal Medicine Pulmonary Disease; CONSULT PHYSICIAN Student in an Organized Health Care Education/Training Program; EMERGENCY PHYSICIAN Emergency Medicine; OTHER PHYSICIAN Internal Medicine Cardiovascular Disease
PROC: 03HY32Z Insertion of Monitoring Device into Upper Artery, Percutaneous Approach (ICD-10-PCS; 2023-07-10)
PROC: 5A1955Z Respiratory Ventilation, Greater than 96 Consecutive Hours (ICD-10-PCS; 2023-07-10)
PROC: 02HV33Z Insertion of Infusion Device into Superior Vena Cava, Percutaneous Approach (ICD-10-PCS; 2023-07-11)
PROC: 0BH17EZ Insertion of Endotracheal Airway into Trachea, Via Natural or Artificial Opening (ICD-10-PCS; 2023-07-19)
PROC: 5A09357 Assistance with Respiratory Ventilation, Less than 24 Consecutive Hours, Continuous Positive Airway Pressure (ICD-10-PCS; 2023-07-19)
DX: J44.1 Chronic obstructive pulmonary disease with (acute) exacerbation (principal); J96.01 Acute respiratory failure with hypoxia; I50.23 Acute on chronic systolic (congestive) heart failure; J69.0 Pneumonitis due to inhalation of food and vomit; A41.9 Sepsis, unspecified organism; R65.21 Severe sepsis with septic shock; I21.4 Non-ST elevation (NSTEMI) myocardial infarction; G93.41 Metabolic encephalopathy; J96.02 Acute respiratory failure with hypercapnia; E87.20 Acidosis, unspecified; I42.9 Cardiomyopathy, unspecified; G93.1 Anoxic brain damage, not elsewhere classified; I48.92 Unspecified atrial flutter; E87.1 Hypo-osmolality and hyponatremia; Z66 Do not resuscitate; Z51.5 Encounter for palliative care; E11.9 Type 2 diabetes mellitus without complications; F17.210 Nicotine dependence, cigarettes, uncomplicated; I11.0 Hypertensive heart disease with heart failure; I25.10 Atherosclerotic heart disease of native coronary artery without angina pectoris; I27.20 Pulmonary hypertension, unspecified; I46.8 Cardiac arrest due to other underlying condition; I08.1 Rheumatic disorders of both mitral and tricuspid valves; R31.29 Other microscopic hematuria; I25.2 Old myocardial infarction; Z11.52 Encounter for screening for COVID-19; Z59.7 Insufficient social insurance and welfare support; Z79.4 Long term (current) use of insulin; Z79.82 Long term (current) use of aspirin; Z79.899 Other long term (current) drug therapy; Z86.73 Personal history of transient ischemic attack (TIA), and cerebral infarction without residual deficits; Z88.0 Allergy status to penicillin; Z91.190 Patient's noncompliance with other medical treatment and regimen due to financial hardship; Z95.5 Presence of coronary angioplasty implant and graft
CPT/HCPCS: 36600; 51702; 70450; 70551; 71045; 74018; 80048; 80053; 80306; 80307; 81003; 81015; 82248; 82330; 82805; 82962; 83036; 83735; 83880; 84100; 84132; 84145; 84302; 84443; 84478; 84484; 85025; 85027; 85610; 85730; 87040; 87070; 87086; 87205; 87502; 87641; 87811; 93005; 93306; 93970; 94002; 94003; 94640; 95816; 96361; 96374; 96375; 99291; Q9950